=== PATIENT | male | born 1960 | race Two or more races ===

== ENCOUNTER 2024-02-01 11:24 | Emergency (ER) | payer SELFPAY ==
[~2024-02-01] VITALS: Ht 167.6 cm; Wt 90.9 kg
[2024-02-01 11:44] LABS: Basophils # (auto) 0.2 10 ^3/uL (0-0.2); Basophils % (auto) 2.7 % (0.0-2.0); Eosinophils # (auto) 0.4 10 ^3/uL (0-0.8); Hematocrit 35.5 % (41.0-53.0); Hemoglobin 12.3 g/dL (13.5-17.5); Lymphocytes # (auto) 1.8 10 ^3/uL (0.4-5.4); Lymphocytes % (auto) 24.4 % (10.0-50.0); Mean Corpuscular Hgb Conc. 34.7 g/dL (32.0-36.0); Monocytes # (auto) 0.5 10 ^3/uL (0-1.3); Monocytes % (auto) 7.1 % (0.0-12.0); Neutrophils # (auto) 4.6 10 ^3/uL (1.6-8.6); Neutrophils % (auto) 60.8 % (37.0-80.0); Nucleated Red Blood Cells % 0.1 %; Red Blood Cells 3.63 10^6/uL (4.5-5.90); Red Cell Distribution Width 16.7 % (11.8-14.3); White Blood Cell 7.5 10^3/uL (4.4-10.8)
[2024-02-01 12:07] LABS: Chloride 106 mmol/L (98-107); Potassium 3.7 mmol/L (3.5-5.1); Sodium 142 mmol/L (136-145)
[2024-02-01] MEDS: SODIUM CHLORIDE 0.9% 1,000 ML IV ONE (12:07)
[2024-02-01 12:08] LABS: Anion Gap 7 (5-15); Carbon Dioxide 29 mmol/L (20-30)
[2024-02-01 12:09] LABS: Calcium 8.8 mg/dL (8.5-10.1)
[2024-02-01] MEDS: SODIUM CHLORIDE 0.9% 2,000 ML IV ONE (12:09)
[2024-02-01] MEDS: LORazepam 2MG/ML-1ML VIAL IV ONE (12:10)
[2024-02-01 12:13] LABS: BUN/Creatinine Ratio 9.8 (10.0-20.0); Blood Urea Nitrogen 8 mg/dL (9-23); Glucose 98 mg/dL (74-106)
[2024-02-01 12:23] LABS: Blood Alcohol 358.1 mg/dL (<10)
[2024-02-01 12:27] LABS: Urine Bacteria FEW /hpf (None Seen); Urine Blood Negative /uL (Negative); Urine Clarity Clear (Clear); Urine Protein, UAD Negative (Negative); Urine Specific Gravity 1.004 (1.001-1.035); Urine Urobilinogen Normal (Negative); Urine WBC <1 /hpf (0 - 3); Urine pH 6.5 (5.0-9.0)
[2024-02-01 12:38] LABS: Urine Color Light Yellow (Yellow)
[2024-02-01 13:44] VITALS: BP 135/84; PULSE 86; RESP 16; O2SAT 94
== END 2024-02-01 15:23 | disposition home or self-care (01) ==
LOC: EDBD 11:24 → ER 11:24
DX: F10.129 Alcohol abuse with intoxication, unspecified (principal); Y90.0 Blood alcohol level of less than 20 mg/100 ml
CPT/HCPCS: 36415; 80048; 80320; 81001; 85025; 93005; 96361; 96374; 99284; J2060; J7030

== ENCOUNTER 2024-02-11 09:16 | Inpatient (IN) | payer MEDICAID ==
[~2024-02-11] VITALS: Ht 165.1 cm; Wt 88.1 kg
[2024-02-11 09:20] VITALS: PULSE 109; RESP 32; O2SAT 90
[2024-02-11] MEDS: LORazepam 2MG/ML-1ML VIAL IV ONE (09:45)
[2024-02-11] MEDS: THIAMINE 100mg/ml INJ (200mg/2ml VIAL) IV ONE (09:45)
[2024-02-11] MEDS: SODIUM CHLORIDE 0.9% 1,000 ML IVB ONE (09:46)
[2024-02-11] MEDS: ACETAMINOPHEN 500 MG TAB PO ONE (09:46)
[2024-02-11 09:51] LABS: Basophils # (auto) 0.1 10 ^3/uL (0-0.2); Eosinophils # (auto) 0 10 ^3/uL (0-0.8); Eosinophils % (auto) 0.2 % (0.0-7.0); Hemoglobin 13.4 g/dL (13.5-17.5); Lymphocytes # (auto) 0.7 10 ^3/uL (0.4-5.4); White Blood Cell 10.1 10^3/uL (4.4-10.8)
[2024-02-11 09:52] LABS: Basophils % (auto) 0.7 % (0.0-2.0); Hematocrit 38.7 % (41.0-53.0); Lymphocytes % (auto) 7.1 % (10.0-50.0); Mean Corpuscular Hemoglobin 34.4 pg (28.0-32.0); Mean Corpuscular Hgb Conc. 34.6 g/dL (32.0-36.0); Mean Corpuscular Volume 99.2 fL (80.0-100.0); Monocytes # (auto) 1.4 10 ^3/uL (0-1.3); Monocytes % (auto) 13.5 % (0.0-12.0); Neutrophils # (auto) 7.9 10 ^3/uL (1.6-8.6); Neutrophils % (auto) 78.5 % (37.0-80.0); Red Cell Distribution Width 17.4 % (11.8-14.3)
[2024-02-11 10:10] LABS: Alanine Aminotransferase 17 U/L (7-40); Albumin 4.1 g/dL (3.2-4.8); Alkaline Phosphatase 159 U/L (46-116); Anion Gap 13 (5-15); Aspartate Aminotransferase 32 U/L (13-40); BUN/Creatinine Ratio 10.3 (10.0-20.0); Blood Alcohol 196.6 mg/dL (<10); Blood Urea Nitrogen 8 mg/dL (9-23); Calcium 8.7 mg/dL (8.5-10.1); Carbon Dioxide 22 mmol/L (20-30); Chloride 103 mmol/L (98-107); Glucose 122 mg/dL (74-106); Potassium 3.1 mmol/L (3.5-5.1); Sodium 138 mmol/L (136-145)
[2024-02-11 10:11] LABS: Bilirubin, Total 1.4 mg/dL (0.2-1.0); Total Protein 7.3 g/dL (5.7-8.2)
[2024-02-11] MEDS: SODIUM CHLORIDE 0.9% 1,000 ML IV ONE (10:50)
[2024-02-11 10:53] LABS: Lactic Acid w/Reflex 2.7 mmol/L (0.4-2.0)
[2024-02-11 11:32] LABS: Urine Bacteria FEW /hpf (None Seen); Urine Blood 2+ /uL (Negative); Urine Clarity Turbid (Clear); Urine Color Yellow (Yellow); Urine Mucus FEW (None Seen); Urine Protein, UAD 2+ (Negative); Urine Specific Gravity 1.018 (1.001-1.035); Urine Urobilinogen 2 mg/dL (Negative); Urine WBC 777 /hpf (0 - 3); Urine WBC Clumps PRESENT /hpf (None Seen)
[2024-02-11 11:46] LABS: Amphetamine Screen, Urine Neg (NEGATIVE)
[2024-02-11 11:47] LABS: Barbiturate Scree,Urine Neg (NEGATIVE); Benzodiazephine Screen, Urine Pos (NEGATIVE); Cannabinoid Screen, Urine Neg (NEGATIVE); Cocaine Screen, Urine Neg (NEGATIVE); Opiate Scree,Urine Neg (NEGATIVE); Phencyclidine Screen, Urine Neg (NEGATIVE)
[2024-02-11] MEDS ORDERED: NITROGLYCERIN 0.4 MG SL TAB SL PRN (13:30)
[2024-02-11] MEDS ORDERED: DOCUSATE SOD 100 MG CAP PO PRN (13:30)
[2024-02-11] MEDS ORDERED: MORPHINE SULFATE INJ 2 MG/ml SYRG IV PRN (13:30)
[2024-02-11] MEDS: cefTRIAXone 1GM/50ML D5W 50 ML IV ONE (13:42)
[2024-02-11] MEDS: chlordiazePOXIDE HCL 25 MG CAP PO SCH (13:44)
[2024-02-11] MEDS: LORazepam 2MG/ML-1ML VIAL IV PRN ×2 (15:05→22:34)
[2024-02-11] MEDS: ONDANSETRON HCL 4 MG/2 ML VIAL IV PRN (15:06)
[2024-02-11] MEDS: LORazepam 2MG/ML-1ML VIAL IV SCH (15:28)
[2024-02-11 20:00] VITALS: PULSE 105; RESP 21; O2SAT 93
[2024-02-11] MEDS: FOLIC ACID 1 MG, MULTIPLE VITAMIN 10 ML, MAGNESIUM SULF SDV 50% 8 MEQ, THIAMINE INJ 100... INJ SCH (20:44)
[2024-02-11] MEDS: MAGNESIUM SULFATE 1GM/100ML 100 ML IV SCH (21:06)
[2024-02-12 03:03] VITALS: O2SAT 93
[2024-02-12 05:07] LABS: Basophils # (auto) 0.1 10 ^3/uL (0-0.2); Basophils % (auto) 0.6 % (0.0-2.0); Eosinophils # (auto) 0.1 10 ^3/uL (0-0.8); Hemoglobin 12.2 g/dL (13.5-17.5); Monocytes # (auto) 1.2 10 ^3/uL (0-1.3)
[2024-02-12 05:08] LABS: Eosinophils % (auto) 0.7 % (0.0-7.0); Hematocrit 34.7 % (41.0-53.0); Lymphocytes # (auto) 0.7 10 ^3/uL (0.4-5.4); Lymphocytes % (auto) 6.3 % (10.0-50.0); Mean Corpuscular Hemoglobin 35.1 pg (28.0-32.0); Mean Corpuscular Hgb Conc. 35.1 g/dL (32.0-36.0); Mean Corpuscular Volume 100.1 fL (80.0-100.0); Monocytes % (auto) 10.6 % (0.0-12.0); Neutrophils % (auto) 81.8 % (37.0-80.0); Red Blood Cells 3.46 10^6/uL (4.5-5.90); Red Cell Distribution Width 17.7 % (11.8-14.3)
[2024-02-12 05:20] LABS: Alanine Aminotransferase 15 U/L (7-40); Alkaline Phosphatase 128 U/L (46-116); Anion Gap 5 (5-15); Aspartate Aminotransferase 40 U/L (13-40); BUN/Creatinine Ratio 15.9 (10.0-20.0); Blood Urea Nitrogen 13 mg/dL (9-23); Calcium 8.1 mg/dL (8.5-10.1); Carbon Dioxide 27 mmol/L (20-30); Chloride 102 mmol/L (98-107); Glucose 144 mg/dL (74-106); Magnesium 2.1 mg/dL (1.6-2.6); Sodium 134 mmol/L (136-145)
[2024-02-12 05:21] LABS: Albumin 3.5 g/dL (3.2-4.8); Bilirubin, Total 1.7 mg/dL (0.2-1.0); Total Protein 6.1 g/dL (5.7-8.2)
[2024-02-12 08:00] VITALS: PULSE 90; RESP 29; O2SAT 97
[2024-02-12] MEDS: cefTRIAXone 1GM/50ML D5W 50 ML IV SCH (09:00)
[2024-02-12] MEDS: chlordiazePOXIDE HCL 25 MG CAP PO SCH (10:04)
[2024-02-12] MEDS: ACETAMINOPHEN 325 MG TAB PO PRN (13:46)
[2024-02-12 18:58] VITALS: BP 150/84; PULSE 95; RESP 20; TEMP 100.2; O2SAT 95
[2024-02-12 20:30] VITALS: PULSE 93; PULSE 95; RESP 22; O2SAT 95
[2024-02-12] MEDS: HYDROcodone-ACET 5/325MG TAB PO PRN (20:39)
[2024-02-12 21:00] VITALS: BP 146/86; PULSE 95; RESP 22; O2SAT 95
[2024-02-13] VITALS (8 sets, daily range): BP systolic 105–145; BP diastolic 60–80; PULSE 78–93; RESP 17–22; TEMP 98.4–101.1; O2SAT 90–96
[2024-02-13 06:18] LABS: Basophils # (auto) 0 10 ^3/uL (0-0.2); Eosinophils # (auto) 0.2 10 ^3/uL (0-0.8); Hemoglobin 12.4 g/dL (13.5-17.5); Mean Corpuscular Hgb Conc. 35.4 g/dL (32.0-36.0); White Blood Cell 8.5 10^3/uL (4.4-10.8)
[2024-02-13 06:20] LABS: Basophils % (auto) 0.4 % (0.0-2.0); Lymphocytes # (auto) 0.7 10 ^3/uL (0.4-5.4); Mean Corpuscular Hemoglobin 35.5 pg (28.0-32.0); Mean Corpuscular Volume 100.1 fL (80.0-100.0); Monocytes % (auto) 11.6 % (0.0-12.0); Neutrophils # (auto) 6.6 10 ^3/uL (1.6-8.6); Red Blood Cells 3.49 10^6/uL (4.5-5.90); Red Cell Distribution Width 17.2 % (11.8-14.3)
[2024-02-13 06:29] LABS: Chloride 100 mmol/L (98-107); Potassium 3.8 mmol/L (3.5-5.1); Sodium 132 mmol/L (136-145)
[2024-02-13 06:30] LABS: Anion Gap 4 (5-15); Calcium 8.6 mg/dL (8.7-10.4); Carbon Dioxide 28 mmol/L (20-30)
[2024-02-13 06:35] LABS: BUN/Creatinine Ratio 14.8 (10.0-20.0); Blood Urea Nitrogen 13 mg/dL (9-23); Glucose 92 mg/dL (74-106)
[2024-02-13] MEDS: chlordiazePOXIDE HCL 25 MG CAP PO SCH (08:53)
[2024-02-14 01:00] VITALS: BP 117/80; PULSE 73; RESP 18; TEMP 98.5; O2SAT 94
[2024-02-14 05:00] VITALS: BP 126/80; PULSE 81; RESP 17; TEMP 98.8; O2SAT 95
[2024-02-14 05:59] LABS: Basophils # (auto) 0 10 ^3/uL (0-0.2); Eosinophils # (auto) 0.2 10 ^3/uL (0-0.8); Lymphocytes # (auto) 0.7 10 ^3/uL (0.4-5.4); Mean Corpuscular Hemoglobin 35.5 pg (28.0-32.0); Monocytes # (auto) 1.1 10 ^3/uL (0-1.3); Neutrophils # (auto) 5.3 10 ^3/uL (1.6-8.6); Nucleated Red Blood Cells % 0.1 %; White Blood Cell 7.4 10^3/uL (4.4-10.8)
[2024-02-14 06:02] LABS: Basophils % (auto) 0.4 % (0.0-2.0); Eosinophils % (auto) 2.7 % (0.0-7.0); Hematocrit 35.1 % (41.0-53.0); Hemoglobin 12.4 g/dL (13.5-17.5); Lymphocytes % (auto) 9.8 % (10.0-50.0); Mean Corpuscular Hgb Conc. 35.4 g/dL (32.0-36.0); Mean Corpuscular Volume 100.2 fL (80.0-100.0); Monocytes % (auto) 15.2 % (0.0-12.0); Neutrophils % (auto) 71.9 % (37.0-80.0); Red Cell Distribution Width 17.2 % (11.8-14.3)
[2024-02-14 06:15] LABS: Anion Gap 6 (5-15); Calcium 8.8 mg/dL (8.5-10.1); Carbon Dioxide 25 mmol/L (20-30); Chloride 103 mmol/L (98-107); Potassium 3.8 mmol/L (3.5-5.1); Sodium 134 mmol/L (136-145)
[2024-02-14 06:21] LABS: BUN/Creatinine Ratio 17.9 (10.0-20.0); Blood Urea Nitrogen 15 mg/dL (9-23); Glucose 95 mg/dL (74-106)
[2024-02-14] MEDS: chlordiazePOXIDE HCL 25 MG CAP PO SCH (06:22)
[2024-02-14 08:00] VITALS: PULSE 75; PULSE 95; RESP 20; O2SAT 94
[2024-02-14 09:00] VITALS: BP 166/90; PULSE 76; RESP 18; TEMP 98.1; O2SAT 97
[2024-02-14 13:00] VITALS: BP 128/84; PULSE 78; RESP 16; TEMP 98.1; O2SAT 96
== END 2024-02-14 16:18 | disposition home or self-care (01) | DRG 720 ==
LOC: ER 09:16 → EDBD 09:16 → TELE 13:27 → TELE-CENTR 02-12 18:30
PROVIDERS: ADMIT Internal Medicine Pulmonary Disease; ATTEND Internal Medicine Pulmonary Disease
DX: A41.9 Sepsis, unspecified organism (principal); G92.8 Other toxic encephalopathy; T51.91XA Toxic effect of unspecified alcohol, accidental (unintentional), initial encounter; N39.0 Urinary tract infection, site not specified; Y90.9 Presence of alcohol in blood, level not specified; F10.139 Alcohol abuse with withdrawal, unspecified; Z59.00 Homelessness unspecified
CPT/HCPCS: 36415; 71045; 76705; 80048; 80053; 80307; 80320; 81001; 83605; 83690; 83735; 84484; 85025; 87040; 87081; 87086; 93005; G0378; J2405

== ENCOUNTER 2024-05-06 07:02 | Inpatient (IN) | payer MEDICAID ==
[~2024-05-06] VITALS: Ht 172.7 cm; Wt 80.4 kg
[2024-05-06] MEDS: chlordiazePOXIDE HCL 25 MG CAP PO ONE (08:08)
[2024-05-06 08:31] LABS: Basophils % (auto) 0.3 % (0.0-2.0); Eosinophils # (auto) 0 10 ^3/uL (0-0.8); Hemoglobin 14.9 g/dL (13.5-17.5); Monocytes # (auto) 1.4 10 ^3/uL (0-1.3); Neutrophils % (auto) 85.7 % (37.0-80.0); Nucleated Red Blood Cells % 0.1 %; Red Cell Distribution Width 19.9 % (11.8-14.3)
[2024-05-06 08:37] LABS: Basophils # (auto) 0 10 ^3/uL (0-0.2); Hematocrit 42.6 % (41.0-53.0); Lymphocytes # (auto) 0.7 10 ^3/uL (0.4-5.4); Lymphocytes % (auto) 4.8 % (10.0-50.0); Mean Corpuscular Hemoglobin 39.7 pg (28.0-32.0); Mean Corpuscular Hgb Conc. 34.9 g/dL (32.0-36.0); Mean Corpuscular Volume 113.9 fL (80.0-100.0); Monocytes % (auto) 9.2 % (0.0-12.0); Neutrophils # (auto) 12.6 10 ^3/uL (1.6-8.6); Platelet Count (auto) 106 10^3/uL (140-450); Red Blood Cells 3.74 10^6/uL (4.5-5.90); White Blood Cell 14.7 10^3/uL (4.4-10.8)
[2024-05-06 08:51] LABS: Alanine Aminotransferase 37 U/L (7-40); Albumin 4.7 g/dL (3.2-4.8); Alkaline Phosphatase 139 U/L (46-116); Anion Gap 19 (5-15); Aspartate Aminotransferase 123 U/L (13-40); BUN/Creatinine Ratio 13.5 (10.0-20.0); Blood Alcohol 52.3 mg/dL (<10); Blood Urea Nitrogen 19 mg/dL (9-23); Calcium 9.6 mg/dL (8.7-10.4); Carbon Dioxide 18 mmol/L (20-30); Chloride 98 mmol/L (98-107); Glucose 125 mg/dL (74-106); Potassium 3.3 mmol/L (3.5-5.1); Sodium 135 mmol/L (136-145)
[2024-05-06 08:52] LABS: Bilirubin, Total 2.9 mg/dL (0.2-1.0); Total Protein 8.5 g/dL (5.7-8.2)
[2024-05-06 09:03] LABS: Macrocytosis Slight; Platelet Estimate Decreased
[2024-05-06] MEDS: POTASSIUM EFFERVESENT TAB 25 MEQ PO ONE ×2 (10:57→17:46)
[2024-05-06] MEDS: LORazepam 2MG/ML-1ML VIAL IV ONE ×2 (11:01→15:16)
[2024-05-06] MEDS: SODIUM CHLORIDE 0.9% 1,000 ML IV ONE ×2 (11:03→13:03)
[2024-05-06] MEDS ORDERED: LORazepam 2MG/ML-1ML VIAL IV SCH ×2 (15:15)
[2024-05-06] MEDS ORDERED: HYDROmorphone HCL 2 MG/ML VL/or syr IV PRN (15:15)
[2024-05-06] MEDS: LACTATED RINGER'S 1,000 ML IV ONE ×2 (15:15→21:00)
[2024-05-06] MEDS ORDERED: DOCUSATE SOD 100 MG CAP PO PRN (15:15)
[2024-05-06] MEDS ORDERED: FLUMAZENIL 0.1 MG/ML INJ 10ML MDV IV PRN (15:30)
[2024-05-06] MEDS: PHENobarbital SODIUM INJ 260 MG in SODIUM CHL 0.9% 100 ML IV ONE (15:31)
[2024-05-06 16:16] LABS: Urine Bacteria FEW /hpf (None Seen); Urine Blood 2+ /uL (Negative); Urine Budding Yeast OCCASIONAL /hpf (None Seen); Urine Mucus FEW (None Seen); Urine Protein, UAD 3+ (Negative); Urine Specific Gravity 1.027 (1.001-1.035); Urine Urobilinogen 2 mg/dL (Negative); Urine WBC 11 /hpf (0 - 3)
[2024-05-06 16:18] LABS: Urine Clarity Hazy (Clear); Urine Color YELLOW (Yellow)
[2024-05-06 17:20] VITALS: PULSE 112; RESP 30; O2SAT 95
[2024-05-06] MEDS: LACTATED RINGER'S 2,000 ML IV ONE (17:36)
[2024-05-06 18:45] LABS: Chloride 100 mmol/L (98-107); Potassium 3.8 mmol/L (3.5-5.1); Sodium 133 mmol/L (136-145)
[2024-05-06 18:46] LABS: Anion Gap 10 (5-15); Calcium 8.4 mg/dL (8.7-10.4); Carbon Dioxide 23 mmol/L (20-30)
[2024-05-06 18:51] LABS: BUN/Creatinine Ratio 12.2 (10.0-20.0); Blood Urea Nitrogen 19 mg/dL (9-23); Glucose 118 mg/dL (74-106); Magnesium 1.2 mg/dL (1.6-2.6)
[2024-05-06 19:04] LABS: Lactic Acid w/Reflex 2.9 mmol/L (0.4-2.0)
[2024-05-06 19:50] VITALS: PULSE 97; RESP 24; O2SAT 94
[2024-05-06] MEDS: MAGNESIUM SULFATE 1GM/100ML 100 ML IV SCH (21:13)
[2024-05-06] MEDS: SODIUM CHLOR 0.9% PF (SALINE LOCK) 10ML VIAL/SYR IV SCH (22:05)
[2024-05-07] VITALS (11 sets, daily range): BP systolic 125–151; BP diastolic 83–90; PULSE 88–110; RESP 17–20; TEMP 97.7–99.7; O2SAT 91–97
[2024-05-07 05:27] LABS: Basophils # (auto) 0 10 ^3/uL (0-0.2); Eosinophils # (auto) 0 10 ^3/uL (0-0.8); Lymphocytes # (auto) 0.6 10 ^3/uL (0.4-5.4); Mean Corpuscular Hgb Conc. 36.3 g/dL (32.0-36.0); Monocytes # (auto) 0.5 10 ^3/uL (0-1.3)
[2024-05-07 05:34] LABS: Basophils % (auto) 0.6 % (0.0-2.0); Eosinophils % (auto) 0.6 % (0.0-7.0); Hematocrit 30.5 % (41.0-53.0); Hemoglobin 11.1 g/dL (13.5-17.5); Lymphocytes % (auto) 8.6 % (10.0-50.0); Mean Corpuscular Hemoglobin 40.5 pg (28.0-32.0); Mean Corpuscular Volume 111.5 fL (80.0-100.0); Monocytes % (auto) 6.6 % (0.0-12.0); Neutrophils # (auto) 5.9 10 ^3/uL (1.6-8.6); Neutrophils % (auto) 83.6 % (37.0-80.0); Red Blood Cells 2.74 10^6/uL (4.5-5.90); Red Cell Distribution Width 18.9 % (11.8-14.3)
[2024-05-07 05:44] LABS: Alanine Aminotransferase 21 U/L (7-40); Alkaline Phosphatase 96 U/L (46-116); Anion Gap 8 (5-15); BUN/Creatinine Ratio 22.4 (10.0-20.0); Blood Urea Nitrogen 22 mg/dL (9-23); Calcium 8.5 mg/dL (8.7-10.4); Carbon Dioxide 25 mmol/L (20-30); Chloride 100 mmol/L (98-107); Glucose 117 mg/dL (74-106); Magnesium 1.8 mg/dL (1.6-2.6); Potassium 3.5 mmol/L (3.5-5.1); Sodium 133 mmol/L (136-145)
[2024-05-07 05:46] LABS: Albumin 3.5 g/dL (3.2-4.8); Aspartate Aminotransferase 79 U/L (13-40); Bilirubin, Total 2.6 mg/dL (0.2-1.0); Total Protein 6.2 g/dL (5.7-8.2)
[2024-05-07 07:05] LABS: Macrocytosis Moderate; Platelet Count (auto) 123 10^3/uL (140-450); Platelet Estimate Decreased; Stomatocytes Many
[2024-05-07 09:52] LABS: Triglycerides 85 mg/dL (< 150)
[2024-05-07 09:53] LABS: LDL Cholesterol 52 mg/dL (< 100)
[2024-05-07 09:54] LABS: Cholesterol 125 mg/dL (< 200); HDL Cholesterol 51 mg/dL (40-59)
[2024-05-07] MEDS ORDERED: PANTOPRAZOLE 40 MG/10 ML VIAL INJ IV SCH (10:00)
[2024-05-07] MEDS: ENOXAPARIN SOD 40 MG/0.4 ML SYRINGE SC SCH (10:21)
[2024-05-07] MEDS: ONDANSETRON HCL 4 MG/2 ML VIAL IV PRN (10:21)
[2024-05-07] MEDS: POTASSIUM CHL 20 Meq TABLET PO ONE (10:22)
[2024-05-07] MEDS: FOLIC ACID 1 MG TAB PO SCH (10:22)
[2024-05-07] MEDS: MAGNESIUM SULFATE 1GM/100ML 100 ML IV ONE (10:22)
[2024-05-07] MEDS: HYDROcodone-ACET 5/325MG TAB PO PRN (10:23)
[2024-05-07] MEDS: THIAMINE HCL 100 MG TAB PO SCH (10:23)
[2024-05-07 10:32] LABS: Amphetamine Screen, Urine Pos (NEGATIVE); Barbiturate Scree,Urine Neg (NEGATIVE); Benzodiazephine Screen, Urine Pos (NEGATIVE); Cocaine Screen, Urine Neg (NEGATIVE)
[2024-05-07 10:33] LABS: Cannabinoid Screen, Urine Neg (NEGATIVE); Opiate Scree,Urine Neg (NEGATIVE); Phencyclidine Screen, Urine Neg (NEGATIVE)
[2024-05-07] MEDS ORDERED: SODIUM CHLORIDE 0.9% 1,000 ML IV ONE (12:30)
[2024-05-07] MEDS ORDERED: chlordiazePOXIDE HCL 5 MG CAP PO PRN (14:45)
[2024-05-07] MEDS: chlordiazePOXIDE HCL 25 MG CAP PO SCH (18:39)
[2024-05-08] VITALS (9 sets, daily range): BP systolic 144–162; BP diastolic 92–103; PULSE 84–108; RESP 16–20; TEMP 98.3–99.2; O2SAT 92–98
[2024-05-08] MEDS: cefTRIAXone 1GM/50ML D5W 50 ML IV SCH (08:06)
[2024-05-08 10:59] LABS: Eosinophils # (auto) 0.1 10 ^3/uL (0-0.8); Lymphocytes # (auto) 0.7 10 ^3/uL (0.4-5.4)
[2024-05-08 11:01] LABS: Basophils # (auto) 0.1 10 ^3/uL (0-0.2); Basophils % (auto) 0.9 % (0.0-2.0); Eosinophils % (auto) 2.1 % (0.0-7.0); Hematocrit 30.8 % (41.0-53.0); Hemoglobin 11.2 g/dL (13.5-17.5); Lymphocytes % (auto) 12.8 % (10.0-50.0); Mean Corpuscular Hemoglobin 40.8 pg (28.0-32.0); Mean Corpuscular Hgb Conc. 36.4 g/dL (32.0-36.0); Mean Corpuscular Volume 112.3 fL (80.0-100.0); Monocytes # (auto) 0.5 10 ^3/uL (0-1.3); Monocytes % (auto) 9.2 % (0.0-12.0); Neutrophils # (auto) 4.3 10 ^3/uL (1.6-8.6); Nucleated Red Blood Cells % 0.1 %; Platelet Count (auto) 111 10^3/uL (140-450); Red Blood Cells 2.74 10^6/uL (4.5-5.90); White Blood Cell 5.7 10^3/uL (4.4-10.8)
[2024-05-08] MEDS: ACETAMINOPHEN 325 MG TAB PO PRN (11:06)
[2024-05-08 11:30] LABS: Alanine Aminotransferase 19 U/L (7-40); Albumin 3.5 g/dL (3.2-4.8); Alkaline Phosphatase 100 U/L (46-116); Anion Gap 6 (5-15); Aspartate Aminotransferase 68 U/L (13-40); BUN/Creatinine Ratio 19.7 (10.0-20.0); Blood Urea Nitrogen 15 mg/dL (9-23); Calcium 8.7 mg/dL (8.7-10.4); Carbon Dioxide 28 mmol/L (20-30); Chloride 98 mmol/L (98-107); Glucose 137 mg/dL (74-106); Magnesium 1.4 mg/dL (1.6-2.6); Potassium 3.8 mmol/L (3.5-5.1); Sodium 132 mmol/L (136-145)
[2024-05-08 11:31] LABS: Bilirubin, Total 1.2 mg/dL (0.2-1.0); Phosphorus 1.6 mg/dL (2.4-5.1); Total Protein 6.2 g/dL (5.7-8.2)
[2024-05-08] MEDS: SODIUM PHOSPHATES 20 MEQ in SODIUM CHL 0.9% 100 ML IV ONE (14:09)
[2024-05-08] MEDS: MAGNESIUM SULFATE 1GM/100ML 100 ML IV SCH (14:10)
[2024-05-08] MEDS: PANTOPRAZOLE 40 MG TAB PO ONE (14:17)
[2024-05-08] MEDS: FOLIC ACID 1 MG, MULTIPLE VITAMIN 10 ML, MAGNESIUM SULF SDV 50% 8 MEQ, THIAMINE INJ 100... INJ SCH (18:39)
[2024-05-08] MEDS: LORazepam 2MG/ML-1ML VIAL IV PRN (21:24)
[2024-05-09 05:00] VITALS: BP 151/102; PULSE 90; RESP 20; TEMP 98.4; O2SAT 95
[2024-05-09] MEDS: PANTOPRAZOLE 40 MG TAB PO SCH (05:20)
[2024-05-09 06:15] LABS: Basophils # (auto) 0 10 ^3/uL (0-0.2); Eosinophils # (auto) 0.2 10 ^3/uL (0-0.8); Eosinophils % (auto) 3.2 % (0.0-7.0); Hematocrit 32.2 % (41.0-53.0); Hemoglobin 11.6 g/dL (13.5-17.5); Lymphocytes # (auto) 0.8 10 ^3/uL (0.4-5.4); Lymphocytes % (auto) 16.5 % (10.0-50.0); Mean Corpuscular Hemoglobin 40.4 pg (28.0-32.0); Mean Corpuscular Hgb Conc. 35.9 g/dL (32.0-36.0); Mean Corpuscular Volume 112.5 fL (80.0-100.0); Monocytes # (auto) 0.5 10 ^3/uL (0-1.3); Monocytes % (auto) 10.5 % (0.0-12.0); Neutrophils # (auto) 3.5 10 ^3/uL (1.6-8.6); Neutrophils % (auto) 68.8 % (37.0-80.0); Nucleated Red Blood Cells % 0.2 %; Platelet Count (auto) 148 10^3/uL (140-450); Red Blood Cells 2.86 10^6/uL (4.5-5.90); Red Cell Distribution Width 17.8 % (11.8-14.3); White Blood Cell 5.1 10^3/uL (4.4-10.8)
[2024-05-09 06:22] LABS: Alanine Aminotransferase 19 U/L (7-40); Alkaline Phosphatase 109 U/L (46-116); Anion Gap 11 (5-15); BUN/Creatinine Ratio 14.5 (10.0-20.0); Blood Urea Nitrogen 9 mg/dL (9-23); Calcium 9.1 mg/dL (8.7-10.4); Carbon Dioxide 24 mmol/L (20-30); Chloride 96 mmol/L (98-107); Glucose 135 mg/dL (74-106); Magnesium 1.7 mg/dL (1.6-2.6); Potassium 3.3 mmol/L (3.5-5.1); Sodium 131 mmol/L (136-145)
[2024-05-09 06:23] LABS: Albumin 3.7 g/dL (3.2-4.8)
[2024-05-09 06:24] LABS: Aspartate Aminotransferase 56 U/L (13-40); Bilirubin, Total 1.1 mg/dL (0.2-1.0); Phosphorus 2.5 mg/dL (2.4-5.1); Total Protein 6.6 g/dL (5.7-8.2)
[2024-05-09] MEDS: CYANOCOBALAMIN (B-12) 1000 MCG/1 ML VIAL IM ONE (06:45)
[2024-05-09] MEDS: POTASSIUM EFFERVESENT TAB 25 MEQ GT ONE (06:45)
[2024-05-09] MEDS: MAGNESIUM SULFATE 1GM/100ML 100 ML IV ONE ×2 (07:29→13:20)
[2024-05-09] MEDS: ERGOCALCIFEROL 50,000 UNIT(1.25MG) CAP PO SCH (07:31)
[2024-05-09 09:00] VITALS: BP 143/103; PULSE 90; RESP 16; TEMP 98.7; O2SAT 95
[2024-05-09 13:00] VITALS: BP 143/91; PULSE 99; RESP 16; TEMP 97.7; O2SAT 95
[2024-05-09] MEDS ORDERED: GABA-1250 PO (13:09)
[2024-05-09] MEDS ORDERED: PANT40T PO (13:09)
[2024-05-09] MEDS ORDERED: ERGO1CAP23 PO (13:09)
[2024-05-09] MEDS ORDERED: ACET-1882 PO (13:09)
[2024-05-09] MEDS ORDERED: MULT1TAB96 PO (13:09)
[2024-05-09] MEDS: GABAPENTIN 300 MG CAP PO SCH (13:18)
[2024-05-09] MEDS: POTASSIUM CHL 20MEQ/100ML 100 ML IV SCH (13:19)
[2024-05-09] MEDS ORDERED: chlordiazePOXIDE HCL 25 MG CAP PO SCH (14:00)
[2024-05-09 17:00] VITALS: BP 116/86; PULSE 99; RESP 17; TEMP 98.2; O2SAT 96
[2024-05-09] MEDS: FOLIC ACID 1 MG TAB PO ONE (17:28)
[2024-05-09] MEDS: MAGNESIUM OXIDE 400 MG TAB PO ONE (17:29)
[2024-05-09] MEDS: MULTIPLE VITAMINS W/ MINERALS TAB PO ONE (17:29)
[2024-05-09] MEDS: THIAMINE HCL 100 MG TAB PO ONE (17:29)
[2024-05-09 20:00] VITALS: PULSE 108; RESP 20; O2SAT 95
[2024-05-09 21:00] VITALS: BP 142/102; PULSE 108; RESP 20; TEMP 97.9; O2SAT 95
[2024-05-10 01:00] VITALS: BP 132/56; PULSE 116; RESP 18; TEMP 98; O2SAT 94
[2024-05-10 05:00] VITALS: BP 139/98; PULSE 102; RESP 20; TEMP 97.8; O2SAT 94
[2024-05-10 07:05] LABS: Hemoglobin 11.4 g/dL (13.5-17.5); Mean Corpuscular Hemoglobin 39.8 pg (28.0-32.0); Mean Corpuscular Hgb Conc. 35.5 g/dL (32.0-36.0); Mean Corpuscular Volume 111.9 fL (80.0-100.0); Platelet Count (auto) 220 10^3/uL (140-450); Red Blood Cells 2.86 10^6/uL (4.5-5.90); Red Cell Distribution Width 17.6 % (11.8-14.3); White Blood Cell 5.4 10^3/uL (4.4-10.8)
[2024-05-10 07:16] LABS: Basophils % (manual) 0 (0.0-2.0); Blast Cells 0; Metamyelocytes % 0; Myelocytes % 0; Promyelocytes % 0; Reactive Lymphocytes 0
[2024-05-10 07:34] LABS: Alanine Aminotransferase 18 U/L (7-40); Albumin 3.7 g/dL (3.2-4.8); Alkaline Phosphatase 112 U/L (46-116); Anion Gap 9 (5-15); Aspartate Aminotransferase 49 U/L (13-40); BUN/Creatinine Ratio 18.4 (10.0-20.0); Blood Urea Nitrogen 14 mg/dL (9-23); Calcium 9.4 mg/dL (8.7-10.4); Carbon Dioxide 26 mmol/L (20-30); Chloride 99 mmol/L (98-107); Glucose 132 mg/dL (74-106); Magnesium 1.7 mg/dL (1.6-2.6); Sodium 134 mmol/L (136-145)
[2024-05-10 07:35] LABS: Bilirubin, Total 0.6 mg/dL (0.2-1.0); Total Protein 6.6 g/dL (5.7-8.2)
[2024-05-10 08:01] LABS: Band Neutrophils % (manual) 3
[2024-05-10 08:02] LABS: Eosinophils % (manual) 9 (0-7); Lymphocytes % (manual) 24 (10.0-50.0); Monocytes % (manual) 18 (0-12); Platelet Estimate Adequate; Stomatocytes Few
[2024-05-10 08:45] VITALS: BP 125/85; PULSE 89; RESP 20; TEMP 97.7; O2SAT 94
[2024-05-10] MEDS: FOLIC ACID 1 MG TAB PO SCH (09:02)
[2024-05-10] MEDS: THIAMINE HCL 100 MG TAB PO SCH (09:02)
[2024-05-10] MEDS: MAGNESIUM OXIDE 400 MG TAB PO SCH (09:03)
[2024-05-10] MEDS: MULTIPLE VITAMINS W/ MINERALS TAB PO SCH (09:03)
[2024-05-10 12:45] VITALS: BP 130/80; PULSE 97; RESP 20; TEMP 97.8; O2SAT 94
[2024-05-10 17:00] VITALS: BP 142/90; PULSE 95; RESP 18; TEMP 99.2; O2SAT 97
== END 2024-05-10 18:28 | disposition home or self-care (01) | DRG 52 ==
LOC: EDBD 07:02 → ER 07:02 → TELE 15:17 → UNDOADMIN 15:17 → TELE-CENTR 19:08 → CENTRAL 05-10 08:53
PROVIDERS: ADMIT Internal Medicine Pulmonary Disease; ATTEND Surgery
DX: G92.8 Other toxic encephalopathy (principal); J96.01 Acute respiratory failure with hypoxia; N17.0 Acute kidney failure with tubular necrosis; E87.20 Acidosis, unspecified; F10.139 Alcohol abuse with withdrawal, unspecified; K76.0 Fatty (change of) liver, not elsewhere classified; T42.4X5A Adverse effect of benzodiazepines, initial encounter; K21.9 Gastro-esophageal reflux disease without esophagitis; F15.10 Other stimulant abuse, uncomplicated; N39.0 Urinary tract infection, site not specified; Z59.00 Homelessness unspecified; Z83.3 Family history of diabetes mellitus; Z82.49 Family history of ischemic heart disease and other diseases of the circulatory system; Z79.1 Long term (current) use of non-steroidal anti-inflammatories (NSAID); Y92.89 Other specified places as the place of occurrence of the external cause; Y90.2 Blood alcohol level of 40-59 mg/100 ml
CPT/HCPCS: 36415; 70450; 71045; 76700; 76881; 80048; 80053; 80061; 80307; 80320; 81001; 82140; 82306; 82607; 83036; 83605; 83735; 83930; 84100; 85007; 85025; 85027; 87040; 96365; 96366; 96367; 96375; 96376; 97110; 97116; 97163; 97530; G0378; J2405; J3480

== ENCOUNTER 2024-07-27 16:59 | Emergency (ER) | payer MEDICAID ==
[~2024-07-27] VITALS: Ht 167.6 cm; Wt 92.0 kg
[~2024-07-27 16:59] MED LIST: ACET-1882 PO; ERGO1CAP23 PO; GABA-1250 PO; MULT1TAB96 PO; PANT40T PO
--- NOTE | 2024-07-27 17:26 | ED.PDOC ---
History of Present Illness HPI Comments 63-year-old male with no stated PMHx or PSHx brought in by EMS presents with a chief complaint of alcohol withdrawal x 10 minutes. Patient states that his last drink was 1 hour ago. Drank 5 pints as he always does daily, according to patient. Patient reports that he has shakes and needs Librium. Patient is not shaking or showing signs of tremors upon assessment. Patient is homeless. No other symptoms or modifying factors present at this time. Time Seen by MD: 17:11 Primary Care Provider: NONE Reviewed Notes: Nurses Notes, Medications, Allergies Allergies: Coded Allergies: NO KNOWN ALLERGIES (Unverified , 02/01/24) Home Meds Active Scripts Multiple Vitamins W/ Iron (Multi Vitamin with Iron) 1 Tab Tab, 1 TAB PO DAILY for 30 Days, #30 TAB Prov:FAUSTO LUNDBERG [facility] 05/09/24 Pantoprazole Sodium Sesquihydr (Pantoprazole Sodium) 40 Mg Tab, 40 MG PO DAILY@0600 for 30 Days, #30 TAB Prov:FAUSTO LUNDBERG [facility] 05/09/24 Gabapentin (Gabapentin) 300 Mg Cap, 300 MG PO TID for 30 Days, #120 CAP Prov:FAUSTO LUNDBERG [facility] 05/09/24 Ergocalciferol (VITAMIN D 68411 UNIT) 50,000 [place], [address] UNIT PO Q7D for 30 Days, #10 CAP Prov:FAUSTO LUNDBERG [facility] 05/09/24 Acetaminophen (Acetaminophen) 325 Mg Tab, 650 MG PO Q6HP PRN for 10 Days, #80 TAB Prov:FAUSTO LUNDBERG [facility] 05/09/24 Information Source: Patient Mode of Arrival: EMS Severity: Moderate Timing: Minutes Duration: Since onset Prehospital treatment: Treatment (4mg PO Zofran ) Past Medical History PAST MEDICAL HISTORY: Denies Surgical History: Denies all surgeries Family History Family History: Reviewed,noncontributory to illness, Unknown Social History Smoker: Non-Smoker Alcohol: Heavy Drugs: Denies Drug Use Lives In: Homeless Constitutional: denies: chills, diaphoresis, fatigue, fever, malaise, sweats, weakness, others EENTM: denies: blurred vision, double vision, ear bleeding, ear discharge, ear drainage, ear pain, ear ringing, eye pain, eye redness, hearing loss, mouth pain, mouth swelling, nasal discharge, nose bleeding, nose congestion, nose p ain, photophobia, tearing, throat pain, throat swelling, voice changes, others Respiratory: denies: cough, hemoptysis, orthopnea, SOB at rest, shortness of breath, SOB with excertion, stridor, wheezing, others Cardiovascular: denies: chest pain, dizzy spells, diaphoresis, Dyspnea on exertion, edema, irregular heart beat, left arm pain, lightheadedness, palpitations, PND, syncope, others Gastrointestinal: denies: abdomen distended, abdominal pain, blood streaked bowels, constipated, diarrhea, dysphagia, difficulty swallowing, hematemesis, melena, nausea, poor appetite, poor fluid intake, rectal bleeding, rectal pain, vomiting, others Genitourinary: denies: burning, dysuria, flank pain, frequency, hematuria, incontinence, penile discharge, penile sore, pain, testicle pain, testicle swelling, urgency, others Neurological: denies: dizziness, fainting, headache, left sided numbness, left sided weakness, numbness, paresthesia, pre-existing deficit, right sided numbness, right sided weakness, seizure, speech problems, tingling, tremors, weakness, others Musculoskeletal: denies: back pain, gout, joint pain, joint swelling, muscle pain, muscle stiffness, neck pain, others Integumetry: denies: bruises, change in color, change in hair/nails, dryness, laceration, lesions, lumps, rash, wounds, others Allergic/Immunocompromised: denies: Difficulty Healing, Frequent Infections, Hives, Itching, others Hematologic/Lymphatic: denies: anemia, blood clots, easy bleeding, easy bruising, swollen glands, others Endocrine: denies: excessive hunger, excessive sweating, excessive thirst, excessive urination, flushing, intolerance to cold, intolerance to heat, unexplained weight gain, unexplained weight loss, others Psychiatric: denies: anxiety, bipolar disorder, depression, hopeless, panic disorder, schizophrenia, sleepless, suicidal, others All Other Systems: Reviewed and Negative Physical Exam General Appearance: No Apparent Distress, Other (Alcohol on the breath) HEENT: Normal ENT Inspection, Pharynx Normal, TMs Normal Neck: Full Range of Motion, Non-Tender, Normal, Normal Inspection Respiratory: Chest Non-Tender, Lungs Clear, No Accessory Muscle Use, No Respiratory Distress, Normal Breath Sounds Cardiovascular: No Edema, No JVD, No Murmur, No Gallop, Normal Peripheral Pulses, Regular Rate/Rhythm Breast Exam: Deferred Gastrointestinal: No Organomegaly, Non Tender, No Pulsatile Mass, Normal Bowel Sounds, Soft Genitalia: Deferred Pelvic: Deferred Rectal: Deferred Extremities: No calf tenderness, Normal capillary refill, Normal inspection, Normal range of motion, Non-tender, No pedal edema Musculoskeletal : Apperance: Normal Neurologic: Alert, electric plater II-XII nml as Tested, No Motor Deficits, Normal Affect, Normal Mood, No Sensory Deficits Cerebellar Function: Normal Reflexes: Normal Skin: Dry, Normal Color, Warm Lymphatic: No Adenopathy Was a procedure done? Was a procedure done?: No Differential Dx Considerations may include: Alcohol intoxication, generalized weakness, electrolyte imbalance X-Ray, Labs, Meds, VS Vital Signs Date Time Temp Pulse Resp B/P (MAP) Pulse Ox O2 Delivery O2 Flow Rate FiO2 07/27/24 17:49 98.1 89 17 153/102 (119) 96 98.1 07/27/24 17:49 89 17 07/27/24 17:05 98.2 87 18 126/92 (103) 98 Lab Test 07/27/24 18:25 Range/Units Plasma/Serum Blood Alcohol 384.8 H <10 mg/dL Current Medications Medications (Trade) Dose Ordered Sig/Shubham Route Start Time Stop Time Status Last Admin Chlordiazepoxide HCl (Librium Capsule) 25 mg ONCE ONCE PO 07/27/24 17:15 07/27/24 17:16 DC 07/27/24 17:59 The patient was given Librium 25 mg by mouth here in the emergency department's The patient's alcohol level is 384.8 An IV Hep-Lock was established The patient was given 1 L bolus of normal saline The patient was being observed here in the emergency department's for the alcohol intoxication At this time, the patient will be signed out to Dr. Smith Time of 1ST Reevaluation: 17:41 Reevaluation 1ST: Unchanged Patient Education/Counseling: Diagnosis, Treatment, Prognosis Family Education/Counseling: No Family Present Departure 1 Departure Time of Disposition: 19:24 Impression: Primary Impression: Alcohol intoxication Qualified Codes: F10.920 - Alcohol use, unspecified with intoxication, uncomplicated Disposition: 30 STILL A PATIENT Condition: Fair Critical Care Note Critical Care Time?: No Stability Stability form required: No Heart Score Heart Score: Heart Score Response (Comments) Value History N/A 0 EKG N/A 0 Age N/A 0 Risk Factors N/A 0 Troponin N/A 0 Total 0 I personally scribed for TODD ELLIOTT MD ([email or web address]) on 07/27/24 at 17:26. Electronically submitted by Rajiv Shankar ([email or web address]). TODD ELLIOTT MD Jul 27, 2024 17:26
[2024-07-27] MEDS: chlordiazePOXIDE HCL 25 MG CAP PO ONE (17:59)
[2024-07-27 20:45] VITALS: BP 131/87; PULSE 86; RESP 18; TEMP 97.9; O2SAT 98
[2024-07-27] MEDS: SODIUM CHLORIDE 0.9% 1,000 ML IVB ONE (21:16)
[2024-07-27] MEDS ORDERED: CHL10C PO (21:22)
== END 2024-07-27 22:16 | disposition still patient (30) ==
LOC: EDUNIT# 16:59 → EDBD 16:59 → ER 16:59
DX: F10.129 Alcohol abuse with intoxication, unspecified (principal); Z79.899 Other long term (current) drug therapy
CPT/HCPCS: 36415; 80320; 96360; 99283; J7030

== ENCOUNTER 2024-07-28 00:29 | Emergency (ER) | payer MEDICAID ==
[~2024-07-28] VITALS: Ht 167.6 cm; Wt 86.0 kg
[~2024-07-28 00:29] MED LIST changes: +CHL10C PO
--- NOTE | 2024-07-28 01:05 | ED.PDOC ---
History of Present Illness HPI Comments 63 y/o M, with a Hx of EtOH abuse and TBI, presents with c/o generalized tremors, today. Patient is a poor historian and endorses on tremors onset, this morning, after being seen discharged home for EtOH withdrawal, yesterday. Patient admits to consuming EtOH after being discharged, while outside the ED, awaiting for the public bus services to take him. Per [facility] medical record, patient was given 100mg Librium during his last ED visit. Patient denies having any chest pain, shortness of breath, dizziness, weakness, nausea, vomiting, or other associated symptoms or modifiers at this time. Chief Complaint: ETOH Time Seen by MD: 00:45 Primary Care Provider: NONE Reviewed Notes: Nurses Notes, Medications, Allergies Allergies: Coded Allergies: NO KNOWN ALLERGIES (Unverified , 02/01/24) Home Meds Active Scripts Chlordiazepoxide Hcl (Ni-1) (I (Librium) 10 Mg Cap, 10 MG PO BID for 5 Days, #10 CAP Prov:TODD ELLIOTT MD 07/27/24 Multiple Vitamins W/ Iron (Multi Vitamin with Iron) 1 Tab Tab, 1 TAB PO DAILY for 30 Days, #30 TAB Prov:FAUSTO LUNDBERG 05/09/24 Pantoprazole Sodium Sesquihydr (Pantoprazole Sodium) 40 Mg Tab, 40 MG PO DAILY@ 0600 for 30 Days, #30 TAB Prov:FAUSTO LUNDBERG 05/09/24 Gabapentin (Gabapentin) 300 Mg Cap, 300 MG PO TID for 30 Days, #120 CAP Prov:FAUSTO LUNDBERG 05/09/24 Ergocalciferol (VITAMIN D 54413 UNIT) 50,000 [place], [address] UNIT PO Q7D for 30 Days, #10 CAP Prov:FAUSTO LUNDBERG 05/09/24 Acetaminophen (Acetaminophen) 325 Mg Tab, 650 MG PO Q6HP PRN for 10 Days, #80 TAB Prov:FAUSOT LUNDBERG 05/09/24 Information Source: Patient Mode of Arrival: Ambulatory Severity: Moderate Timing: Hours Duration: Since onset Prehospital treatment: None Past Medical History PAST MEDICAL HISTORY: Denies Past Medical History (Other): TBI Surgical History: Denies all surgeries Family History Family History: Reviewed,noncontributory to illness, Unknown Social History Smoker: Non-Smoker Alcohol: Heavy Drugs: Denies Drug Use Lives In: Homeless Constitutional: denies: chills, diaphoresis, fatigue, fever, malaise, sweats, weakness, others EENTM: denies: blurred vision, double vision, ear bleeding, ear discharge, ear drainage, ear pain, ear ringing, eye pain, eye redness, hearing loss, mouth pain, mouth swelling, nasal discharge, nose bleeding, nose congestion, nose pain, photophobia, tearing, throat pain, throat swelling, voice changes, others Respiratory: denies: cough, hemoptysis, orthopnea, SOB at rest, shortness of breath, SOB with excertion, stridor, wheezing, others Cardiovascular: denies: chest pain, dizzy spells, diaphoresis, Dyspnea on exertion, edema, irregular heart beat, left arm pain, lightheadedness, palpitations, PND, syncope, others Gastrointestinal: denies: abdomen distended, abdominal pain, blood streaked bowels, constipated, diarrhea, dysphagia, difficulty swallowing, hematemesis, melena, nausea, poor appetite, poor fluid intake, rectal bleeding, rectal pain, vomiting, others Genitourinary: denies: burning, dysuria, flank pain, frequency, hematuria, incontinence, penile discharge, penile sore, pain, testicle pain, testicle swelling, urgency, others Neurological: reports: tremors; denies: dizziness, fainting, headache, left sided numbness, left sided weakness, numbness, paresthesia, pre-existing deficit, right sided numbness, right sided weakness, seizure, speech problems, tingling, weakness, others Musculoskeletal: denies: back pain, gout, joint pain, joint swelling, muscle pain, muscle stiffness, neck pain, others Integumetry: denies: bruises, change in color, change in hair/nails, dryness, laceration, lesions, lumps, rash, wounds, others Allergic/Immunocompromised: denies: Difficulty Healing, Frequent Infections, Hives, Itching, others Hematologic/Lymphatic: denies: anemia, blood clots, easy bleeding, easy bruising, swollen glands, others Endocrine: denies: excessive hunger, excessive sweating, excessive thirst, excessive urination, flushing, intolerance to cold, intolerance to heat, unexplained weight gain, unexplained weight loss, others Psychiatric: denies: anxiety, bipolar disorder, depression, hopeless, panic disorder, schizophrenia, sleepless, suicidal, others All Other Systems: Reviewed and Negative Physical Exam General Appearance: No Apparent Distress, Normal HEENT: Normal ENT Inspection, Pharynx Normal, TMs Normal Neck: Full Range of Motion, Non-Tender, Normal, Normal Inspection Respiratory: Chest Non-Tender, Lungs Clear, No Accessory Muscle Use, No Respiratory Distress, Normal Breath Sounds Cardiovascular: No Edema, No JVD, No Murmur, No Gallop, Normal Peripheral Pulses, Regular Rate/Rhythm Breast Exam: Deferred Gastrointestinal: No Organomegaly, Non Tender, No Pulsatile Mass, Normal Bowel Sounds, Soft Genitalia: Deferred Pelvic: Deferred Rectal: Deferred Extremities: No calf tenderness, Normal capillary refill, Normal inspection, N ormal range of motion, Non-tender, No pedal edema Musculoskeletal : Apperance: Normal Neurologic: Alert, retail director II-XII nml as Tested, No Motor Deficits, Normal Affect, Normal Mood, No Sensory Deficits Cerebellar Function: Normal Reflexes: Normal Skin: Dry, Normal Color, Warm Lymphatic: No Adenopathy Was a procedure done? Was a procedure done?: No Differential Dx Considerations may include: EtOH intoxication, substance abuse, delirium tremens X-Ray, Labs, Meds, VS Vital Signs Date Time Temp Pulse Resp B/P (MAP) Pulse Ox O2 Delivery O2 Flow Rate FiO2 07/28/24 00:39 98.9 110 20 123/80 (94) 94 X-Ray, Labs, Meds, VS Comment IMAGING: X-RAYS AND CT SCANS WERE REVIEWED AND INTERPRETED BY THIS PROVIDER, IMAGING SHOWS NO FRACTURES AND NO PATHOLOGICAL DISEASE. PENDING RADIOLOGY REVIEW. LABORATORY: LABS REVIEWED AND INTERPRETED BY THIS PROVIDER. NO SIGNIFICANT ABNORMALITIES NOTED. PATIENT HAS PRIOR MEDICAL VISITS REVIEWED. MED RECONCILIATION PERFORMED VITAL SIGNS REVIEWED Time of 1ST Reevaluation: 00:45 Reevaluation 1ST: Unchanged Patient Education/Counseling: Diagnosis, Treatment Family Education/Counseling: No Family Present Departure 1 Departure Time of Disposition: 02:01 Impression: Primary Impression: Alcohol intoxication Qualified Codes: F10.920 - Alcohol use, unspecified with intoxication, uncomplicated Disposition: 01 HOME / SELF CARE / HOMELESS Condition: Fair Discharged With: Self Critical Care Note Critical Care Time?: No Stability Stability form required: No Heart Score Heart Score: Heart Score Response (Comments) Value History N/A 0 EKG N/A 0 Age N/A 0 Risk Factors N/A 0 Troponin N/A 0 Total 0 I personally scribed for FRANTZ LILLY ([email or web address]) on 07/28/24 at 01:05. Electronically submitted by Goyo Bower ([email or web address]). FRANTZ LILLY Jul 28, 2024 01:05
[2024-07-28 02:15] VITALS: BP 123/80; PULSE 110; RESP 20; O2SAT 94
[2024-07-28] MEDS: ALPRAZolam 0.5 MG TAB PO ONE (03:26)
[2024-07-28] MEDS: ONDANSETRON ODT 4 MG TAB PO ONE (03:26)
== END 2024-07-28 03:35 | disposition home or self-care (01) ==
LOC: ER 00:29
DX: F10.129 Alcohol abuse with intoxication, unspecified (principal); R25.1 Tremor, unspecified; Z59.00 Homelessness unspecified; Y90.8 Blood alcohol level of 240 mg/100 ml or more

== ENCOUNTER 2024-07-28 07:31 | Inpatient (IN) | payer MEDICAID ==
[~2024-07-28] VITALS: Ht 167.6 cm; Wt 80.5 kg
[2024-07-28 08:29] VITALS: RESP 18; O2SAT 97
[2024-07-28] MEDS: LORazepam 2MG/ML-1ML VIAL IV ONE (08:59)
--- NOTE | 2024-07-28 08:59 | ED.PDOC ---
History of Present Illness HPI Comments 63 y.o male presents to the ED for a chief complaint of flank pain that started 2-3 days ago. Per medical staff, patient was triaged last night multiple times and seen by previous ED physician's but kept eloping. Patient has a history of ETOH abuse, last drink was yesterday, states he ran out of alcohol and is now here due to flank pain. Patient has about 5 pints of alcohol a day, presented with generalized body pain yesterday. No chest pain, SOB, nausea, vomiting, diarrhea, fever, or chills reported. Chief Complaint: Flank Pain Time Seen by MD: 08:40 Primary Care Provider: NONE Reviewed Notes: Nurses Notes, Medications, Allergies Allergies: Coded Allergies: NO KNOWN ALLERGIES (Unverified , 02/01/24) Home Meds Active Scripts Chlordiazepoxide Hcl (Ni-1) (I (Librium) 10 Mg Cap, 10 MG PO BID for 5 Days, #10 CAP Prov:TODD ELLIOTT MD 07/27/24 Multiple Vitamins W/ Iron (Multi Vitamin with Iron) 1 Tab Tab, 1 TAB PO DAILY for 30 Days, #30 TAB Prov:FAUSTO LUNDBERG 05/09/24 Pantoprazole Sodium Sesquihydr (Pantoprazole Sodium) 40 Mg Tab, 40 MG PO DAILY@0600 for 30 Days, #30 TAB Prov:FAUSTO LUNDBERG 05/09/24 Gabapentin (Gabapentin) 300 Mg Cap, 300 MG PO TID for 30 Days, #120 CAP Prov:FAUSTO LUNDBERG 05/09/24 Ergocalciferol (VITAMIN D 25529 UNIT) 50,000 [place], [address] UNIT PO Q7D for 30 Days, #10 CAP Prov:FAUSTO LUNDBERG 05/09/24 Acetaminophen (Acetaminophen) 325 Mg Tab, 650 MG PO Q6HP PRN for 10 Days, #80 TAB Prov:FAUSTO LUNDBERG 05/09/24 Information Source: Patient Mode of Arrival: walker Timing: Days Duration: Since onset Past Medical History Past Medical History (Other): ETOH abuse Surgical History: Denies all surgeries Family History Family History: Reviewed,noncontributory to illness, Unknown Social History Smoker: Non-Smoker Alcohol: Heavy Drugs: Denies Drug Use Lives In: Homeless Constitutional: denies: chills, diaphoresis, fatigue, fever, malaise, sweats, weakness, others EENTM: denies: blurred vision, double vision, ear bleeding, ear discharge, ear drainage, ear pain, ear ringing, eye pain, eye redness, hearing loss, mouth pain, mouth swelling, nasal discharge, nose bleeding, nose congestion, nose pain, photophobia, tearing, throat pain, throat swelling, voice changes, others Respiratory: denies: cough, hemoptysis, orthopnea, SOB at rest, shortness of breath, SOB with excertion, stridor, wheezing, others Cardiovascular: denies: chest pain, dizzy spells, diaphoresis, Dyspnea on exertion, edema, irregular heart beat, left arm pain, lightheadedness, palpitations, PND, syncope, others Gastrointestinal: denies: abdomen distended, abdominal pain, blood streaked bowels, constipated, diarrhea, dysphagia, difficulty swallowing, hematemesis, melena, nausea, poor appetite, poor fluid intake, rectal bleeding, rectal pain, vomiting, others Genitourinary: reports: flank pain; denies: burning, dysuria, frequency, hematuria, incontinence, penile discharge, penile sore, pain, testicle pain, testicle swelling, urgency, others Neurological: denies: dizziness, fainting, headache, left sided numbness, left sided weakness, numbness, paresthesia, pre-existing deficit, right sided numbness, right sided weakness, seizure, speech problems, tingling, tremors, weakness, others Musculoskeletal: denies: back pain, gout, joint pain, joint swelling, muscle pain, muscle stiffness, neck pain, others Integumetry: denies: bruises, change in color, change in hair/nails, dryness, laceration, lesions, lumps, rash, wounds, others Allergic/Immunocompromised: denies: Difficulty Healing, Frequent Infections, Hives, Itching, others Hematologic/Lymphatic: denies: anemia, blood clots, easy bleeding, easy bruising, swollen glands, others Endocrine: denies: excessive hunger, excessive sweating, excessive thirst, excessive urination, flushing, intolerance to cold, intolerance to heat, unexplained weight gain, unexplained weight loss, others Psychiatric: denies: anxiety, bipolar disorder, depression, hopeless, panic disorder, schizophrenia, sleepless, suicidal, others All Other Systems: Reviewed and Negative Physical Exam General Appearance: Other (mildy anxious ) HEENT: Normal ENT Inspection, Pharynx Normal, TMs Normal Neck: Full Range of Motion, Non-Tender, Normal, Normal Inspection Respiratory: Chest Non-Tender, Lungs Clear, No Accessory Muscle Use, No Resp iratory Distress, Normal Breath Sounds Cardiovascular: No Edema, No JVD, No Murmur, No Gallop, Normal Peripheral Pulses, Regular Rate/Rhythm Breast Exam: Deferred Gastrointestinal: No Organomegaly, Non Tender, No Pulsatile Mass, Normal Bowel Sounds, Soft Genitalia: Deferred Pelvic: Deferred Rectal: Deferred Extremities: Normal inspection, Normal range of motion, Other (No obvious tremors ) Musculoskeletal : Apperance: Normal Neurologic: Alert, shell mold bonder II-XII nml as Tested, No Motor Deficits, Normal Affect, Normal Mood, No Sensory Deficits Cerebellar Function: Normal Reflexes: Normal Skin: Dry, Normal Color, Warm Lymphatic: No Adenopathy Was a procedure done? Was a procedure done?: No Differential Dx Considerations may include: ETOH withdrawals, anxiety,dehydration, electrolyte imbalance, UTI, kidney infection, kidney stones X-Ray, Labs, Meds, VS Vital Signs Date Time Temp Pulse Resp B/P (MAP) Pulse Ox O2 Delivery O2 Flow Rate FiO2 07/28/24 10:31 98.2 112 18 15/99 (71) 99 98.2 07/28/24 09:11 18 18 96 Room Air* 0 21 07/28/24 08:06 99.2 115 18 138/97 (111) 96 Current Medications Medications (Trade) Dose Ordered Sig/Shubham Route Start Time Stop Time Status Last Admin Lorazepam (Ativan Inj) 1 mg ONCE ONCE IV 07/28/24 08:45 07/28/24 08:46 DC 07/28/24 08:59 Chlordiazepoxide HCl (Librium Capsule) 25 mg Q4HP ONCE PO 07/28/24 10:00 07/28/24 10:01 DC 07/28/24 09:33 Time of 1ST Reevaluation: 08:53 Reevaluation 1ST: Unchanged Time of 2ND Reevaluation: 10:39 Reevaluation 2ND: Unchanged Patient Education/Counseling: Diagnosis, Treatment, Prognosis Family Education/Counseling: No Family Present Additional Information External Notes- Ordered Test-none Reviewed Results-bibe Independent Hx-none Discuss Tx/Results-medical personnel, consultants pt is homeless and was seen last night for same. however he has not been able to leave to get his librium. he is feeling more symptoms of withdrawal. he has been without a drink in about 24 hours. pt is at risk for DT. he has no resources. i will have him admitted for alcohol withdrawal, DT prevention Departure 1 Departure Time of Disposition: 10:41 Impression: Primary Impression: Alcohol withdrawal Qualified Codes: F10.939 - Alcohol use, unspecified with withdrawal, unspecified Additional Impression: Tachycardia Disposition: 09 ADMITTED INPATIENT Admit to: Tele Condition: Guarded Critical Care Note Critical Care Time?: Yes (55 min-critical care time only) Critical care comment: due to concerns for sudden deterioration of pt's condition, the patient's care required my most attentive level and highest readiness to intervene. i assessed him, ordered the appropriate orders, formulated a care plan, communicated with medical personnel and consultants. total time include at least 50% face-face interaction and does not include any procedures Stability Stability form required: No I personally scribed for DANIELLE WALKER MD ([email or web address]) on 07/28/24 at 08:59. Electronically submitted by Ritika Clark ([facility]). DANIELLE WALKER MD Jul 28, 2024 08:59
[2024-07-28 09:11] VITALS: PULSE 18; RESP 18; O2SAT 96
[2024-07-28] MEDS: chlordiazePOXIDE HCL 25 MG CAP PO ONE (09:33)
[2024-07-28] MEDS ORDERED: LORazepam 2MG/ML-1ML VIAL IV PRN (11:45)
[2024-07-28] MEDS ORDERED: DOCUSATE SOD 100 MG CAP PO PRN (11:45)
[2024-07-28] MEDS ORDERED: MORPHINE SULFATE INJ 2 MG/ml SYRG IV PRN (11:45)
--- NOTE | 2024-07-28 11:52 | DVHHP2 ---
History of Present Illness Reason for Visit: general weakness History of Present Illness 63-year-old morbidly obese male came in for evaluation of flank pain patient was stated to be seen multiple times in triage due to a history of extensive alcohol abuse patient has left AMA on multiple occasions apparently the patient is here again for flank pain states that he drinks 5 pt of alcohol on a daily basis and is believed to be going into signs of possible alcohol withdrawal no acute labs done at this point in time but stated to have been done previously patient was recommended for admission and evaluation for suspected alcohol withdrawal ALCOHOL: heavy Review of Systems Constitutional: Yes: Weakness; No: Fever, Chills, Sweats, Malaise, Other Eyes: No: Pain, Vision change, Conjunctivae inflammation, Eyelid inflammation, Other, Redness ENT: No: Ear pain, Ear discharge, Nose pain, Nose discharge, Nose congestion, Mouth pain, Mouth swelling, Throat pain, Throat swelling, Other Respiratory: No: Cough, Dry, Shortness of breath, SOB with excertion, Wheezing, Hemoptysis, Pleuritic Pain, Sputum, Wheezing, Other Cardiovascular: Palpitations; No: Chest Pain, Orthopnea, Paroxysmal Noc. Dyspnea, Edema, Lt Headedness, Other Gastrointestinal: No: Nausea, Vomiting, Abdominal Pain, Diarrhea, Constipation, Melena, Hematochezia, Other Genitourinary: No Dysuria, No Frequency, No Incontinence, No Hematuria, No Retention, No Other Musculoskeletal: No: other, neck pain, shoulder pain, arm pain, back pain, hand pain, leg pain, foot pain Skin: No: Rash, Lesions, Jaundice, Bruising, Other Neurological: No: Weakness, Numbness, Incoordination, Change in speech, Confusion, Seizures, Other Allergies: Coded Allergies: NO KNOWN ALLERGIES (Unverified , 02/01/24) Exam Vital Signs Vital Signs Date Time Temp Pulse Resp B/P (MAP) Pulse Ox O2 Delivery O2 Flow Rate FiO2 07/28/24 10:31 98.2 112 18 152/99 (116) 99 98.2 07/28/24 09:11 Room Air* 0 21 General Appearance: Alert, Oriented X3, Cooperative, moderate distress HEENT: Atraumatic, PERRLA, EOMI Respiratory: Clear to auscultation, Normal air movement Cardiovascular: Regular rate (Sinus tachy), Normal S1, Normal S2 Abdominal: Normal bowel sounds, Soft Extremities: No clubbing, No cyanosis Skin: No rashes, No breakdown Neuro: Normal gait, Normal speech Psych/Mental Status: Mood NL Assessment/Plan Assessment/Plan Admit to telemetry Alcohol withdrawal suspected delirium tremors CIWA score about 8 or above Patient currently tachycardic with pulses in the range of 110 Blood pressure is moderately controlled Patient was started on Librium and p.r.n. Ativan We will admit with a evaluation for CIWA management If patient worsens then consider upgrading to MOLINA As of now we will also do repeat labs to make sure patient does not have acute signs of infection CBC CMP UA chest x-ray all for acute evaluation and making sure patient does not have an acute infection All these labs are currently pending Patient for admission as per ED evaluation and request Plan discussed with: Patient My Orders Orders - WEI FERNANDO MD Procedure Category Date Status Time Complete Blood Count LAB 07/28/24 Logged 11:35 Comprehensive LAB 07/28/24 Logged Metabolic Panel 11:35 Urinalysis LAB 07/28/24 Logged 11:35 Drug Screen LAB 07/28/24 Logged 11:35 Urine Ethanol LAB 07/28/24 Logged 11:35 Chest Xray 1 View XY 07/28/24 Taken 11:35 Rapid Influenza A&B LAB 07/28/24 Logged 11:35 Covid19 Antigen [facility] LAB 07/28/24 Logged Admit ADMIT 07/28/24 Verified 11:39 Code Status CODE 07/28/24 Verified 11:39 Vital Signs [facility] 07/28/24 Verified 11:39 Review Orders With [facility] 07/28/24 Verified Adm. 11:39 Regular Diet DIET 07/28/24 Verified Lunch Sodium Chloride 0.9% PHA 07/28/24 Verified 11:45 Lorazepam Tablet PHA 07/28/24 Verified (Ativan Tablet) 11:45 Alum & Mag PHA 07/28/24 Verified Hydrox-Simethicone 11:45 Docusate Sodium PHA 07/28/24 Verified Capsule (Colace 11:45 Acetaminophen Tablet PHA 07/28/24 Verified (Tylenol Tablet) 11:45 Temazepam (Restoril) PHA 07/28/24 Verified 11:45 Notify Md Of Changes [facility] 07/28/24 Verified From Base 11:39 Advance Directive [facility] 07/28/24 Verified 11:39 Basic Metabolic Panel LAB 07/29/24 Verified 04:00 Complete Blood Count LAB 07/29/24 Verified 04:00 Patient Condition ORDERS 07/28/24 Verified 11:39 Allergies [facility] 07/28/24 Verified 11:39 Hydrocodone-Acet [facility] 07/28/24 Verified 5/325mg Tab ([place] 11:45 Ondansetron Hcl [facility] 07/28/24 Verified (Zofran) 11:45 Morphine 2mg Iv Q4hprn PHA 07/28/24 Verified 11:45 Notify Of Changes [facility] 07/28/24 Verified From Base 11:39 Air Analysis Technician For [facility] 07/28/24 Verified 24 Hours 11:39 Rhythm Strips Once [facility] 07/28/24 Verified Every Shift 11:39 Oxygen By Nasal RT 07/28/24 Verified Cannula 11:39 Chlordiazepoxide Hcl [facility] 07/29/24 Verified Capsule (Librium Ca 10:00 Thiamine 100mg Po PHA 07/29/24 Verified Daily 10:00 Folic Acid 1mg Po PHA 07/29/24 Verified Daily 10:00 Mvi Tablet Po Daily PH[facility] 07/29/24 Verified 10:00 Thiamine 100mg Po Now [facility] 07/28/24 Verified 11:45 Mvi 1 Tablet Po Now [facility] 07/28/24 Verified 11:45 Folic Acid 1mg Po Now [facility] 07/28/24 Verified 11:45 Ativan 1mg Iv Q4hr Atc [facility] 07/28/24 Verified 11:45 Ativan 1mg Iv Q6hr Atc PHA 07/28/24 Verified 11:45 Ativan 2mg Po Q4h Atc PH[facility] 07/28/24 Verified 11:45 Ativan 1mg Iv Q2hr Prn [facility] 07/28/24 Verified 11:45 Etoh Withdrawal [facility] 07/28/24 Verified Assessment 11:39 Etoh Withdrawal [facility] 07/28/24 Verified Assessment 11:39 Problem List: (1) Alcohol intoxication (2) Impending delirium tremens (3) Tachycardia (4) Alcohol withdrawal Date of Service: Jul 28, 2024 Billing Provider: WEI FERNANDO MD Common Visit Codes: [id number] INP/OBS CARE (HIGH) WEI FERNANDO MD Jul 28, 2024 11:52
[2024-07-28] MEDS: ONDANSETRON ODT 4 MG TAB PO ONE (12:00)
[2024-07-28 12:06] LABS: Urine Bacteria None Seen /hpf (None Seen)
[2024-07-28 12:10] LABS: Basophils # (auto) 0.1 10 ^3/uL (0-0.2); Eosinophils # (auto) 0 10 ^3/uL (0-0.8); Eosinophils % (auto) 0.9 % (0.0-7.0); Hematocrit 37.5 % (41.0-53.0); Lymphocytes # (auto) 0.5 10 ^3/uL (0.4-5.4); Lymphocytes % (auto) 11.1 % (10.0-50.0); Monocytes # (auto) 0.5 10 ^3/uL (0-1.3); Nucleated Red Blood Cells % 0.1 %
[2024-07-28 12:11] LABS: Basophils % (auto) 2.8 % (0.0-2.0); Mean Corpuscular Hemoglobin 37.7 pg (28.0-32.0); Mean Corpuscular Hgb Conc. 34.6 g/dL (32.0-36.0); Mean Corpuscular Volume 108.9 fL (80.0-100.0); Monocytes % (auto) 11.2 % (0.0-12.0); Neutrophils # (auto) 3.5 10 ^3/uL (1.6-8.6); Platelet Count (auto) 78 10^3/uL (140-450); Red Blood Cells 3.44 10^6/uL (4.5-5.90); Red Cell Distribution Width 17.2 % (11.8-14.3); White Blood Cell 4.7 10^3/uL (4.4-10.8)
[2024-07-28] MEDS: SODIUM CHLORIDE 0.9% 1,000 ML IV SCH (12:13)
--- NOTE | 2024-07-28 12:15 | DVH ---
CHEST RADIOGRAPH Indication: evaluation pna Technique: Single frontal view of the chest was obtained COMPARISON: XY CHEST XRAY 1 VIEW on DOS: 05/08/24, FINDINGS: Lines and Tubes: None Lungs: The lung apices are outside the field of view. There is improvement of the left lower lung [place] since 05/08/2024 without evidence of significant residual. No focal pneumonia. Pleura: No pneumothorax. No evidence of residual pleural effusion. Cardiomediastinal contours: Unremarkable Bones: Unremarkable IMPRESSION: No evidence of acute cardiopulmonary disease. Resolution of the patchy left lower lung opacities see n on 05/08/2024.
[2024-07-28 12:22] LABS: Albumin 4.2 g/dL (3.2-4.8); Anion Gap 15 (5-15); BUN/Creatinine Ratio 15.6 (10.0-20.0); Blood Alcohol 9.3 mg/dL (<10); Blood Urea Nitrogen 15 mg/dL (9-23); Calcium 9.1 mg/dL (8.7-10.4); Carbon Dioxide 24 mmol/L (20-31); Chloride 99 mmol/L (98-107); Potassium 4.1 mmol/L (3.5-5.1); Sodium 138 mmol/L (136-145); Total Protein 7.6 g/dL (5.7-8.2)
[2024-07-28 12:23] LABS: Alanine Aminotransferase 132 U/L (7-40); Alkaline Phosphatase 161 U/L (46-116); Aspartate Aminotransferase 508 U/L (13-40); Bilirubin, Total 2.2 mg/dL (0.2-1.0); Glucose 116 mg/dL (74-106)
[2024-07-28 12:27] LABS: Urine Blood TRACE /uL (Negative); Urine Clarity Clear (Clear); Urine Color Dark-Yellow (Yellow); Urine Mucus FEW (None Seen); Urine Protein, UAD 1+ (Negative); Urine Specific Gravity 1.031 (1.001-1.035); Urine Urobilinogen OVER mg/dL (Negative); Urine WBC 2 /hpf (0 - 3); Urine pH 5.5 (5.0-9.0)
[2024-07-28] MEDS: FOLIC ACID 1 MG TAB PO ONE (12:31)
[2024-07-28] MEDS: THIAMINE HCL 100 MG TAB PO ONE (12:31)
[2024-07-28] MEDS: MULTIPLE VITAMIN TAB PO ONE (12:32)
[2024-07-28 12:54] LABS: Cannabinoid Screen, Urine Neg (NEGATIVE)
[2024-07-28] MEDS: LORazepam 0.5 MG TAB PO SCH (12:54)
[2024-07-28] MEDS: LORazepam 2MG/ML-1ML VIAL IV SCH ×2 (12:54)
[2024-07-28 12:55] LABS: Amphetamine Screen, Urine Pos (NEGATIVE); Barbiturate Scree,Urine Neg (NEGATIVE); Benzodiazephine Screen, Urine Pos (NEGATIVE); Cocaine Screen, Urine Neg (NEGATIVE); Opiate Scree,Urine Neg (NEGATIVE); Phencyclidine Screen, Urine Neg (NEGATIVE)
[2024-07-28 13:31] LABS: COVID19 ANTIGEN SOFIA FIA NEGATIVE (NEGATIVE); Rapid Influenza A Negative (Negative); Rapid Influenza B Negative (Negative)
[2024-07-28 16:00] VITALS: BP 143/95; PULSE 100; RESP 18; TEMP 98.1; O2SAT 95
[2024-07-28 20:00] VITALS: PULSE 90; RESP 16
[2024-07-28 21:00] VITALS: BP 150/95; PULSE 80; RESP 18; TEMP 98.3; O2SAT 93
[2024-07-28] MEDS: LORazepam 0.5 MG TAB PO PRN (22:07)
[2024-07-29] VITALS (8 sets, daily range): BP systolic 130–151; BP diastolic 74–99; PULSE 70–110; RESP 17–20; TEMP 97.4–98.8; O2SAT 93–97
[2024-07-29 08:12] LABS: Basophils # (auto) 0.1 10 ^3/uL (0-0.2); Basophils % (auto) 2.5 % (0.0-2.0); Eosinophils # (auto) 0.2 10 ^3/uL (0-0.8); Lymphocytes # (auto) 0.8 10 ^3/uL (0.4-5.4); Mean Corpuscular Hgb Conc. 34.6 g/dL (32.0-36.0); Monocytes # (auto) 0.5 10 ^3/uL (0-1.3); Neutrophils # (auto) 2.1 10 ^3/uL (1.6-8.6); Nucleated Red Blood Cells % 0.2 %
[2024-07-29 08:14] LABS: Eosinophils % (auto) 6.2 % (0.0-7.0); Hematocrit 36.5 % (41.0-53.0); Hemoglobin 12.6 g/dL (13.5-17.5); Mean Corpuscular Hemoglobin 37.9 pg (28.0-32.0); Mean Corpuscular Volume 109.6 fL (80.0-100.0); Neutrophils % (auto) 55.3 % (37.0-80.0); Platelet Count (auto) 62 10^3/uL (140-450); Red Blood Cells 3.33 10^6/uL (4.5-5.90); White Blood Cell 3.7 10^3/uL (4.4-10.8)
[2024-07-29 08:15] LABS: Anion Gap 13 (5-15); Carbon Dioxide 24 mmol/L (20-31); Chloride 101 mmol/L (98-107); Potassium 3.6 mmol/L (3.5-5.1); Sodium 138 mmol/L (136-145)
[2024-07-29 08:17] LABS: Calcium 8.7 mg/dL (8.7-10.4)
[2024-07-29 08:21] LABS: BUN/Creatinine Ratio 13.3 (10.0-20.0); Blood Urea Nitrogen 11 mg/dL (9-23); Glucose 93 mg/dL (74-106)
[2024-07-29] MEDS: THIAMINE HCL 100 MG TAB PO SCH (08:51)
[2024-07-29] MEDS: FOLIC ACID 1 MG TAB PO SCH (08:51)
[2024-07-29] MEDS: chlordiazePOXIDE HCL 25 MG CAP PO SCH (08:51)
[2024-07-29] MEDS: MULTIPLE VITAMIN TAB PO SCH (08:51)
--- NOTE | 2024-07-29 12:30 | DVHPN2 ---
Reviewed: Care Plan, H&P, Labs, Medications, Previous Orders, Radiology Changes from previous H/P or p: No Changes Eyes: No Pain, No Vision change, No Conjunctivae inflammation, No Eyelid inflammation, No Other, No Redness ENT: No Ear pain, No Ear discharge, No Nose pain, No Nose discharge, No Nose congestion, No Mouth pain, No Mouth swelling, No Throat pain, No Throat swelling, No Other Cardiovascular: No Chest Pain; Palpitations; No Orthopnea, No Paroxysmal Noc. Dyspnea, No Edema, No Lt Headedness, No Other Respiratory: No Cough, No Dry, No Shortness of breath, No SOB with excertion, No Wheezing, No Hemoptysis, No Pleuritic Pain, No Sputum, No Other Gastrointestinal: No Nausea, No Vomiting, No Abdominal Pain, No Diarrhea, No Constipation, No Melena, No Hematochezia, No Other Genitourinary: No Dysuria, No Frequency, No Incontinence, No Hematuria, No Retention, No Other Musculoskeletal: No other, No neck pain, No shoulder pain, No arm pain, No back pain, No hand pain, No leg pain, No foot pain Skin: No Rash, No Lesions, No Jaundice, No Bruising, No Other Objective Vitals Vital Signs Date Time Temp Pulse Resp B/P (MAP) Pulse Ox O2 Delivery O2 Flow Rate FiO2 07/29/24 09:00 98.2 70 20 130/74 (92) 93 98.2 07/28/24 20:00 Room Air* 0 21 Intake/Output Intake and Output 07/29/24 07:00 Intake Total 1120 ml Output Total 200 ml Balance 920 ml Intake Oral 760 ml IV Total 360 ml Output Urine Total 200 ml # Voids 2 Medications Current Medications Medications Dose Ordered Sig/Shubham Route Start Time Stop Time Status Last Admin Dose Admin Sodium Chloride 1,000 ml @ 60 mls/hr [id number] IV 07/28/24 11:45 07/29/24 04:56 60 MLS/HR Lorazepam 0.5 mg Q6HP PRN PO 07/28/24 11:45 07/28/24 22:07 0.5 MG Al Hydrox/Mg Hydrox/Simethicone 30 ml Q6HP PRN PO 07/28/24 11:45 Docusate Sodium 100 mg BIDPRN PRN PO 07/28/24 11:45 Acetaminophen 650 mg Q6HP PRN PO 07/28/24 11:45 Temazepam 15 mg QHSP PRN PO 07/28/24 11:45 Acetaminophen/ Hydrocodone Bitart 1 tab Q4HP PRN PO 07/28/24 11:45 Ondansetron HCl 4 mg Q4HP PRN IV 07/28/24 11:45 Morphine Sulfate 2 mg Q4HPRN PRN IV 07/28/24 11:45 Chlordiazepoxide HCl 50 mg DAILY PO 07/29/24 10:00 07/29/24 08:51 50 MG Thiamine HCl 100 mg DAILY PO 07/29/24 10:00 07/29/24 08:51 100 MG Folic Acid 1 mg DAILY PO 07/29/24 10:00 07/29/24 08:51 1 MG Multivitamins 1 tab DAILY PO 07/29/24 10:00 07/29/24 08:51 1 TAB Lorazepam 1 mg Q4H IV 07/28/24 11:45 07/29/24 12:08 1 MG Lorazepam 1 mg Q6H IV 07/28/24 11:45 Hold Lorazepam 2 mg Q4H PO 07/28/24 11:45 Hold Lorazepam 1 mg Q2HPRN PRN IV 07/28/24 11:45 Laboratory Results Laboratory Tests 07/29/24 05:59 Chemistry Test 07/29/24 05:59 Calcium Level 8.7 mg/dL (8.7-10.4) Urinalysis Test 07/28/24 11:44 Urine Color Dark-yellow (Yellow) Urine Clarity Clear (Clear) Urine pH 5.5 (5.0-9.0) Urine Specific [place] 1.031 (1.001-1.035) Urine Protein 1+ (Negative) H Urine Ketones 1+ (Negative) H Urine Blood Trace /uL (Negative) H Urine Nitrite Negative (Negative) Urine Bilirubin 1+ (Negative) Urine Urobilinogen Over mg/dL (Negative) Urine Leukocyte Esterase Negative /uL (Negative) Urine RBC 1 /hpf (0 - 3) Urine WBC 2 /hpf (0 - 3) Urine Squamous Epithelial Cells Few /hpf (<5) Urine Bacteria None seen /hpf (None Seen) Urine Mucus Few (None Seen) Urine Glucose Trace mg/dL (Normal) Labs and/or images reviewed: Labs reviewed by me, Image(s) reviewed by me Assessment/Plan Assessment/Plan Acute alcoholic intoxication Acute dehydration: IV fluids Possible debridement tremors: Librium Tachycardia secondary to ETOH use Alcoholic withdrawal Chronic current alcohol abuse: Counseling: Thiamine folic acid Right flank pain: CT abdomen pelvis without contrast pending Time spent 50 minutes Plan discussed with: Patient My Orders Orders - ESTRELLITA COBB MD Procedure Category Date Status Time Ct Ab Pel Wo Con-No CT 07/29/24 Verified Oral Or Iv 12:26 Date of Service: Jul 29, 2024 Billing Provider: ESTRELLITA COBB MD Common Visit Codes: [id number] INP/OBS CARE(HIGH) ESTRELLITA COBB MD Jul 29, 2024 12:30
--- NOTE | 2024-07-29 13:33 | DVH ---
CT ABDOMEN AND PELVIS WITHOUT CONTRAST CLINICAL HISTORY: Right flank pain TECHNIQUE: Multiple contiguous axial images of the abdomen and pelvis without intravenous contrast. The images were reformatted degenerate coronal and sagittal reconstructions. All CT scans at this medical facility are performed using dose modulation techniques as appropriate t o a performed exam including the following:Automated exposure control was utilized; adjustment of the MA and/or KV according to patient size; and use of iterative reconstruction technique. Radiation Dose Information: CT Dose: CTDI volume is 10.46 mGy. Dose-length product is 585.08 mGy*cm Comparison: Abdominal ultrasound 05/06/2024 FINDINGS: Evaluation of the abdomen and pelvis is limited without intravenous contrast. There is diffuse hepatic steatosis. There is hyperdense sludge filling the gallbladder. The pancreas, kidneys, adrenal glands, and spleen appear within normal limits. There is no gross evidence of abdominal lymphadenopathy. There is no free fluid or free air. The stomach grossly appears unremarkable. The small and large bowel loops demonstrate normal caliber . There are scattered diverticula in the distal colon without evidence of acute diverticulitis. The abdominal aorta and IVC appear within normal limits. Bladder is poorly filled limiting evaluation. Pelvic organ appears within normal limits. There is no gross evidence of a pelvic mass. There is no free fluid collection. Lung bases are clear. There is no acute osseous abnormality. There are multilevel degenerative changes in the lumbar spine. IMPRESSION: 1. Hepatic steatosis. 2. Hyperdense sludge filling the gallbladder. 3. Distal colon diverticulosis. HS:Y
[2024-07-29] MEDS: TEMAZEPAM 15 MG CAP PO PRN (21:02)
[2024-07-30] VITALS (7 sets, daily range): BP systolic 131–144; BP diastolic 86–93; PULSE 79–107; RESP 16–20; TEMP 97.6–98.4; O2SAT 93–98
--- NOTE | 2024-07-30 11:51 | DVHPN2 ---
Reviewed: Care Plan, H&P, Labs, Medications, Previous Orders, Radiology Changes from previous H/P or p: No Changes Eyes: No Pain, No Vision change, No Conjunctivae inflammation, No Eyelid inflammation, No Other, No Redness ENT: No Ear pain, No Ear discharge, No Nose pain, No Nose discharge, No Nose congestion, No Mouth pain, No Mouth swelling, No Throat pain, No Throat swelling, No Other Cardiovascular: No Chest Pain; Palpitations; No Orthopnea, No Paroxysmal Noc. Dyspnea, No Edema, No Lt Headedness, No Other Respiratory: No Cough, No Dry, No Shortness of breath, No SOB with excertion, No Wheezing, No Hemoptysis, No Pleuritic Pain, No Sputum, No Other Gastrointestinal: No Nausea, No Vomiting, No Abdominal Pain, No Diarrhea, No Constipation, No Melena, No Hematochezia, No Other Genitourinary: No Dysuria, No Frequency, No Incontinence, No Hematuria, No Retention, No Other Musculoskeletal: No other, No neck pain, No shoulder pain, No arm pain, No back pain, No hand pain, No leg pain, No foot pain Skin: No Rash, No Lesions, No Jaundice, No Bruising, No Other Objective Vitals Vital Signs Date Time Temp Pulse Resp B/P (MAP) Pulse Ox O2 Delivery O2 Flow Rate FiO2 07/30/24 08:57 97.9 79 18 144/86 (105) 98 97.9 07/29/24 20:00 Room Air* 0 21 Intake/Output Intake and Output 07/30/24 07:00 Intake Total 2020 ml Output Total 1525 ml Balance 495 ml Intake Oral 1300 ml IV Total 720 ml Output Urine Total 1525 ml # Voids 2 # Bowel Movements 2 Medications Current Medications Medications Dose Ordered Sig/Shubham Route Start Time Stop Time Status Last Admin Dose Admin Sodium Chloride 1,000 ml @ 60 mls/hr [id number] IV 07/28/24 11:45 07/29/24 04:56 60 MLS/HR Lorazepam 0.5 mg Q6HP PRN PO 07/28/24 11:45 07/28/24 22:07 0.5 MG Al Hydrox/Mg Hydrox/Simethicone 30 ml Q6HP PRN PO 07/28/24 11:45 Docusate Sodium 100 mg BIDPRN PRN PO 07/28/24 11:45 Acetaminophen 650 mg Q6HP PRN PO 07/28/24 11:45 Temazepam 15 mg QHSP PRN PO 07/28/24 11:45 07/29/24 21:02 15 MG Acetaminophen/ Hydrocodone Bitart 1 tab Q4HP PRN PO 07/28/24 11:45 Ondansetron HCl 4 mg Q4HP PRN IV 07/28/24 11:45 Morphine Sulfate 2 mg Q4HPRN PRN IV 07/28/24 11:45 Chlordiazepoxide HCl 50 mg DAILY PO 07/29/24 10:00 07/30/24 10:06 50 MG Thiamine HCl 100 mg DAILY PO 07/29/24 10:00 07/30/24 10:06 100 MG Folic Acid 1 mg DAILY PO 07/29/24 10:00 07/30/24 10:06 1 MG Multivitamins 1 tab DAILY PO 07/29/24 10:00 07/30/24 10:06 1 TAB Lorazepam 1 mg Q4H IV 07/28/24 11:45 07/30/24 09:57 1 MG Lorazepam 1 mg Q6H IV 07/28/24 11:45 Hold Lorazepam 2 mg Q4H PO 07/28/24 11:45 Hold Lorazepam 1 mg Q2HPRN PRN IV 07/28/24 11:45 Laboratory Results Laboratory Tests 07/29/24 05:59 Urinalysis Test 07/28/24 11:44 Urine Color Dark-yellow (Yellow) Urine Clarity Clear (Clear) Urine pH 5.5 (5.0-9.0) Urine Specific [place] 1.031 (1.001-1.035) Urine Protein 1+ (Negative) H Urine Ketones 1+ (Negative) H Urine Blood Trace /uL (Negative) H Urine Nitrite Negative (Negative) Urine Bilirubin 1+ (Negative) Urine Urobilinogen Over mg/dL (Negative) Urine Leukocyte Esterase Negative /uL (Negative) Urine RBC 1 /hpf (0 - 3) Urine WBC 2 /hpf (0 - 3) Urine Squamous Epithelial Cells Few /hpf (<5) Urine Bacteria None seen /hpf (None Seen) Urine Mucus Few (None Seen) Urine Glucose Trace mg/dL (Normal) Labs and/or images reviewed: Labs reviewed by me Assessment/Plan Assessment/Plan Acute alcoholic intoxication Acute dehydration: IV fluids Possible delirium tremens: Librium Tachycardia secondary to ETOH use Alcoholic withdrawal Gallbladder sludge Fatty liver Diverticulosis Chronic current alcohol abuse: Counseling: Thiamine folic acid Diffuse abdominal pain Still complains of weakness Plan discussed with: Patient My Orders Orders - ESTRELLITA COBB MD Procedure Category Date Status Time Ct Ab Pel Wo Con-No CT 07/29/24 Resulted Oral Or Iv 12:26 Date of Service: Jul 30, 2024 Billing Provider: ESTRELLITA COBB MD Common Visit Codes: [id number] INP/OBS CARE(HIGH) ESTRELLITA COBB MD Jul 30, 2024 11:51
[2024-07-30] MEDS: TEMAZEPAM 15 MG CAP PO PRN (21:16)
[2024-07-30] MEDS ORDERED: ONDANSETRON HCL 4 MG/2 ML VIAL IV PRN (23:30)
[2024-07-30] MEDS: ONDANSETRON HCL 4 MG/2 ML VIAL IV PRN (23:34)
[2024-07-31] VITALS (7 sets, daily range): BP systolic 122–151; BP diastolic 81–100; PULSE 81–101; RESP 18–20; TEMP 97.4–98.6; O2SAT 94–96
--- NOTE | 2024-07-31 12:03 | DVHPN2 ---
Reviewed: Care Plan, H&P, Labs, Medications, Previous Orders, Radiology Changes from previous H/P or p: No Changes Eyes: No Pain, No Vision change, No Conjunctivae inflammation, No Eyelid inflammation, No Other, No Redness ENT: No Ear pain, No Ear discharge, No Nose pain, No Nose discharge, No Nose congestion, No Mouth pain, No Mouth swelling, No Throat pain, No Throat swelling, No Other Cardiovascular: No Chest Pain; Palpitations; No Orthopnea, No Paroxysmal Noc. Dyspnea, No Edema, No Lt Headedness, No Other Respiratory: No Cough, No Dry, No Shortness of breath, No SOB with excertion, No Wheezing, No Hemoptysis, No Pleuritic Pain, No Sputum, No Other Gastrointestinal: No Nausea, No Vomiting, No Abdominal Pain, No Diarrhea, No Constipation, No Melena, No Hematochezia, No Other Genitourinary: No Dysuria, No Frequency, No Incontinence, No Hematuria, No Retention, No Other Musculoskeletal: No other, No neck pain, No shoulder pain, No arm pain, No back pain, No hand pain, No leg pain, No foot pain Skin: No Rash, No Lesions, No Jaundice, No Bruising, No Other Objective Vitals Vital Signs Date Time Temp Pulse Resp B/P (MAP) Pulse Ox O2 Delivery O2 Flow Rate FiO2 07/31/24 09:20 97.4 100 19 138/100 (113) 95 97.4 07/31/24 08:00 Room Air* 0 21 Intake/Output Intake and Output 07/31/24 07:00 Intake Total 1500 ml Output Total 550 ml Balance 950 ml Intake Oral 1500 ml Output Urine Total 550 ml # Voids 2 # Bowel Movements 2 Medications Current Medications Medications Dose Ordered Sig/Shubham Route Start Time Stop Time Status Last Admin Dose Admin Sodium Chloride 1,000 ml @ 60 mls/hr [id number] IV 07/28/24 11:45 07/30/24 12:19 60 MLS/HR Lorazepam 0.5 mg Q6HP PRN PO 07/28/24 11:45 07/28/24 22:07 0.5 MG Al Hydrox/Mg Hydrox/Simethicone 30 ml Q6HP PRN PO 07/28/24 11:45 Docusate Sodium 100 mg BIDPRN PRN PO 07/28/24 11:45 Acetaminophen 650 mg Q6HP PRN PO 07/28/24 11:45 Acetaminophen/ Hydrocodone Bitart 1 tab Q4HP PRN PO 07/28/24 11:45 Ondansetron HCl 4 mg Q4HP PRN IV 07/28/24 11:45 07/30/24 23:34 4 MG Morphine Sulfate 2 mg Q4HPRN PRN IV 07/28/24 11:45 Chlordiazepoxide HCl 50 mg DAILY PO 07/29/24 10:00 07/31/24 10:04 50 MG Thiamine HCl 100 mg DAILY PO 07/29/24 10:00 07/31/24 10:03 100 MG Folic Acid 1 mg DAILY PO 07/29/24 10:00 07/31/24 10:03 1 MG Multivitamins 1 tab DAILY PO 07/29/24 10:00 07/31/24 10:03 1 TAB Lorazepam 1 mg Q4H IV 07/28/24 11:45 07/30/24 23:35 1 MG Lorazepam 1 mg Q6H IV 07/28/24 11:45 Hold Lorazepam 2 mg Q4H PO 07/28/24 11:45 Hold Lorazepam 1 mg Q2HPRN PRN IV 07/28/24 11:45 Temazepam 30 mg HSPRN PRN PO 07/30/24 21:00 07/30/24 21:16 30 MG Ondansetron HCl 4 mg Q4HPRN PRN IV 07/30/24 23:30 Laboratory Results Laboratory Tests 07/29/24 05:59 Urinalysis Test 07/28/24 11:44 Urine Color Dark-yellow (Yellow) Urine Clarity Clear (Clear) Urine pH 5.5 (5.0-9.0) Urine Specific [place] 1.031 (1.001-1.035) Urine Protein 1+ (Negative) H Urine Ketones 1+ (Negative) H Urine Blood Trace /uL (Negative) H Urine Nitrite Negative (Negative) Urine Bilirubin 1+ (Negative) Urine Urobilinogen Over mg/dL (Negative) Urine Leukocyte Esterase Negative /uL (Negative) Urine RBC 1 /hpf (0 - 3) Urine WBC 2 /hpf (0 - 3) Urine Squamous Epithelial Cells Few /hpf (<5) Urine Bacteria None seen /hpf (None Seen) Urine Mucus Few (None Seen) Urine Glucose Trace mg/dL (Normal) Labs and/or images reviewed: Labs reviewed by me, Image(s) reviewed by me Assessment/Plan Assessment/Plan Acute alcoholic intoxication Acute dehydration: IV fluids Possible delirium tremens: Librium Tachycardia secondary to ETOH use Alcoholic withdrawal Gallbladder sludge Fatty liver Diverticulosis Chronic current alcohol abuse: Counseling: Thiamine folic acid Diffuse abdominal pain Still complains of weakness and tremor Plan discussed with: Patient Date of Service: Jul 31, 2024 Billing Provider: ESTRELLITA COBB MD Common Visit Codes: [id number] INP/OBS CARE(HIGH) ESTRELLITA COBB MD Jul 31, 2024 12:03
[2024-07-31] MEDS ORDERED: LORazepam 0.5 MG TAB PO PRN (12:15)
[2024-07-31] MEDS: LORazepam 0.5 MG TAB PO SCH ×2 (12:36→16:27)
[2024-08-01] VITALS (7 sets, daily range): BP systolic 121–138; BP diastolic 73–91; PULSE 76–102; RESP 17–19; TEMP 97.8–98.4; O2SAT 94–97
--- NOTE | 2024-08-01 13:12 | DVHPN2 ---
Reviewed: Care Plan, H&P, Labs, Medications, Previous Orders, Radiology Changes from previous H/P or p: No Changes Eyes: No Pain, No Vision change, No Conjunctivae inflammation, No Eyelid inflammation, No Other, No Redness ENT: No Ear pain, No Ear discharge, No Nose pain, No Nose discharge, No Nose congestion, No Mouth pain, No Mouth swelling, No Throat pain, No Throat swelling, No Other Cardiovascular: No Chest Pain; Palpitations; No Orthopnea, No Paroxysmal Noc. Dyspnea, No Edema, No Lt Headedness, No Other Respiratory: No Cough, No Dry, No Shortness of breath, No SOB with excertion, No Wheezing, No Hemoptysis, No Pleuritic Pain, No Sputum, No Other Gastrointestinal: No Nausea, No Vomiting, No Abdominal Pain, No Diarrhea, No Constipation, No Melena, No Hematochezia, No Other Genitourinary: No Dysuria, No Frequency, No Incontinence, No Hematuria, No Retention, No Other Musculoskeletal: No other, No neck pain, No shoulder pain, No arm pain, No back pain, No hand pain, No leg pain, No foot pain Skin: No Rash, No Lesions, No Jaundice, No Bruising, No Other Objective Vitals Vital Signs Date Time Temp Pulse Resp B/P (MAP) Pulse Ox O2 Delivery O2 Flow Rate FiO2 08/01/24 09:37 98.4 76 19 138/91 (107) 96 98.4 08/01/24 08:00 Room Air* 0 21 Intake/Output Intake and Output 08/01/24 07:00 Intake Total 1780 ml Output Total 950 ml Balance 830 ml Intake Oral 1300 ml IV Total 480 ml Output Urine Total 950 ml # Voids 6 # Bowel Movements 6 Medications Current Medications Medications Dose Ordered Sig/Shubham Route Start Time Stop Time Status Last Admin Dose Admin Sodium Chloride 1,000 ml @ 60 mls/hr [id number] IV 07/28/24 11:45 07/31/24 22:31 60 MLS/HR Al Hydrox/Mg Hydrox/Simethicone 30 ml Q6HP PRN PO 07/28/24 11:45 Docusate Sodium 100 mg BIDPRN PRN PO 07/28/24 11:45 Acetaminophen 650 mg Q6HP PRN PO 07/28/24 11:45 Acetaminophen/ Hydrocodone Bitart 1 tab Q4HP PRN PO 07/28/24 11:45 Ondansetron HCl 4 mg Q4HP PRN IV 07/28/24 11:45 07/30/24 23:34 4 MG Morphine Sulfate 2 mg Q4HPRN PRN IV 07/28/24 11:45 Chlordiazepoxide HCl 50 mg DAILY PO 07/29/24 10:00 08/01/24 10:37 50 MG Thiamine HCl 100 mg DAILY PO 07/29/24 10:00 08/01/24 10:37 100 MG Folic Acid 1 mg DAILY PO 07/29/24 10:00 08/01/24 10:38 1 MG Multivitamins 1 tab DAILY PO 07/29/24 10:00 08/01/24 10:38 1 TAB Lorazepam 1 mg Q6H IV 07/28/24 11:45 Hold Lorazepam 2 mg Q4H PO 07/28/24 11:45 Hold Lorazepam 1 mg Q2HPRN PRN IV 07/28/24 11:45 Temazepam 30 mg HSPRN PRN PO 07/30/24 21:00 07/31/24 22:29 30 MG Ondansetron HCl 4 mg Q4HPRN PRN IV 07/30/24 23:30 Lorazepam 1 mg Q4H PO 07/31/24 16:00 08/01/24 08:00 1 MG Laboratory Results Laboratory Tests 07/29/24 05:59 Urinalysis Test 07/28/24 11:44 Urine Color Dark-yellow (Yellow) Urine Clarity Clear (Clear) Urine pH 5.5 (5.0-9.0) Urine Specific [place] 1.031 (1.001-1.035) Urine Protein 1+ (Negative) H Urine Ketones 1+ (Negative) H Urine Blood Trace /uL (Negative) H Urine Nitrite Negative (Negative) Urine Bilirubin 1+ (Negative) Urine Urobilinogen Over mg/dL (Negative) Urine Leukocyte Esterase Negative /uL (Negative) Urine RBC 1 /hpf (0 - 3) Urine WBC 2 /hpf (0 - 3) Urine Squamous Epithelial Cells Few /hpf (<5) Urine Bacteria None seen /hpf (None Seen) Urine Mucus Few (None Seen) Urine Glucose Trace mg/dL (Normal) Labs and/or images reviewed: Labs reviewed by me, Image(s) reviewed by me Assessment/Plan Assessment/Plan Acute alcoholic intoxication Acute dehydration: IV fluids Possible delirium tremens: Librium Tachycardia secondary to ETOH use Alcoholic withdrawal Gallbladder sludge Fatty liver Diverticulosis Chronic current alcohol abuse: Counseling: Thiamine folic acid Diffuse abdominal pain Still complains of weakness and tremor Plan discussed with: Patient My Orders Orders - ESTRELLITA COBB MD Procedure Category Date Status Time Lorazepam Tablet PHA 07/31/24 In Process (Ativan Tablet) 16:00 Initiate Vte REYES 08/01/24 In Process Prophylaxis 12:34 Date of Service: Aug 01, 2024 Billing Provider: ESTRELLITA COBB MD Common Visit Codes: [id number] INP/OBS CARE(HIGH) ESTRELLITA COBB MD Aug 01, 2024 13:12
[2024-08-01] MEDS: HYDROcodone-ACET 5/325MG TAB PO PRN (18:54)
[2024-08-01] MEDS: ACETAMINOPHEN 325 MG TAB PO PRN (20:07)
[2024-08-01] MEDS: MAALOX PLUS or MAALOX 30 ML PO PRN (21:58)
[2024-08-02 01:00] VITALS: BP 133/88; PULSE 88; RESP 17; TEMP 98.2; O2SAT 94
[2024-08-02 05:00] VITALS: BP 130/86; PULSE 86; RESP 16; TEMP 97.7; O2SAT 95
[2024-08-02 08:00] VITALS: PULSE 71; PULSE 95; RESP 18; O2SAT 97
[2024-08-02 09:46] VITALS: BP 143/91; PULSE 95; RESP 18; TEMP 98.4; O2SAT 97
[2024-08-02] MEDS ORDERED: THIA100T13 PO ×2 (12:21)
[2024-08-02] MEDS ORDERED: FOLI-119 PO ×2 (12:21)
[2024-08-02] MEDS ORDERED: MULT-1018 PO ×2 (12:21)
[2024-08-02] MEDS ORDERED: CHL25C PO ×2 (12:21)
--- NOTE | 2024-08-02 12:22 | DVHPN2 ---
Reviewed: Care Plan, H&P, Labs, Medications, Previous Orders, Radiology Changes from previous H/P or p: No Changes Eyes: No Pain, No Vision change, No Conjunctivae inflammation, No Eyelid inflammation, No Other, No Redness ENT: No Ear pain, No Ear discharge, No Nose pain, No Nose discharge, No Nose congestion, No Mouth pain, No Mouth swelling, No Throat pain, No Throat swelling, No Other Cardiovascular: No Chest Pain; Palpitations; No Orthopnea, No Paroxysmal Noc. Dyspnea, No Edema, No Lt Headedness, No Other Respiratory: No Cough, No Dry, No Shortness of breath, No SOB with excertion, No Wheezing, No Hemoptysis, No Pleuritic Pain, No Sputum, No Other Gastrointestinal: No Nausea, No Vomiting, No Abdominal Pain, No Diarrhea, No Constipation, No Melena, No Hematochezia, No Other Genitourinary: No Dysuria, No Frequency, No Incontinence, No Hematuria, No Retention, No Other Musculoskeletal: No other, No neck pain, No shoulder pain, No arm pain, No back pain, No hand pain, No leg pain, No foot pain Skin: No Rash, No Lesions, No Jaundice, No Bruising, No Other Objective Vitals Vital Signs Date Time Temp Pulse Resp B/P (MAP) Pulse Ox O2 Delivery O2 Flow Rate FiO2 08/02/24 09:46 98.4 95 18 143/91 (108) 97 98.4 08/01/24 20:00 Room Air* 0 21 Intake/Output Intake and Output 08/02/24 07:00 Intake Total 1710 ml Output Total 800 ml Balance 910 ml Intake Oral 1050 ml IV Total 660 ml Output Urine Total 800 ml # Voids 3 Medications Current Medications Medications Dose Ordered Sig/Shubham Route Start Time Stop Time Status Last Admin Dose Admin Sodium Chloride 1,000 ml @ 60 mls/hr [id number] IV 07/28/24 11:45 08/02/24 10:14 60 MLS/HR Al Hydrox/Mg Hydrox/Simethicone 30 ml Q6HP PRN PO 07/28/24 11:45 08/01/24 21:58 30 ML Docusate Sodium 100 mg BIDPRN PRN PO 07/28/24 11:45 Acetaminophen 650 mg Q6HP PRN PO 07/28/24 11:45 08/01/24 20:07 650 MG Acetaminophen/ Hydrocodone Bitart 1 tab Q4HP PRN PO 07/28/24 11:45 08/01/24 18:54 1 TAB Ondansetron HCl 4 mg Q4HP PRN IV 07/28/24 11:45 07/30/24 23:34 4 MG Morphine Sulfate 2 mg Q4HPRN PRN IV 07/28/24 11:45 Chlordiazepoxide HCl 50 mg DAILY PO 07/29/24 10:00 08/02/24 10:14 50 MG Thiamine HCl 100 mg DAILY PO 07/29/24 10:00 08/02/24 10:14 100 MG Folic Acid 1 mg DAILY PO 07/29/24 10:00 08/02/24 10:14 1 MG Multivitamins 1 tab DAILY PO 07/29/24 10:00 08/02/24 10:14 1 TAB Lorazepam 1 mg Q6H IV 07/28/24 11:45 Hold Lorazepam 2 mg Q4H PO 07/28/24 11:45 Hold Lorazepam 1 mg Q2HPRN PRN IV 07/28/24 11:45 Temazepam 30 mg HSPRN PRN PO 07/30/24 21:00 08/01/24 21:58 30 MG Ondansetron HCl 4 mg Q4HPRN PRN IV 07/30/24 23:30 Lorazepam 1 mg Q4H PO 07/31/24 16:00 08/02/24 08:01 1 MG Laboratory Results Laboratory Tests 07/29/24 05:59 Urinalysis Test 07/28/24 11:44 Urine Color Dark-yellow (Yellow) Urine Clarity Clear (Clear) Urine pH 5.5 (5.0-9.0) Urine Specific [place] 1.031 (1.001-1.035) Urine Protein 1+ (Negative) H Urine Ketones 1+ (Negative) H Urine Blood Trace /uL (Negative) H Urine Nitrite Negative (Negative) Urine Bilirubin 1+ (Negative) Urine Urobilinogen Over mg/dL (Negative) Urine Leukocyte Esterase Negative /uL (Negative) Urine RBC 1 /hpf (0 - 3) Urine WBC 2 /hpf (0 - 3) Urine Squamous Epithelial Cells Few /hpf (<5) Urine Bacteria None seen /hpf (None Seen) Urine Mucus Few (None Seen) Urine Glucose Trace mg/dL (Normal) Labs and/or images reviewed: Labs reviewed by me, Image(s) reviewed by me Assessment/Plan Assessment/Plan Acute alcoholic intoxication Acute dehydration: IV fluids Possible delirium tremens: Librium Tachycardia secondary to ETOH use Alcoholic withdrawal Gallbladder sludge Fatty liver Diverticulosis Chronic current alcohol abuse: Counseling: Thiamine folic acid Diffuse abdominal pain Plan discussed with: Patient My Orders Orders - ESTRELLITA CBOB MD Procedure Category Date Status Time Initiate Vte REYES 08/01/24 In Process Prophylaxis 12:34 Date of Service: Aug 02, 2024 Billing Provider: ESTRELLITA COBB MD Common Visit Codes: [id number] INP/OBS CARE(HIGH) ESTRELLITA COBB MD Aug 02, 2024 12:22
--- NOTE | 2024-08-02 12:27 | DVHDS2 ---
Discharge Summary Date of Admission Jul 28, 2024 at 11:39 Date of Discharge: Aug 02, 2024 Admitting Diagnosis Altered mental status and acute alcoholic intoxication Wounds: None Labs/Diagnostic Data: Laboratory Results Test 07/29/24 05:59 07/28/24 11:55 07/28/24 11:52 07/28/24 11:44 White Blood Count 3.7 10^3/uL (4.4-10.8) Red Blood Count 3.33 10^6/uL (4.5-5.90) Hemoglobin 12.6 g/dL (13.5-17.5) Hematocrit 36.5 % (41.0-53.0) Mean Corpuscular Volume 109.6 fL (80.0-100.0) Mean Corpuscular Hemoglobin 37.9 pg (28.0-32.0) Mean Corpuscular Hemoglobin Concent 34.6 g/dL (32.0-36.0) Red Cell Distribution Width 17.0 % (11.8-14.3) Platelet Count 62 10^3/uL (140-450) Mean Platelet Volume 9.9 fL (6.9-10.8) Neutrophils (%) (Auto) 55.3 % (37.0-80.0) Lymphocytes (%) (Auto) 22.0 % (10.0-50.0) Monocytes (%) (Auto) 14.0 % (0.0-12.0) Eosinophils (%) (Auto) 6.2 % (0.0-7.0) Basophils (%) (Auto) 2.5 % (0.0-2.0) Neutrophils # (Auto) 2.1 10 ^3/uL (1.6-8.6) Lymphocytes # (Auto) 0.8 10 ^3/uL (0.4-5.4) Monocytes # (Auto) 0.5 10 ^3/uL (0-1.3) Eosinophils # (Auto) 0.2 10 ^3/uL (0-0.8) Basophils # (Auto) 0.1 10 ^3/uL (0-0.2) Nucleated Red Blood Cells 0.2 % Sodium Level 138 mmol/L (136-145) Potassium Level 3.6 mmol/L (3.5-5.1) Chloride Level 101 mmol/L (98-107) Carbon Dioxide Level 24 mmol/L (20-31) Anion Gap 13 (5-15) Blood Urea Nitrogen 11 mg/dL (9-23) Creatinine 0.83 mg/dL (0.700-1.30) Glomerular Filtration Rate Calc 99 mL/min (>90) BUN/Creatinine Ratio 13.3 (10.0-20.0) Serum Glucose 93 mg/dL (74-106) Calcium Level 8.7 mg/dL (8.7-10.4) Influenza Type A Antigen Negative (Negative) Influenza Type B Antigen Negative (Negative) SARS-CoV-2 Antigen (Rapid) Negative (NEGATIVE) Total Bilirubin 2.2 mg/dL (0.2-1.0) Aspartate Amino Transferase (AST) 508 U/L (13-40) Alanine Aminotransferase (ALT) 132 U/L (7-40) Alkaline Phosphatase 161 U/L (46-116) Total Protein 7.6 g/dL (5.7-8.2) Albumin 4.2 g/dL (3.2-4.8) Plasma/Serum Blood Alcohol 9.3 mg/dL (<10) Urine Color Dark-yellow (Yellow) Urine Clarity Clear (Clear) Urine pH 5.5 (5.0-9.0) Urine Specific [place] 1.031 (1.001-1.035) Urine Protein 1+ (Negative) Urine Ketones 1+ (Negative) Urine Blood Trace /uL (Negative) Urine Nitrite Negative (Negative) Urine Bilirubin 1+ (Negative) Urine Urobilinogen Over mg/dL (Negative) Urine Leukocyte Esterase Negative /uL (Negative) Urine RBC 1 /hpf (0 - 3) Urine WBC 2 /hpf (0 - 3) Urine Squamous Epithelial Cells Few /hpf (<5) Urine Bacteria None seen /hpf (None Seen) Urine Mucus Few (None Seen) Urine Glucose Trace mg/dL (Normal) Urine Opiates Screen Neg (NEGATIVE) Urine Fentanyl Screen Neg (NEGATIVE) Urine Barbiturates Screen Neg (NEGATIVE) Urine Phencyclidine Screen Neg (NEGATIVE) Urine Amphetamines Screen Pos (NEGATIVE) Urine Benzodiazepines Screen Pos (NEGATIVE) Urine Cocaine Screen Neg (NEGATIVE) Urine Cannabinoids Screen Neg (NEGATIVE) Other Laboratory Tests 07/29/24 05:59 Brief Hx & Hospital Course: 63-year-old male with a history of chronic alcohol abuse admitted for acute alcoholic intoxication and possible delirium tremens treated with IV fluids Librium thiamine folic acid significantly improved and being discharged home prescription transmitted to the pharmacy. At the time of discharge patient is alert awake oriented x3 stable vital signs. Consults/Reason for consult None Operations or Procedures CT head Condition at Discharge: Fair Final Diagnosis/Problems List Acute alcoholic intoxication Acute dehydration: IV fluids Possible delirium tremens: Librium Tachycardia secondary to ETOH use Alcoholic withdrawal Gallbladder sludge Fatty liver Diverticulosis Chronic current alcohol abuse: Counseling: Thiamine folic acid Diffuse abdominal pain Discharge Disposition: Home Discharge Instruct/Medications Diet: Cardiac 2g Na,low cholest Activity: Light activity Follow Up/Referral: Stop drinking alcohol Use medications as prescribed Follow up with your primary Dr Medications: Thiamine Folic acid Librium Transmitted to pharmacy 35 (Time taken for discharge summary 35 minutes) Discharge Statement: "Patient was advised to return to the ER or call 911 if any headaches, dizziness, shortness of breath, chest pain, abdominal pain, bleeding, fevers, or worsening of medical condition. Patient was counseled about treatment plan, medications, possible side effects, patientverbalized understanding. All questions were answered to the best of my ability. This discharge took greater then 30 minutes in planning, reviewing documentation, counseling the patient, and discussing with other team members." ASSESSMENT ASSESSMENT Hospital Course Improved Assessment Acute alcoholic intoxication Acute dehydration: IV fluids Possible delirium tremens: Librium Tachycardia secondary to ETOH use Alcoholic withdrawal Gallbladder sludge Fatty liver Diverticulosis Chronic current alcohol abuse: Counseling: Thiamine folic acid Diffuse abdominal pain Date of Service: Aug 02, 2024 Billing Provider: ESTRELLITA COBB MD Common Visit Codes: [id number] DISCH DAY >30min ESTRELLITA COBB MD Aug 02, 2024 12:27
[2024-08-02 13:00] VITALS: BP 140/78; PULSE 79; RESP 19; TEMP 98.6; O2SAT 98
[2024-08-02 13:43] VITALS: BP 140/78; PULSE 79; RESP 19; TEMP 98.6; O2SAT 98
== END 2024-08-02 14:12 | disposition home or self-care (01) | DRG 816 ==
LOC: ER 07:31 → TELE 11:39 → TELE-WESTW 16:28
PROVIDERS: ADMIT Hospitalist; ATTEND Family Medicine
DX: T51.91XA Toxic effect of unspecified alcohol, accidental (unintentional), initial encounter (principal); F10.231 Alcohol dependence with withdrawal delirium; K76.0 Fatty (change of) liver, not elsewhere classified; K57.30 Diverticulosis of large intestine without perforation or abscess without bleeding; E66.01 Morbid (severe) obesity due to excess calories; Z20.822 Contact with and (suspected) exposure to COVID-19; E86.0 Dehydration; K82.8 Other specified diseases of gallbladder; Y90.9 Presence of alcohol in blood, level not specified; Z59.00 Homelessness unspecified; Z68.28 Body mass index [BMI] 28.0-28.9, adult
CPT/HCPCS: 96374; 99291; G0378; J2405

== ENCOUNTER 2024-12-21 11:04 | Inpatient (IN) | payer MEDICAID ==
[~2024-12-21] VITALS: Ht 172.7 cm; Wt 70.1 kg
[~2024-12-21 11:04] MED LIST changes: +CHL25C PO; +FOLI-119 PO; +MULT-1018 PO; +THIA100T13 PO
[2024-12-21 15:44] LABS: Basophils # (auto) 0 10 ^3/uL (0-0.2); Eosinophils # (auto) 0 10 ^3/uL (0-0.8); Hemoglobin 13.5 g/dL (13.5-17.5); Nucleated Red Blood Cells % 0.2 %; White Blood Cell 8.3 10^3/uL (4.4-10.8)
[2024-12-21 15:46] LABS: Basophils % (auto) 0.3 % (0.0-2.0); Hematocrit 39.1 % (41.0-53.0); Lymphocytes # (auto) 0.2 10 ^3/uL (0.4-5.4); Lymphocytes % (auto) 1.9 % (10.0-50.0); Mean Corpuscular Hemoglobin 38.3 pg (28.0-32.0); Mean Corpuscular Hgb Conc. 34.5 g/dL (32.0-36.0); Mean Corpuscular Volume 111.1 fL (80.0-100.0); Monocytes % (auto) 11.7 % (0.0-12.0); Neutrophils # (auto) 7.1 10 ^3/uL (1.6-8.6); Neutrophils % (auto) 86.1 % (37.0-80.0); Platelet Count (auto) 118 10^3/uL (140-450); Red Blood Cells 3.52 10^6/uL (4.5-5.90); Red Cell Distribution Width 16.5 % (11.8-14.3)
[2024-12-21 15:59] LABS: Alanine Aminotransferase 58 U/L (7-40); Albumin 4.2 g/dL (3.2-4.8); Alkaline Phosphatase 161 U/L (46-116); Anion Gap 20 (5-15); Aspartate Aminotransferase 224 U/L (13-40); BUN/Creatinine Ratio 7.8 (10.0-20.0); Blood Alcohol 158.9 mg/dL (<10); Blood Urea Nitrogen 9 mg/dL (9-23); Calcium 8.7 mg/dL (8.7-10.4); Carbon Dioxide 17 mmol/L (20-31); Chloride 96 mmol/L (98-107); Glucose 169 mg/dL (74-106); Potassium 3.1 mmol/L (3.5-5.1); Sodium 133 mmol/L (136-145); Total Protein 7.4 g/dL (5.7-8.2)
[2024-12-21 16:00] LABS: Bilirubin, Total 2.3 mg/dL (0.2-1.0)
[2024-12-21 16:02] LABS: Lactic Acid w/Reflex 7.7 mmol/L (0.4-2.0)
[2024-12-21] MEDS: SODIUM CHLORIDE 0.9% 1,000 ML IV ONE (16:06)
[2024-12-21] MEDS: ONDANSETRON HCL 4 MG/2 ML VIAL IV ONE (16:06)
[2024-12-21] MEDS: PANTOPRAZOLE 40 MG/10 ML VIAL INJ IV ONE ×2 (16:06→22:32)
--- NOTE | 2024-12-21 16:13 | DVH ---
Exam: CT CT AB PEL WO CON-NO ORAL OR IV History: abd pain Comparison Study: CT CT AB PEL WO CON-NO ORAL OR IV on DOS: 07/29/24 Technique: Multidetector spiral CT of the abdomen was performed from lung bases to pubic symphysis. Imaging was performed without IV contrast. Axial, coronal and sagittal multiplanar reformats were ob tained from the axial data set by the technologist. Radiation Dose : 1. Abdomen/Pelvis: CTDIvol 11.04 mGy, DLP 683.02 mGy*cm. Findings: Evaluation of solid organs is limited due to lack of intravenous contrast use. Lung Bases: Right lower lobe pneumonic infiltrate. Chest x-ray recommended. Tiny right pleural effus ion. Liver: Severe fatty infiltration of the liver. Gallbladder and Biliary Tree: Unremarkable Spleen: Unremarkable Pancreas: The pancreas is grossly normal in appearance. Adrenal Glands: Unremarkable Kidneys: Kidneys are grossly normal without calculi or hydronephrosis. Bladder: Grossly unremarkable for degree of distention. Bowel: The stomach is grossly normal in appearance. Small bowel and colon are normal in caliber and d istribution. Normal appendix. No bowel obstruction. Ascites: Absent Lymphadenopathy: No mesenteric, retroperitoneal or periportal lymphadenopathy. Abdominal Wall and Mesentery: Unremarkable. Vasculature: The visualized abdominal aorta is normal in size and caliber. Evaluation of abdominal a nd pelvic vessels is limited due to lack of intravenous contrast. Pelvic Organs: Unremarkable Musculoskeletal: No aggressive focal bony lesions, acute fractures or dislocation. IMPRESSION: 1. Fatty liver No bowel obstruction Normal appendix Right lower lobe pneumonia Chest x-ray recommended for further assessment. The pneumonic infiltrate of the right lung base is ne w when compared to 07/29/2024. Radiation optimization: All CT scans at this facility use at least one of these dose optimization jessenia hniques: automated exposure control mA and/or kV adjustment per patient size (includes targeted exam s where dose is matched to clinical indication) or iterative reconstruction.
[2024-12-21 16:14] VITALS: PULSE 144; RESP 20; O2SAT 93
[2024-12-21 16:30] LABS: Lipase 45 U/L (12-53)
--- NOTE | 2024-12-21 16:30 | ED.PDOC ---
GI ASSESSMENT HPI Comments 64 year old male JORGE LUIS presents to the ED with chief complaint of bilateral flank pain. Patient reports that he has been experiencing bilateral flank pain for the past 3 days. Patient relays that he is currently having etoh withdrawals, not having a drink since 3 days ago due to the pain. Patient denies any dysuria, hematuria, N/V/D, fever, or chills. Chief Complaint: Abdominal Pain Time Seen by MD: 16:26 Primary Care Provider: NONE Reviewed Notes: Nurses Notes, Tube Operator Notes, Medications, Allergies Allergies: Coded Allergies: NO KNOWN ALLERGIES (Unverified , 02/01/24) Home Meds Active Scripts Chlordiazepoxide Hcl (Librium) 25 Mg Cp, 25 MG PO TID, #30 CAP Prov:ESTRELLITA COBB MD 08/02/24 Multiple Vitamin (Multivitamins) Tab, 1 TAB PO DAILY, #90 TAB 3 Refills Prov:ESTRELLITA COBB MD 08/02/24 Folic Acid (Folic Acid) 1 Mg Tab, 1 MG PO DAILY, #90 TAB Prov:ESTRELLITA COBB MD 08/02/24 Thiamine HCl (Thiamine Hydrochloride) 100 Mg Tab, 100 MG PO DAILY, #30 TAB Prov:ESTRELLITA COBB MD 08/02/24 Chlordiazepoxide Hcl (Ni-1) (I (Librium) 10 Mg Cap, 10 MG PO BID for 5 Days, #10 CAP Prov:TODD ELLIOTT MD 07/27/24 Multiple Vitamins W/ Iron (Multi Vitamin with Iron) 1 Tab Tab, 1 TAB PO DAILY for 30 Days, #30 TAB Prov:FAUSTO LUNDBERG 05/09/24 Pantoprazole Sodium Sesquihydr (Pantoprazole Sodium) 40 Mg Tab, 40 MG PO DAILY@0 600 for 30 Days, #30 TAB Prov:FAUSTO LUNDBERG 05/09/24 Gabapentin (Gabapentin) 300 Mg Cap, 300 MG PO TID for 30 Days, #120 CAP Prov:FAUSTO LUNDBERG 05/09/24 Ergocalciferol (VITAMIN D 23843 UNIT) 50,000 [place], [address] UNIT PO Q7D for 30 Days, #10 CAP Prov:FAUSTO LUNDBERG 05/09/24 Acetaminophen (Acetaminophen) 325 Mg Tab, 650 MG PO Q6HP PRN for 10 Days, #80 TAB Prov:FAUSTO LUNDBERG RESIDENT 05/09/24 Information Source: Patient, Emergency Med Personnel Mode of Arrival: EMS Timing: Days Duration: Since onset Prehospital treatment: None Quality: Aching Vomitus: None Stool: Normal Severity: Moderate Recent: Ingestion of ETOH Modifying Factors: Nothing Associated sign and symptoms: Abdominal Pain Past Medical History Past Medical History (Other): etoh dependence Surgical History: Denies all surgeries Family History Family History: Reviewed,noncontributory to illness, Unknown Social History Smoker: Non-Smoker Alcohol: Heavy Drugs: Denies Drug Use Lives In: Homeless Constitutional: denies: chills, diaphoresis, fatigue, fever, malaise, sweats, weakness, others EENTM: denies: blurred vision, double vision, ear bleeding, ear discharge, ear drainage, ear pain, ear ringing, eye pain, eye redness, hearing loss, mouth pain, mouth swelling, nasal discharge, nose bleeding, nose congestion, nose pain, photophobia, tearing, throat pain, throat swelling, voice changes, others Respiratory: denies: cough, hemoptysis, orthopnea, SOB at rest, shortness of breath, SOB with excertion, stridor, wheezing, others Cardiovascular: denies: chest pain, dizzy spells, diaphoresis, Dyspnea on exertion, edema, irregular heart beat, left arm pain, lightheadedness, palpitations, PND, syncope, others Gastrointestinal: reports: abdominal pain; denies: abdomen distended, blood streaked bowels, constipated, diarrhea, dysphagia, difficulty swallowing, hematemesis, melena, nausea, poor appetite, poor fluid intake, rectal bleeding, rectal pain, vomiting, others Genitourinary: reports: flank pain; denies: burning, dysuria, frequency, hematuria, incontinence, penile discharge, penile sore, pain, testicle pain, testicle swelling, urgency, others Neurological: reports: tremors; denies: dizziness, fainting, headache, left sided numbness, left sided weakness, numbness, paresthesia, pre-existing deficit, right sided numbness, right sided weakness, seizure, speech problems, tingling, weakness, others Musculoskeletal: denies: back pain, gout, joint pain, joint swelling, muscle pain, muscle stiffness, neck pain, others Integumetry: denies: bruises, change in color, change in hair/nails, dryness, laceration, lesions, lumps, rash, wounds, others Allergic/Immunocompromised: denies: Difficulty Healing, Frequent Infections, Hives, Itching, others Hematologic/Lymphatic: denies: anemia, blood clots, easy bleeding, easy bruising, swollen glands, others Endocrine: denies: excessive hunger, excessive sweating, excessive thirst, excessive urination, flushing, intolerance to cold, intolerance to heat, unexplained weight gain, unexplained weight loss, others Psychiatric: denies: anxiety, bipolar disorder, depression, hopeless, panic disorder, schizophrenia, sleepless, suicidal, others All Other Systems: Reviewed and Negative Physical Exam General Appearance: Mild Distress HEENT: Other (Pupils and face symmetric. Dry mucous membranes.) Neck: Full Range of Motion, Normal Inspection Respiratory: Decreased Breath Sounds, No Accessory Muscle Use, No Respiratory Distress Cardiovascular: No Edema, No JVD, Regular Rate/Rhythm Breast Exam: Deferred Gastrointestinal: Soft, Other (bilat upper flank tenderness to palpation) Genitalia: Deferred Pelvic: Deferred Rectal: Deferred Extremities: Normal inspection, Normal range of motion, Non-tender, No pedal edema Neurologic: Alert (Oriented x4), Normal Affect, Normal Mood, Other (Ambulatory) Cerebellar Function: NOT DONE Reflexes: NOT DONE Skin: Dry, Normal Color, Warm Lymphatic: NOT DONE Was a procedure done? Was a procedure done?: No GI differential Dx Differential Diagnosis: Constipation, Diverticular disease, Gastroenteritis, Inflammatory BD, Ischemic Bowel, Pancreatitis, UTI, Urolithiasis, Dehydration, Electrolyte Imbalance, Food Poisoning, Bacterial, Viral, Hypovolemia, Impaction, Stress Ulcer, Other (Alcohol withdrawal, among others) X-Ray, Labs, Meds, VS Vital Signs Date Time Temp Pulse Resp B/P (MAP) Pulse Ox O2 Delivery O2 Flow Rate FiO2 12/21/24 16:14 98.4 144 20 115/82 (93) 93 98.4 12/21/24 16:14 144 20 93 Room Air* 0 21 12/21/24 11:47 98.4 118 17 168/112 (130) 98 98.4 Lab Test 12/21/24 17:29 12/21/24 15:26 Range/Units Lactic Acid Level 8.5 *H 7.7 *H 0.4-2.0 mmol/L White Blood Count 8.3 4.4-10.8 10^3/uL Red Blood Count 3.52 L 4.5-5.90 10^6/uL Hemoglobin 13.5 13.5-17.5 g/dL Hematocrit 39.1 L 41.0-53.0 % Mean Corpuscular Volume 111.1 H 80.0-100.0 fL Mean Corpuscular Hemoglobin 38.3 H 28.0-32.0 pg Mean Corpuscular Hemoglobin Concent 34.5 32.0-36.0 g/dL Red Cell Distribution Width 16.5 H 11.8-14.3 % Platelet Count 118 L 140-450 10^3/uL Mean Platelet Volume 8.2 6.9-10.8 fL Neutrophils (%) (Auto) 86.1 H 37.0-80.0 % Lymphocytes (%) (Auto) 1.9 L 10.0-50.0 % Monocytes (%) (Auto) 11.7 0.0-12.0 % Eosinophils (%) (Auto) 0.0 0.0-7.0 % Basophils (%) (Auto) 0.3 0.0-2.0 % Neutrophils # (Auto) 7.1 1.6-8.6 10 ^3/uL Lymphocytes # (Auto) 0.2 L 0.4-5.4 10 ^3/uL Monocytes # (Auto) 1.0 0-1.3 10 ^3/uL Eosinophils # (Auto) 0 0-0.8 10 ^3/uL Basophils # (Auto) 0 0-0.2 10 ^3/uL Nucleated Red Blood Cells 0.2 % Platelet Estimate Decreased Anisocytosis (manual) Slight Macrocytosis Moderate Stomatocytes Moderate Sodium Level 133 L 136-145 mmol/L Potassium Level 3.1 L 3.5-5.1 mmol/L Chloride Level 96 L 98-107 mmol/L Carbon Dioxide Level 17 L 20-31 mmol/L Anion Gap 20 H 5-15 Blood Urea Nitrogen 9 9-23 mg/dL Creatinine 1.16 0.700-1.30 mg/dL Glomerular Filtration Rate Calc 71 >90 mL/min BUN/Creatinine Ratio 7.8 L 10.0-20.0 Serum Glucose 169 H 74-106 mg/dL Calcium Level 8.7 8.7-10.4 mg/dL Total Bilirubin 2.3 H 0.2-1.0 mg/dL Aspartate Amino Transferase (AST) 224 H 13-40 U/L Alanine Aminotransferase (ALT) 58 H 7-40 U/L Alkaline Phosphatase 161 H 46-116 U/L Total Protein 7.4 5.7-8.2 g/dL Albumin 4.2 3.2-4.8 g/dL Lipase 45 12-53 U/L Plasma/Serum Blood Alcohol 158.9 H <10 mg/dL Current Medications Medications (Trade) Dose Ordered Sig/Shubham Route Start Time Stop Time Status Last Admin Sodium Chloride 1,000 ml @ 1,000 mls/hr Q1H ONCE IV 12/21/24 15:15 12/21/24 16:14 DC 12/21/24 16:06 Ondansetron HCl (Zofran) 4 mg ONCE ONCE IV 12/21/24 15:15 12/21/24 15:17 DC 12/21/24 16:06 Pantoprazole Sodium (Protonix) 40 mg ONCE ONCE IV 12/21/24 15:15 12/21/24 15:17 DC 12/21/24 16:06 Sodium Chloride 2,000 ml @ 1,000 mls/hr Q2H ONCE IV 12/21/24 16:30 12/21/24 18:29 DC 12/21/24 16:47 PROCEDURE(s): ABPL - CT AB PEL WO CON-NO ORAL OR IV REASON: abd pain ORDER NUMBER(s): [id number], ACCESSION NUMBER(s): [id number] Exam: CT CT AB PEL WO CON-NO ORAL OR IV History: abd pain Comparison Study: CT CT AB PEL WO CON-NO ORAL OR IV on DOS: 07/29/24 Technique: Multidetector spiral CT of the abdomen was performed from lung bases to pubic symphysis. Imaging was performed without IV contrast. Axial, coronal and sagittal multiplanar reformats were obtained from the axial data set by the technologist. Radiation Dose : 1. Abdomen/Pelvis: CTDIvol 11.04 mGy, DLP 683.02 mGy*cm. Findings: Evaluation of solid organs is limited due to lack of intravenous contrast use. Lung Bases: Right lower lobe pneumonic infiltrate. Chest x-ray recommended. Tiny right pleural effusion. Liver: Severe fatty infiltration of the liver. Gallbladder and Biliary Tree: Unremarkable Spleen: Unremarkable Pancreas: The pancreas is grossly normal in appearance. Adrenal Glands: Unremarkable Kidneys: Kidneys are grossly normal without calculi or hydronephrosis. Bladder: Grossly unremarkable for degree of distention. Bowel: The stomach is grossly normal in appearance. Small bowel and colon are normal in caliber and distribution. Normal appendix. No bowel obstruction. Ascites: Absent Lymphadenopathy: No mesenteric, retroperitoneal or periportal lymphadenopathy. Abdominal Wall and Mesentery: Unremarkable. Vasculature: The visualized abdominal aorta is normal in size and caliber. Evaluation of abdominal and pelvic vessels is limited due to lack of intravenous contrast. Pelvic Organs: Unremarkable Musculoskeletal: No aggressive focal bony lesions, acute fractures or di slocation. IMPRESSION: 1. Fatty liver No bowel obstruction Normal appendix Right lower lobe pneumonia Chest x-ray recommended for further assessment. The pneumonic infiltrate of the right lung base is new when compared to 07/29/2024. Radiation optimization: All CT scans at this facility use at least one of these dose optimization techniques: automated exposure control mA and/or kV adjustment per patient size (includes targeted exams where dose is matched to clinical indication) or iterative reconstruction. X-Ray, Labs, Meds, VS Comment 64-year-old male who denies any past medical history complaining of bilateral flank pain and alcohol withdrawal Vitals remarkable for heart rate 118, BP 168/112 Exam remarkable for bilateral upper flank tenderness to palpation Rhythm strip independently interpreted by me: Sinus tach, rate 118, no ectopy. CT abdomen and pelvis IMPRESSION: 1. Fatty liver No bowel obstruction Normal appendix Right lower lobe pneumonia Chest x-ray recommended for further assessment. The pneumonic infiltrate of the right lung base is new when compared to 07/29/2024. Chest x-ray pending CBC remarkable for platelets 118, CMP remarkable for sodium 133, potassium 3.1, chloride 96, CO2 17, total bilirubin 2.3, AST 224, ALT 58, alkaline phos 161, lactic 7.7, repeat 8.5, lipase normal, influenza and COVID pending Patient treated with the following in the ED: 3 L 0.9 normal saline IV bolus, Zofran 4 mg IV, Protonix 40 mg IV, morphine 4 mg IV, cefepime 2 g IV, vancomycin 1 g IV, potassium effervescent 50 mEq p.o. On re-evaluation, patient states pain has improved. Vitals were stable. Plan is to admit the patient for IV antibiotics, IV hydration, treatment/prevention of alcohol withdrawal. Time of 1ST Reevaluation: 17:26 Reevaluation 1ST: Unchanged Time of 2ND Reevaluation: 20:25 Reevaluation 2ND: Improved Patient Education/Counseling: Diagnosis, Treatment Family Education/Counseling: No Family Present Sepsis Sepsis Reasesment Focused Exam Sepsis focused exam: focus exam completed (2025 capillary refill less than 2 seconds, pain improved, blood pressure stable) Departure 1 Departure Time of Disposition: 20:27 Impression: Primary Impression: Pneumonia Qualified Codes: J18.9 - Pneumonia, unspecified organism Additional Impressions: Sepsis Qualified Codes: A41.9 - Sepsis, unspecified organism Alcohol withdrawal Qualified Codes: F10.939 - Alcohol use, unspecified with withdrawal, unspecified Electrolyte imbalance Disposition: ADMITTED INPATIENT Admit to: Tele Condition: Guarded Critical Care Note Critical Care Time?: Yes (45 min-critical care time only) Critical care comment: Critical care time including multiple bedside re-evaluations, review of lab and imaging studies, and discussion of the case with the admitting provider. Patient is high risk for hemodynamic, respiratory and/or neurologic decompensation. Stability Stability form required: No Heart Score Heart Score: Heart Score Response (Comments) Value History N/A 0 EKG N/A 0 Age N/A 0 Risk Factors N/A 0 Troponin N/A 0 Total 0 I personally scribed for SLIME ALICIA MD ([email or web address]) on 12/21/24 at 16:30. Electronically submitted by Stephen Steward ([email or web address]). I personally scribed for SLIME ALICIA MD ([email or web address]) on 12/21/24 at 19:44. Electronically submitted by Chip Alvarez ([email or web address]). SLIME ALICIA MD Dec 21, 2024 16:30
[2024-12-21] MEDS: SODIUM CHLORIDE 0.9% 2,000 ML IV ONE (16:47)
[2024-12-21 16:55] LABS: Anisocytosis Slight; Platelet Estimate Decreased
[2024-12-21 16:56] LABS: Macrocytosis Moderate
[2024-12-21 16:57] LABS: Stomatocytes Moderate
--- NOTE | 2024-12-21 21:24 | DVHHPRES ---
History of Present Illness Resident Creating Document: SHARONDA PASCUAL RESIDENT History of Present Illness Patient is a 64-year-old unhoused male with past medical history of recurrent alcohol withdrawals and alcohol use disorder, who comes in due to alcohol withdrawal. According to the patient, he drinks 4 pt of vodka daily, last drink was 2 days ago. Patient also notes bilateral flank pain that has been ongoing for the past 1 month. On review of systems patient is complaining of fatigue, fever, chills, shortness of breath, dry cough, nausea and dry heaving. CT abdomen pelvis showed possible right lower lobe pneumonia, patient was noted to have a lactic acid level of 7.7, 8.5. Plasma alcohol level 158.9. At the time of my assessment patient was AO x3, CIWA score 10. Patient was started on banana bag, IV NS and IV lorazepam along with IV vancomycin and piperacillin- tazobactam. Past Medical History alcohol withdrawals and alcohol use disorder Past Surgical History Denies Past Social History Smoking: Denies Alcohol: Drinks 4 pt of vodka per day for the last 40 years Drugs: Denies Review of Systems Constitutional: Yes: Fever, Chills, Malaise; No: Sweats, Weakness, Other Eyes: No: Pain, Vision change, Conjunctivae inflammation, Eyelid inflammation, Other, Redness ENT: No: Ear pain, Ear discharge, Nose pain, Nose discharge, Nose congestion, Mouth pain, Mouth swelling, Throat pain, Throat swelling, Other Respiratory: Cough, Dry, Shortness of breath; No: SOB with excertion, Wheezing, Hemoptysis, Pleuritic Pain, Sputum, Wheezing, Other Cardiovascular: No: Chest Pain, Palpitations, Orthopnea, Paroxysmal Noc. Dyspnea, Edema, Lt Headedness, Other Gastrointestinal: Nausea; No: Vomiting, Abdominal Pain, Diarrhea, Constipation, Melena, Hematochezia, Other Genitourinary: No Dysuria, No Frequency, No Incontinence, No Hematuria, No Retention, No Other Musculoskeletal: No: other, neck pain, shoulder pain, arm pain, back pain, hand pain, leg pain, foot pain Skin: No: Rash, Lesions, Jaundice, Bruising, Other Neurological: No: Weakness, Numbness, Incoordination, Change in speech, Confusion, Seizures, Other Allergies: Coded Allergies: NO KNOWN ALLERGIES (Unverified , 02/01/24) Exam Vital Signs Vital Signs Date Time Temp Pulse Resp B/P (MAP) Pulse Ox O2 Delivery O2 Flow Rate FiO2 12/21/24 16:14 98.4 144 20 115/82 (93) 93 98.4 12/21/24 16:14 Room Air* 0 21 General Appearance: Alert, Oriented X3, Cooperative, severe distress, Other (CIWA score 10) HEENT: Atraumatic, PERRLA, EOMI, Other (Dry mucous membranes) Respiratory: Other (Decreased breath sounds) Cardiovascular: Normal S1, Normal S2, Other (Tachycardia) Abdominal: Normal bowel sounds, Soft, Other (Bilateral flank tenderness to palpation) Extremities: No edema, Normal pulses Skin: No significant lesion Neuro: Strength at 5/5 X4 ext Psych/Mental Status: Mood NL Labs/Xrays Labs Test 12/21/24 17:29 12/21/24 15:26 Range/Units Lactic Acid Level 8.5 *H 0.4-2.0 mmol/L White Blood Count 8.3 4.4-10.8 10^3/uL Red Blood Count 3.52 L 4.5-5.90 10^6/uL Hemoglobin 13.5 13.5-17.5 g/dL Hematocrit 39.1 L 41.0-53.0 % Mean Corpuscular Volume 111.1 H 80.0-100.0 fL Mean Corpuscular Hemoglobin 38.3 H 28.0-32.0 pg Mean Corpuscular Hemoglobin Concent 34.5 32.0-36.0 g/dL Red Cell Distribution Width 16.5 H 11.8-14.3 % Platelet Count 118 L 140-450 10^3/uL Mean Platelet Volume 8.2 6.9-10.8 fL Neutrophils (%) (Auto) 86.1 H 37.0-80.0 % Lymphocytes (%) (Auto) 1.9 L 10.0-50.0 % Monocytes (%) (Auto) 11.7 0.0-12.0 % Eosinophils (%) (Auto) 0.0 0.0-7.0 % Basophils (%) (Auto) 0.3 0.0-2.0 % Neutrophils # (Auto) 7.1 1.6-8.6 10 ^3/uL Lymphocytes # (Auto) 0.2 L 0.4-5.4 10 ^3/uL Monocytes # (Auto) 1.0 0-1.3 10 ^3/uL Eosinophils # (Auto) 0 0-0.8 10 ^3/uL Basophils # (Auto) 0 0-0.2 10 ^3/uL Nucleated Red Blood Cells 0.2 % Platelet Estimate Decreased Anisocytosis (manual) Slight Macrocytosis Moderate Stomatocytes Moderate Sodium Level 133 L 136-145 mmol/L Potassium Level 3.1 L 3.5-5.1 mmol/L Chloride Level 96 L 98-107 mmol/L Carbon Dioxide Level 17 L 20-31 mmol/L Anion Gap 20 H 5-15 Blood Urea Nitrogen 9 9-23 mg/dL Creatinine 1.16 0.700-1.30 mg/dL Glomerular Filtration Rate Calc 71 >90 mL/min BUN/Creatinine Ratio 7.8 L 10.0-20.0 Serum Glucose 169 H 74-106 mg/dL Calcium Level 8.7 8.7-10.4 mg/dL Total Bilirubin 2.3 H 0.2-1.0 mg/dL Aspartate Amino Transferase (AST) 224 H 13-40 U/L Alanine Aminotransferase (ALT) 58 H 7-40 U/L Alkaline Phosphatase 161 H 46-116 U/L Total Protein 7.4 5.7-8.2 g/dL Albumin 4.2 3.2-4.8 g/dL Lipase 45 12-53 U/L Plasma/Serum Blood Alcohol 158.9 H <10 mg/dL Assessment/Plan Assessment/Plan Alcohol withdrawal, CIWA 10 - IV NS 1 L bolus times x4 - IV NS at 100 cc per hour - banana bag - IV lorazepam 2 mg q.2 hours for a total of 5 doses - IV Protonix daily - IV Zofran as needed Acute hypoxic respiratory failure Pneumonia, probably aspiration Sepsis due to above Lactic acidosis due to above - IV vancomycin per pharmacy, IV Zosyn - ipratropium and levalbuterol med nebs - IV fluids as above Hypomagnesemia, severe: Serum magnesium 0.6 Hypokalemia - KCl rider - magnesium rider Transaminitis, alcohol induced Hyperbilirubinemia - total bilirubin 2.3, AST 224, ALT 58 - monitor - hepatomegaly noted on prior scans - ordered hepatitis panel Alcohol use disorder Unhoused UDS positive for methamphetamine - hepatitis panel - HIV testing - counseled extensively - consulted social insurance administrator PUD prophylaxis: protonix 40mg DVT prophylaxis: Levonox 40mg Goals of care: Full code, discussed for >16 minutes on 12/21/2024 Plan discussed with patient Plan discussed with Dr. Plaza Plan discussed with: Patient, Other (RN) Date of Service: Dec 21, 2024 Billing Provider: KATELIN PLAZA MD Common Visit Codes: [id number] INP/OBS CARE (HIGH) SHARONDA PASCUAL RESIDENT Dec 21, 2024 21:24 KATELIN PLAZA MD Dec 23, 2024 11:41
[2024-12-21] MEDS: chlordiazePOXIDE HCL 25 MG CAP PO ONE (21:29)
[2024-12-21] MEDS: LORazepam 2MG/ML-1ML VIAL IV ONE (21:30)
[2024-12-21] MEDS: POTASSIUM EFFERVESENT TAB 25 MEQ PO ONE (21:30)
[2024-12-21] MEDS ORDERED: AZITHROMYCIN 500MG/ 250ML 250 ML IV ONE (21:30)
[2024-12-21] MEDS: VANCOMYCIN 1GM/200ML PM 200 ML IV ONE (21:35)
[2024-12-21] MEDS ORDERED: POTASSIUM CHL 20MEQ/100ML 100 ML IV SCH (21:45)
[2024-12-21] MEDS ORDERED: VANCOMYCIN PER PHARMACY 0 MG IV SCH (21:45)
[2024-12-21 21:57] LABS: Lactic Acid w/Reflex 12.3 mmol/L (0.4-2.0)
[2024-12-21] MEDS: LORazepam 2MG/ML-1ML VIAL IV SCH (22:00)
[2024-12-21] MEDS ORDERED: LORazepam 2MG/ML-1ML VIAL IV SCH (22:00)
[2024-12-21 22:10] LABS: Anion Gap 23 (5-15)
[2024-12-21 22:15] LABS: BUN/Creatinine Ratio 10.1 (10.0-20.0); Blood Urea Nitrogen 12 mg/dL (9-23)
[2024-12-21] MEDS: FOLIC ACID 1 MG, MAGNESIUM SULF SDV 50% 8 MEQ, MULTIPLE VITAMIN 10 ML, THIAMINE INJ 100... INJ SCH (22:15)
[2024-12-21 22:18] LABS: Creatine Kinase IFCC 104 U/L (46-171)
[2024-12-21 22:21] LABS: Calcium 8.2 mg/dL (8.7-10.4); Carbon Dioxide 15 mmol/L (20-31); Chloride 97 mmol/L (98-107); Glucose 160 mg/dL (74-106); Potassium 3.3 mmol/L (3.5-5.1); Sodium 135 mmol/L (136-145)
--- NOTE | 2024-12-21 22:25 | DVH ---
CHEST RADIOGRAPH Indication: pna Technique: Single frontal view of the chest was obtained Comparison: XY CHEST XRAY 1 VIEW on DOS: 07/28/24, XY CHEST XRAY 1 VIEW on DOS: 05/08/24, XY CHEST XRAY 1 VIEW on DOS: 05/07/24 FINDINGS: 1. There is a 2. cardiomegaly. 3. Also consolidate 4. in the right lung base. 5. IMPRESSION: 1. Consolidation in the right lung base and cardiomegaly follow-up CT examination of the chest is sug gested
[2024-12-21] MEDS: cefTRIAXone 1GM/50ML D5W 50 ML IV ONE (22:31)
[2024-12-21] MEDS: PIPERACILLIN-TAZOB 3.375GM 100 ML IV ONE (22:32)
[2024-12-21] MEDS: SODIUM CHLORIDE 0.9% 500 ML IV ONE (22:40)
[2024-12-21 22:42] LABS: COVID19 ANTIGEN SOFIA FIA NEGATIVE (NEGATIVE); Rapid Influenza A Negative (Negative); Rapid Influenza B Negative (Negative)
[2024-12-21 22:48] LABS: Magnesium 0.6 mg/dL (1.6-2.6); Phosphorus 3.1 mg/dL (2.4-5.1)
[2024-12-21] MEDS: CEFEPIME 2GM/50ML NS 50 ML IV ONE (22:58)
[2024-12-21 23:00] VITALS: PULSE 127; RESP 44; O2SAT 89
[2024-12-21 23:40] LABS: Base Excess -5.2 mmol/L (-2.0-3.0)
[2024-12-21 23:53] LABS: Amphetamine Screen, Urine Pos (NEGATIVE); Barbiturate Scree,Urine Neg (NEGATIVE); Benzodiazephine Screen, Urine Neg (NEGATIVE); Cannabinoid Screen, Urine Neg (NEGATIVE); Cocaine Screen, Urine Neg (NEGATIVE); Opiate Scree,Urine Neg (NEGATIVE); Phencyclidine Screen, Urine Neg (NEGATIVE)
[2024-12-22] VITALS (14 sets, daily range): BP systolic 114–123; BP diastolic 47–82; PULSE 102–129; RESP 16–30; TEMP 98–99.9; O2SAT 90–98
[2024-12-22 00:29] LABS: Urine Bacteria FEW /hpf (None Seen); Urine Blood Negative /uL (Negative); Urine Clarity Turbid (Clear); Urine Color Orange (Yellow); Urine Hyaline Cast FEW /lpf (0 - 2); Urine Mucus FEW (None Seen); Urine Protein, UAD TRACE (Negative); Urine Specific Gravity 1.018 (1.001-1.035); Urine Squamous Epithelial Cell FEW /hpf (<5); Urine Urobilinogen 4 mg/dL (Negative); Urine WBC 3 /HPF (0-3); Urine pH 5.5 (5.0-9.0)
[2024-12-22] MEDS: SODIUM CHLORIDE 0.9% 1,000 ML IV ONE (00:58)
[2024-12-22] MEDS: MAGNESIUM SULFATE 1GM/100ML 100 ML IV SCH (00:58)
[2024-12-22] MEDS: SODIUM CHLORIDE 0.9% 1,000 ML IV SCH (00:59)
[2024-12-22] MEDS: ACETAMINOPHEN 325 MG TAB PO ONE ×2 (01:37→18:17)
[2024-12-22 01:44] LABS: Lactic Acid w/Reflex 6.3 mmol/L (0.4-2.0)
[2024-12-22] MEDS: PIPERACILLIN-TAZOB 3.375GM 100 ML IV SCH (05:20)
[2024-12-22] MEDS: POTASSIUM CHL 20MEQ/50ML 50 ML IV SCH (05:37)
[2024-12-22 05:53] LABS: Basophils # (auto) 0 10 ^3/uL (0-0.2); Eosinophils # (auto) 0 10 ^3/uL (0-0.8); Monocytes # (auto) 0.4 10 ^3/uL (0-1.3); Nucleated Red Blood Cells % 0.1 %
[2024-12-22 05:55] LABS: Basophils % (auto) 0.3 % (0.0-2.0); Hematocrit 34.3 % (41.0-53.0); Lymphocytes # (auto) 0.5 10 ^3/uL (0.4-5.4); Lymphocytes % (auto) 6.6 % (10.0-50.0); Mean Corpuscular Hemoglobin 38.6 pg (28.0-32.0); Mean Corpuscular Hgb Conc. 34.9 g/dL (32.0-36.0); Mean Corpuscular Volume 110.6 fL (80.0-100.0); Monocytes % (auto) 5.4 % (0.0-12.0); Neutrophils # (auto) 6.5 10 ^3/uL (1.6-8.6); Neutrophils % (auto) 87.7 % (37.0-80.0); Platelet Count (auto) 77 10^3/uL (140-450); Red Cell Distribution Width 16.4 % (11.8-14.3); White Blood Cell 7.4 10^3/uL (4.4-10.8)
[2024-12-22] MEDS: LEVALBUTEROL HCL 1.25 MG/3 ML NEB NEB SCH (06:00)
[2024-12-22] MEDS: IPRATROPIUM BROM 0.5 MG/2.5ML INH SOL NEB SCH (06:00)
[2024-12-22 06:04] LABS: Albumin 3.2 g/dL (3.2-4.8); Alkaline Phosphatase 88 U/L (46-116); Anion Gap 14 (5-15); BUN/Creatinine Ratio 15.1 (10.0-20.0); Blood Urea Nitrogen 13 mg/dL (9-23); Carbon Dioxide 21 mmol/L (20-31); Chloride 102 mmol/L (98-107); Potassium 3.7 mmol/L (3.5-5.1); Sodium 137 mmol/L (136-145)
[2024-12-22 06:25] LABS: Alanine Aminotransferase 41 U/L (7-40); Aspartate Aminotransferase 161 U/L (13-40); Bilirubin, Total 3.2 mg/dL (0.2-1.0); Calcium 7.6 mg/dL (8.7-10.4); Glucose 149 mg/dL (74-106); Total Protein 5.6 g/dL (5.7-8.2)
[2024-12-22 06:35] LABS: Folate (Folic Acid) > 48.00 ng/mL (>5.38)
[2024-12-22 08:40] LABS: Chloride 104 mmol/L (98-107); Potassium 4.1 mmol/L (3.5-5.1); Sodium 138 mmol/L (136-145)
[2024-12-22 08:41] LABS: Anion Gap 13 (5-15); Carbon Dioxide 21 mmol/L (20-31)
[2024-12-22 08:43] LABS: Calcium 7.5 mg/dL (8.7-10.4)
[2024-12-22 08:46] LABS: BUN/Creatinine Ratio 12.9 (10.0-20.0); Blood Urea Nitrogen 11 mg/dL (9-23)
[2024-12-22 08:48] LABS: Glucose 126 mg/dL (74-106)
[2024-12-22] MEDS ORDERED: cefTRIAXone 1GM/50ML D5W 50 ML IV SCH (09:00)
[2024-12-22] MEDS: ENOXAPARIN SOD 40 MG/0.4 ML SYRINGE SC SCH (10:00)
[2024-12-22] MEDS ORDERED: AZITHROMYCIN 500MG/ 250ML 250 ML IV SCH (10:00)
--- NOTE | 2024-12-22 10:31 | DVH ---
EXAM: CT CHEST WITHOUT CONTRAST; DATE: 12/22/2024 07:55 AM HISTORY: RLL consolidation COMPARISON: None TECHNIQUE: Axial images were obtained and reformatted in coronal and sagittal planes. All CT scans a t [facility] are performed using dose modulation techniques as appropriate to a performed exam including the following: Automated exposure control was utilized; adjustment of the MA and/or KV according to patient size; and use of iterative reconstruction technique. CT Dose: CTDI volume is 14.98 mGy. Dose-length product is 528.44 mGy*cm FINDINGS: Lower neck: Unremarkable. Cardiomediastinal: Mild cardiomegaly. Coronary artery calcification seen. Evidence of anemia. Lungs: Small right and trace left pleural effusions. Complete consolidation the right upper and lowe r lobes. Right middle lobe is well aerated. There is moderate consolidation of the left lower lobe. Air bronchograms noted bilaterally in the consolidated regions Bones and Soft Tissues: No acute abnormality. 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 Large, Partially seen 9.5 x 9 x 3.1 cm. Upper Abdomen: No acute abnormality. Hepatic steatosis. Other: None. IMPRESSION: 1. There is significant interval worsening of bilateral pneumonia now involving the entire right uppe r and lower lobes the majority of the left lower lobe. Small bilateral pleural effusions noted. The airways are patent.
[2024-12-22] MEDS: SODIUM CHLORIDE 0.9% 500 ML IV ONE ×2 (12:54→21:30)
[2024-12-22] MEDS: PANTOPRAZOLE 40 MG/10 ML VIAL INJ IV SCH (13:02)
[2024-12-22] MEDS: VANCOMYCIN 1GM/200ML PM 200 ML IV SCH (13:02)
--- NOTE | 2024-12-22 16:21 | CONS ---
Pharmacy Clinical Information: Plts = 77, could be due to either enoxaparin or Zosyn, or both MARIKA JENKINS PHARMACIST Dec 22, 2024 16:21
[2024-12-22] MEDS: LORazepam 2MG/ML-1ML VIAL IV PRN (18:08)
--- NOTE | 2024-12-22 19:57 | DVHPNRES ---
Progress Note Date Seen: Dec 22, 2024 Resident Creating Document: EMERSON KLINE RESIDENT Has the PT tested + for MRSA If YES, has PT been informed?: No Medical Necessity Reason Pt with a Central, PICC or Fol: No Medical Necessity Reason History of Present Illness Patient is a 64-year-old unhoused male with past medical history of recurrent alcohol withdrawals and alcohol use disorder, who comes in due to alcohol withdrawal. According to the patient, he drinks 4 pt of vodka daily, last drink was 2 days ago. Patient also notes bilateral flank pain that has been ongoing for the past 1 month. On review of systems patient is complaining of fatigue, fever, chills, shortness of breath, dry cough, nausea and dry heaving. CT abdomen pelvis showed possible right lower lobe pneumonia, patient was noted to have a lactic acid level of 7.7, 8.5. Plasma alcohol level 158.9. At the time of my assessment patient was AO x3, CIWA score 10. Patient was started on banana bag, IV NS and IV lorazepam along with IV vancomycin and piperacillin- tazobactam. Past Medical History: alcohol withdrawals and alcohol use disorder Past Surgical History: Denies Past Social History: Smoking: Denies, Alcohol: Drinks 4 pt of vodka per day for the last 40 years Medicine: Denies Drugs PN 12/22/2024 Patient seen in the ED today. He was confused sleeping. Per the night team report, patient received 5mg total of ativan and 100mg of librium. Vitals signs shows tachycardiac 129, fever ( Temp: 100.7); Preliminary blood culture grew Gram Positive Cocci in chains and Gram Positive Cocci in pairs. Patient is already on Zosyn and vancomycin. Patient received another bolus of fluid. In lactic acid is currently pending. Added Librium protocol starting with 50 b.i.d. and we will taper down slowly. Subjective Review of Systems Unable to review his system as patient was altered and not really compliant Constitutional: Denies fever no chills no feeling of malaise HEENT: Denies headache, ear pain, ear discharges, conjunctivitis, nasal discharge throat pain Cardiovascular: Denies chest pain, palpitation, orthopnea, PND, or pedal edema Respiratory: Denies shortness of breath, cough cough, sputum production, hemoptysis, GI: Denies abdominal pain, vomiting, diarrhea, hematemesis, hematochezia; Nausea : Denies frequency, urgency, hematuria, Endocrine: Denies unintentional weight gain or weight loss, feeling of hot flashes, [place]: Denies easy bruising, bleeding disorders, epistaxis Musculoskeletal: Denies joint pains, muscle aches Psych: No evidence of depression, lopez, suicidal ideation Objective vital signs Vital Sign Date Time Temp Pulse Resp B/P (MAP) Pulse Ox O2 Delivery O2 Flow Rate FiO2 12/22/24 19:09 129 20 94 12/22/24 19:03 Nasal Cannula* 4 36 12/22/24 18:17 99.8 12/22/24 16:43 114/80 (91) Total Intake and Output 12/21/24 12/21/24 12/22/24 15:00 23:00 07:00 Intake Total 1508 ml Balance 1508 ml medications Current Medications Medications Dose Ordered Sig/Shubham Route Start Time Stop Time Status Last Admin Dose Admin Ondansetron HCl 4 mg Q4HP PRN IV 12/21/24 20:45 Enoxaparin Sodium 40 mg DAILY SC 12/22/24 10:00 Folic Acid 1 mg/ Magnesium Sulfate 8 meq/ Multivitamins 10 ml/Thiamine HCl 100 mg/Sodium Chloride 1,013.2 ml @ 126.247 mls/hr DAILY@1800 INJ 12/21/24 20:45 12/22/24 18:22 126.247 MLS/HR Pantoprazole Sodium 40 mg DAILY IV 12/22/24 10:00 12/22/24 13:02 40 MG Sodium Chloride 1,000 ml @ 100 mls/hr Q10H IV 12/21/24 21:45 12/22/24 18:29 100 MLS/HR Piperacillin Sod/ Tazobactam Sod 100 ml @ 25 mls/hr Q8HR IV 12/22/24 06:00 12/22/24 13:18 25 MLS/HR Vancomycin HCl 0 ml @ 0 mls/hr UD IV 12/21/24 21:45 Potassium Chloride 100 ml @ 50 mls/hr Q2H IV 12/21/24 21:45 12/22/24 01:44 UNV Vancomycin HCl 200 ml @ 200 mls/hr Q12H IV 12/22/24 10:00 12/22/24 13:02 200 MLS/HR Ipratropium [place] 0.5 mg Q6HWA NEB 12/22/24 06:00 12/22/24 19:03 0.5 MG Levalbuterol HCl 0.625 mg Q6HR NEB 12/22/24 06:00 12/22/24 19:03 0.625 MG Lorazepam 1 mg Q4HP PRN IV 12/22/24 17:45 12/22/24 18:08 1 MG Examination General Appearance: dishevel, Mildly altered, CIWA score 10 HEENT: Atraumatic, PERRLA, EOMI, Mucous membrane moist/pink Respiratory: Clear to auscultation, Normal air movement Cardiovascular: Regular rate, Normal S1, Normal S2, No murmurs, no chest wall tenderness Abdominal: NO distention, no tenderness, bowel sounds present, no scars noted Extremities: No clubbing, No cyanosis, No edema, Normal pulses, No tenderness/swelling, tremors Skin: No rashes, No breakdown, No significant lesion Neuro: unable to assess Psych/Mental Status: Mental status NL, Mood NL laboratory and microbiology Laboratory Tests 12/22/24 08:13 12/22/24 05:17 Test 12/22/24 08:13 Range/Units Serum Glucose 126 H 74-106 mg/dL Microbiology Date/Time Source Procedure Growth Status 12/21/24 21:15 Blood Blood Culture - Preliminary Resulted Problem List/Assessment/Plan Problem List/Assessment/Plan Assessment Sepsis due to mulitifocal pneumonia --> Lactic acidosis --> Tachycardia --> Blood culture positive for gram positive cocci --> Fluid 3L received thus far -- > IV vancomycin per pharmacy, IV Zosyn Pneumonia, probably aspiration --> IV Zosyn Acute hypoxic respiratory failure --> On 4l oxygen Metabolic encephalography --> Likely secondary to sepsis --> Improved --> Continue current treatly Alcohol withdrawal, CIWA 10 - IV NS 1 L bolus times x4 - IV NS at 100 cc per hour - banana bag - IV lorazepam 2 mg q.2 hours for a total of 5 doses - IV Protonix daily - IV Zofran as needed Hypomagnesemia, severe: Serum magnesium 0.6 Hypokalemia - KCl rider - magnesium rider Transaminitis, alcohol induced Hyperbilirubinemia - total bilirubin 2.3, AST 224, ALT 58 - monitor - hepatomegaly noted on prior scans - ordered hepatitis panel Alcohol use disorder Unhoused UDS positive for methamphetamine - hepatitis panel : Pending - HIV testing : Negative - consulted social work job titles for alcohol dependency and homeless PUD prophylaxis: protonix 40mg DVT prophylaxis: Levonox 40mg Goals of care discuss with nurse for 15 minutes: full code Case and plan discussed + Dr. Thakkar Plan discussed with: Patient My Orders My Orders Orders - EMERSON KLINE Procedure Category Date Status Time Respiratory Culture LINDY 12/22/24 Logged W/ Gs 11:33 Sputum Induction RT 12/22/24 Logged 11:33 Electrocardigram EKG 12/22/24 Logged 11:33 Lactic Acid W/ Reflex LAB 12/22/24 Logged Order 16:59 * Asset Protection Greeter CONS 12/22/24 Transmitted Consult 17:37 Regular Diet DIET 12/22/24 Transmitted Dinner Lorazepam 2mg/Ml Inj PHA 12/22/24 In Process (Ativan Inj) 17:45 Date of Service: Dec 22, 2024 Billing Provider: LETI THAKKAR MD Common Visit Codes: [id number] INP/OBS CARE(HIGH) EMERSON KLINE Dec 22, 2024 19:57 LETI THAKKAR MD Dec 23, 2024 21:19
[2024-12-22 20:11] LABS: Chloride 105 mmol/L (98-107); Sodium 139 mmol/L (136-145)
[2024-12-22 20:12] LABS: Anion Gap 12 (5-15); Carbon Dioxide 22 mmol/L (20-31)
[2024-12-22 20:18] LABS: BUN/Creatinine Ratio 17.7 (10.0-20.0); Blood Urea Nitrogen 14 mg/dL (9-23)
[2024-12-22 20:20] LABS: Calcium 7.7 mg/dL (8.7-10.4); Glucose 138 mg/dL (74-106)
[2024-12-22 20:36] LABS: Lactic Acid w/Reflex 2.9 mmol/L (0.4-2.0)
[2024-12-23] VITALS (15 sets, daily range): BP systolic 138–173; BP diastolic 36–99; PULSE 77–127; RESP 16–22; TEMP 98–98.8; O2SAT 92–99
[2024-12-23 06:36] LABS: Basophils # (auto) 0 10 ^3/uL (0-0.2); Eosinophils # (auto) 0.1 10 ^3/uL (0-0.8); Eosinophils % (auto) 1.2 % (0.0-7.0); Hemoglobin 10.8 g/dL (13.5-17.5); Lymphocytes # (auto) 0.6 10 ^3/uL (0.4-5.4); Mean Corpuscular Volume 112.5 fL (80.0-100.0)
[2024-12-23 06:40] LABS: Basophils % (auto) 0.5 % (0.0-2.0); Hematocrit 30.9 % (41.0-53.0); Lymphocytes % (auto) 5.9 % (10.0-50.0); Mean Corpuscular Hemoglobin 39.4 pg (28.0-32.0); Monocytes # (auto) 0.5 10 ^3/uL (0-1.3); Monocytes % (auto) 5.6 % (0.0-12.0); Neutrophils # (auto) 8.2 10 ^3/uL (1.6-8.6); Neutrophils % (auto) 86.8 % (37.0-80.0); Nucleated Red Blood Cells % 0.1 %; Platelet Count (auto) 88 10^3/uL (140-450); Red Blood Cells 2.75 10^6/uL (4.5-5.90); Red Cell Distribution Width 16.1 % (11.8-14.3); White Blood Cell 9.4 10^3/uL (4.4-10.8)
[2024-12-23 07:00] LABS: Anion Gap 10 (5-15); Carbon Dioxide 22 mmol/L (20-31)
[2024-12-23 07:05] LABS: BUN/Creatinine Ratio 19.4 (10.0-20.0); Blood Urea Nitrogen 14 mg/dL (9-23); Glucose 103 mg/dL (74-106)
[2024-12-23 07:36] LABS: Calcium 7.6 mg/dL (8.7-10.4); Chloride 107 mmol/L (98-107); Potassium 3.6 mmol/L (3.5-5.1); Sodium 139 mmol/L (136-145)
[2024-12-23] MEDS: chlordiazePOXIDE HCL 25 MG CAP PO SCH (09:35)
[2024-12-23 10:17] LABS: Hepatitis B Core Total AB Negative (Negative)
--- NOTE | 2024-12-23 12:04 | DVHINCON2 ---
Date of service: Dec 23, [address] Choi Reason for Consultation Acute respiratory failure History of Present Illness History Source: Patient Exam Limitations: No limitations, Clinical condition HPI Patient is a 64-year old gentleman with a history of homelessness who presented with failure to thrive and shortness of breath. Was seen in the emergency room where chest x-ray demonstrated infiltrates bilaterally consistent with pneumonia and the patient was admitted for IV antibiotics. Pulmonology was consulted to assist in management. Home Meds Active Scripts Chlordiazepoxide Hcl (Librium) 25 Mg Cp, 25 MG PO TID, #30 CAP Prov:ESTRELLITA COBB MD 08/02/24 Multiple Vitamin (Multivitamins) Tab, 1 TAB PO DAILY, #90 TAB 3 Refills Prov:ESTRELLITA COBB MD 08/02/24 Folic Acid (Folic Acid) 1 Mg Tab, 1 MG PO DAILY, #90 TAB Prov:ESTRELLITA COBB MD 08/02/24 Thiamine HCl (Thiamine Hydrochloride) 100 Mg Tab, 100 MG PO DAILY, #30 TAB Prov:ESTRELLITA COBB MD 08/02/24 Chlordiazepoxide Hcl (Ni-1) (I (Librium) 10 Mg Cap, 10 MG PO BID for 5 Days, #10 CAP Prov:TODD ELLIOTT MD 07/27/24 Multiple Vitamins W/ Iron (Multi Vitamin with Iron) 1 Tab Tab, 1 TAB PO DAILY for 30 Days, #30 TAB Prov:FAUSTO LUNDBERG 05/09/24 Pantoprazole Sodium Sesquihydr (Pantoprazole Sodium) 40 Mg Tab, 40 MG PO DAILY@0600 for 30 Days, #30 TAB Prov:FAUSTO LUNDBERG 05/09/24 Gabapentin (Gabapentin) 300 Mg Cap, 300 MG PO TID for 30 Days, #120 CAP Prov:FAUSTO LUNDBERG 05/09/24 Ergocalciferol (VITAMIN D 72278 UNIT) 50,000 [place], [address] UNIT PO Q7D for 30 Days, #10 CAP Prov:FAUSTO LUDNBERG 05/09/24 Acetaminophen (Acetaminophen) 325 Mg Tab, 650 MG PO Q6HP PRN for 10 Days, #80 TAB Prov:FAUSTO LUNDBERG 05/09/24 Past Medical History Cardiac: No pertinent Hx Pulmonary: No pertinent Hx Central Nervous System: No pertinent Hx GI: No pertinent Hx Hemotology/Oncology: No pertinent Hx Hepatobiliary: No pertinent Hx Psychiatric: No pertinent Hx Musculoskeletal: No pertinent Hx Rheumotologic: No pertinent Hx Infectious Disease: No peritnent Hx ENT: No pertinent Hx Renal/: No pertinent Hx Endocrine: No pertinent Hx Dermatology: No pertinent Hx Past Surgical History: No pertinent Hx Family History: CAD, DM Patient Family History: Diabetes mellitus G8 MOTHER FH: heart attack G8 FATHER FH: heart disease Smoker: No Hx (Negative) Alocohol: None Drugs: Amphetimines Lives with: Homeless Review of Systems Constitutional: Malaise Ears, Nose, & Throat: No symptom reported Eyes: No symptom reported Pulmonary/Respiratory: Dyspnea Cardiovascular: No symptom reported Gastrointestinal: No symptom reported Genitourinary: No symptom reported Musculoskeletal: No symptom reported Skin: No symptom reported Psychiatric: No symptom reported Endocrine: No symptom reported Hemotologic/Lymphatic: No symptom reported H&P Exam Vital Signs Vital Signs Date Time Temp Pulse Resp B/P (MAP) Pulse Ox O2 Delivery O2 Flow Rate FiO2 12/23/24 11:15 97 16 98 12/23/24 11:09 Nasal Cannula 3.0 12/23/24 11:09 32 12/23/24 08:42 98.0 146/86 (106) 98.0 Comments Objective: General: Patient seen and examined at bedside. On supplemental oxygen. HEENT: Normocephalic, atraumatic. EOMI/PERRLA. Normal hearing. Neck: Supple, trachea midline. Throat: Moist mucous membranes. Chest: Decreased air entry bilaterally. No wheezing. No rhonchi. CV: Positive S1, positive S2. No murmurs rubs or gallops. Abdomen: +BS, soft, NT, ND. : Deferred Skin: Warm, dry. No rash. Neuro: AAOx3, CN II-XII intact. No gross motor or sensory deficits. Gait not assessed. Labs/Xrays Labs Test 12/23/24 05:50 12/22/24 05:17 12/22/24 00:37 12/21/24 23:24 Range/Units White Blood Count 9.4 # 4.4-10.8 10^3/uL Red Blood Count 2.75 L 4.5-5.90 10^6/uL Hemoglobin 10.8 L 13.5-17.5 g/dL Hematocrit 30.9 L 41.0-53.0 % Mean Corpuscular Volume 112.5 H 80.0-100.0 fL Mean Corpuscular Hemoglobin 39.4 H 28.0-32.0 pg Mean Corpuscular Hemoglobin Concent 35.0 32.0-36.0 g/dL Red Cell Distribution Width 16.1 H 11.8-14.3 % Platelet Count 88 L 140-450 10^3/uL Mean Platelet Volume 9.8 6.9-10.8 fL Neutrophils (%) (Auto) 86.8 H 37.0-80.0 % Lymphocytes (%) (Auto) 5.9 L 10.0-50.0 % Monocytes (%) (Auto) 5.6 0.0-12.0 % Eosinophils (%) (Auto) 1.2 0.0-7.0 % Basophils (%) (Auto) 0.5 0.0-2.0 % Neutrophils # (Auto) 8.2 1.6-8.6 10 ^3/uL Lymphocytes # (Auto) 0.6 0.4-5.4 10 ^3/uL Monocytes # (Auto) 0.5 0-1.3 10 ^3/uL Eosinophils # (Auto) 0.1 0-0.8 10 ^3/uL Basophils # (Auto) 0 0-0.2 10 ^3/uL Nucleated Red Blood Cells 0.1 % Sodium Level 139 136-145 mmol/L Potassium Level 3.6 3.5-5.1 mmol/L Chloride Level 107 98-107 mmol/L Carbon Dioxide Level 22 20-31 mmol/L Anion Gap 10 5-15 Blood Urea Nitrogen 14 9-23 mg/dL Creatinine 0.72 0.700-1.30 mg/dL Glomerular Filtration Rate Calc 103 >90 mL/min BUN/Creatinine Ratio 19.4 10.0-20.0 Serum Glucose 103 74-106 mg/dL Lactic Acid Level 1.4 0.4-2.0 mmol/L Calcium Level 7.6 L 8.7-10.4 mg/dL Hemoglobin A1c 4.8 <5.7 % A1C Total Bilirubin 3.2 H 0.2-1.0 mg/dL Aspartate Amino Transferase (AST) 161 H 13-40 U/L Alanine Aminotransferase (ALT) 41 H 7-40 U/L Alkaline Phosphatase 88 46-116 U/L Total Protein 5.6 L 5.7-8.2 g/dL Albumin 3.2 3.2-4.8 g/dL Vitamin B12 Level 619 211-911 pg/mL Vitamin D 25-Hydroxy 15.6 L 30.0-100 ng/mL Folic Acid > 48.00 >5.38 ng/mL Thyroid Stimulating Hormone (TSH) 0.61 0.55-4.78 uIU/mL HIV (1&2) Antibody Negative Negative Blood Gas Specimen Type Arterial Blood Gas Sample Site Left radial Blood Gas Patient Temperature 37.0 Arterial Blood Date Drawn [id number] Arterial Blood pH 7.464 H 7.350-7.450 Arterial Blood Partial Pressure CO2 26.3 L 35.0-48.0 mmHg Arterial Blood Partial Pressure O2 67.9 L 83.0-108.0 mmHg Arterial Blood HCO3 18.5 L 21.0-28.0 mmol/L Arterial Blood Oxygen Saturation 93.4 L 94.0-98.0 % Arterial Blood Base Excess -4.0 L -2.0-3.0 mmol/L Arterial Blood Oxyhemoglobin 92.7 L 94.0-98.0 % Arterial Blood Carboxyhemoglobin 0.2 L 0.5-1.5 % Arterial Blood Methemoglobin 0.5 0.0-1.5 % Fredy Test Modified Blood Gas Total Hemoglobin 11.80 L 13.5-17.5 g/dL Blood Gas Liter Flow 60.00 Blood Gas Modality High flow FiO2 % 80.0 Blood Gas Critical Value Read Back Yes Blood Gas Notified Whom Md haris lundberg Blood Gas Notified Time [id number] Blood Gas Notified By Rt marshall allen Test 12/21/24 23:23 12/21/24 22:14 12/21/24 21:15 12/21/24 15:26 Range/Units Urine Color [place] H Yellow Urine Clarity Turbid H Clear Urine pH 5.5 5.0-9.0 Urine Specific [place] 1.018 1.001-1.035 Urine Protein Trace H Negative Urine Ketones Trace Negative Urine Blood Negative Negative /uL Urine Nitrite Negative Negative Urine Bilirubin Negative Negative Urine Urobilinogen 4 H Negative mg/dL Urine Leukocyte Esterase Negative Negative /uL Urine RBC 1 0 - 3 /hpf Urine Microscopic WBC 3 0-3 /HPF Urine Squamous Epithelial Cells Few <5 /hpf Urine Bacteria Few H None Seen /hpf Urine Hyaline Casts Few 0 - 2 /lpf Urine Granular Casts Few 0 /lpf Urine Mucus Few None Seen Urine Glucose 1+ H Normal mg/dL Urine Opiates Screen Neg NEGATIVE Urine Fentanyl Screen Neg NEGATIVE Urine Barbiturates Screen Neg NEGATIVE Urine Phencyclidine Screen Neg NEGATIVE Urine Amphetamines Screen Pos NEGATIVE Urine Benzodiazepines Screen Neg NEGATIVE Urine Cocaine Screen Neg NEGATIVE Urine Cannabinoids Screen Neg NEGATIVE Influenza Type A Antigen Negative Negative Influenza Type B Antigen Negative Negative SARS-CoV-2 Antigen (Rapid) Negative NEGATIVE Phosphorus Level 3.1 2.4-5.1 mg/dL Magnesium Level 0.6 *L 1.6-2.6 mg/dL Creatine Kinase 104 46-171 U/L Platelet Estimate Decreased Anisocytosis (manual) Slight Macrocytosis Moderate Stomatocytes Moderate Lipase 45 12-53 U/L Plasma/Serum Blood Alcohol 158.9 H <10 mg/dL Microbiology Date/Time Source Procedure Growth Status 12/21/24 21:15 Blood Blood Culture - Preliminary Resulted Assessment/Plan Plan Impression Acute hypoxemic respiratory failure Failure to thrive Substance abuse Pleural effusions Pneumonia Atelectasis Patient seen and examined Events Low oxygen requirements On 2 liters nasal cannula Complaining of generalized pain Labs and imaging reviewed Chest x-ray shows right lower lobe and left lower lobe infiltrates consistent with pneumonia Underlying pleural effusions Management Supplemental oxygen Titrate to maintain sats 90% or above Incentive spirometry Antibiotics Obtain cultures Bronchodilators Monitor renal function Monitor electrolytes Supplement as needed No indication for bronchoscopy DVT prophylaxis Plan discussed with: Patient JODY VELASQUEZ MD Dec 23, 2024 12:04
--- NOTE | 2024-12-23 13:15 | DVHPN2 ---
Subjective seen during rounds, pulm consult for bronch, no indication at this moment, bactereemia from cultures, empiric coverage for now, repeat culture daily Changes from previous H/P or p: No Changes Eyes: No Pain, No Vision change, No Conjunctivae inflammation, No Eyelid inflammation, No Other, No Redness ENT: No Ear pain, No Ear discharge, No Nose pain, No Nose discharge, No Nose congestion, No Mouth pain, No Mouth swelling, No Throat pain, No Throat swelling, No Other Cardiovascular: No Chest Pain, No Palpitations, No Orthopnea, No Paroxysmal Noc. Dyspnea, No Edema, No Lt Headedness, No Other Respiratory: Cough, Dry, Shortness of breath Gastrointestinal: Nausea Genitourinary: No Dysuria, No Frequency, No Incontinence, No Hematuria, No Retention, No Other Musculoskeletal: No other, No neck pain, No shoulder pain, No arm pain, No back pain, No hand pain, No leg pain, No foot pain Skin: No Rash, No Lesions, No Jaundice, No Bruising, No Other Objective Vitals Vital Signs Date Time Temp Pulse Resp B/P (MAP) Pulse Ox O2 Delivery O2 Flow Rate FiO2 12/23/24 11:15 97 16 98 12/23/24 11:09 Nasal Cannula 3.0 12/23/24 11:09 32 12/23/24 08:42 98.0 146/86 (106) 98.0 Intake/Output Intake and Output 12/23/24 07:00 Intake Total 726 ml Output Total 325 ml Balance 401 ml Intake Oral 200 ml IV Total 526 ml Output Urine Total 325 ml # Voids 2 # Bowel Movements 1 Medications Current Medications Medications Dose Ordered Sig/Shubham Route Start Time Stop Time Status Last Admin Dose Admin Ondansetron HCl 4 mg Q4HP PRN IV 12/21/24 20:45 Enoxaparin Sodium 40 mg DAILY SC 12/22/24 10:00 Folic Acid 1 mg/ Magnesium Sulfate 8 meq/ Multivitamins 10 ml/Thiamine HCl 100 mg/Sodium Chloride 1,013.2 ml @ 126.247 mls/hr DAILY@1800 INJ 12/21/24 20:45 12/22/24 18:22 126.247 MLS/HR Pantoprazole Sodium 40 mg DAILY IV 12/22/24 10:00 12/23/24 09:35 40 MG Sodium Chloride 1,000 ml @ 100 mls/hr Q10H IV 12/21/24 21:45 12/23/24 09:51 100 MLS/HR Piperacillin Sod/ Tazobactam Sod 100 ml @ 25 mls/hr Q8HR IV 12/22/24 06:00 12/23/24 06:14 25 MLS/HR Vancomycin HCl 0 ml @ 0 mls/hr UD IV 12/21/24 21:45 Potassium Chloride 100 ml @ 50 mls/hr Q2H IV 12/21/24 21:45 12/22/24 01:44 UNV Vancomycin HCl 200 ml @ 200 mls/hr Q12H IV 12/22/24 10:00 12/23/24 09:35 200 MLS/HR Ipratropium [place] 0.5 mg Q6HWA NEB 12/22/24 06:00 12/23/24 11:09 0.5 MG Levalbuterol HCl 0.625 mg Q6HR NEB 12/22/24 06:00 12/23/24 11:09 0.625 MG Lorazepam 1 mg Q4HP PRN IV 12/22/24 17:45 12/22/24 23:27 1 MG Chlordiazepoxide HCl 50 mg Q12HR PO 12/23/24 10:00 12/23/24 22:01 12/23/24 09:35 50 MG Chlordiazepoxide HCl 25 mg Q12HR PO 12/24/24 10:00 12/24/24 22:01 Chlordiazepoxide HCl 25 mg QAM PO 12/25/24 07:00 12/25/24 07:01 Laboratory Results Laboratory Tests 12/23/24 05:50 Chemistry Test 12/22/24 19:41 12/23/24 05:50 Calcium Level 7.7 mg/dL (8.7-10.4) L 7.6 mg/dL (8.7-10.4) L Urinalysis Test 12/21/24 23:23 Urine Color [place] (Yellow) H Urine Clarity Turbid (Clear) H Urine pH 5.5 (5.0-9.0) Urine Specific [place] 1.018 (1.001-1.035) Urine Protein Trace (Negative) H Urine Ketones Trace (Negative) Urine Blood Negative /uL (Negative) Urine Nitrite Negative (Negative) Urine Bilirubin Negative (Negative) Urine Urobilinogen 4 mg/dL (Negative) H Urine Leukocyte Esterase Negative /uL (Negative) Urine RBC 1 /hpf (0 - 3) Urine Microscopic WBC 3 /HPF (0-3) Urine Squamous Epithelial Cells Few /hpf (<5) Urine Bacteria Few /hpf (None Seen) H Urine Hyaline Casts Few /lpf (0 - 2) Urine Granular Casts Few /lpf (0) Urine Mucus Few (None Seen) Urine Glucose 1+ mg/dL (Normal) H Microbiology Microbiology Date/Time Source Procedure Growth Status 12/21/24 21:15 Blood Blood Culture - Preliminary Resulted Assessment/Plan Assessment/Plan Sepsis due to mulitifocal pneumonia --> Lactic acidosis --> Tachycardia --> Blood culture positive for gram positive cocci --> Fluid 3L received thus far -- > IV vancomycin per pharmacy, IV Zosyn Pneumonia, probably aspiration --> IV Zosyn Acute hypoxic respiratory failure --> On 4l oxygen Metabolic encephalography --> Likely secondary to sepsis --> Improved --> Continue current treatly Alcohol withdrawal, CIWA 10 - IV NS 1 L bolus times x4 - IV NS at 100 cc per hour - banana bag - IV lorazepam 2 mg q.2 hours for a total of 5 doses - IV Protonix daily - IV Zofran as needed Hypomagnesemia, severe: Serum magnesium 0.6 Hypokalemia - KCl rider - magnesium rider Transaminitis, alcohol induced Hyperbilirubinemia - total bilirubin 2.3, AST 224, ALT 58 - monitor - hepatomegaly noted on prior scans - ordered hepatitis panel Alcohol use disorder Unhoused UDS positive for methamphetamine - hepatitis panel : Pending - HIV testing : Negative - consulted social media content manager for alcohol dependency and homeless PUD prophylaxis: protonix 40mg DVT prophylaxis: Levonox 40mg Plan discussed with: Patient My Orders Orders - LETI THAKKAR MD Procedure Category Date Status Time *Consult CONS 12/23/24 Transmitted / 08:41 Blood Culture LINDY 12/24/24 Logged 04:00 Basic Metabolic Panel LAB 12/24/24 Verified 04:00 Complete Blood Count LAB 12/24/24 Verified 04:00 Date of Service: Dec 23, 2024 Billing Provider: LETI THAKKAR MD Common Visit Codes: [id number] INP/OBS CARE(HIGH) LETI THAKKAR MD Dec 23, 2024 13:15
[2024-12-23 14:00] LABS: Hepatitis A Total Antibody Positive (Negative); Hepatitis B Surface Antibody Negative (Negative); Hepatitis B Surface Antigen Negative (Negative); Hepatitis C Antibody Negative (Negative)
[2024-12-23] MEDS: ONDANSETRON HCL 4 MG/2 ML VIAL IV PRN (19:40)
[2024-12-23] MEDS: KETOROLAC TROMETH 30 MG/ML 1ML VIAL IV ONE (21:40)
[2024-12-23] MEDS: MUPIROCIN 2% OINT 15gm or 22gm FOR MRSA NARES EACHNOSTRI SCH (22:00)
[2024-12-24] VITALS (18 sets, daily range): BP systolic 105–141; BP diastolic 64–104; PULSE 103–125; RESP 18–37; TEMP 97.6–98.6; O2SAT 90–100
[2024-12-24 08:15] LABS: Eosinophils # (auto) 0.3 10 ^3/uL (0-0.8); Eosinophils % (auto) 3.1 % (0.0-7.0); Lymphocytes # (auto) 0.7 10 ^3/uL (0.4-5.4)
[2024-12-24 08:17] LABS: Basophils # (auto) 0.1 10 ^3/uL (0-0.2); Basophils % (auto) 0.6 % (0.0-2.0); Hematocrit 30.3 % (41.0-53.0); Hemoglobin 10.8 g/dL (13.5-17.5); Lymphocytes % (auto) 7.7 % (10.0-50.0); Mean Corpuscular Hemoglobin 39.3 pg (28.0-32.0); Mean Corpuscular Hgb Conc. 35.6 g/dL (32.0-36.0); Mean Corpuscular Volume 110.4 fL (80.0-100.0); Monocytes % (auto) 10.9 % (0.0-12.0); Neutrophils % (auto) 77.7 % (37.0-80.0); Platelet Count (auto) 115 10^3/uL (140-450); Red Blood Cells 2.74 10^6/uL (4.5-5.90)
[2024-12-24 08:25] LABS: Chloride 107 mmol/L (98-107); Sodium 138 mmol/L (136-145)
[2024-12-24 08:26] LABS: Anion Gap 10 (5-15); Carbon Dioxide 21 mmol/L (20-31)
[2024-12-24 08:31] LABS: BUN/Creatinine Ratio 25.8 (10.0-20.0); Blood Urea Nitrogen 16 mg/dL (9-23)
[2024-12-24 08:39] LABS: Calcium 8.1 mg/dL (8.7-10.4); Glucose 123 mg/dL (74-106); Potassium 3.3 mmol/L (3.5-5.1)
[2024-12-24] MEDS: VANCOMYCIN 1.25gm/250mL PREMIX or KIT IV SCH (09:12)
[2024-12-24] MEDS: chlordiazePOXIDE HCL 25 MG CAP PO SCH (09:16)
[2024-12-24] MEDS: LORazepam 2MG/ML-1ML VIAL IV PRN ×2 (10:05→20:22)
[2024-12-24] MEDS: POTASSIUM EFFERVESENT TAB 25 MEQ PO ONE ×2 (10:05→17:48)
--- NOTE | 2024-12-24 12:24 | DVHPN2 ---
Progress Note - Dictate Date Seen: Dec 24, 2024 Has the PT tested + for MRSA If YES, has PT been informed?: No Medical Necessity Reason Pt with a Central, PICC or Fol: No vital signs Vital Sign Date Time Temp Pulse Resp B/P (MAP) Pulse Ox O2 Delivery O2 Flow Rate FiO2 12/24/24 09:11 97.9 113 22 129/96 (107) 92 97.9 12/24/24 08:19 Nasal Cannula 3.0 12/24/24 08:19 32 Total Intake and Output 12/23/24 12/23/24 12/24/24 15:00 23:00 07:00 Intake Total 400 ml 480 ml Balance 400 ml 480 ml medications Current Medications Medications Dose Ordered Sig/Shubham Route Start Time Stop Time Status Last Admin Dose Admin Ondansetron HCl 4 mg Q4HP PRN IV 12/21/24 20:45 12/23/24 19:40 4 MG Enoxaparin Sodium 40 mg DAILY SC 12/22/24 10:00 12/24/24 09:15 40 MG Folic Acid 1 mg/ Magnesium Sulfate 8 meq/ Multivitamins 10 ml/Thiamine HCl 100 mg/Sodium Chloride 1,013.2 ml @ 126.247 mls/hr DAILY@1800 INJ 12/21/24 20:45 12/23/24 17:43 126.247 MLS/HR Pantoprazole Sodium 40 mg DAILY IV 12/22/24 10:00 12/24/24 09:15 40 MG Sodium Chloride 1,000 ml @ 100 mls/hr Q10H IV 12/21/24 21:45 12/24/24 10:06 100 MLS/HR Piperacillin Sod/ Tazobactam Sod 100 ml @ 25 mls/hr Q8HR IV 12/22/24 06:00 12/24/24 06:57 25 MLS/HR Vancomycin HCl 0 ml @ 0 mls/hr UD IV 12/21/24 21:45 Potassium Chloride 100 ml @ 50 mls/hr Q2H IV 12/21/24 21:45 12/22/24 01:44 UNV Ipratropium [place] 0.5 mg Q6HWA NEB 12/22/24 06:00 12/24/24 08:18 0.5 MG Levalbuterol HCl 0.625 mg Q6HR NEB 12/22/24 06:00 12/24/24 08:19 0.625 MG Chlordiazepoxide HCl 25 mg Q12HR PO 12/24/24 10:00 12/24/24 22:01 12/24/24 09:16 25 MG Chlordiazepoxide HCl 25 mg QAM PO 12/25/24 07:00 12/25/24 07:01 Throat Lozenges 1 [place]bara Q2HP PRN MT 12/23/24 21:00 Mupirocin 1 applic BID EACHNOSTRI 12/23/24 22:00 12/28/24 21:59 12/24/24 10:00 1 APPLIC Vancomycin HCl 250 ml @ 200 mls/hr Q12HR@0900,2100 IV 12/24/24 09:00 12/24/24 09:12 200 MLS/HR Lorazepam 1 mg Q2HP PRN IV 12/24/24 09:45 12/24/24 10:05 1 MG laboratory and microbiology Laboratory Tests 12/24/24 07:34 Test 12/24/24 07:34 Range/Units Serum Glucose 123 H 74-106 mg/dL Assessment/Plan Acute hypoxemic respiratory failure Failure to thrive Substance abuse Pleural effusions Pneumonia Atelectasis Patient seen and examined Events Low oxygen requirements On 2 liters nasal cannula Complaining of generalized pain Labs and imaging reviewed Chest x-ray shows right lower lobe and left lower lobe infiltrates consistent with pneumonia Underlying pleural effusions Management Supplemental oxygen Titrate to maintain sats 90% or above Incentive spirometry Antibiotics Obtain cultures Bronchodilators Monitor renal function Monitor electrolytes Supplement as needed No indication for bronchoscopy DVT prophylaxis Plan discussed with: Patient JODY VELASQUEZ MD Dec 24, 2024 12:24
[2024-12-24] MEDS: LORazepam 2MG/ML-1ML VIAL ONE (14:42)
[2024-12-24] MEDS: HALOPERIDOL LACTATE 5 MG/ML INJ VIAL ONE (15:07)
[2024-12-24] MEDS: LORazepam 2MG/ML-1ML VIAL IV ONE (15:12)
[2024-12-24] MEDS ORDERED: HALOPERIDOL LACTATE 5 MG/ML INJ VIAL IV PRN (15:15)
[2024-12-24 15:25] LABS: Base Excess -2.3 mmol/L (-2.0-3.0)
--- NOTE | 2024-12-24 16:23 | DVHPNRES ---
Progress Note Date Seen: Dec 24, 2024 Resident Creating Document: EMERSON KLINE RESIDENT Has the PT tested + for MRSA If YES, has PT been informed?: No Medical Necessity Reason Pt with a Central, PICC or Fol: No Medical Necessity Reason History of Present Illness Patient is a 64-year-old unhoused male with past medical history of recurrent alcohol withdrawals and alcohol use disorder, who comes in due to alcohol withdrawal. According to the patient, he drinks 4 pt of vodka daily, last drink was 2 days ago. Patient also notes bilateral flank pain that has been ongoing for the past 1 month. On review of systems patient is complaining of fatigue, fever, chills, shortness of breath, dry cough, nausea and dry heaving. CT abdomen pelvis showed possible right lower lobe pneumonia, patient was noted to have a lactic acid level of 7.7, 8.5. Plasma alcohol level 158.9. At the time of my assessment patient was AO x3, CIWA score 10. Patient was started on banana bag, IV NS and IV lorazepam along with IV vancomycin and piperacillin- tazobactam. Past Medical History: alcohol withdrawals and alcohol use disorder Past Surgical History: Denies Past Social History: Smoking: Denies, Alcohol: Drinks 4 pt of vodka per day for the last 40 years Medicine: Denies Drugs PN 12/22/2024 Patient seen in the ED today. He was confused sleeping. Per the night team report, patient received 5mg total of ativan and 100mg of librium. Vitals signs shows tachycardiac 129, fever ( Temp: 100.7); Preliminary blood culture grew Gram Positive Cocci in chains and Gram Positive Cocci in pairs. Patient is already on Zosyn and vancomycin. Patient received another bolus of fluid. In lactic acid is currently pending. Added Librium protocol starting with 50 b.i.d. and we will taper down slowly. PN: . Patient is seen and examined at the bedside. He was mild tachypneic and tachycardic. He was on Ativan 1mg q4hr as needed and Librium 25mg bid. At the time of my assess, his CIWA score was 6 ( fine tremors and some agitation). Later in the afternoon, patient became aggressive towards the POLYMERIZATION ENGINEER, took out his IV and wanted to go our looking for his brother Don. Looks like he is not completely out of the withdrawal. Blood pressure was stable however HR 120-130. temperature was stable. He does not seem to be in DT. We gave him 2mg ativan stat. Immediately after the Librium, patient was a bit more agitated. Had haloperidol 5mg as needed (if need). After 20 minutes, patient became stable and communicating with me and the staff. Subjective Review of Systems Constitutional: Denies fever no chills no feeling of malaise HEENT: Denies headache, ear pain, ear discharges, conjunctivitis, nasal discharge throat pain Cardiovascular: Denies chest pain, palpitation, orthopnea, PND, or pedal edema Respiratory: Denies shortness of breath, cough cough, sputum production, hemoptysis, GI: Denies abdominal pain, nausea, vomiting, diarrhea, hematemesis, hematochezia, : Denies frequency, urgency, hematuria, Endocrine: Denies unintentional weight gain or weight loss, feeling of hot flashes, [place]: Denies easy bruising, bleeding disorders, epistaxis Musculoskeletal: Denies joint pains, muscle aches Psych: No evidence of depression, lopez, suicidal ideation Objective vital signs Vital Sign Date Time Temp Pulse Resp B/P (MAP) Pulse Ox O2 Delivery O2 Flow Rate FiO2 12/24/24 15:15 94 Nasal Cannula 4.0 12/24/24 15:15 36 12/24/24 12:55 98.5 120 20 130/93 (105) 98.5 Total Intake and Output 12/23/24 12/23/24 12/24/24 15:00 23:00 07:00 Intake Total 400 ml 480 ml Balance 400 ml 480 ml medications Current Medications Medications Dose Ordered Sig/Shubham Route Start Time Stop Time Status Last Admin Dose Admin Ondansetron HCl 4 mg Q4HP PRN IV 12/21/24 20:45 12/23/24 19:40 4 MG Enoxaparin Sodium 40 mg DAILY SC 12/22/24 10:00 12/24/24 09:15 40 MG Folic Acid 1 mg/ Magnesium Sulfate 8 meq/ Multivitamins 10 ml/Thiamine HCl 100 mg/Sodium Chloride 1,013.2 ml @ 126.247 mls/hr DAILY@1800 INJ 12/21/24 20:45 12/23/24 17:43 126.247 MLS/HR Pantoprazole Sodium 40 mg DAILY IV 12/22/24 10:00 12/24/24 09:15 40 MG Sodium Chloride 1,000 ml @ 100 mls/hr Q10H IV 12/21/24 21:45 12/24/24 10:06 100 MLS/HR Piperacillin Sod/ Tazobactam Sod 100 ml @ 25 mls/hr Q8HR IV 12/22/24 06:00 12/24/24 13:22 25 MLS/HR Vancomycin HCl 0 ml @ 0 mls/hr UD IV 12/21/24 21:45 Potassium Chloride 100 ml @ 50 mls/hr Q2H IV 12/21/24 21:45 12/22/24 01:44 UNV Ipratropium [place] 0.5 mg Q6HWA NEB 12/22/24 06:00 12/24/24 12:41 0.5 MG Levalbuterol HCl 0.625 mg Q6HR NEB 12/22/24 06:00 12/24/24 12:40 0.625 MG Chlordiazepoxide HCl 25 mg Q12HR PO 12/24/24 10:00 12/24/24 22:01 12/24/24 09:16 25 MG Chlordiazepoxide HCl 25 mg QAM PO 12/25/24 07:00 12/25/24 07:01 Throat Lozenges 1 barbara Q2HP PRN MT 12/23/24 21:00 Mupirocin 1 applic BID EACHNOSTRI 12/23/24 22:00 12/28/24 21:59 12/24/24 10:00 1 APPLIC Vancomycin HCl 250 ml @ 200 mls/hr Q12HR@0900,2100 IV 12/24/24 09:00 12/24/24 09:12 200 MLS/HR Lorazepam 2 mg Q2HP PRN IV 12/24/24 15:15 Haloperidol Lactate 5 mg Q8HP PRN IV 12/24/24 15:15 Examination General Appearance: Alert, Oriented X3, Cooperative, No acute distress, was aggressive HEENT: Atraumatic, PERRLA, EOMI, Mucous membrane moist/pink Respiratory: Clear to auscultation, Normal air movement Cardiovascular: Regular rate, Normal S1, Normal S2, No murmurs, no chest wall tenderness Abdominal: NO distention, no tenderness, bowel sounds present, no scars noted Extremities: No clubbing, No cyanosis, No edema, Normal pulses, No tenderness/swelling, weak in the extremities Skin: No rashes, No breakdown, No significant lesion Neuro: Weak, Sensation intact, Cranial nerves 3-12 NL, Reflexes 2+ Psych/Mental Status: Mental status NL, Mood NL laboratory and microbiology Laboratory Tests 12/24/24 07:34 Test 12/24/24 07:34 Range/Units Serum Glucose 123 H 74-106 mg/dL Microbiology Date/Time Source Procedure Growth Status 12/23/24 05:35 Nose MRSA Screen - Final Methicillin Resistant S.aureus Complete 12/21/24 23:23 Voided Urine Urine Culture - Final Complete 12/21/24 21:15 Blood Blood Culture - Preliminary Resulted Labs and/or images reviewed: Labs reviewed by me, Image(s) reviewed by me Problem List/Assessment/Plan Problem List/Assessment/Plan Assessment Sepsis due to multifocal pneumonia --> Lactic acidosis --> Tachycardia --> Blood culture positive for gram positive cocci --> Fluid 3L received thus far -- > IV vancomycin per pharmacy, IV Zosyn Pneumonia, probably aspiration --> IV Zosyn Acute hypoxic respiratory failure --> On 4l oxygen Metabolic encephalography --> Likely secondary to sepsis --> Improved --> Continue current management Alcohol withdrawal, CIWA 6 - IV NS 1 L bolus times x4 - IV NS at 100 cc per hour - banana bag - IV lorazepam 2 mg q.2 h prn - Librium 25mg bid - IV Protonix daily - IV Zofran as needed Hypomagnesemia, severe: Serum magnesium 0.6 Hypokalemia - KCl rider - magnesium rider Transaminitis, alcohol induced Hyperbilirubinemia - total bilirubin 2.3, AST 224, ALT 58 - monitor - hepatomegaly noted on prior scans - ordered hepatitis panel Alcohol use disorder Unhoused UDS positive for methamphetamine - hepatitis panel : Pending - HIV testing : Negative - consulted administrator social welfare for alcohol dependency and homeless PUD prophylaxis: Protonix 40mg DVT prophylaxis: Lovenox 40mg Goals of care discuss with nurse for 20 minutes: full code Case and plan discussed with Dr. Reyes Plan discussed with: Patient, Other (nurse) My Orders My Orders Orders - EMERSON KLINE RESIDENT Procedure Category Date Status Time Blood Culture LINDY 12/25/24 Logged 05:00 Blood Culture LINDY 12/26/24 Logged 05:00 Abg W/ Co-Ox RT 12/24/24 Logged 14:52 Lorazepam 2mg/Ml Inj PHA 12/24/24 In Process (Ativan Inj) 15:15 Haloperidol Lactate PHA 12/24/24 In Process Injection (Haldol) 15:15 Addendum Addendum Addendum I was physically present for the hahn portions of the service provided to patient by THE RESIDENT. I have reviewed the documentation, discussed the case with resident and agree with the resident's documentation except as noted. Also the patient's clinical case was discussed with the patient's nurse. This medical document was created using an electronic medical record system with computerized dictation system. Although this document has been carefully reviewed, there might still be some phonetic and typographical errors. These areas are purely typographical due to imperfections of the software programs, and do not reflect any compromise in the patient's medical care. Late signature. Date of Service: Dec 24, 2024 Billing Provider: GAVIN REYES MD Common Visit Codes: [id number] INP/OBS CARE(HIGH) Secondary Visit Codes: [id number] CARE PLAN 30 MINUTES (20 minutes) EMERSON KLINE RESIDENT Dec 24, 2024 16:23 GAVIN REYES MD Dec 25, 2024 17:19
[2024-12-24] MEDS: HALOPERIDOL LACTATE 5 MG/ML INJ VIAL IM PRN (17:39)
--- NOTE | 2024-12-24 21:38 | DVHINCON2 ---
Date of service: Dec 24, 2024 Referring Physician Ileana Reason for Consultation Tachycardia History of Present Illness This is a 64 year old male with a PMH of ETOH abuse who presents to the ED on 12/21 with complaint of bilateral flank pain. Patient reports that he has been experiencing bilateral flank pain for the past 3 days. Patient relays that he is currently having ETOH withdrawals, not having a drink since 3 days ago due to the pain. CT ABD PEL dated 12/21 showed fatty liver and right lower lobe pneumonia. Lactic acid level of 7.7, 8.5. Plasma alcohol level 158.9. Patient was admitted to the hospital. I am asked to consult on this patient. Family History: Diabetes mellitus G8 MOTHER FH: heart attack G8 FATHER FH: heart disease Allergies: Coded Allergies: NO KNOWN ALLERGIES (Unverified , 02/01/24) Home Meds Active Scripts Chlordiazepoxide Hcl (Librium) 25 Mg Cp, 25 MG PO TID, #30 CAP Prov:ESTRELLITA COBB MD 08/02/24 Multiple Vitamin (Multivitamins) Tab, 1 TAB PO DAILY, #90 TAB 3 Refills Prov:ESTRELLITA COBB MD 08/02/24 Folic Acid (Folic Acid) 1 Mg Tab, 1 MG PO DAILY, #90 TAB Prov:ESTRELLITA COBB MD 08/02/24 Thiamine HCl (Thiamine Hydrochloride) 100 Mg Tab, 100 MG PO DAILY, #30 TAB Prov:ESTRELLITA COBB MD 08/02/24 Chlordiazepoxide Hcl (Ni-1) (I (Librium) 10 Mg Cap, 10 MG PO BID for 5 Days, #10 CAP Prov:TODD ELLIOTT MD 07/27/24 Multiple Vitamins W/ Iron (Multi Vitamin with Iron) 1 Tab Tab, 1 TAB PO DAILY for 30 Days, #30 TAB Prov:FAUSTO LUNDBERG 05/09/24 Pantoprazole Sodium Sesquihydr (Pantoprazole Sodium) 40 Mg Tab, 40 MG PO DAILY@0600 for 30 Days, #30 TAB Prov:FAUSTO LUNDBERG 05/09/24 Gabapentin (Gabapentin) 300 Mg Cap, 300 MG PO TID for 30 Days, #120 CAP Prov:FAUSTO LUNDBERG 05/09/24 Ergocalciferol (VITAMIN D 44575 UNIT) 50,000 [place], [address] UNIT PO Q7D for 30 Days, #10 CAP Prov:FAUSTO LUNDBERG RESIDENT 05/09/24 Acetaminophen (Acetaminophen) 325 Mg Tab, 650 MG PO Q6HP PRN for 10 Days, #80 TAB Prov:FAUSTO LUNDBERG RESIDENT 05/09/24 Current Medications Current Medications Medications (Trade) Dose Ordered Sig/Shubham Route PRN Reason Start Time Stop Time Status Last Admin Chlordiazepoxide HCl (Librium Capsule) 25 mg Q12HR PO 12/24/24 10:00 12/24/24 22:01 12/24/24 09:16 Chlordiazepoxide HCl (Librium Capsule) 25 mg QAM PO 12/25/24 07:00 12/25/24 07:01 Mupirocin (Bactroban 2% Ointment) 1 applic BID EACHNOSTRI 12/23/24 22:00 12/28/24 21:59 12/24/24 10:00 Vancomycin HCl 250 ml @ 200 mls/hr Q12HR@0900,2100 IV 12/24/24 09:00 12/24/24 09:12 Lorazepam (Ativan Inj) 1 mg Q2HP PRN IV ANXIETY 12/24/24 09:45 12/24/24 15:07 DC 12/24/24 13:22 Lorazepam (Ativan Inj) 2 mg Q2HP PRN IV ANXIETY 12/24/24 15:15 12/24/24 20:22 Haloperidol Lactate (Haldol) 5 mg Q8HP PRN IV AGITATION 12/24/24 15:15 12/24/24 17:42 DC Haloperidol Lactate (Haldol) 5 mg Q8HP PRN IM AGITATION 12/24/24 17:45 12/24/24 17:39 Review of Systems Constitutional: denies: chills, diaphoresis, fatigue, fever, malaise, sweats, weakness, others EENTM: denies: blurred vision, double vision, ear bleeding, ear discharge, ear drainage, ear pain, ear ringing, eye pain, eye redness, hearing loss, mouth pain, mouth swelling, nasal discharge, nose bleeding, nose congestion, nose pain, photophobia, tearing, throat pain, throat swelling, voice changes, others Respiratory: denies: cough, hemoptysis, orthopnea, SOB at rest, shortness of breath, SOB with excertion, stridor, wheezing, others Cardiovascular: denies: chest pain, dizzy spells, diaphoresis, Dyspnea on exertion, edema, irregular heart beat, left arm pain, lightheadedness, pa lpitations, PND, syncope, others Gastrointestinal: reports: abdominal pain; denies: abdomen distended, blood streaked bowels, constipated, diarrhea, dysphagia, difficulty swallowing, hematemesis, melena, nausea, poor appetite, poor fluid intake, rectal bleeding, rectal pain, vomiting, others Genitourinary: reports: flank pain; denies: burning, dysuria, frequency, hematuria, incontinence, penile discharge, penile sore, pain, testicle pain, testicle swelling, urgency, others Neurological: reports: tremors; denies: dizziness, fainting, headache, left sided numbness, left sided weakness, numbness, paresthesia, pre-existing deficit, right sided numbness, right sided weakness, seizure, speech problems, tingling, weakness, others Musculoskeletal: denies: back pain, gout, joint pain, joint swelling, muscle pain, muscle stiffness, neck pain, others Integumetry: denies: bruises, change in color, change in hair/nails, dryness, laceration, lesions, lumps, rash, wounds, others Allergic/Immunocompromised: denies: Difficulty Healing, Frequent Infections, Hives, Itching, others Hematologic/Lymphatic: denies: anemia, blood clots, easy bleeding, easy bruising, swollen glands, others Endocrine: denies: excessive hunger, excessive sweating, excessive thirst, excessive urination, flushing, intolerance to cold, intolerance to heat, unexplained weight gain, unexplained weight loss, others Psychiatric: denies: anxiety, bipolar disorder, depression, hopeless, panic disorder, schizophrenia, sleepless, suicidal, others All Other Systems: Reviewed and Negative Vital Signs Vital Signs Date Time Temp Pulse Resp B/P (MAP) Pulse Ox O2 Delivery O2 Flow Rate FiO2 12/24/24 21:00 98.6 124 19 136/96 (109) 95 98.6 12/24/24 20:00 Nasal Cannula* 4 36 Physical Exam GENERAL: Alert and oriented x 3. No acute distress. EYES: PERRL, EOMI. Anicteric. HENT: Moist mucous membranes. LUNGS: Clear to auscultation bilaterally. CARDIOVASCULAR: Regular rate and rhythm. ABDOMEN: Soft, nontender and nondistended.Bilateral upper flank tenderness to palpation. EXTREMITIES: No edema. NEUROLOGIC: No focal neurological deficits. SKIN: Warm, dry. Labs/Diagnostic Data Labs Test 12/24/24 15:16 12/24/24 07:34 12/23/24 21:28 12/23/24 05:50 Range/Units Blood Gas Specimen Type Arterial Blood Gas Sample Site Left radial Blood Gas Patient Temperature 37.0 Arterial Blood Date Drawn [id number] Arterial Blood pH 7.495 H 7.350-7.450 Arterial Blood Partial Pressure CO2 26.3 L 35.0-48.0 mmHg Arterial Blood Partial Pressure O2 66.4 L 83.0-108.0 mmHg Arterial Blood HCO3 19.8 L 21.0-28.0 mmol/L Arterial Blood Oxygen Saturation 93.9 L 94.0-98.0 % Arterial Blood Base Excess -2.3 L -2.0-3.0 mmol/L Arterial Blood Oxyhemoglobin 93.0 L 94.0-98.0 % Arterial Blood Carboxyhemoglobin 0.7 0.5-1.5 % Arterial Blood Methemoglobin 0.3 0.0-1.5 % Fredy Test Yes Blood Gas Total Hemoglobin 11.50 L 13.5-17.5 g/dL Blood Gas Modality Room air Blood Gas Spontaneous Rate 28 FiO2 % 36.0 White Blood Count 9.0 4.4-10.8 10^3/uL Red Blood Count 2.74 L 4.5-5.90 10^6/uL Hemoglobin 10.8 L 13.5-17.5 g/dL Hematocrit 30.3 L 41.0-53.0 % Mean Corpuscular Volume 110.4 H 80.0-100.0 fL Mean Corpuscular Hemoglobin 39.3 H 28.0-32.0 pg Mean Corpuscular Hemoglobin Concent 35.6 32.0-36.0 g/dL Red Cell Distribution Width 16.0 H 11.8-14.3 % Platelet Count 115 L 140-450 10^3/uL Mean Platelet Volume 9.2 6.9-10.8 fL Neutrophils (%) (Auto) 77.7 37.0-80.0 % Lymphocytes (%) (Auto) 7.7 L 10.0-50.0 % Monocytes (%) (Auto) 10.9 0.0-12.0 % Eosinophils (%) (Auto) 3.1 0.0-7.0 % Basophils (%) (Auto) 0.6 0.0-2.0 % Neutrophils # (Auto) 7.0 1.6-8.6 10 ^3/uL Lymphocytes # (Auto) 0.7 0.4-5.4 10 ^3/uL Monocytes # (Auto) 1.0 0-1.3 10 ^3/uL Eosinophils # (Auto) 0.3 0-0.8 10 ^3/uL Basophils # (Auto) 0.1 0-0.2 10 ^3/uL Nucleated Red Blood Cells 0.0 % Sodium Level 138 136-145 mmol/L Potassium Level 3.3 L 3.5-5.1 mmol/L Chloride Level 107 98-107 mmol/L Carbon Dioxide Level 21 20-31 mmol/L Anion Gap 10 5-15 Blood Urea Nitrogen 16 9-23 mg/dL Creatinine 0.62 L 0.700-1.30 mg/dL Glomerular Filtration Rate Calc 107 >90 mL/min BUN/Creatinine Ratio 25.8 H 10.0-20.0 Serum Glucose 123 H 74-106 mg/dL Calcium Level 8.1 L 8.7-10.4 mg/dL Vancomycin Level Trough 13.5 H 5-10 ug/mL Lactic Acid Level 1.4 0.4-2.0 mmol/L Test 12/22/24 05:17 12/22/24 00:37 12/21/24 23:24 12/21/24 23:23 Range/Units Hemoglobin A1c 4.8 <5.7 % A1C Total Bilirubin 3.2 H 0.2-1.0 mg/dL Aspartate Amino Transferase (AST) 161 H 13-40 U/L Alanine Aminotransferase (ALT) 41 H 7-40 U/L Alkaline Phosphatase 88 46-116 U/L Total Protein 5.6 L 5.7-8.2 g/dL Albumin 3.2 3.2-4.8 g/dL Vitamin B12 Level 619 211-911 pg/mL Vitamin D 25-Hydroxy 15.6 L 30.0-100 ng/mL Folic Acid > 48.00 >5.38 ng/mL Thyroid Stimulating Hormone (TSH) 0.61 0.55-4.78 uIU/mL HIV (1&2) Antibody Negative Negative Blood Gas Liter Flow 60.00 Blood Gas Critical Value Read Back Yes Blood Gas Notified Whom Md haris lundberg Blood Gas Notified Time [id number] Blood Gas Notified By Rt marshall allen Urine Color [place] H Yellow Urine Clarity Turb[place] H Clear Urine pH 5.5 5.0-9.0 Urine Specific [place] 1.018 1.001-1.035 Urine Protein Trace H Negative Urine Ketones Trace Negative Urine Blood Negative Negative /uL Urine Nitrite Negative Negative Urine Bilirubin Negative Negative Urine Urobilinogen 4 H Negative mg/dL Urine Leukocyte Esterase Negative Negative /uL Urine RBC 1 0 - 3 /hpf Urine Microscopic WBC 3 0-3 /HPF Urine Squamous Epithelial Cells Few <5 /hpf Urine Bacteria Few H None Seen /hpf Urine Hyaline Casts Few 0 - 2 /lpf Urine Granular Casts Few 0 /lpf Urine Mucus Few None Seen Urine Glucose 1+ H Normal mg/dL Urine Opiates Screen Neg NEGATIVE Urine Fentanyl Screen Neg NEGATIVE Urine Barbiturates Screen Neg NEGATIVE Urine Phencyclidine Screen Neg NEGATIVE Urine Amphetamines Screen Pos NEGATIVE Urine Benzodiazepines Screen Neg NEGATIVE Urine Cocaine Screen Neg NEGATIVE Urine Cannabinoids Screen Neg NEGATIVE Test 12/21/24 22:14 12/21/24 21:15 12/21/24 15:26 Range/Units Influenza Type A Antigen Negative Negative Influenza Type B Antigen Negative Negative SARS-CoV-2 Antigen (Rapid) Negative NEGATIVE Phosphorus Level 3.1 2.4-5.1 mg/dL Magnesium Level 0.6 *L 1.6-2.6 mg/dL Creatine Kinase 104 46-171 U/L Hepatitis A Antibody Total Positive H Negative Hepatitis B Surface Antigen Negative Negative Hepatitis B Surface Antibody Negative Negative Hepatitis B Core Total Antibody Negative Negative Hepatitis C Antibody Negative Negative Platelet Estimate Decreased Anisocytosis (manual) Slight Macrocytosis Moderate Stomatocytes Moderate Lipase 45 12-53 U/L Plasma/Serum Blood Alcohol 158.9 H <10 mg/dL Microbiology Date/Time Source Procedure Growth Status 12/23/24 05:35 Nose MRSA Screen - Final Methicillin Resistant S.aureus Complete 12/21/24 23:23 Voided Urine Urine Culture - Final Complete 12/21/24 21:15 Blood Blood Culture - Preliminary Resulted Assessment Sepsis due to multifocal pneumonia. Pneumonia. Acute hypoxic respiratory failure. Metabolic encephalography. Alcohol withdrawal. Hypomagnesemia. Hypokalemia. Transaminitis. Hyperbilirubinemia. Alcohol use disorder. Unhoused. UDS positive for methamphetamine. Plan/Recommendation I agree with your ongoing assessment and care of plan. Telemetry reviewed. DVT and GI prophylactics. IV antibiotics as ordered. Additional plan as per the hospital course. A total of 45 minutes was spent reviewing the patient record, examining the patient, making a diagnostic and therapeutic plan, discussing this plan with medical personnel, following up on diagnostic studies and following the patient for clinical stability excluding any and all procedures. At least 50% of this time was spent in direct, [id number] contact. Plan discussed with: Patient FELIPE FERRIS MD Dec 24, 2024 21:28
[2024-12-25] VITALS (16 sets, daily range): BP systolic 136–163; BP diastolic 54–89; PULSE 100–116; RESP 18–21; TEMP 98–98.8; O2SAT 90–100
[2024-12-25] MEDS: chlordiazePOXIDE HCL 25 MG CAP PO SCH (05:47)
[2024-12-25 09:56] LABS: Sodium 139 mmol/L (136-145)
[2024-12-25 09:57] LABS: Anion Gap 8 (5-15); Carbon Dioxide 22 mmol/L (20-31)
[2024-12-25 10:02] LABS: BUN/Creatinine Ratio 24.6 (10.0-20.0); Blood Urea Nitrogen 14 mg/dL (9-23)
--- NOTE | 2024-12-25 10:03 | DVHPN2 ---
Progress Note - Dictate Date Seen: Dec 25, 2024 Has the PT tested + for MRSA If YES, has PT been informed?: No Medical Necessity Reason Pt with a Central, PICC or Fol: No vital signs Vital Sign Date Time Temp Pulse Resp B/P (MAP) Pulse Ox O2 Delivery O2 Flow Rate FiO2 12/25/24 07:09 101 20 96 12/25/24 06:59 Nasal Cannula* 4 36 12/25/24 05:00 98.7 139/89 (106) 98.7 Total Intake and Output 12/24/24 12/24/24 12/25/24 15:00 23:00 07:00 Intake Total 490 ml 400 ml Balance 490 ml 400 ml medications Current Medications Medications Dose Ordered Sig/Shubham Route Start Time Stop Time Status Last Admin Dose Admin Ondansetron HCl 4 mg Q4HP PRN IV 12/21/24 20:45 12/23/24 19:40 4 MG Enoxaparin Sodium 40 mg DAILY SC 12/22/24 10:00 12/24/24 09:15 40 MG Folic Acid 1 mg/ Magnesium Sulfate 8 meq/ Multivitamins 10 ml/Thiamine HCl 100 mg/Sodium Chloride 1,013.2 ml @ 126.247 mls/hr DAILY@1800 INJ 12/21/24 20:45 12/24/24 18:48 126.247 MLS/HR Pantoprazole Sodium 40 mg DAILY IV 12/22/24 10:00 12/24/24 09:15 40 MG Sodium Chloride 1,000 ml @ 100 mls/hr Q10H IV 12/21/24 21:45 12/24/24 10:06 100 MLS/HR Piperacillin Sod/ Tazobactam Sod 100 ml @ 25 mls/hr Q8HR IV 12/22/24 06:00 12/25/24 05:46 25 MLS/HR Vancomycin HCl 0 ml @ 0 mls/hr UD IV 12/21/24 21:45 Potassium Chloride 100 ml @ 50 mls/hr Q2H IV 12/21/24 21:45 12/22/24 01:44 UNV Ipratropium [place] 0.5 mg Q6HWA NEB 12/22/24 06:00 12/25/24 06:59 0.5 MG Levalbuterol HCl 0.625 mg Q6HR NEB 4/24/25 06:00 12/25/24 06:59 0.625 MG Throat Lozenges 1 barbara Q2HP PRN MT 12/23/24 21:00 Mupirocin 1 applic BID EACHNOSTRI 12/23/24 22:00 12/28/24 21:59 12/24/24 21:26 1 APPLIC Vancomycin HCl 250 ml @ 200 mls/hr Q12HR@0900,2100 IV 12/24/24 09:00 12/24/24 21:25 200 MLS/HR Lorazepam 2 mg Q2HP PRN IV 12/24/24 15:15 12/24/24 23:12 2 MG Haloperidol Lactate 5 mg Q8HP PRN IM 12/24/24 17:45 12/25/24 05:47 5 MG laboratory and microbiology Laboratory Tests 12/24/24 07:34 Test 12/25/24 09:29 Range/Units Serum Glucose Pending Assessment/Plan Acute hypoxemic respiratory failure Failure to thrive Substance abuse Pleural effusions Pneumonia Atelectasis Patient seen and examined Events none Low oxygen requirements On 2 liters nasal cannula Labs and imaging reviewed Chest x-ray shows right lower lobe and left lower lobe infiltrates consistent with pneumonia Underlying pleural effusions Management Supplemental oxygen Titrate to maintain sats 90% or above Incentive spirometry Antibiotics Obtain cultures Bronchodilators Monitor renal function Monitor electrolytes Supplement as needed DVT prophylaxis Dietary Evaluation Review Comments: 1) Encourage optimal PO intake 2) Continue multivitamin with thiamin and folate 3) Follow-up with forensic social worker regarding ETOH abuse 4) Follow-up with cardiology and gastroenterology 5) Continue to monitor I&O, labs, and skin integrity Expected Outcomes/Goals: 1) appetite and labs to advance 2) f/u in 3-5 days Plan discussed with: Patient JODY VELASQUEZ MD Dec 25, 2024 10:03
[2024-12-25 10:07] LABS: Calcium 8.1 mg/dL (8.7-10.4); Chloride 109 mmol/L (98-107); Glucose 107 mg/dL (74-106); Potassium 3.4 mmol/L (3.5-5.1)
--- NOTE | 2024-12-25 12:57 | DVHPN2 ---
Subjective Still confused Reviewed: Care Plan, H&P, Labs, Medications, Previous Orders, Radiology, Other (Consultations) Changes from previous H/P or p: No Changes Objective Vitals Vital Signs Date Time Temp Pulse Resp B/P (MAP) Pulse Ox O2 Delivery O2 Flow Rate FiO2 12/25/24 09:00 98.8 116 21 163/56 (91) 90 98.8 12/25/24 06:59 Nasal Cannula* 4 36 Intake/Output Intake and Output 12/25/24 07:00 Intake Total 890 ml Balance 890 ml Intake Oral 540 ml IV Total 350 ml # Voids 8 # Bowel Movements 3 General Appearance: Alert, Other (Uncooperative; confused) HEENT: Atraumatic Lungs: Other (Decreased air entry bilateral with scattered crackles) Cardiovascular: Regular rate, Normal S1, Normal S2 Abdomen: Normal bowel sounds, Soft, No tenderness Neuro: Normal speech, Cranial nerves 3-12 NL, Other (Confused) Psych/Mental Status: Other (Confused) Medications Current Medications Medications Dose Ordered Sig/Shubham Route Start Time Stop Time Status Last Admin Dose Admin Ondansetron HCl 4 mg Q4HP PRN IV 12/21/24 20:45 12/23/24 19:40 4 MG Enoxaparin Sodium 40 mg DAILY SC 12/22/24 10:00 12/24/24 09:15 40 MG Folic Acid 1 mg/ Magnesium Sulfate 8 meq/ Multivitamins 10 ml/Thiamine HCl 100 mg/Sodium Chloride 1,013.2 ml @ 126.247 mls/hr DAILY@1800 INJ 12/21/24 20:45 12/24/24 18:48 126.247 MLS/HR Pantoprazole Sodium 40 mg DAILY IV 12/22/24 10:00 12/25/24 10:00 40 MG Sodium Chloride 1,000 ml @ 100 mls/hr Q10H IV 12/21/24 21:45 12/24/24 10:06 100 MLS/HR Piperacillin Sod/ Tazobactam Sod 100 ml @ 25 mls/hr Q8HR IV 12/22/24 06:00 12/25/24 05:46 25 MLS/HR Vancomycin HCl 0 ml @ 0 mls/hr UD IV 12/21/24 21:45 Potassium Chloride 100 ml @ 50 mls/hr Q2H IV 12/21/24 21:45 12/22/24 01:44 UNV Ipratropium [place] 0.5 mg Q6HWA NEB 12/22/24 06:00 12/25/24 06:59 0.5 MG Levalbuterol HCl 0.625 mg Q6HR NEB 12/22/24 06:00 12/25/24 06:59 0.625 MG Throat Lozenges 1 barbara Q2HP PRN MT 12/23/24 21:00 Mupirocin 1 applic BID EACHNOSTRI 12/23/24 22:00 12/28/24 21:59 12/24/24 21:26 1 APPLIC Vancomycin HCl 250 ml @ 200 mls/hr Q12HR@0900,2100 IV 12/24/24 09:00 12/25/24 10:00 200 MLS/HR Lorazepam 2 mg Q2HP PRN IV 12/24/24 15:15 12/24/24 23:12 2 MG Haloperidol Lactate 5 mg Q8HP PRN IM 12/24/24 17:45 12/25/24 05:47 5 MG Laboratory Results Laboratory Tests 12/24/24 07:34 12/25/24 09:29 Chemistry Test 12/25/24 09:29 Calcium Level 8.1 mg/dL (8.7-10.4) L Urinalysis Test 12/21/24 23:23 Urine Color [place] (Yellow) H Urine Clarity Turb[place] (Clear) H Urine pH 5.5 (5.0-9.0) Urine Specific [place] 1.018 (1.001-1.035) Urine Protein Trace (Negative) H Urine Ketones Trace (Negative) Urine Blood Negative /uL (Negative) Urine Nitrite Negative (Negative) Urine Bilirubin Negative (Negative) Urine Urobilinogen 4 mg/dL (Negative) H Urine Leukocyte Esterase Negative /uL (Negative) Urine RBC 1 /hpf (0 - 3) Urine Microscopic WBC 3 /HPF (0-3) Urine Squamous Epithelial Cells Few /hpf (<5) Urine Bacteria Few /hpf (None Seen) H Urine Hyaline Casts Few /lpf (0 - 2) Urine Granular Casts Few /lpf (0) Urine Mucus Few (None Seen) Urine Glucose 1+ mg/dL (Normal) H Blood Gas Results Test 12/24/24 15:16 Arterial Blood pH 7.495 (7.350-7.450) FiO2 % 36.0 Microbiology Microbiology Date/Time Source Procedure Growth Status 12/24/24 07:34 Blood Blood Culture - Preliminary NO GROWTH AFTER 24 HOURS OF INCUBATION. Resulted 12/23/24 05:35 Nose MRSA Screen - Final Methicillin Resistant S.aureus Complete 12/21/24 23:23 Voided Urine Urine Culture - Final Complete Labs and/or images reviewed: Labs reviewed by me, Image(s) reviewed by me Assessment/Plan Assessment/Plan Covering: Acute metabolic/toxic encephalopathy in the setting of alcohol intoxication then alcohol withdrawal Sepsis due to multifocal pneumonia with a positive nasal MRSA Acute hypoxic respiratory failure due to multifocal pneumonia Metabolic encephalography. Electrolytes imbalance including hypokalemia Elevated LFTs Severe alcohol use disorder with alcohol intoxication and alcohol withdrawal Methamphetamine use disorder Tachycardia Homelessness One-to-one sitter Reviewed available imaging studies including chest x-ray Reviewed lab work and cultures Continue CIWA protocol Continue thiamine and folate Continue IV antibiotics Continue oxygen therapy as indicated Shrimp Boat Captain, Pulmonology and Cardiology are following Counseled on alcohol and methamphetamine use cessation Telemetry Continue monitoring Late Entry. This medical document was created using an electronic medical record system with computerized dictation system. Although this document has been carefully reviewed, there might still be some phonetic and typographical errors. These areas are purely typographical due to imperfections of the software programs, and do not reflect any compromise in the patient's medical care. Plan discussed with: Patient, Other (Nurse) My Orders Orders - GAVIN REYES MD Procedure Category Date Status Time * Cardiology Consult CONS 12/24/24 Transmitted 11:50 Date of Service: Dec 25, 2024 Billing Provider: GAVIN REYES MD Common Visit Codes: [id number] INP/OBS CARE(HIGH) GAVIN REYES MD Dec 25, 2024 12:57
--- NOTE | 2024-12-25 23:37 | DVHPN2 ---
Progress Note - Dictate Date Seen: Dec 25, 2024 Has the PT tested + for MRSA If YES, has PT been informed?: No Medical Necessity Reason Pt with a Central, PICC or Fol: No Subjective Patient was seen and evaluated in follow up. Patient has been agitated and refusing medications. K 3.4, CL 109, CA 8.1. MRSA is positive. vital signs Vital Sign Date Time Temp Pulse Resp B/P (MAP) Pulse Ox O2 Delivery O2 Flow Rate FiO2 12/25/24 13:10 100 20 98 12/25/24 09:00 98.8 163/56 (91) 98.8 12/25/24 08:00 Simple Mask* 6 50 Total Intake and Output 12/24/24 12/24/24 12/25/24 15:00 23:00 07:00 Intake Total 490 ml 400 ml Balance 490 ml 400 ml medications Current Medications Medications Dose Ordered Sig/Shubham Route Start Time Stop Time Status Last Admin Dose Admin Ondansetron HCl 4 mg Q4HP PRN IV 12/21/24 20:45 12/23/24 19:40 4 MG Enoxaparin Sodium 40 mg DAILY SC 12/22/24 10:00 12/24/24 09:15 40 MG Folic Acid 1 mg/ Magnesium Sulfate 8 meq/ Multivitamins 10 ml/Thiamine HCl 100 mg/Sodium Chloride 1,013.2 ml @ 126.247 mls/hr DAILY@1800 INJ 12/21/24 20:45 12/24/24 18:48 126.247 MLS/HR Pantoprazole Sodium 40 mg DAILY IV 12/22/24 10:00 12/25/24 10:00 40 MG Sodium Chloride 1,000 ml @ 100 mls/hr Q10H IV 12/21/24 21:45 12/25/24 15:50 100 MLS/HR Piperacillin Sod/ Tazobactam Sod 100 ml @ 25 mls/hr Q8HR IV 12/22/24 06:00 12/25/24 15:42 25 MLS/HR Vancomycin HCl 0 ml @ 0 mls/hr UD IV 12/21/24 21:45 Potassium Chloride 100 ml @ 50 mls/hr Q2H IV 12/21/24 21:45 12/22/24 01:44 UNV Ipratropium [place] 0.5 mg Q6HWA NEB 12/22/24 06:00 12/25/24 13:21 0.5 MG Levalbuterol HCl 0.625 mg Q6HR NEB 12/22/24 06:00 12/25/24 13:20 0.625 MG Throat Lozenges 1 barbara Q2HP PRN MT 12/23/24 21:00 Mupirocin 1 applic BID EACHNOSTRI 12/23/24 22:00 12/28/24 21:59 12/24/24 21:26 1 APPLIC Vancomycin HCl 250 ml @ 200 mls/hr Q12HR@0900,2100 IV 12/24/24 09:00 12/25/24 10:00 200 MLS/HR Lorazepam 2 mg Q2HP PRN IV 12/24/24 15:15 12/24/24 23:12 2 MG Haloperidol Lactate 5 mg Q8HP PRN IM 12/24/24 17:45 12/25/24 05:47 5 MG objective GENERAL: Alert and oriented x 3. No acute distress. EYES: PERRL, EOMI. Anicteric. HENT: Moist mucous membranes. LUNGS: Clear to auscultation bilaterally. CARDIOVASCULAR: Regular rate and rhythm. ABDOMEN: Soft, nontender and nondistended.Bilateral upper flank tenderness to palpation. EXTREMITIES: No edema. NEUROLOGIC: No focal neurological deficits. SKIN: Warm, dry. laboratory and microbiology Laboratory Tests 12/25/24 09:29 12/24/24 07:34 Test 12/25/24 09:29 Range/Units Serum Glucose 107 H 74-106 mg/dL Problem List Sepsis due to multifocal pneumonia. Pneumonia. Acute hypoxic respiratory failure. Metabolic encephalography. Alcohol withdrawal. Hypomagnesemia. Hypokalemia. Transaminitis. Hyperbilirubinemia. Alcohol use disorder. Unhoused. UDS positive for methamphetamine. Assessment/Plan Continued all current supportive medical care. DVT and GI prophylactics. IV antibiotics as ordered. Additional plan as per the hospital course. Dietary Evaluation Review Comments: 1) Encourage optimal PO intake 2) Continue multivitamin with thiamin and folate 3) Follow-up with clinical social work aide regarding ETOH abuse 4) Follow-up with cardiology and gastroenterology 5) Continue to monitor I&O, labs, and skin integrity Expected Outcomes/Goals: 1) appetite and labs to advance 2) f/u in 3-5 days Plan discussed with: Patient FELIPE FERRSI MD Dec 25, 2024 16:08
[2024-12-26] VITALS (16 sets, daily range): BP systolic 129–155; BP diastolic 85–103; PULSE 102–131; RESP 19–28; TEMP 97.3–98.7; O2SAT 96–100
[2024-12-26 07:00] LABS: Potassium 3.6 mmol/L (3.5-5.1); Sodium 143 mmol/L (136-145)
[2024-12-26 07:01] LABS: Anion Gap 10 (5-15); Carbon Dioxide 23 mmol/L (20-31); Hemoglobin 9.9 g/dL (13.5-17.5); Platelet Count (auto) 175 10^3/uL (140-450); Red Cell Distribution Width 16.3 % (11.8-14.3); White Blood Cell 4.5 10^3/uL (4.4-10.8)
[2024-12-26 07:02] LABS: Calcium 8.5 mg/dL (8.7-10.4); Chloride 110 mmol/L (98-107)
[2024-12-26 07:03] LABS: Hematocrit 28.9 % (41.0-53.0); Mean Corpuscular Hgb Conc. 34.2 g/dL (32.0-36.0); Mean Corpuscular Volume 114.2 fL (80.0-100.0); Red Blood Cells 2.53 10^6/uL (4.5-5.90)
[2024-12-26 07:06] LABS: BUN/Creatinine Ratio 17.1 (10.0-20.0); Blood Urea Nitrogen 14 mg/dL (9-23); Glucose 117 mg/dL (74-106); Magnesium 1.7 mg/dL (1.6-2.6)
[2024-12-26 07:07] LABS: Basophils % (manual) 0 (0.0-2.0); Blast Cells 0; Metamyelocytes % 0; Myelocytes % 0; Promyelocytes % 0; Reactive Lymphocytes 0
[2024-12-26] MEDS ORDERED: chlordiazePOXIDE HCL 25 MG CAP PO PRN (08:45)
[2024-12-26 10:03] LABS: Band Neutrophils % (manual) 3; Eosinophils % (manual) 4 (0-7); Lymphocytes % (manual) 19 (10.0-50.0); Monocytes % (manual) 19 (0-12); Platelet Estimate Adequate; Stomatocytes Few
--- NOTE | 2024-12-26 12:31 | DVHPN2 ---
Progress Note - Dictate Date Seen: Dec 26, 2024 Has the PT tested + for MRSA If YES, has PT been informed?: No Medical Necessity Reason Pt with a Central, PICC or Fol: No vital signs Vital Sign Date Time Temp Pulse Resp B/P (MAP) Pulse Ox O2 Delivery O2 Flow Rate FiO2 12/26/24 09:02 97.3 112 24 150/101 (117) 96 97.3 12/26/24 07:24 Nasal Cannula* 4 36 Total Intake and Output 12/25/24 12/25/24 12/26/24 15:00 23:00 07:00 Intake Total 300 ml 1400 ml Output Total 430 ml 400 ml Balance -130 ml 1000 ml medications Current Medications Medications Dose Ordered Sig/Shubham Route Start Time Stop Time Status Last Admin Dose Admin Ondansetron HCl 4 mg Q4HP PRN IV 12/21/24 20:45 12/23/24 19:40 4 MG Enoxaparin Sodium 40 mg DAILY SC 12/22/24 10:00 12/24/24 09:15 40 MG Folic Acid 1 mg/ Magnesium Sulfate 8 meq/ Multivitamins 10 ml/Thiamine HCl 100 mg/Sodium Chloride 1,013.2 ml @ 126.247 mls/hr DAILY@1800 INJ 12/21/24 20:45 12/25/24 17:56 126.247 MLS/HR Pantoprazole Sodium 40 mg DAILY IV 12/22/24 10:00 12/26/24 09:16 40 MG Sodium Chloride 1,000 ml @ 100 mls/hr Q10H IV 12/21/24 21:45 12/26/24 01:45 100 MLS/HR Piperacillin Sod/ Tazobactam Sod 100 ml @ 25 mls/hr Q8HR IV 12/22/24 06:00 12/26/24 05:08 25 MLS/HR Vancomycin HCl 0 ml @ 0 mls/hr UD IV 12/21/24 21:45 Potassium Chloride 100 ml @ 50 mls/hr Q2H IV 12/21/24 21:45 12/22/24 01:44 UNV Ipratropium [place] 0.5 mg Q6HWA NEB 12/22/24 06:00 12/26/24 07:31 0.5 MG Levalbuterol HCl 0.625 mg Q6HR NEB 12/22/24 06:00 12/26/24 07:31 0.625 MG Throat Lozenges 1 barbara Q2HP PRN MT 12/23/24 21:00 Mupirocin 1 applic BID EACHNOSTRI 12/23/24 22:00 12/28/24 21:59 12/26/24 09:16 1 APPLIC Haloperidol Lactate 5 mg Q8HP PRN IM 12/24/24 17:45 12/25/24 05:47 5 MG Chlordiazepoxide HCl 50 mg Q8HPRN PO 12/26/24 12:30 UNV laboratory and microbiology Laboratory Tests 12/26/24 05:45 Test 12/26/24 05:45 Range/Units Serum Glucose 117 H 74-106 mg/dL Assessment/Plan Acute hypoxemic respiratory failure Failure to thrive Substance abuse Pleural effusions Pneumonia Atelectasis Patient seen and examined Events none Low oxygen requirements On 2 liters nasal cannula Labs and imaging reviewed Chest x-ray shows right lower lobe and left lower lobe infiltrates consistent with pneumonia Underlying pleural effusions Management Supplemental oxygen Titrate to maintain sats 90% or above Incentive spirometry Antibiotics Obtain cultures Bronchodilators Monitor renal function Monitor electrolytes Supplement as needed DVT prophylaxis Dietary Evaluation Review Comments: 1) Encourage optimal PO intake 2) Continue multivitamin with thiamin and folate 3) Follow-up with social psychologist regarding ETOH abuse 4) Follow-up with cardiology and gastroenterology 5) Continue to monitor I&O, labs, and skin integrity Expected Outcomes/Goals: 1) appetite and labs to advance 2) f/u in 3-5 days Plan discussed with: Other (rn) JODY VELASQUEZ MD Dec 26, 2024 12:31
[2024-12-26] MEDS: chlordiazePOXIDE HCL 25 MG CAP PO SCH (12:48)
[2024-12-26] MEDS: THROAT LOZENGES(CEPASTAT) MT PRN (15:08)
--- NOTE | 2024-12-26 21:45 | DVHPNRES ---
Progress Note Date Seen: Dec 26, 2024 Resident Creating Document: EMERSON KLINE RESIDENT Has the PT tested + for MRSA If YES, has PT been informed?: No Medical Necessity Reason Pt with a Central, PICC or Fol: No Medical Necessity Reason History of Present Illness Patient is a 64-year-old unhoused male with past medical history of recurrent alcohol withdrawals and alcohol use disorder, who comes in due to alcohol withdrawal. According to the patient, he drinks 4 pt of vodka daily, last drink was 2 days ago. Patient also notes bilateral flank pain that has been ongoing for the past 1 month. On review of systems patient is complaining of fatigue, fever, chills, shortness of breath, dry cough, nausea and dry heaving. CT abdomen pelvis showed possible right lower lobe pneumonia, patient was noted to have a lactic acid level of 7.7, 8.5. Plasma alcohol level 158.9. At the time of my assessment patient was AO x3, CIWA score 10. Patient was started on banana bag, IV NS and IV lorazepam along with IV vancomycin and piperacillin- tazobactam. Past Medical History: alcohol withdrawals and alcohol use disorder Past Surgical History: Denies Past Social History: Smoking: Denies, Alcohol: Drinks 4 pt of vodka per day for the last 40 years Medicine: Denies Drugs PN 12/22/2024 Patient seen in the ED today. He was confused sleeping. Per the night team report, patient received 5mg total of ativan and 100mg of librium. Vitals signs shows tachycardiac 129, fever ( Temp: 100.7); Preliminary blood culture grew Gram Positive Cocci in chains and Gram Positive Cocci in pairs. Patient is already on Zosyn and vancomycin. Patient received another bolus of fluid. In lactic acid is currently pending. Added Librium protocol starting with 50 b.i.d. and we will taper down slowly. PN: . Patient is seen and examined at the bedside. He was mild tachypneic and tachycardic. He was on Ativan 1mg q4hr as needed and Librium 25mg bid. At the time of my assess, his CIWA score was 6 ( fine tremors and some agitation). Later in the afternoon, patient became aggressive towards the [employer], took out his IV and wanted to go our looking for his brother Don. Looks like he is not completely out of the withdrawal. Blood pressure was stable however HR 120-130. temperature was stable. He does not seem to be in DT. We gave him 2mg ativan stat. Immediately after the Librium, patient was a bit more agitated. Had haloperidol 5mg as needed (if need). After 20 minutes, patient became stable and communicating with me and the staff. PN 12/26/2024 Patient seen.He is commuication better and more alerter and oriented,but his HR is still elevate and his breathing is not normall. he is on 4L of oxygen. Will get CT angio and EKg to rule out PE. Also will get sputum culture. Orders placed nurse informed. Subjective Review of Systems Constitutional: Denies fever no chills no feeling of malaise HEENT: Denies headache, ear pain, ear discharges, conjunctivitis, nasal discharge throat pain Cardiovascular: Denies chest pain, palpitation, orthopnea, PND, or pedal edema Respiratory: Denies shortness of breath, cough cough, sputum production, hemoptysis, GI: Denies abdominal pain, nausea, vomiting, diarrhea, hematemesis, hematochezia, : Denies frequency, urgency, hematuria, Endocrine: Denies unintentional weight gain or weight loss, feeling of hot flashes, [place]: Denies easy bruising, bleeding disorders, epistaxis Musculoskeletal: Denies joint pains, muscle aches Psych: No evidence of depression, lopez, suicidal ideation Objective vital signs Vital Sign Date Time Temp Pulse Resp B/P (MAP) Pulse Ox O2 Delivery O2 Flow Rate FiO2 12/26/24 21:00 98.7 118 20 136/85 (102) 96 98.7 12/26/24 20:00 Nasal Cannula* 4 36 Total Intake and Output 12/25/24 12/25/24 12/26/24 15:00 23:00 07:00 Intake Total 300 ml 1400 ml Output Total 430 ml 400 ml Balance -130 ml 1000 ml medications Current Medications Medications Dose Ordered Sig/Shubham Route Start Time Stop Time Status Last Admin Dose Admin Ondansetron HCl 4 mg Q4HP PRN IV 12/21/24 20:45 12/23/24 19:40 4 MG Enoxaparin Sodium 40 mg DAILY SC 12/22/24 10:00 12/24/24 09:15 40 MG Folic Acid 1 mg/ Magnesium Sulfate 8 meq/ Multivitamins 10 ml/Thiamine HCl 100 mg/Sodium Chloride 1,013.2 ml @ 126.247 mls/hr DAILY@1800 INJ 12/21/24 20:45 12/26/24 18:49 126.247 MLS/HR Pantoprazole Sodium 40 mg DAILY IV 12/22/24 10:00 12/26/24 09:16 40 MG Sodium Chloride 1,000 ml @ 100 mls/hr Q10H IV 12/21/24 21:45 12/26/24 16:26 100 MLS/HR Piperacillin Sod/ Tazobactam Sod 100 ml @ 25 mls/hr Q8HR IV 12/22/24 06:00 12/26/24 15:02 25 MLS/HR Vancomycin HCl 0 ml @ 0 mls/hr UD IV 12/21/24 21:45 Potassium Chloride 100 ml @ 50 mls/hr Q2H IV 12/21/24 21:45 12/22/24 01:44 UNV Ipratropium [place] 0.5 mg Q6HWA NEB 12/22/24 06:00 12/26/24 19:42 0.5 MG Levalbuterol HCl 0.625 mg Q6HR NEB 12/22/24 06:00 12/26/24 19:42 0.625 MG Throat Lozenges 1 dominick Q2HP PRN MT 12/23/24 21:00 12/26/24 15:08 1 DOMINICK Mupirocin 1 applic BID EACHNOSTRI 12/23/24 22:00 12/28/24 21:59 12/26/24 09:16 1 APPLIC Haloperidol Lactate 5 mg Q8HP PRN IM 12/24/24 17:45 12/26/24 19:26 5 MG Chlordiazepoxide HCl 50 mg Q8HPRN PO 12/26/24 12:30 12/26/24 12:48 50 MG Examination General Appearance: Alert, Oriented X3, Cooperative, No acute distress, HEENT: Atraumatic, PERRLA, EOMI, Mucous membrane moist/pink Respiratory: Clear to auscultation, Normal air movement Cardiovascular: Regular rate, Normal S1, Normal S2, No murmurs, no chest wall tenderness Abdominal: NO distention, no tenderness, bowel sounds present, no scars noted Extremities: No clubbing, No cyanosis, No edema, Normal pulses, No tenderness/swelling, Skin: No rashes, No breakdown, No significant lesion Neuro: Weak, Sensation intact, Cranial nerves 3-12 NL, Reflexes 2+ Psych/Mental Status: Mental status NL, Mood NL laboratory and microbiology Laboratory Tests 12/26/24 05:45 Test 12/26/24 05:45 Range/Units Serum Glucose 117 H 74-106 mg/dL Microbiology Date/Time Source Procedure Growth Status 12/25/24 09:29 Blood Blood Culture - Preliminary NO GROWTH AFTER 24 HOURS OF INCUBATION. Resulted 12/23/24 05:35 Nose MRSA Screen - Final Methicillin Resistant S.aureus Complete 12/21/24 23:23 Voided Urine Urine Culture - Final Complete Problem List/Assessment/Plan Problem List/Assessment/Plan Assessment Sepsis due to multifocal pneumonia --> Lactic acidosis --> Tachycardia --> Blood culture positive for gram positive cocci --> Fluid 3L received thus far -- > IV vancomycin per pharmacy, IV Zosyn Rule out PE --> Tachycardia and tachypnea --> on 4L of oxygen --> EKG --> CT angio with Contrast Pneumonia, probably aspiration --> IV Zosyn Acute hypoxic respiratory failure --> On 4l oxygen Metabolic encephalography --> Likely secondary to sepsis --> Improved --> Continue current treatly Alcohol withdrawal, CIWA 6 - IV NS 1 L bolus times x4 - IV NS at 100 cc per hour - banana bag - IV lorazepam 2 mg q.2 h prn - Librium 25mg bid - IV Protonix daily - IV Zofran as needed Hypomagnesemia, severe: Serum magnesium 0.6 Hypokalemia - KCl rider - magnesium rider Transaminitis, alcohol induced Hyperbilirubinemia - total bilirubin 2.3, AST 224, ALT 58 - monitor - hepatomegaly noted on prior scans - ordered hepatitis panel Alcohol use disorder Unhoused UDS positive for methamphetamine - hepatitis panel : Pending - HIV testing : Negative - consulted outreach and education social worker for alcohol dependency and homeless PUD prophylaxis: protonix 40mg DVT prophylaxis: Levonox 40mg Goals of care discuss with nurse for 15 minutes: full code Case and plan discussed + Dr. Jimbo Fisher discussed with: Patient My Orders My Orders Orders - EMERSON KLINE RESIDENT Procedure Category Date Status Time Incentive Spirometry ORDERS 12/26/24 Transmitted 08:46 Chlordiazepoxide Hcl PHA 12/26/24 In Process Capsule (Librium Ca 12:30 Electrocardigram EKG 12/26/24 Logged 15:[address] 12/26/24 Logged Contrast 15:11 Respiratory Culture LINDY 12/26/24 Uncollected W/ Gs 15:11 Sputum Induction RT 12/26/24 Logged 15:11 Dietary Evaluation Review Comments: 1) Encourage optimal PO intake 2) Continue multivitamin with thiamin and folate 3) Follow-up with medical social worker regarding ETOH abuse 4) Follow-up with cardiology and gastroenterology 5) Continue to monitor I&O, labs, and skin integrity Expected Outcomes/Goals: 1) appetite and labs to advance 2) f/u in 3-5 days Date of Service: January 25, 2025 Billing Provider: LETI THAKKAR MD Common Visit Codes: [id number] INP/OBS CARE(HIGH) EMERSON KLINE RESIDENT Dec 26, 2024 21:45 LETI THAKKAR MD December 30, 2024 19:10
[2024-12-26] MEDS: IOHEXOL 350 MG/ML 100ML IJ ONE (21:55)
--- NOTE | 2024-12-26 23:39 | DVHPN2 ---
Progress Note - Dictate Date Seen: Dec 26, 2024 Has the PT tested + for MRSA If YES, has PT been informed?: No Medical Necessity Reason Pt with a Central, PICC or Fol: No Subjective Patient was seen and evaluated in follow up. Patient is more awake and alert today. Patient is on 4 LPM NC. HR is still elevated. CTA chest is pending. HGB 9.9, HCT 28.9. Telemetry reviewed. vital signs Vital Sign Date Time Temp Pulse Resp B/P (MAP) Pulse Ox O2 Delivery O2 Flow Rate FiO2 12/26/24 21:00 98.7 118 20 136/85 (102) 96 98.7 12/26/24 20:00 Nasal Cannula* 4 36 Total Intake and Output 12/25/24 12/25/24 12/26/24 15:00 23:00 07:00 Intake Total 300 ml 1400 ml Output Total 430 ml 400 ml Balance -130 ml 1000 ml medications Current Medications Medications Dose Ordered Sig/Shubham Route Start Time Stop Time Status Last Admin Dose Admin Ondansetron HCl 4 mg Q4HP PRN IV 12/21/24 20:45 12/23/24 19:40 4 MG Enoxaparin Sodium 40 mg DAILY SC 12/22/24 10:00 12/24/24 09:15 40 MG Folic Acid 1 mg/ Magnesium Sulfate 8 meq/ Multivitamins 10 ml/Thiamine HCl 100 mg/Sodium Chloride 1,013.2 ml @ 126.247 mls/hr DAILY@1800 INJ 12/21/24 20:45 12/26/24 18:49 126.247 MLS/HR Pantoprazole Sodium 40 mg DAILY IV 12/22/24 10:00 12/26/24 09:16 40 MG Sodium Chloride 1,000 ml @ 100 mls/hr Q10H IV 12/21/24 21:45 12/26/24 16:26 100 MLS/HR Piperacillin Sod/ Tazobactam Sod 100 ml @ 25 mls/hr Q8HR IV 12/22/24 06:00 12/26/24 22:58 25 MLS/HR Vancomycin HCl 0 ml @ 0 mls/hr UD IV 12/21/24 21:45 Potassium Chloride 100 ml @ 50 mls/hr Q2H IV 12/21/24 21:45 12/22/24 01:44 UNV Ipratropium [place] 0.5 mg Q6HWA NEB 12/22/24 06:00 12/26/24 19:42 0.5 MG Levalbuterol HCl 0.625 mg Q6HR NEB 12/22/24 06:00 12/26/24 19:42 0.625 MG Throat Lozenges 1 dominick Q2HP PRN MT 12/23/24 21:00 12/26/24 15:08 1 DOMINICK Mupirocin 1 applic BID EACHNOSTRI 12/23/24 22:00 12/28/24 21:59 12/26/24 22:00 1 APPLIC Haloperidol Lactate 5 mg Q8HP PRN IM 12/24/24 17:45 12/26/24 19:26 5 MG Chlordiazepoxide HCl 50 mg Q8HPRN PO 12/26/24 12:30 12/26/24 22:58 50 MG objective GENERAL: Alert and oriented x 3. No acute distress. EYES: PERRL, EOMI. Anicteric. HENT: Moist mucous membranes. LUNGS: Clear to auscultation bilaterally. CARDIOVASCULAR: Regular rate and rhythm. ABDOMEN: Soft, nontender and nondistended.Bilateral upper flank tenderness to palpation. EXTREMITIES: No edema. NEUROLOGIC: No focal neurological deficits. SKIN: Warm, dry. laboratory and microbiology Laboratory Tests 12/26/24 05:45 Test 12/26/24 05:45 Range/Units Serum Glucose 117 H 74-106 mg/dL Problem List Sepsis due to multifocal pneumonia. Pneumonia. Acute hypoxic respiratory failure. Metabolic encephalography. Alcohol withdrawal. Hypomagnesemia. Hypokalemia. Transaminitis. Hyperbilirubinemia. Alcohol use disorder. Unhoused. UDS positive for methamphetamine. Assessment/Plan Continued all current supportive medical care. DVT and GI prophylactics. IV antibiotics as ordered. Additional plan as per the hospital course. Dietary Evaluation Review Comments: 1) Encourage optimal PO intake 2) Continue multivitamin with thiamin and folate 3) Follow-up with psychiatric social worker regarding ETOH abuse 4) Follow-up with cardiology and gastroenterology 5) Continue to monitor I&O, labs, and skin integrity Expected Outcomes/Goals: 1) appetite and labs to advance 2) f/u in 3-5 days Plan discussed with: Patient FELIPE FERRIS MD Dec 26, 2024 23:39
[2024-12-27] VITALS (15 sets, daily range): BP systolic 131–152; BP diastolic 79–105; PULSE 83–112; RESP 18–22; TEMP 98.1–98.9; O2SAT 94–100
[2024-12-27 00:45] LABS: INR 1.01 (0.9-1.15); Partial Thromboplastin Time 25.6 SEC (24.5-34.5); Prothrombin Time 10.7 sec (9.3-11.8)
--- NOTE | 2024-12-27 01:56 | DVH ---
CLINICAL HISTORY: RULE OUT PE TECHNIQUE: CT angiogram of the chest was performed with intravenous contrast. 3D MIP reconstructed i mages were created and archived on the PACS system. This exam was performed according to our [facility] dose optimization program. Up-to-date CT equipment and radiation dose reduction techniques are u tilized as appropriate. CTDI: 28.09 DLP: 1096.77 WID: COMPARISON: CT chest from 12/22/2024 FINDINGS: Lower Neck: Unremarkable Axilla, Mediastinum and Zee: Unremarkable. Heart and Great Vessels: Cardiomegaly without pericardial effusion. Mild ectasia of the ascending tho racic aorta measuring 3.5 cm. The thoracic aorta is normal in caliber with trace calcified atheroscle rotic plaque. There is marked 3-vessel calcified coronary artery disease. There is no central, segmen jordana or definite subsegmental pulmonary artery filling defect identified. Airway, Lungs and Pleura: Imaging during partial expiration. Chest Wall and Osseous Structures: Multilevel thoracic spondylosis. No destructive osseous lesion. Th ere is mild chest wall edema. Increase in a moderate left pleural effusion. [id number] right p leural effusion. Dependent consolidations in the bilateral lower lobes. Interlobular septal thickenin g in the lungs. A few additional patchy ground-glass opacities are seen bilaterally. Upper abdomen: There is moderate diffuse hepatic steatosis. No acute abnormality in the upper abdomen . Atrophic pancreas. IMPRESSION: 1. No evidence of pulmonary embolism. 2. CHF and/or volume overload, with cardiomegaly, increase in a moderate left and moderate to large r ight pleural effusion, and mild interstitial and alveolar pulmonary edema. 3. Dependent consolidations in the lower lobes which could be atelectasis though a component of pneum onia (which could be on the basis of aspiration) could contribute to this appearance. 4. Moderate hepatic steatosis. 5. Marked 3-vessel calcified coronary artery disease.
[2024-12-27] MEDS: CYANOCOBALAMIN 500 MCG TAB PO ONE (06:02)
[2024-12-27] MEDS: FOLIC ACID 1 MG TAB PO ONE (06:03)
[2024-12-27] MEDS: FUROSEMIDE 40 MG/4 ML VIAL IV ONE (06:03)
[2024-12-27] MEDS: CYANOCOBALAMIN 500 MCG TAB PO SCH (09:49)
[2024-12-27] MEDS: FOLIC ACID 1 MG TAB PO SCH (09:50)
--- NOTE | 2024-12-27 09:59 | ECG ---
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
--- NOTE | 2024-12-27 14:02 | DVHPN2 ---
Progress Note - Dictate Date Seen: Dec 27, 2024 Has the PT tested + for MRSA If YES, has PT been informed?: No Medical Necessity Reason Pt with a Central, PICC or Fol: No vital signs Vital Sign Date Time Temp Pulse Resp B/P (MAP) Pulse Ox O2 Delivery O2 Flow Rate FiO2 12/27/24 11:01 87 18 98 12/27/24 10:53 Nasal Cannula* 4 36 12/27/24 09:00 98.4 131/80 (97) 98.4 Total Intake and Output 12/26/24 12/26/24 12/27/24 15:00 23:00 07:00 Intake Total 800 ml 800 ml Output Total 650 ml 700 ml Balance 150 ml 100 ml medications Current Medications Medications Dose Ordered Sig/Shubham Route Start Time Stop Time Status Last Admin Dose Admin Ondansetron HCl 4 mg Q4HP PRN IV 12/21/24 20:45 12/23/24 19:40 4 MG Enoxaparin Sodium 40 mg DAILY SC 12/22/24 10:00 12/24/24 09:15 40 MG Folic Acid 1 mg/ Magnesium Sulfate 8 meq/ Multivitamins 10 ml/Thiamine HCl 100 mg/Sodium Chloride 1,013.2 ml @ 126.247 mls/hr DAILY@1800 INJ 12/21/24 20:45 12/26/24 18:49 126.247 MLS/HR Pantoprazole Sodium 40 mg DAILY IV 12/22/24 10:00 12/27/24 09:52 40 MG Sodium Chloride 1,000 ml @ 100 mls/hr Q10H IV 12/21/24 21:45 12/26/24 16:26 100 MLS/HR Piperacillin Sod/ Tazobactam Sod 100 ml @ 25 mls/hr Q8HR IV 12/22/24 06:00 12/27/24 13:45 25 MLS/HR Vancomycin HCl 0 ml @ 0 mls/hr UD IV 12/21/24 21:45 Potassium Chloride 100 ml @ 50 mls/hr Q2H IV 12/21/24 21:45 12/22/24 01:44 UNV Ipratropium [place] 0.5 mg Q6HWA NEB 12/22/24 06:00 12/27/24 10:53 0.5 MG Levalbuterol HCl 0.625 mg Q6HR NEB 12/22/24 06:00 12/27/24 10:53 0.625 MG Throat Lozenges 1 dominick Q2HP PRN MT 12/23/24 21:00 12/26/24 15:08 1 DOMINICK Mupirocin 1 applic BID EACHNOSTRI 12/23/24 22:00 12/28/24 21:59 12/27/24 09:58 1 APPLIC Haloperidol Lactate 5 mg Q8HP PRN IM 12/24/24 17:45 12/27/24 05:50 5 MG Chlordiazepoxide HCl 50 mg Q8HPRN PO 12/26/24 12:30 12/27/24 05:53 50 MG Cyanocobalamin 500 mcg DAILY PO 12/27/24 10:00 12/27/24 09:49 500 MCG Folic Acid 1 mg DAILY PO 12/27/24 10:00 12/27/24 09:50 1 MG laboratory and microbiology Laboratory Tests 12/27/24 05:05 12/26/24 05:45 Test 12/26/24 05:45 Range/Units Serum Glucose 117 H 74-106 mg/dL Assessment/Plan Acute hypoxemic respiratory failure Failure to thrive Substance abuse Pleural effusions Pneumonia Atelectasis Patient seen and examined Events none Low oxygen requirements On 2 liters nasal cannula Labs and imaging reviewed Chest x-ray shows right lower lobe and left lower lobe infiltrates consistent with pneumonia Underlying pleural effusions Management Supplemental oxygen Titrate to maintain sats 90% or above Incentive spirometry Antibiotics Obtain cultures Bronchodilators Monitor renal function Monitor electrolytes Supplement as needed DVT prophylaxis Dietary Evaluation Review Comments: 1) Encourage optimal PO intake 2) Continue multivitamin with thiamin and folate 3) Follow-up with health social work professor regarding ETOH abuse 4) Follow-up with cardiology and gastroenterology 5) Continue to monitor I&O, labs, and skin integrity Expected Outcomes/Goals: 1) appetite and labs to advance 2) f/u in 3-5 days Plan discussed with: Patient JODY VELASQUEZ MD Dec 27, 2024 14:02
[2024-12-27] MEDS: VANCOMYCIN 1GM/200ML PM 200 ML IV ONE (16:25)
--- NOTE | 2024-12-27 19:42 | DVHPNRES ---
Progress Note Date Seen: Dec 27, 2024 Resident Creating Document: EMERSON KLINE RESIDENT Has the PT tested + for MRSA If YES, has PT been informed?: No Medical Necessity Reason Pt with a Central, PICC or Fol: No Medical Necessity Reason History of Present Illness Patient is a 64-year-old unhoused male with past medical history of recurrent alcohol withdrawals and alcohol use disorder, who comes in due to alcohol withdrawal. According to the patient, he drinks 4 pt of vodka daily, last drink was 2 days ago. Patient also notes bilateral flank pain that has been ongoing for the past 1 month. On review of systems patient is complaining of fatigue, fever, chills, shortness of breath, dry cough, nausea and dry heaving. CT abdomen pelvis showed possible right lower lobe pneumonia, patient was noted to have a lactic acid level of 7.7, 8.5. Plasma alcohol level 158.9. At the time of my assessment patient was AO x3, CIWA score 10. Patient was started on banana bag, IV NS and IV lorazepam along with IV vancomycin and piperacillin- tazobactam. Past Medical History: alcohol withdrawals and alcohol use disorder Past Surgical History: Denies Past Social History: Smoking: Denies, Alcohol: Drinks 4 pt of vodka per day for the last 40 years Medicine: Denies Drugs PN 12/22/2024 Patient seen in the ED today. He was confused sleeping. Per the night team report, patient received 5mg total of ativan and 100mg of librium. Vitals signs shows tachycardiac 129, fever ( Temp: 100.7); Preliminary blood culture grew Gram Positive Cocci in chains and Gram Positive Cocci in pairs. Patient is already on Zosyn and vancomycin. Patient received another bolus of fluid. In lactic acid is currently pending. Added Librium protocol starting with 50 b.i.d. and we will taper down slowly. PN: . Patient is seen and examined at the bedside. He was mild tachypneic and tachycardic. He was on Ativan 1mg q4hr as needed and Librium 25mg bid. At the time of my assess, his CIWA score was 6 ( fine tremors and some agitation). Later in the afternoon, patient became aggressive towards the CERTIFIED MEDICINE AIDE, took out his IV and wanted to go our looking for his brother Don. Looks like he is not completely out of the withdrawal. Blood pressure was stable however HR 120-130. temperature was stable. He does not seem to be in DT. We gave him 2mg ativan stat. Immediately after the Librium, patient was a bit more agitated. Had haloperidol 5mg as needed (if need). After 20 minutes, patient became stable and communicating with me and the staff. PN 12/26/2024 Patient seen.He is communication better and more alert and oriented,but his HR is still elevate and his breathing is not normall. he is on 4L of oxygen. Will get CT angio and EKg to rule out PE. Also will get sputum culture. Orders placed nurse informed. PN 12/27/2024 patient is seen and examined today. Also with the consumer loan underwriter on board. He is current being managed for multifocal pneumonia and alcohol withdrawal which is getting better and patient is on antibiotics as well has Librium for the alcohol withdrawal. CT angiogram revealed CHF and/or volume overload, with cardiomegaly, increase in a moderate left and moderate to large right pleural effusion, and mild interstitial and alveolar pulmonary edema. Dependent consolidations in the lower lobes which could be atelectasis though a component of pneumonia (which could be on the basis of aspiration) could contribute to this appearance Moderate hepatic steatosis. Pulmonology has been inform of the possibility of bronchoscopy. Subjective Review of Systems Constitutional: Denies fever no chills no feeling of malaise HEENT: Denies headache, ear pain, ear discharges, conjunctivitis, nasal discharge throat pain Cardiovascular: Denies chest pain, palpitation, orthopnea, PND, or pedal edema Respiratory: shortness of breath on 4 L of oxygen, cough, sputum production, hemoptysis, GI: Denies abdominal pain, nausea, vomiting, diarrhea, hematemesis, hematochezia, : Denies frequency, urgency, hematuria, Endocrine: Denies unintentional weight gain or weight loss, feeling of hot flashes, [place]: Denies easy bruising, bleeding disorders, epistaxis Musculoskeletal: Denies joint pains, muscle aches Psych: No evidence of depression, lopez, suicidal ideation Objective vital signs Vital Sign Date Time Temp Pulse Resp B/P (MAP) Pulse Ox O2 Delivery O2 Flow Rate FiO2 12/27/24 13:00 98.3 99 21 143/79 (100) 99 98.3 12/27/24 10:53 Nasal Cannula* 4 36 Total Intake and Output 12/26/24 12/26/24 12/27/24 15:00 23:00 07:00 Intake Total 800 ml 800 ml Output Total 650 ml 700 ml Balance 150 ml 100 ml medications Current Medications Medications Dose Ordered Sig/Shubham Route Start Time Stop Time Status Last Admin Dose Admin Ondansetron HCl 4 mg Q4HP PRN IV 12/21/24 20:45 12/23/24 19:40 4 MG Enoxaparin Sodium 40 mg DAILY SC 12/22/24 10:00 12/24/24 09:15 40 MG Folic Acid 1 mg/ Magnesium Sulfate 8 meq/ Multivitamins 10 ml/Thiamine HCl 100 mg/Sodium Chloride 1,013.2 ml @ 126.247 mls/hr DAILY@1800 INJ 12/21/24 20:45 12/27/24 18:22 126.247 MLS/HR Pantoprazole Sodium 40 mg DAILY IV 12/22/24 10:00 12/27/24 09:52 40 MG Sodium Chloride 1,000 ml @ 100 mls/hr Q10H IV 12/21/24 21:45 12/27/24 17:45 100 MLS/HR Piperacillin Sod/ Tazobactam Sod 100 ml @ 25 mls/hr Q8HR IV 12/22/24 06:00 12/27/24 13:45 25 MLS/HR Vancomycin HCl 0 ml @ 0 mls/hr UD IV 12/21/24 21:45 Potassium Chloride 100 ml @ 50 mls/hr Q2H IV 12/21/24 21:45 12/22/24 01:44 UNV Ipratropium [place] 0.5 mg Q6HWA NEB 12/22/24 06:00 12/27/24 10:53 0.5 MG Levalbuterol HCl 0.625 mg Q6HR NEB 12/22/24 06:00 12/27/24 10:53 0.625 MG Throat Lozenges 1 dominick Q2HP PRN MT 12/23/24 21:00 12/26/24 15:08 1 DOMINICK Mupirocin 1 applic BID EACHNOSTRI 12/23/24 22:00 12/28/24 21:59 12/27/24 09:58 1 APPLIC Haloperidol Lactate 5 mg Q8HP PRN IM 12/24/24 17:45 12/27/24 05:50 5 MG Chlordiazepoxide HCl 50 mg Q8HPRN PO 12/26/24 12:30 12/27/24 15:35 50 MG Cyanocobalamin 500 mcg DAILY PO 12/27/24 10:00 12/27/24 09:49 500 MCG Folic Acid 1 mg DAILY PO 12/27/24 10:00 12/27/24 09:50 1 MG Examination General Appearance: Alert, Oriented X3, Cooperative, No acute distress, HEENT: Atraumatic, PERRLA, EOMI, Mucous membrane moist/pink Respiratory: Clear to auscultation, Normal air movement Cardiovascular: Regular rate, Normal S1, Normal S2, No murmurs, no chest wall tenderness Abdominal: NO distention, no tenderness, bowel sounds present, no scars noted Extremities: No clubbing, No cyanosis, No edema, Normal pulses, No tenderness/swelling, Skin: No rashes, No breakdown, No significant lesion Neuro: Weak, Sensation intact, Cranial nerves 3-12 NL, Reflexes 2+ Psych/Mental Status: Mental status NL, Mood NL laboratory and microbiology Laboratory Tests 12/27/24 05:05 12/26/24 05:45 Test 12/26/24 05:45 Range/Units Serum Glucose 117 H 74-106 mg/dL Microbiology Date/Time Source Procedure Growth Status 12/26/24 05:45 Blood Blood Culture - Preliminary NO GROWTH AFTER 24 HOURS OF INCUBATION. Resulted 12/23/24 05:35 Nose MRSA Screen - Final Methicillin Resistant S.aureus Complete 12/21/24 23:23 Voided Urine Urine Culture - Final Complete Problem List/Assessment/Plan Problem List/Assessment/Plan Assessment Sepsis due to multifocal pneumonia --> Lactic acidosis --> Tachycardia --> Blood culture positive for gram positive cocci --> Fluid 3L received thus far -- > IV vancomycin per pharmacy, IV Zosyn PE ruled out. Just very bad pnuemonia with pleural effusion --> Tachycardia and tachypnea --> on 4L of oxygen Pneumonia, probably aspiration; Possible gram-/gram + --> IV Zosyn Pleural effusion, Dependent consolidations in the lower lobes which could be atelectasis though a component of pneumonia --> On antibiotics --> Pulmonology following for possible bronchoscopy Acute hypoxic respiratory failure --> On 4l oxygen Metabolic encephalography --> Likely secondary to sepsis --> Improved --> Continue current treatly Alcohol withdrawal, CIWA 6 - IV NS 1 L bolus times x4 - IV NS at 100 cc per hour - banana bag - IV lorazepam 2 mg q.2 h prn - Librium 25mg bid - IV Protonix daily - IV Zofran as needed Hypomagnesemia, severe: Serum magnesium 0.6 Hypokalemia - KCl rider - magnesium rider Transaminitis, alcohol induced Hyperbilirubinemia - total bilirubin 2.3, AST 224, ALT 58 - monitor - hepatomegaly noted on prior scans - ordered hepatitis panel Alcohol use disorder Unhoused UDS positive for methamphetamine - hepatitis panel : Pending - HIV testing : Negative - consulted socially responsible investment adviser for alcohol dependency and homeless PUD prophylaxis: protonix 40mg DVT prophylaxis: Levonox 40mg Goals of care discuss with nurse for 15 minutes: full code Case and plan discussed + Dr. Thakkar Plan discussed with: Patient My Orders My Orders Orders - EMERSON KLINE RESIDENT Procedure Category Date Status Time Cyanocobalamin PHA 12/27/24 In Process (Vitamin B-12) 10:00 Folic Acid Tablet PHA 12/27/24 In Process 10:00 Regular Diet DIET 12/27/24 Transmitted Lunch Dietary Evaluation Review Comments: 1) Encourage optimal PO intake 2) Continue multivitamin with thiamin and folate 3) Follow-up with psychiatric social worker regarding ETOH abuse 4) Follow-up with cardiology and gastroenterology 5) Continue to monitor I&O, labs, and skin integrity Expected Outcomes/Goals: 1) appetite and labs to advance 2) f/u in 3-5 days Date of Service: Dec 27, 2024 Billing Provider: LETI THAKKAR MD Common Visit Codes: [id number] INP/OBS CARE(HIGH) EMERSON KLINE Dec 27, 2024 19:42 LETI THAKKAR MD December 30, 2024 19:15
--- NOTE | 2024-12-27 23:57 | DVHPN2 ---
Progress Note - Dictate Date Seen: Dec 27, 2024 Has the PT tested + for MRSA If YES, has PT been informed?: No Medical Necessity Reason Pt with a Central, PICC or Fol: No Subjective Patient was seen and evaluated in follow up. Patient is on 3 LPM NC. He is still c/o SOB. CTA chest is negative for PE. There is CHF and/or volume overload, with cardiomegaly, increase in a moderate left and moderate to large right pleural effusion, and mild interstitial and alveolar pulmonary edema, dependent consolidations in the lower lobes which could be atelectasis though a component of pneumonia (which could be on the basis of aspiration), moderate hepatic steatosis and marked 3-vessel calcified coronary artery disease. Telemetry reviewed. vital signs Vital Sign Date Time Temp Pulse Resp B/P (MAP) Pulse Ox O2 Delivery O2 Flow Rate FiO2 12/27/24 21:00 98.9 94 19 143/97 (112) 95 98.9 12/27/24 19:47 Nasal Cannula* 3 32 Total Intake and Output 12/26/24 12/26/24 12/27/24 15:00 23:00 07:00 Intake Total 800 ml 800 ml Output Total 650 ml 700 ml Balance 150 ml 100 ml medications Current Medications Medications Dose Ordered Sig/Shubham Route Start Time Stop Time Status Last Admin Dose Admin Ondansetron HCl 4 mg Q4HP PRN IV 12/21/24 20:45 12/23/24 19:40 4 MG Enoxaparin Sodium 40 mg DAILY SC 12/22/24 10:00 12/24/24 09:15 40 MG Folic Acid 1 mg/ Magnesium Sulfate 8 meq/ Multivitamins 10 ml/Thiamine HCl 100 mg/Sodium Chloride 1,013.2 ml @ 126.247 mls/hr DAILY@1800 INJ 12/21/24 20:45 12/27/24 18:22 126.247 MLS/HR Pantoprazole Sodium 40 mg DAILY IV 12/22/24 10:00 12/27/24 09:52 40 MG Sodium Chloride 1,000 ml @ 100 mls/hr Q10H IV 12/21/24 21:45 12/27/24 17:45 100 MLS/HR Piperacillin Sod/ Tazobactam Sod 100 ml @ 25 mls/hr Q8HR IV 12/22/24 06:00 12/27/24 21:29 25 MLS/HR Vancomycin HCl 0 ml @ 0 mls/hr UD IV 12/21/24 21:45 Potassium Chloride 100 ml @ 50 mls/hr Q2H IV 12/21/24 21:45 12/22/24 01:44 UNV Ipratropium [place] 0.5 mg Q6HWA [facility] 12/22/24 06:00 12/27/24 19:47 0.5 MG Levalbuterol HCl 0.625 mg Q6HR NEB 12/22/24 06:00 12/27/24 19:47 0.625 MG Throat Lozenges 1 dominick Q2HP PRN MT 12/23/24 21:00 12/26/24 15:08 1 DOMINICK Mupirocin 1 applic BID EACHNOSTRI 12/23/24 22:00 12/28/24 21:59 12/27/24 21:30 1 APPLIC Haloperidol Lactate 5 mg Q8HP PRN IM 12/24/24 17:45 12/27/24 05:50 5 MG Chlordiazepoxide HCl 50 mg Q8HPRN PO 12/26/24 12:30 12/27/24 21:29 50 MG Cyanocobalamin 500 mcg DAILY PO 12/27/24 10:00 12/27/24 09:49 500 MCG Folic Acid 1 mg DAILY PO 12/27/24 10:00 12/27/24 09:50 1 MG objective GENERAL: Alert and oriented x 3. No acute distress. EYES: PERRL, EOMI. Anicteric. HENT: Moist mucous membranes. LUNGS: Clear to auscultation bilaterally. CARDIOVASCULAR: Regular rate and rhythm. ABDOMEN: Soft, nontender and nondistended.Bilateral upper flank tenderness to palpation. EXTREMITIES: No edema. NEUROLOGIC: No focal neurological deficits. SKIN: Warm, dry. laboratory and microbiology Laboratory Tests 12/27/24 05:05 12/26/24 05:45 Test 12/26/24 05:45 Range/Units Serum Glucose 117 H 74-106 mg/dL Problem List Sepsis due to multifocal pneumonia. Pneumonia. Acute hypoxic respiratory failure. Metabolic encephalography. Alcohol withdrawal. Hypomagnesemia. Hypokalemia. Transaminitis. Hyperbilirubinemia. Alcohol use disorder. Unhoused. UDS positive for methamphetamine. Assessment/Plan Continued all current supportive medical care. DVT and GI prophylactics. IV antibiotics as ordered. Additional plan as per the hospital course. Dietary Evaluation Review Comments: 1) Encourage optimal PO intake 2) Continue multivitamin with thiamin and folate 3) Follow-up with mental health social worker regarding ETOH abuse 4) Follow-up with cardiology and gastroenterology 5) Continue to monitor I&O, labs, and skin integrity Expected Outcomes/Goals: 1) appetite and labs to advance 2) f/u in 3-5 days Plan discussed with: Patient FELIPE FERRIS MD Dec 27, 2024 23:57
[2024-12-28] VITALS (17 sets, daily range): BP systolic 121–150; BP diastolic 87–102; PULSE 76–104; RESP 16–20; TEMP 98.1–98.9; O2SAT 92–100
[2024-12-28 05:47] LABS: Hematocrit 28.3 % (41.0-53.0); Hemoglobin 9.9 g/dL (13.5-17.5); Mean Corpuscular Hgb Conc. 35.1 g/dL (32.0-36.0); Mean Corpuscular Volume 111.1 fL (80.0-100.0); Platelet Count (auto) 312 10^3/uL (140-450); Red Blood Cells 2.54 10^6/uL (4.5-5.90); Red Cell Distribution Width 15.8 % (11.8-14.3); White Blood Cell 6.7 10^3/uL (4.4-10.8)
[2024-12-28 05:54] LABS: Band Neutrophils % (manual) 0; Basophils % (manual) 0 (0.0-2.0); Blast Cells 0; Metamyelocytes % 0; Promyelocytes % 0; Reactive Lymphocytes 0
[2024-12-28 06:36] LABS: Eosinophils % (manual) 6 (0-7); Lymphocytes % (manual) 12 (10.0-50.0); Monocytes % (manual) 12 (0-12); Myelocytes % 1
[2024-12-28 06:37] LABS: Giant Platelets Few; Platelet Estimate Adequate; Stomatocytes Few
--- NOTE | 2024-12-28 12:25 | DVHPN2 ---
Progress Note Date Seen: Dec 28, 2024 Resident Creating Document: ANTELMO OWENS RESIDENT Has the PT tested + for MRSA If YES, has PT been informed?: No Medical Necessity Reason Pt with a Central, PICC or Fol: No Subjective Review of Systems Pt is experiencing difficulty with mobility, particularly in getting out of bed and sitting in a chair. The patient requires assistance to sit in a chair, indicating a significant impact on their daily functioning and self-care abilities. Patient is on 3 LPM NC. Patient remains short of breath, encouraged to use IS Objective vital signs Vital Sign Date Time Temp Pulse Resp B/P (MAP) Pulse Ox O2 Delivery O2 Flow Rate FiO2 12/28/24 12:04 90 18 97 12/28/24 08:48 98.1 150/102 (118) 98.1 12/28/24 08:00 Nasal Cannula* 3 32 Total Intake and Output 12/27/24 12/27/24 12/28/24 15:00 23:00 07:00 Intake Total 1000 ml 500 ml Output Total 2100 ml 700 ml Balance -1100 ml -200 ml medications Current Medications Medications Dose Ordered Sig/Shubham Route Start Time Stop Time Status Last Admin Dose Admin Ondansetron HCl 4 mg Q4HP PRN IV 12/21/24 20:45 12/23/24 19:40 4 MG Enoxaparin Sodium 40 mg DAILY SC 12/22/24 10:00 12/28/24 09:55 40 MG Folic Acid 1 mg/ Magnesium Sulfate 8 meq/ Multivitamins 10 ml/Thiamine HCl 100 mg/Sodium Chloride 1,013.2 ml @ 126.247 mls/hr DAILY@1800 INJ 12/21/24 20:45 12/27/24 18:22 126.247 MLS/HR Pantoprazole Sodium 40 mg DAILY IV 12/22/24 10:00 12/28/24 09:55 40 MG Sodium Chloride 1,000 ml @ 100 mls/hr Q10H IV 12/21/24 21:45 12/28/24 03:45 100 MLS/HR Piperacillin Sod/ Tazobactam Sod 100 ml @ 25 mls/hr Q8HR IV 12/22/24 06:00 12/28/24 05:43 25 MLS/HR Vancomycin HCl 0 ml @ 0 mls/hr UD IV 12/21/24 21:45 Potassium Chloride 100 ml @ 50 mls/hr Q2H IV 12/21/24 21:45 12/22/24 01:44 UNV Ipratropium [place] 0.5 mg Q6HWA NEB 12/22/24 06:00 12/28/24 11:54 0.5 MG Levalbuterol HCl 0.625 mg Q6HR NEB 12/22/24 06:00 12/28/24 11:54 0.625 MG Throat Lozenges 1 dominick Q2HP PRN MT 12/23/24 21:00 12/26/24 15:08 1 DOMINICK Mupirocin 1 applic BID EACHNOSTRI 12/23/24 22:00 12/28/24 21:59 12/28/24 09:58 1 APPLIC Haloperidol Lactate 5 mg Q8HP PRN IM 12/24/24 17:45 12/27/24 05:50 5 MG Chlordiazepoxide HCl 50 mg Q8HPRN PO 12/26/24 12:30 12/28/24 05:43 50 MG Cyanocobalamin 500 mcg DAILY PO 12/27/24 10:00 12/28/24 09:55 500 MCG Folic Acid 1 mg DAILY PO 12/27/24 10:00 12/28/24 09:55 1 MG Furosemide 40 mg DAILY IV 12/29/24 10:00 Examination GENERAL: Alert and oriented x 3. No acute distress. EYES: PERRL, EOMI. Anicteric. HENT: Moist mucous membranes. LUNGS: Clear to auscultation bilaterally. CARDIOVASCULAR: Regular rate and rhythm. ABDOMEN: Soft, nontender and nondistended.Bilateral upper flank tenderness to palpation. EXTREMITIES: No edema. NEUROLOGIC: No focal neurological deficits. laboratory and microbiology Laboratory Tests 12/28/24 05:01 12/26/24 05:45 Test 12/26/24 05:45 Range/Units Serum Glucose 117 H 74-106 mg/dL Microbiology Date/Time Source Procedure Growth Status 12/26/24 05:45 Blood Blood Culture - Preliminary NO GROWTH AFTER 48 HOURS OF INCUBATION. Resulted 12/23/24 05:35 Nose MRSA Screen - Final Methicillin Resistant S.aureus Complete 12/21/24 23:23 Voided Urine Urine Culture - Final Complete Problem List/Assessment/Plan Problem List/Assessment/Plan Acute hypoxemic respiratory failure Failure to thrive Substance abuse Pleural effusions Pneumonia Atelectasis Plan: - Start Lasix - Possible Thoracentesis tomorrow - CT chest reviewed. - Assist patient to sit in a chair with help as tolerated - Encourage patient to spend most of the time sitting in a chair rather than lying in bed - Utilize incentive spirometer for respiratory exercise - Monitor progress and adjust mobility plan as needed Case Discussed with Dr. Hernandes. Plan discussed with: Patient Dietary Evaluation Review Comments: 1) Encourage optimal PO intake 2) Continue multivitamin with thiamin and folate 3) Follow-up with social science manager regarding ETOH abuse 4) Follow-up with cardiology and gastroenterology 5) Continue to monitor I&O, labs, and skin integrity Expected Outcomes/Goals: 1) appetite and labs to advance 2) f/u in 3-5 days Date of Service: Dec 28, 2024 Billing Provider: JODY HERNANDES MD Common Visit Codes: NOT BILLABLE ANTELMO OWENS RESIDENT Dec 28, 2024 12:25 JODY HERNANDES MD December 29, 2024 09:55
[2024-12-28] MEDS: FUROSEMIDE 40 MG/4 ML VIAL IV ONE (13:34)
[2024-12-28] MEDS: ACETAMINOPHEN 500 MG TAB or CAP PO PRN (13:36)
[2024-12-28] MEDS: MULTIPLE VITAMIN TAB PO ONE (16:44)
[2024-12-28] MEDS: THIAMINE HCL 100 MG TAB PO ONE (16:44)
[2024-12-28] MEDS: FOLIC ACID 1 MG TAB PO ONE (16:44)
[2024-12-28] MEDS: MAGNESIUM OXIDE 400 MG TAB PO ONE (16:44)
[2024-12-28] MEDS: VANCOMYCIN 1.75GM/350ML 350 ML IV SCH (16:45)
--- NOTE | 2024-12-28 18:10 | DVHPNRES ---
Progress Note Date Seen: Dec 28, 2024 Resident Creating Document: EMERSON KLINE RESIDENT Has the PT tested + for MRSA If YES, has PT been informed?: No Medical Necessity Reason Pt with a Central, PICC or Fol: No Medical Necessity Reason History of Present Illness Patient is a 64-year-old unhoused male with past medical history of recurrent alcohol withdrawals and alcohol use disorder, who comes in due to alcohol withdrawal. According to the patient, he drinks 4 pt of vodka daily, last drink was 2 days ago. Patient also notes bilateral flank pain that has been ongoing for the past 1 month. On review of systems patient is complaining of fatigue, fever, chills, shortness of breath, dry cough, nausea and dry heaving. CT abdomen pelvis showed possible right lower lobe pneumonia, patient was noted to have a lactic acid level of 7.7, 8.5. Plasma alcohol level 158.9. At the time of my assessment patient was AO x3, CIWA score 10. Patient was started on banana bag, IV NS and IV lorazepam along with IV vancomycin and piperacillin- tazobactam. Past Medical History: alcohol withdrawals and alcohol use disorder Past Surgical History: Denies Past Social History: Smoking: Denies, Alcohol: Drinks 4 pt of vodka per day for the last 40 years Medicine: Denies Drugs PN 12/22/2024 Patient seen in the ED today. He was confused sleeping. Per the night team report, patient received 5mg total of ativan and 100mg of librium. Vitals signs shows tachycardiac 129, fever ( Temp: 100.7); Preliminary blood culture grew Gram Positive Cocci in chains and Gram Positive Cocci in pairs. Patient is already on Zosyn and vancomycin. Patient received another bolus of fluid. In lactic acid is currently pending. Added Librium protocol starting with 50 b.i.d. and we will taper down slowly. PN: . Patient is seen and examined at the bedside. He was mild tachypneic and tachycardic. He was on Ativan 1mg q4hr as needed and Librium 25mg bid. At the time of my assess, his CIWA score was 6 ( fine tremors and some agitation). Later in the afternoon, patient became aggressive towards the MUD PLANT OPERATOR, took out his IV and wanted to go our looking for his brother Don. Looks like he is not completely out of the withdrawal. Blood pressure was stable however HR 120-130. temperature was stable. He does not seem to be in DT. We gave him 2mg ativan stat. Immediately after the Librium, patient was a bit more agitated. Had haloperidol 5mg as needed (if need). After 20 minutes, patient became stable and communicating with me and the staff. PN 12/26/2024 Patient seen.He is communication better and more alert and oriented,but his HR is still elevate and his breathing is not normall. he is on 4L of oxygen. Will get CT angio and EKg to rule out PE. Also will get sputum culture. Orders placed nurse informed. PN 12/27/2024 patient is seen and examined today. Also with the piano mechanic on board. He is current being managed for multifocal pneumonia and alcohol withdrawal which is getting better and patient is on antibiotics as well has Librium for the alcohol withdrawal. CT angiogram revealed CHF and/or volume overload, with cardiomegaly, increase in a moderate left and moderate to large right pleural effusion, and mild interstitial and alveolar pulmonary edema. Dependent consolidations in the lower lobes which could be atelectasis though a component of pneumonia (which could be on the basis of aspiration) could contribute to this appearance Moderate hepatic steatosis. Pulmonology has been inform of the possibility of bronchoscopy. PN 12/28/2024 patient is seen and examined today. Also with the piano mechanic on board. He is current being managed for multifocal pneumonia and alcohol withdrawal which is getting better and patient is on antibiotics as well has Librium for the alcohol withdrawal. Pending Thoracentesis tomorrow Subjective Review of Systems Constitutional: Denies fever no chills no feeling of malaise HEENT: Denies headache, ear pain, ear discharges, conjunctivitis, nasal discharge throat pain Cardiovascular: Denies chest pain, palpitation, orthopnea, PND, or pedal edema Respiratory: improving shortness of breath,mild cough; sputum production, hemoptysis, GI: Denies abdominal pain, nausea, vomiting, diarrhea, hematemesis, hematochezia, : Denies frequency, urgency, hematuria, Endocrine: Denies unintentional weight gain or weight loss, feeling of hot flashes, [place]: Denies easy bruising, bleeding disorders, epistaxis Musculoskeletal: Denies joint pains, muscle aches Psych: No evidence of depression, lopez, suicidal ideation Objective vital signs Vital Sign Date Time Temp Pulse Resp B/P (MAP) Pulse Ox O2 Delivery O2 Flow Rate FiO2 12/28/24 17:00 98.2 85 20 130/90 (103) 92 98.2 12/28/24 08:00 Nasal Cannula* 3 32 Total Intake and Output 12/27/24 12/27/24 12/28/24 15:00 23:00 07:00 Intake Total 1000 ml 500 ml Output Total 2100 ml 700 ml Balance -1100 ml -200 ml medications Current Medications Medications Dose Ordered Sig/Shubham Route Start Time Stop Time Status Last Admin Dose Admin Ondansetron HCl 4 mg Q4HP PRN IV 12/21/24 20:45 12/23/24 19:40 4 MG Enoxaparin Sodium 40 mg DAILY SC 12/22/24 10:00 12/28/24 09:55 40 MG Pantoprazole Sodium 40 mg DAILY IV 12/22/24 10:00 12/28/24 09:55 40 MG Sodium Chloride 1,000 ml @ 100 mls/hr Q10H IV 12/21/24 21:45 12/28/24 16:44 100 MLS/HR Piperacillin Sod/ Tazobactam Sod 100 ml @ 25 mls/hr Q8HR IV 12/22/24 06:00 12/28/24 13:36 25 MLS/HR Vancomycin HCl 0 ml @ 0 mls/hr UD IV 12/21/24 21:45 Potassium Chloride 100 ml @ 50 mls/hr Q2H IV 12/21/24 21:45 12/22/24 01:44 UNV Ipratropium [place] 0.5 mg Q6HWA NEB 12/22/24 06:00 12/28/24 11:54 0.5 MG Levalbuterol HCl 0.625 mg Q6HR NEB 12/22/24 06:00 12/28/24 11:54 0.625 MG Throat Lozenges 1 dominick Q2HP PRN MT 12/23/24 21:00 12/26/24 15:08 1 DOMINICK Mupirocin 1 applic BID EACHNOSTRI 12/23/24 22:00 12/28/24 21:59 12/28/24 09:58 1 APPLIC Haloperidol Lactate 5 mg Q8HP PRN IM 12/24/24 17:45 12/27/24 05:50 5 MG Chlordiazepoxide HCl 50 mg Q8HPRN PO 12/26/24 12:30 12/28/24 13:34 50 MG Cyanocobalamin 500 mcg DAILY PO 12/27/24 10:00 12/28/24 09:55 500 MCG Folic Acid 1 mg DAILY PO 12/27/24 10:00 12/28/24 09:55 1 MG Furosemide 40 mg DAILY IV 12/29/24 10:00 Acetaminophen 325 mg Q6H PRN PO 12/28/24 13:15 12/28/24 13:36 325 MG Folic Acid 1 mg DAILY PO 12/29/24 10:00 Multivitamins 1 tab DAILY PO 12/29/24 10:00 Magnesium Oxide 400 mg DAILY PO 12/29/24 10:00 Thiamine HCl 100 mg DAILY PO 12/29/24 10:00 Vancomycin HCl 350 ml @ 233.333 mls/hr Q24H IV 12/28/24 16:00 12/28/24 16:45 233.333 MLS/HR Examination General Appearance: Alert, Oriented X3, Cooperative, No acute distress, HEENT: Atraumatic, PERRLA, EOMI, Mucous membrane moist/pink Respiratory: Improving crackles in the lower lungs, reduce air to 2L oxygen Cardiovascular: Regular rate, Normal S1, Normal S2, No murmurs, no chest wall tenderness Abdominal: NO distention, no tenderness, bowel sounds present, no scars noted Extremities: No clubbing, No cyanosis, No edema, Normal pulses, No tenderness/swelling, Skin: No rashes, No breakdown, No significant lesion Neuro: Sensation intact, Cranial nerves 3-12 NL, Reflexes 2+ Psych/Mental Status: Mental status NL, Mood NL laboratory and microbiology Laboratory Tests 12/28/24 05:01 12/26/24 05:45 Test 12/26/24 05:45 Range/Units Serum Glucose 117 H 74-106 mg/dL Microbiology Date/Time Source Procedure Growth Status 12/26/24 05:45 Blood Blood Culture - Preliminary NO GROWTH AFTER 48 HOURS OF INCUBATION. Resulted 12/23/24 05:35 Nose MRSA Screen - Final Methicillin Resistant S.aureus Complete 12/21/24 23:23 Voided Urine Urine Culture - Final Complete Problem List/Assessment/Plan Problem List/Assessment/Plan Assessment Sepsis due to multifocal pneumonia --> Lactic acidosis --> Tachycardia --> Blood culture positive for gram positive cocci -- > IV vancomycin per pharmacy, IV Zosyn Rule out PE --> Tachycardia and tachypnea --> on 2-3L of oxygen --> EKG --> CT angio with Contrast Pneumonia, probably aspiration --> IV Zosyn --> Improcing Acute hypoxic respiratory failure --> On 3L oxygen Metabolic encephalography --> Likely secondary to sepsis --> Improved --> Continue current treatly Alcohol withdrawal, CIWA 6 - IV NS 1 L bolus times x4 - IV NS at 100 cc per hour - banana bag - IV lorazepam 2 mg q.2 h prn - Librium 25mg bid - IV Protonix daily - IV Zofran as needed Hypomagnesemia, severe: Serum magnesium 0.6 Hypokalemia - KCl rider - magnesium rider Transaminitis, alcohol induced Hyperbilirubinemia - total bilirubin 2.3, AST 224, ALT 58 - monitor - hepatomegaly noted on prior scans - ordered hepatitis panel Alcohol use disorder Unhoused UDS positive for methamphetamine - hepatitis panel :Negative - HIV testing : Negative - consulted social insurance analyst for alcohol dependency and homeless PUD prophylaxis: protonix 40mg DVT prophylaxis: Levonox 40mg Goals of care discuss with nurse for 15 minutes: full code Case and plan discussed + Dr. Thakkar Plan discussed with: Patient My Orders My Orders Orders - EMERSON KLINE Procedure Category Date Status Time Acetaminophen Tab Or PHA 12/28/24 In Process Cap (Tylenol Tablet 13:15 Dietary Evaluation Review Comments: 1) Encourage optimal PO intake 2) Continue multivitamin with thiamin and folate 3) Follow-up with social worker aide regarding ETOH abuse 4) Follow-up with cardiology and gastroenterology 5) Continue to monitor I&O, labs, and skin integrity Expected Outcomes/Goals: 1) appetite and labs to advance 2) f/u in 3-5 days Date of Service: Dec 28, 2024 Billing Provider: LETI THAKKAR MD Common Visit Codes: [id number] INP/OBS CARE(HIGH) EMERSON KLINE Dec 28, 2024 18:10 LETI THAKKAR MD December 30, 2024 19:22
--- NOTE | 2024-12-28 23:27 | DVHPN2 ---
Progress Note - Dictate Date Seen: Dec 28, 2024 Has the PT tested + for MRSA If YES, has PT been informed?: No Medical Necessity Reason Pt with a Central, PICC or Fol: No Subjective Patient was seen and evaluated in follow up. Patient is on 3 LPM NC. Patient remains short of breath, encouraged to use IS. Sitter is st bedside. HGB 9.9, HCT 28.3. Telemetry reviewed. vital signs Vital Sign Date Time Temp Pulse Resp B/P (MAP) Pulse Ox O2 Delivery O2 Flow Rate FiO2 12/28/24 12:04 90 18 97 12/28/24 08:48 98.1 150/102 (118) 98.1 12/28/24 08:00 Nasal Cannula* 3 32 Total Intake and Output 12/27/24 12/27/24 12/28/24 15:00 23:00 07:00 Intake Total 1000 ml 500 ml Output Total 2100 ml 700 ml Balance -1100 ml -200 ml medications Current Medications Medications Dose Ordered Sig/Shubham Route Start Time Stop Time Status Last Admin Dose Admin Ondansetron HCl 4 mg Q4HP PRN IV 12/21/24 20:45 12/23/24 19:40 4 MG Enoxaparin Sodium 40 mg DAILY SC 12/22/24 10:00 12/28/24 09:55 40 MG Folic Acid 1 mg/ Magnesium Sulfate 8 meq/ Multivitamins 10 ml/Thiamine HCl 100 mg/Sodium Chloride 1,013.2 ml @ 126.247 mls/hr DAILY@1800 INJ 12/21/24 20:45 12/27/24 18:22 126.247 MLS/HR Pantoprazole Sodium 40 mg DAILY IV 12/22/24 10:00 12/28/24 09:55 40 MG Sodium Chloride 1,000 ml @ 100 mls/hr Q10H IV 12/21/24 21:45 12/28/24 03:45 100 MLS/HR Piperacillin Sod/ Tazobactam Sod 100 ml @ 25 mls/hr Q8HR IV 12/22/24 06:00 12/28/24 05:43 25 MLS/HR Vancomycin HCl 0 ml @ 0 mls/hr UD IV 12/21/24 21:45 Potassium Chloride 100 ml @ 50 mls/hr Q2H IV 12/21/24 21:45 12/22/24 01:44 UNV Ipratropium [place] 0.5 mg Q6HWA NEB 12/22/24 06:00 12/28/24 11:54 0.5 MG Levalbuterol HCl 0.625 mg Q6HR NEB 12/22/24 06:00 12/28/24 11:54 0.625 MG Throat Lozenges 1 dominick Q2HP PRN MT 12/23/24 21:00 12/26/24 15:08 1 DOMINICK Mupirocin 1 applic BID EACHNOSTRI 12/23/24 22:00 12/28/24 21:59 12/28/24 09:58 1 APPLIC Haloperidol Lactate 5 mg Q8HP PRN IM 12/24/24 17:45 12/27/24 05:50 5 MG Chlordiazepoxide HCl 50 mg Q8HPRN PO 12/26/24 12:30 12/28/24 05:43 50 MG Cyanocobalamin 500 mcg DAILY PO 12/27/24 10:00 12/28/24 09:55 500 MCG Folic Acid 1 mg DAILY PO 12/27/24 10:00 12/28/24 09:55 1 MG Furosemide 40 mg DAILY IV 12/29/24 10:00 objective GENERAL: Alert and oriented x 3. No acute distress. EYES: PERRL, EOMI. Anicteric. HENT: Moist mucous membranes. LUNGS: Clear to auscultation bilaterally. CARDIOVASCULAR: Regular rate and rhythm. ABDOMEN: Soft, nontender and nondistended.Bilateral upper flank tenderness to palpation. EXTREMITIES: No edema. NEUROLOGIC: No focal neurological deficits. SKIN: Warm, dry. laboratory and microbiology Laboratory Tests 12/28/24 05:01 12/26/24 05:45 Test 12/26/24 05:45 Range/Units Serum Glucose 117 H 74-106 mg/dL Problem List Sepsis due to multifocal pneumonia. Pneumonia. Acute hypoxic respiratory failure. Metabolic encephalography. Alcohol withdrawal. Hypomagnesemia. Hypokalemia. Transaminitis. Hyperbilirubinemia. Alcohol use disorder. Unhoused. UDS positive for methamphetamine. Assessment/Plan Continued all current supportive medical care. DVT and GI prophylactics. IV antibiotics as ordered. Additional plan as per the hospital course. Dietary Evaluation Review Comments: 1) Encourage optimal PO intake 2) Continue multivitamin with thiamin and folate 3) Follow-up with social work manager regarding ETOH abuse 4) Follow-up with cardiology and gastroenterology 5) Continue to monitor I&O, labs, and skin integrity Expected Outcomes/Goals: 1) appetite and labs to advance 2) f/u in 3-5 days Plan discussed with: Patient FELIPE FERRIS MD Dec 28, 2024 12:56
[2024-12-29] VITALS (14 sets, daily range): BP systolic 97–139; BP diastolic 57–90; PULSE 79–99; RESP 16–20; TEMP 97.7–98.4; O2SAT 92–100
[2024-12-29 05:39] LABS: Basophils # (auto) 0.1 10 ^3/uL (0-0.2); Mean Corpuscular Volume 110.9 fL (80.0-100.0)
[2024-12-29 05:42] LABS: Basophils % (auto) 0.7 % (0.0-2.0); Eosinophils # (auto) 0.1 10 ^3/uL (0-0.8); Eosinophils % (auto) 1.8 % (0.0-7.0); Hematocrit 30.8 % (41.0-53.0); Lymphocytes # (auto) 0.8 10 ^3/uL (0.4-5.4); Lymphocytes % (auto) 8.9 % (10.0-50.0); Mean Corpuscular Hemoglobin 39.4 pg (28.0-32.0); Mean Corpuscular Hgb Conc. 35.6 g/dL (32.0-36.0); Monocytes # (auto) 0.7 10 ^3/uL (0-1.3); Monocytes % (auto) 7.9 % (0.0-12.0); Neutrophils # (auto) 6.8 10 ^3/uL (1.6-8.6); Neutrophils % (auto) 80.7 % (37.0-80.0); Platelet Count (auto) 382 10^3/uL (140-450); Red Blood Cells 2.78 10^6/uL (4.5-5.90); Red Cell Distribution Width 15.8 % (11.8-14.3); White Blood Cell 8.4 10^3/uL (4.4-10.8)
[2024-12-29 05:56] LABS: Chloride 102 mmol/L (98-107); Sodium 141 mmol/L (136-145)
[2024-12-29 05:57] LABS: Anion Gap 8 (5-15); Calcium 9.4 mg/dL (8.7-10.4); Carbon Dioxide 31 mmol/L (20-31)
[2024-12-29 05:58] LABS: Potassium 3.1 mmol/L (3.5-5.1)
[2024-12-29 06:02] LABS: BUN/Creatinine Ratio 11.1 (10.0-20.0); Blood Urea Nitrogen 10 mg/dL (9-23)
[2024-12-29 06:06] LABS: Glucose 155 mg/dL (74-106)
[2024-12-29] MEDS: FUROSEMIDE 40 MG/4 ML VIAL IV SCH (10:00)
--- NOTE | 2024-12-29 11:15 | DVHSR ---
APPROVED REPORT EXAM: Two-dimensional and M-mode echocardiogram with Doppler and color Doppler. Blood Pressure: 139/89 mmHg INDICATION Heart Failure RISK FACTORS Height: 5'8", Weight: 180 DIMENSIONS LVDd5.4 (3.8-5.7cm)LA (2D)5.1 (1.9-4.0cm)Aortic Root (2.0-3.7cm) LVDs4.4 (2.5-4.0cm)LA (MM) (1.9-4.0cm)Aortic Cusp Exc (1.5-2.0cm) EF (%) 39.0 (55-70%)Rt. Atrium4.6 (1.9-4.0cm)Asc. Aorta4.5 cm IVSd1.1 (0.7-1.1cm)RV (D) (1.8-2.4cm) PWd0.9 (0.7-1.1cm) Mitral Valve MitralMitral Stenosis E/A ratio0.02D MVAcm2 Aortic Valve Aortic ValveAortic Stenosis V10.80m/[place] Mean GR.3mmHg V21.02m/[place] Peak GR.4mmHg LVOT Diameter2.7 (1.8-2.4cm)Doppler AVA4.49cm2 AI P 1/2 Zspl338.33ms Pulmonic Valve V20.61m/s Tricuspid Valve TR Velocity1.99m/s [id number] Other Information Quality : Technically LimitedRhythm : Technically limited study due to body habitus and patient moving. Conclusion Technically good study. Sinus rhythm. Left atrial enlargement. Aortic root enlargement. Valves are normal. Left ventricular systolic function is diminished at 30% with global hypokinesis especially of the ant erior and anteroapical segment of the left ventricle. Normal right ventricular function. Mild tricuspid insufficiency. Mild aortic insufficiency. No pericardial effusion masses or vegetations.
--- NOTE | 2024-12-29 11:50 | DVHPN2 ---
Progress Note Date Seen: December 29, 2024 Resident Creating Document: ANTELMO OWENS RESIDENT Has the PT tested + for MRSA If YES, has PT been informed?: No Medical Necessity Reason Pt with a Central, PICC or Fol: No Subjective Review of Systems Pt is experiencing difficulty with mobility, particularly in getting out of bed and sitting in a chair. The patient requires assistance to sit in a chair, indicating a significant impact on their daily functioning and self-care abilities. Patient is on 3 LPM NC. Patient remains short of breath, encouraged to use IS. Today bilateral thoracentesis done with 200 mL removed from right lung, 550 mL removed from left lung. Objective vital signs Vital Sign Date Time Temp Pulse Resp B/P (MAP) Pulse Ox O2 Delivery O2 Flow Rate FiO2 12/29/24 06:55 90 16 100 12/29/24 06:45 Nasal Cannula* 4 36 12/29/24 05:00 98.2 138/87 (104) 98.2 Total Intake and Output 12/28/24 12/28/24 12/29/24 15:01 23:01 07:01 Intake Total 100 ml 2050 ml 737 ml Output Total 1500 ml 925 ml Balance 100 ml 550 ml -188 ml medications Current Medications Medications Dose Ordered Sig/Shubham Route Start Time Stop Time Status Last Admin Dose Admin Ondansetron HCl 4 mg Q4HP PRN IV 12/21/24 20:45 12/23/24 19:40 4 MG Enoxaparin Sodium 40 mg DAILY SC 12/22/24 10:00 12/28/24 09:55 40 MG Pantoprazole Sodium 40 mg DAILY IV 12/22/24 10:00 12/28/24 09:55 40 MG Sodium Chloride 1,000 ml @ 100 mls/hr Q10H IV 12/21/24 21:45 12/28/24 16:44 100 MLS/HR Piperacillin Sod/ Tazobactam Sod 100 ml @ 25 mls/hr Q8HR IV 12/22/24 06:00 12/29/24 05:26 25 MLS/HR Vancomycin HCl 0 ml @ 0 mls/hr UD IV 12/21/24 21:45 Potassium Chloride 100 ml @ 50 mls/hr Q2H IV 12/21/24 21:45 12/22/24 01:44 UNV Ipratropium [place] 0.5 mg Q6HWA NEB 12/22/24 06:00 12/29/24 06:34 0.5 MG Levalbuterol HCl 0.625 mg Q6HR NEB 12/22/24 06:00 12/29/24 06:34 0.625 MG Throat Lozenges 1 dominick Q2HP PRN MT 12/23/24 21:00 12/26/24 15:08 1 DOMINICK Haloperidol Lactate 5 mg Q8HP PRN IM 12/24/24 17:45 12/29/24 07:48 5 MG Chlordiazepoxide HCl 50 mg Q8HPRN PO 12/26/24 12:30 12/29/24 05:26 50 MG Cyanocobalamin 500 mcg DAILY PO 12/27/24 10:00 12/28/24 09:55 500 MCG Folic Acid 1 mg DAILY PO 12/27/24 10:00 12/28/24 09:55 1 MG Furosemide 40 mg DAILY IV 12/29/24 10:00 Acetaminophen 325 mg Q6H PRN PO 12/28/24 13:15 12/28/24 13:36 325 MG Folic Acid 1 mg DAILY PO 12/29/24 10:00 Multivitamins 1 tab DAILY PO 12/29/24 10:00 Magnesium Oxide 400 mg DAILY PO 12/29/24 10:00 Thiamine HCl 100 mg DAILY PO 12/29/24 10:00 Vancomycin HCl 350 ml @ 233.333 mls/hr Q24H IV 12/28/24 16:00 12/28/24 16:45 233.333 MLS/HR Examination GENERAL: Alert and oriented x 3. No acute distress. EYES: PERRL, EOMI. Anicteric. HENT: Moist mucous membranes. LUNGS: Clear to auscultation bilaterally. CARDIOVASCULAR: Regular rate and rhythm. ABDOMEN: Soft, nontender and nondistended.Bilateral upper flank tenderness to palpation. EXTREMITIES: No edema. NEUROLOGIC: No focal neurological deficits. laboratory and microbiology Laboratory Tests 12/29/24 05:08 Test 12/29/24 05:08 Range/Units Serum Glucose 155 H 74-106 mg/dL Microbiology Date/Time Source Procedure Growth Status 12/28/24 14:11 Sputum Gram Stain Pending Resulted 12/28/24 14:11 Sputum Respiratory Culture - Preliminary Resulted 12/26/24 05:45 Blood Blood Culture - Preliminary NO GROWTH AFTER 72 HOURS OF INCUBATION. Resulted 12/23/24 05:35 Nose MRSA Screen - Final Methicillin Resistant S.aureus Complete 12/21/24 23:23 Voided Urine Urine Culture - Final Complete Problem List/Assessment/Plan Problem List/Assessment/Plan Acute hypoxemic respiratory failure Failure to thrive Substance abuse Pleural effusions Pneumonia Atelectasis Plan: - Cont. Lasix - Possible Thoracentesis tomorrow - CT chest reviewed. - Assist patient to sit in a chair with help as tolerated - Encourage patient to spend most of the time sitting in a chair rather than lying in bed - Utilize incentive spirometer for respiratory exercise - Monitor progress and adjust mobility plan as needed Today bilateral thoracentesis done with 200 mL removed from right lung, 550 mL removed from left lung. Case Discussed with Dr. Hernandes. Plan discussed with: Patient Dietary Evaluation Review Comments: 1) Encourage optimal PO intake 2) Continue multivitamin with thiamin and folate 3) Follow-up with social media project manager regarding ETOH abuse 4) Follow-up with cardiology and gastroenterology 5) Continue to monitor I&O, labs, and skin integrity Expected Outcomes/Goals: 1) appetite and labs to advance 2) f/u in 3-5 days Date of Service: December 29, 2024 Billing Provider: JODY HERNANDES MD Common Visit Codes: NOT BILLABLE ANTELMO OWENS RESIDENT December 29, 2024 11:52 JODY HERNANDES MD December 31, 2024 14:26
--- NOTE | 2024-12-29 11:50 | DVHNC2 ---
Other Procedure Procedure Bilateral thoracentesis Indication Bilateral pleural effusion, shortness of breaths Anesthetic Local anesthetic (lidocaine) used Prep All aseptic precaution maintain Success 200 mL fluid removed from right pleural space 550 mL fluid removed from left pleural space Informed consent obtained: Yes Risks, benefits, and alternati: Yes Notes After taking all as active percussion, bilateral thoracentesis successfully done without complication. 200 mL fluid removed from right t lung 550 mL fluid removed from left t lung Pleural fluid sent for laboratory work, cell count, protein, LDH, glucose level. After procedure patient feels better No signs symptoms of hemorrhage, pneumothorax Date of Service: December 29, 2024 Billing Provider: JODY VELASQUEZ MD Common Visit Codes: NOT BILLABLE ANTELMO OWENS RESIDENT December 29, 2024 11:51
[2024-12-29] MEDS ORDERED: KETOROLAC TROMETH 30 MG/ML 1ML VIAL IV PRN (12:30)
[2024-12-29] MEDS: MAGNESIUM OXIDE 400 MG TAB PO SCH (14:57)
[2024-12-29] MEDS: THIAMINE HCL 100 MG TAB PO SCH (14:58)
[2024-12-29] MEDS: MULTIPLE VITAMIN TAB PO SCH (14:58)
[2024-12-29] MEDS: FOLIC ACID 1 MG TAB PO SCH (14:59)
[2024-12-29 17:09] LABS: Body Fluid Red Blood Cells 39 CUMM (0-2000); Body Fluid White Blood Cells 222 CUMM (0-200)
--- NOTE | 2024-12-29 19:54 | DVHPNRES ---
Progress Note Date Seen: December 29, 2024 Resident Creating Document: EMERSON KLINE RESIDENT Has the PT tested + for MRSA If YES, has PT been informed?: No Medical Necessity Reason Pt with a Central, PICC or Fol: No Medical Necessity Reason History of Present Illness Patient is a 64-year-old unhoused male with past medical history of recurrent alcohol withdrawals and alcohol use disorder, who comes in due to alcohol withdrawal. According to the patient, he drinks 4 pt of vodka daily, last drink was 2 days ago. Patient also notes bilateral flank pain that has been ongoing for the past 1 month. On review of systems patient is complaining of fatigue, fever, chills, shortness of breath, dry cough, nausea and dry heaving. CT abdomen pelvis showed possible right lower lobe pneumonia, patient was noted to have a lactic acid level of 7.7, 8.5. Plasma alcohol level 158.9. At the time of my assessment patient was AO x3, CIWA score 10. Patient was started on banana bag, IV NS and IV lorazepam along with IV vancomycin and piperacillin- tazobactam. Past Medical History: alcohol withdrawals and alcohol use disorder Past Surgical History: Denies Past Social History: Smoking: Denies, Alcohol: Drinks 4 pt of vodka per day for the last 40 years Medicine: Denies Drugs PN 12/22/2024 Patient seen in the ED today. He was confused sleeping. Per the night team report, patient received 5mg total of ativan and 100mg of librium. Vitals signs shows tachycardiac 129, fever ( Temp: 100.7); Preliminary blood culture grew Gram Positive Cocci in chains and Gram Positive Cocci in pairs. Patient is already on Zosyn and vancomycin. Patient received another bolus of fluid. In lactic acid is currently pending. Added Librium protocol starting with 50 b.i.d. and we will taper down slowly. PN: . Patient is seen and examined at the bedside. He was mild tachypneic and tachycardic. He was on Ativan 1mg q4hr as needed and Librium 25mg bid. At the time of my assess, his CIWA score was 6 ( fine tremors and some agitation). Later in the afternoon, patient became aggressive towards the PROPOSAL CONSULTANT, took out his IV and wanted to go our looking for his brother Don. Looks like he is not completely out of the withdrawal. Blood pressure was stable however HR 120-130. temperature was stable. He does not seem to be in DT. We gave him 2mg ativan stat. Immediately after the Librium, patient was a bit more agitated. Had haloperidol 5mg as needed (if need). After 20 minutes, patient became stable and communicating with me and the staff. PN 12/26/2024 Patient seen.He is communication better and more alert and oriented,but his HR is still elevate and his breathing is not normall. he is on 4L of oxygen. Will get CT angio and EKg to rule out PE. Also will get sputum culture. Orders placed nurse informed. PN 12/27/2024 patient is seen and examined today. Also with the handle maker on board. He is current being managed for multifocal pneumonia and alcohol withdrawal which is getting better and patient is on antibiotics as well has Librium for the alcohol withdrawal. CT angiogram revealed CHF and/or volume overload, with cardiomegaly, increase in a moderate left and moderate to large right pleural effusion, and mild interstitial and alveolar pulmonary edema. Dependent consolidations in the lower lobes which could be atelectasis though a component of pneumonia (which could be on the basis of aspiration) could contribute to this appearance Moderate hepatic steatosis. Pulmonology has been inform of the possibility of bronchoscopy. PN 12/29/2024: Patient is stable. Seen by the pulmonology and underwent bilateral thoracentesis. The indication is Bilateral pleural effusion, shortness of breaths. Procedure was a Success with 200 mL fluid removed from right pleural space and 550 mL fluid removed from left pleural space. Patient is doing well post procedure. Subjective Review of Systems Constitutional: Denies fever no chills no feeling of malaise HEENT: Denies headache, ear pain, ear discharges, conjunctivitis, nasal discharge throat pain Cardiovascular: Denies chest pain, palpitation, orthopnea, PND, or pedal edema Respiratory:Mild -mod shortness of breath on 4L of oxygen; cough, sputum production, hemoptysis, GI: Denies abdominal pain, nausea, vomiting, diarrhea, hematemesis, hematochezia, : Denies frequency, urgency, hematuria, Endocrine: Denies unintentional weight gain or weight loss, feeling of hot flashes, [place]: Denies easy bruising, bleeding disorders, epistaxis Musculoskeletal: Denies joint pains, muscle aches Psych: No evidence of depression, lopez, suicidal ideation Objective vital signs Vital Sign Date Time Temp Pulse Resp B/P (MAP) Pulse Ox O2 Delivery O2 Flow Rate FiO2 12/29/24 19:40 20 95 Nasal Cannula* 4 36 12/29/24 19:11 97 12/29/24 10:00 133/75 12/29/24 05:00 98.2 98.2 Total Intake and Output 12/28/24 12/28/24 12/29/24 15:00 23:00 07:00 Intake Total 100 ml 2050 ml 737 ml Output Total 1500 ml 925 ml Balance 100 ml 550 ml -188 ml medications Current Medications Medications Dose Ordered Sig/Shubham Route Start Time Stop Time Status Last Admin Dose Admin Ondansetron HCl 4 mg Q4HP PRN IV 12/21/24 20:45 12/23/24 19:40 4 MG Enoxaparin Sodium 40 mg DAILY SC 12/22/24 10:00 12/28/24 09:55 40 MG Pantoprazole Sodium 40 mg DAILY IV 12/22/24 10:00 12/29/24 14:56 40 MG Sodium Chloride 1,000 ml @ 100 mls/hr Q10H IV 12/21/24 21:45 12/28/24 16:44 100 MLS/HR Piperacillin Sod/ Tazobactam Sod 100 ml @ 25 mls/hr Q8HR IV 12/22/24 06:00 12/29/24 14:00 25 MLS/HR Vancomycin HCl 0 ml @ 0 mls/hr UD IV 12/21/24 21:45 Potassium Chloride 100 ml @ 50 mls/hr Q2H IV 12/21/24 21:45 12/22/24 01:[address] [place] 0.5 mg Q6HWA NEB 12/22/24 06:00 12/29/24 19:08 0.5 MG Levalbuterol HCl 0.625 mg Q6HR NEB 12/22/24 06:00 12/29/24 19:08 0.625 MG Throat Lozenges 1 dominick Q2HP PRN MT 12/23/24 21:00 12/26/24 15:08 1 DOMINICK Haloperidol Lactate 5 mg Q8HP PRN IM 12/24/24 17:45 12/29/24 16:40 5 MG Chlordiazepoxide HCl 50 mg Q8HPRN PO 12/26/24 12:30 12/29/24 14:58 50 MG Cyanocobalamin 500 mcg DAILY PO 12/27/24 10:00 12/29/24 14:57 500 MCG Furosemide 40 mg DAILY IV 12/29/24 10:00 12/29/24 10:00 40 MG Acetaminophen 325 mg Q6H PRN PO 12/28/24 13:15 Hold 12/28/24 13:36 325 MG Folic Acid 1 mg DAILY PO 12/29/24 10:00 12/29/24 14:59 1 MG Multivitamins 1 tab DAILY PO 12/29/24 10:00 12/29/24 14:58 1 TAB Magnesium Oxide 400 mg DAILY PO 12/29/24 10:00 12/29/24 14:57 400 MG Thiamine HCl 100 mg DAILY PO 12/29/24 10:00 12/29/24 14:58 100 MG Vancomycin HCl 350 ml @ 233.333 mls/hr Q24H IV 12/28/24 16:00 12/29/24 16:39 233.333 MLS/HR Ketorolac Tromethamine 30 mg Q8HPRN PRN IV 12/29/24 12:30 01/03/25 12:29 Examination General Appearance: Alert, Oriented X3, Cooperative, No acute distress HEENT: Atraumatic, PERRLA, EOMI, Mucous membrane moist/pink Respiratory: Still some crackles, aeration is better. Normal air movement Cardiovascular: Regular rate, Normal S1, Normal S2, No murmurs, no chest wall tenderness Abdominal: NO distention, no tenderness, bowel sounds present, no scars noted Extremities: No clubbing, No cyanosis, No edema, Normal pulses, No tenderness/swelling Skin: No rashes, No breakdown, No significant lesion Neuro: Normal gait, Normal speech, Strength at 5/5 X4 ext, Normal tone, Sensation intact, Cranial nerves 3-12 NL, Reflexes 2+ Psych/Mental Status: Mental status NL, Mood NL laboratory and microbiology Laboratory Tests 12/29/24 05:08 Test 12/29/24 05:08 Range/Units Serum Glucose 155 H 74-106 mg/dL Microbiology Date/Time Source Procedure Growth Status 12/28/24 14:11 Sputum Gram Stain - Final Resulted 12/28/24 14:11 Sputum Respiratory Culture - Preliminary Resulted 12/26/24 05:45 Blood Blood Culture - Preliminary NO GROWTH AFTER 72 HOURS OF INCUBATION. Resulted 12/23/24 05:35 Nose MRSA Screen - Final Methicillin Resistant S.aureus Complete 12/21/24 23:23 Voided Urine Urine Culture - Final Complete Problem List/Assessment/Plan Problem List/Assessment/Plan Assessment Sepsis due to multifocal pneumonia --> Lactic acidosis --> Tachycardia --> Blood culture positive for gram positive cocci -- > IV vancomycin per pharmacy, IV Zosyn Rule out PE --> Tachycardia and tachypnea --> on 2-3L of oxygen --> EKG --> CT angio with Contrast Pneumonia, probably aspiration --> IV Zosyn --> Improcing Bilateral pleural effusion --> s/p thoracentesis today 12/29/2024 --> 200 mL fluid removed from right pleural space --> 550 mL fluid removed from left pleural space Acute hypoxic respiratory failure --> On 3L oxygen Metabolic encephalography --> Likely secondary to sepsis --> Improved --> Continue current treatly Alcohol withdrawal, CIWA 6 - IV NS 1 L bolus times x4 - IV NS at 100 cc per hour - banana bag - IV lorazepam 2 mg q.2 h prn - Librium 25mg bid - IV Protonix daily - IV Zofran as needed Hypomagnesemia, severe: Serum magnesium 0.6 Hypokalemia - KCl rider - magnesium rider Transaminitis, alcohol induced Hyperbilirubinemia - total bilirubin 2.3, AST 224, ALT 58 - monitor - hepatomegaly noted on prior scans - ordered hepatitis panel Alcohol use disorder Unhoused UDS positive for methamphetamine - hepatitis panel :Negative - HIV testing : Negative - consulted licensed social worker for alcohol dependency and homeless PUD prophylaxis: protonix 40mg DVT prophylaxis: Levonox 40mg Goals of care discuss with nurse for 15 minutes: full code Case and plan discussed + Dr. Jimbo Fisher discussed with: Patient My Orders My Orders Orders - EMERSON KLINE RESIDENT Procedure Category Date Status Time Transfer Orders XFER 12/29/24 Transmitted 18:33 Dietary Evaluation Review Comments: 1) Encourage optimal PO intake 2) Continue multivitamin with thiamin and folate 3) Follow-up with elementary school social worker regarding ETOH abuse 4) Follow-up with cardiology and gastroenterology 5) Continue to monitor I&O, labs, and skin integrity Expected Outcomes/Goals: 1) appetite and labs to advance 2) f/u in 3-5 days Date of Service: December 29, 2024 Billing Provider: LETI THAKKAR MD Common Visit Codes: [id number] INP/OBS CARE(HIGH) EMERSON KLINE RESIDENT December 29, 2024 19:54 LETI THAKKAR MD December 30, 2024 19:25
--- NOTE | 2024-12-29 23:25 | DVHPN2 ---
Progress Note - Dictate Date Seen: December 29, 2024 Has the PT tested + for MRSA If YES, has PT been informed?: No Medical Necessity Reason Pt with a Central, PICC or Fol: No Subjective Patient was seen and evaluated in follow up. Patient is on 4 LPM NC. Patient remains short of breath. Patient underwent bilateral thoracentesis with 200 mL fluid removed from right lung and 550 mL fluid removed from left lung. Telemetry reviewed. vital signs Vital Sign Date Time Temp Pulse Resp B/P (MAP) Pulse Ox O2 Delivery O2 Flow Rate FiO2 12/29/24 08:00 80 20 95 Nasal Cannula* 4 36 12/29/24 05:00 98.2 138/87 (104) 98.2 Total Intake and Output 12/28/24 12/28/24 12/29/24 15:00 23:00 07:00 Intake Total 100 ml 2050 ml 737 ml Output Total 1500 ml 925 ml Balance 100 ml 550 ml -188 ml medications Current Medications Medications Dose Ordered Sig/Shubham Route Start Time Stop Time Status Last Admin Dose Admin Ondansetron HCl 4 mg Q4HP PRN IV 12/21/24 20:45 12/23/24 19:40 4 MG Enoxaparin Sodium 40 mg DAILY SC 12/22/24 10:00 12/28/24 09:55 40 MG Pantoprazole Sodium 40 mg DAILY IV 12/22/24 10:00 12/28/24 09:55 40 MG Sodium Chloride 1,000 ml @ 100 mls/hr Q10H IV 12/21/24 21:45 12/28/24 16:44 100 MLS/HR Piperacillin Sod/ Tazobactam Sod 100 ml @ 25 mls/hr Q8HR IV 12/22/24 06:00 12/29/24 05:26 25 MLS/HR Vancomycin HCl 0 ml @ 0 mls/hr UD IV 12/21/24 21:45 Potassium Chloride 100 ml @ 50 mls/hr Q2H IV 12/21/24 21:45 12/22/24 01:44 UNV Ipratropium [place] 0.5 mg Q6HWA NEB 12/22/24 06:00 12/29/24 06:34 0.5 MG Levalbuterol HCl 0.625 mg Q6HR NEB 12/22/24 06:00 12/29/24 06:34 0.625 MG Throat Lozenges 1 dominick Q2HP PRN MT 12/23/24 21:00 12/26/24 15:08 1 DOMINICK Haloperidol Lactate 5 mg Q8HP PRN IM 12/24/24 17:45 12/29/24 07:48 5 MG Chlordiazepoxide HCl 50 mg Q8HPRN PO 12/26/24 12:30 12/29/24 05:26 50 MG Cyanocobalamin 500 mcg DAILY PO 12/27/24 10:00 12/28/24 09:55 500 MCG Folic Acid 1 mg DAILY PO 12/27/24 10:00 12/28/24 09:55 1 MG Furosemide 40 mg DAILY IV 12/29/24 10:00 Acetaminophen 325 mg Q6H PRN PO 12/28/24 13:15 12/28/24 13:36 325 MG Folic Acid 1 mg DAILY PO 12/29/24 10:00 Multivitamins 1 tab DAILY PO 12/29/24 10:00 Magnesium Oxide 400 mg DAILY PO 12/29/24 10:00 Thiamine HCl 100 mg DAILY PO 12/29/24 10:00 Vancomycin HCl 350 ml @ 233.333 mls/hr Q24H IV 12/28/24 16:00 12/28/24 16:45 233.333 MLS/HR Ketorolac Tromethamine 30 mg Q8HPRN PRN IV 12/29/24 12:30 01/03/25 12:29 UNV objective GENERAL: Alert and oriented x 3. No acute distress. EYES: PERRL, EOMI. Anicteric. HENT: Moist mucous membranes. LUNGS: Clear to auscultation bilaterally. CARDIOVASCULAR: Regular rate and rhythm. ABDOMEN: Soft, nontender and nondistended.Bilateral upper flank tenderness to palpation. EXTREMITIES: No edema. NEUROLOGIC: No focal neurological deficits. SKIN: Warm, dry. laboratory and microbiology Laboratory Tests 12/29/24 05:08 Test 12/29/24 05:08 Range/Units Serum Glucose 155 H 74-106 mg/dL Problem List Sepsis due to multifocal pneumonia. Pneumonia. Acute hypoxic respiratory failure. Metabolic encephalography. Alcohol withdrawal. Hypomagnesemia. Hypokalemia. Transaminitis. Hyperbilirubinemia. Alcohol use disorder. Unhoused. UDS positive for methamphetamine. Assessment/Plan Continued all current supportive medical care. DVT and GI prophylactics. IV antibiotics as ordered. Additional plan as per the hospital course. Dietary Evaluation Review Comments: 1) Encourage optimal PO intake 2) Continue multivitamin with thiamin and folate 3) Follow-up with social services technician regarding ETOH abuse 4) Follow-up with cardiology and gastroenterology 5) Continue to monitor I&O, labs, and skin integrity Expected Outcomes/Goals: 1) appetite and labs to advance 2) f/u in 3-5 days Plan discussed with: Patient FELIPE FERRIS MD December 29, 2024 12:26
[2024-12-30] VITALS (15 sets, daily range): BP systolic 106–134; BP diastolic 68–81; PULSE 80–103; RESP 16–24; TEMP 97.7–98.5; O2SAT 91–100
--- NOTE | 2024-12-30 10:31 | DVH ---
EXAM: XY CHEST PORTABLE Indication: Pain Technique: Single frontal view of the chest was obtained Comparison: XY CHEST XRAY 1 VIEW on DOS: 12/21/24, XY CHEST XRAY 1 VIEW on DOS: 07/28/24, XY CHEST XRA Y 1 VIEW on DOS: 05/08/24, XY CHEST XRAY 1 VIEW on DOS: 05/07/24, XY CHEST PORTABLE on DOS: 02/11/24 FINDINGS: Lines and Tubes: None Lungs: No focal consolidation. Pleura: No effusion. No pneumothorax. Cardiomediastinal contours: Unremarkable Bones: No acute osseous abnormality. IMPRESSION: No acute cardiopulmonary disease.
[2024-12-30 11:07] LABS: Protein, Body Fluid 3.1 g/dL (.)
--- NOTE | 2024-12-30 15:05 | DVHPN2 ---
Progress Note Date Seen: December 30, 2024 Resident Creating Document: ANTELMO OWENS RESIDENT Has the PT tested + for MRSA If YES, has PT been informed?: No Medical Necessity Reason Pt with a Central, PICC or Fol: No Subjective Review of Systems Pt is experiencing difficulty with mobility, particularly in getting out of bed and sitting in a chair. The patient requires assistance to sit in a chair, indicating a significant impact on their daily functioning and self-care abilities. Patient is on 3 LPM NC. Patient remains short of breath, encouraged to use IS. Objective vital signs Vital Sign Date Time Temp Pulse Resp B/P (MAP) Pulse Ox O2 Delivery O2 Flow Rate FiO2 12/30/24 13:55 123/77 12/30/24 13:00 97.7 90 22 96 97.7 12/30/24 12:03 Nasal Cannula 2.0 12/30/24 12:03 28 Total Intake and Output 12/29/24 12/29/24 12/30/24 15:00 23:00 07:00 Intake Total 100 ml 1450 ml 650 ml Output Total 1600 ml Balance 100 ml -150 ml 650 ml medications Current Medications Medications Dose Ordered Sig/Shubham Route Start Time Stop Time Status Last Admin Dose Admin Ondansetron HCl 4 mg Q4HP PRN IV 12/21/24 20:45 12/23/24 19:40 4 MG Enoxaparin Sodium 40 mg DAILY SC 12/22/24 10:00 12/28/24 09:55 40 MG Pantoprazole Sodium 40 mg DAILY IV 12/22/24 10:00 12/30/24 13:54 40 MG Sodium Chloride 1,000 ml @ 100 mls/hr Q10H IV 12/21/24 21:45 12/29/24 21:21 100 MLS/HR Piperacillin Sod/ Tazobactam Sod 100 ml @ 25 mls/hr Q8HR IV 12/22/24 06:00 12/30/24 14:06 25 MLS/HR Vancomycin HCl 0 ml @ 0 mls/hr UD IV 12/21/24 21:45 Potassium Chloride 100 ml @ 50 mls/hr Q2H IV 12/21/24 21:45 12/22/24 01:44 UNV Ipratropium [place] 0.5 mg Q6HWA NEB 12/22/24 06:00 12/30/24 12:03 0.5 MG Levalbuterol HCl 0.625 mg Q6HR NEB 12/22/24 06:00 12/30/24 12:03 0.625 MG Throat Lozenges 1 dominick Q2HP PRN MT 12/23/24 21:00 12/26/24 15:08 1 DOMINICK Haloperidol Lactate 5 mg Q8HP PRN IM 12/24/24 17:45 12/29/24 16:40 5 MG Chlordiazepoxide HCl 50 mg Q8HPRN PO 12/26/24 12:30 12/30/24 13:53 50 MG Cyanocobalamin 500 mcg DAILY PO 12/27/24 10:00 12/30/24 13:54 500 MCG Furosemide 40 mg DAILY IV 12/29/24 10:00 12/30/24 13:55 40 MG Acetaminophen 325 mg Q6H PRN PO 12/28/24 13:15 Hold 12/28/24 13:36 325 MG Folic Acid 1 mg DAILY PO 12/29/24 10:00 12/30/24 13:54 1 MG Multivitamins 1 tab DAILY PO 12/29/24 10:00 12/30/24 13:54 1 TAB Magnesium Oxide 400 mg DAILY PO 12/29/24 10:00 12/30/24 13:54 400 MG Thiamine HCl 100 mg DAILY PO 12/29/24 10:00 12/30/24 13:53 100 MG Vancomycin HCl 350 ml @ 233.333 mls/hr Q24H IV 12/28/24 16:00 12/29/24 16:39 233.333 MLS/HR Ketorolac Tromethamine 30 mg Q8HPRN PRN IV 12/29/24 12:30 01/03/25 12:29 Examination GENERAL: Alert and oriented x 3. No acute distress. EYES: PERRL, EOMI. Anicteric. HENT: Moist mucous membranes. LUNGS: Clear to auscultation bilaterally. CARDIOVASCULAR: Regular rate and rhythm. ABDOMEN: Soft, nontender and nondistended.Bilateral upper flank tenderness to palpation. EXTREMITIES: No edema. NEUROLOGIC: No focal neurological deficits. laboratory and microbiology Laboratory Tests 12/29/24 05:08 Test 12/29/24 05:08 Range/Units Serum Glucose 155 H 74-106 mg/dL Microbiology Date/Time Source Procedure Growth Status 12/29/24 11:00 Pleural Fluid Gram Stain Pending Resulted 12/29/24 11:00 Pleural Fluid Body Fluid Culture - Preliminary Resulted 12/28/24 14:11 Sputum Gram Stain - Final Complete 12/28/24 14:11 Sputum Respiratory Culture - Final Complete 12/26/24 05:45 Blood Blood Culture - Preliminary NO GROWTH AFTER 72 HOURS OF INCUBATION. Resulted 12/23/24 05:35 Nose MRSA Screen - Final Methicillin Resistant S.aureus Complete 12/21/24 23:23 Voided Urine Urine Culture - Final Complete Problem List/Assessment/Plan Problem List/Assessment/Plan Acute hypoxemic respiratory failure Failure to thrive Substance abuse Pleural effusions Pneumonia Atelectasis Plan: - Cont. Lasix - Possible Thoracentesis tomorrow - CT chest reviewed. - Assist patient to sit in a chair with help as tolerated - Encourage patient to spend most of the time sitting in a chair rather than lying in bed - Utilize incentive spirometer for respiratory exercise - Monitor progress and adjust mobility plan as needed Yesterday bilateral thoracentesis done with 200 mL removed from right lung, 550 mL removed from left lung. Patient is feeling better. Case Discussed with Dr. Hernandes. Plan discussed with: Patient Dietary Evaluation Review Comments: 1) Encourage optimal PO intake 2) Continue multivitamin with thiamin and folate 3) Follow-up with renal social worker regarding ETOH abuse 4) Follow-up with cardiology and gastroenterology 5) Continue to monitor I&O, labs, and skin integrity Expected Outcomes/Goals: 1) appetite and labs to advance 2) f/u in 3-5 days Date of Service: December 30, 2024 Billing Provider: JODY HERNANDES MD Common Visit Codes: NOT BILLABLE ANTELMO OWENS RESIDENT December 30, 2024 15:05 JODY HERNANDES MD December 31, 2024 14:26
--- NOTE | 2024-12-30 18:53 | DVHPN2 ---
Progress Note - Dictate Date Seen: December 30, 2024 Has the PT tested + for MRSA If YES, has PT been informed?: No Medical Necessity Reason Pt with a Central, PICC or Fol: No Subjective Patient was seen and evaluated in follow up. Patient was downgraded to med/surg. Patient is on 3 LPM NC. Sitter is at bedside. vital signs Vital Sign Date Time Temp Pulse Resp B/P (MAP) Pulse Ox O2 Delivery O2 Flow Rate FiO2 12/30/24 12:09 83 20 99 12/30/24 12:03 Nasal Cannula 2.0 12/30/24 12:03 28 12/30/24 09:00 98.1 120/75 (90) 98.1 Total Intake and Output 12/29/24 12/29/24 12/30/24 15:00 23:00 07:00 Intake Total 100 ml 1450 ml 650 ml Output Total 1600 ml Balance 100 ml -150 ml 650 ml medications Current Medications Medications Dose Ordered Sig/Shubham Route Start Time Stop Time Status Last Admin Dose Admin Ondansetron HCl 4 mg Q4HP PRN IV 12/21/24 20:45 12/23/24 19:40 4 MG Enoxaparin Sodium 40 mg DAILY SC 12/22/24 10:00 12/28/24 09:55 40 MG Pantoprazole Sodium 40 mg DAILY IV 12/22/24 10:00 12/29/24 14:56 40 MG Sodium Chloride 1,000 ml @ 100 mls/hr Q10H IV 12/21/24 21:45 12/29/24 21:21 100 MLS/HR Piperacillin Sod/ Tazobactam Sod 100 ml @ 25 mls/hr Q8HR IV 12/22/24 06:00 12/30/24 05:24 25 MLS/HR Vancomycin HCl 0 ml @ 0 mls/hr UD IV 12/21/24 21:45 Potassium Chloride 100 ml @ 50 mls/hr Q2H IV 12/21/24 21:45 12/22/24 01:44 UNV Ipratropium [place] 0.5 mg Q6HWA NEB 12/22/24 06:00 12/30/24 12:03 0.5 MG Levalbuterol HCl 0.625 mg Q6HR NEB 12/22/24 06:00 12/30/24 12:03 0.625 MG Throat Lozenges 1 dominick Q2HP PRN MT 12/23/24 21:00 12/26/24 15:08 1 DOMINICK Haloperidol Lactate 5 mg Q8HP PRN IM 12/24/24 17:45 12/29/24 16:40 5 MG Chlordiazepoxide HCl 50 mg Q8HPRN PO 12/26/24 12:30 12/30/24 05:25 50 MG Cyanocobalamin 500 mcg DAILY PO 12/27/24 10:00 12/29/24 14:57 500 MCG Furosemide 40 mg DAILY IV 12/29/24 10:00 12/29/24 10:00 40 MG Acetaminophen 325 mg Q6H PRN PO 12/28/24 13:15 Hold 12/28/24 13:36 325 MG Folic Acid 1 mg DAILY PO 12/29/24 10:00 12/29/24 14:59 1 MG Multivitamins 1 tab DAILY PO 12/29/24 10:00 12/29/24 14:58 1 TAB Magnesium Oxide 400 mg DAILY PO 12/29/24 10:00 12/29/24 14:57 400 MG Thiamine HCl 100 mg DAILY PO 12/29/24 10:00 12/29/24 14:58 100 MG Vancomycin HCl 350 ml @ 233.333 mls/hr Q24H IV 12/28/24 16:00 12/29/24 16:39 233.333 MLS/HR Ketorolac Tromethamine 30 mg Q8HPRN PRN IV 12/29/24 12:30 01/03/25 12:29 objective GENERAL: Alert and oriented x 3. No acute distress. EYES: PERRL, EOMI. Anicteric. HENT: Moist mucous membranes. LUNGS: Clear to auscultation bilaterally. CARDIOVASCULAR: Regular rate and rhythm. ABDOMEN: Soft, nontender and nondistended.Bilateral upper flank tenderness to palpation. EXTREMITIES: No edema. NEUROLOGIC: No focal neurological deficits. SKIN: Warm, dry. laboratory and microbiology Laboratory Tests 12/29/24 05:08 Test 12/29/24 05:08 Range/Units Serum Glucose 155 H 74-106 mg/dL Problem List Sepsis due to multifocal pneumonia. Pneumonia. Acute hypoxic respiratory failure. Metabolic encephalography. Alcohol withdrawal. Hypomagnesemia. Hypokalemia. Transaminitis. Hyperbilirubinemia. Alcohol use disorder. Unhoused. UDS positive for methamphetamine. Assessment/Plan Continued all current supportive medical care. DVT and GI prophylactics. IV antibiotics as ordered. Additional plan as per the hospital course. Dietary Evaluation Review Comments: 1) Encourage optimal PO intake 2) Continue multivitamin with thiamin and folate 3) Follow-up with social media campaign manager regarding ETOH abuse 4) Follow-up with cardiology and gastroenterology 5) Continue to monitor I&O, labs, and skin integrity Expected Outcomes/Goals: 1) appetite and labs to advance 2) f/u in 3-5 days Plan discussed with: Patient FELIPE FERRIS MD December 30, 2024 12:15
--- NOTE | 2024-12-30 19:21 | DVHPNRES ---
Progress Note Date Seen: December 30, 2024 Resident Creating Document: EMERSON KLINE RESIDENT Has the PT tested + for MRSA If YES, has PT been informed?: No Medical Necessity Reason Pt with a Central, PICC or Fol: No Medical Necessity Reason History of Present Illness Patient is a 64-year-old unhoused male with past medical history of recurrent alcohol withdrawals and alcohol use disorder, who comes in due to alcohol withdrawal. According to the patient, he drinks 4 pt of vodka daily, last drink was 2 days ago. Patient also notes bilateral flank pain that has been ongoing for the past 1 month. On review of systems patient is complaining of fatigue, fever, chills, shortness of breath, dry cough, nausea and dry heaving. CT abdomen pelvis showed possible right lower lobe pneumonia, patient was noted to have a lactic acid level of 7.7, 8.5. Plasma alcohol level 158.9. At the time of my assessment patient was AO x3, CIWA score 10. Patient was started on banana bag, IV NS and IV lorazepam along with IV vancomycin and piperacillin- tazobactam. Past Medical History: alcohol withdrawals and alcohol use disorder Past Surgical History: Denies Past Social History: Smoking: Denies, Alcohol: Drinks 4 pt of vodka per day for the last 40 years Medicine: Denies Drugs PN 12/22/2024 Patient seen in the ED today. He was confused sleeping. Per the night team report, patient received 5mg total of ativan and 100mg of librium. Vitals signs shows tachycardiac 129, fever ( Temp: 100.7); Preliminary blood culture grew Gram Positive Cocci in chains and Gram Positive Cocci in pairs. Patient is already on Zosyn and vancomycin. Patient received another bolus of fluid. In lactic acid is currently pending. Added Librium protocol starting with 50 b.i.d. and we will taper down slowly. PN: . Patient is seen and examined at the bedside. He was mild tachypneic and tachycardic. He was on Ativan 1mg q4hr as needed and Librium 25mg bid. At the time of my assess, his CIWA score was 6 ( fine tremors and some agitation). Later in the afternoon, patient became aggressive towards the [employer], took out his IV and wanted to go our looking for his brother Don. Looks like he is not completely out of the withdrawal. Blood pressure was stable however HR 120-130. temperature was stable. He does not seem to be in DT. We gave him 2mg ativan stat. Immediately after the Librium, patient was a bit more agitated. Had haloperidol 5mg as needed (if need). After 20 minutes, patient became stable and communicating with me and the staff. PN 12/26/2024 Patient seen.He is communication better and more alert and oriented,but his HR is still elevate and his breathing is not normall. he is on 4L of oxygen. Will get CT angio and EKg to rule out PE. Also will get sputum culture. Orders placed nurse informed. PN 12/27/2024 patient is seen and examined today. Also with the marine steward on board. He is current being managed for multifocal pneumonia and alcohol withdrawal which is getting better and patient is on antibiotics as well has Librium for the alcohol withdrawal. CT angiogram revealed CHF and/or volume overload, with cardiomegaly, increase in a moderate left and moderate to large right pleural effusion, and mild interstitial and alveolar pulmonary edema. Dependent consolidations in the lower lobes which could be atelectasis though a component of pneumonia (which could be on the basis of aspiration) could contribute to this appearance Moderate hepatic steatosis. Pulmonology has been inform of the possibility of bronchoscopy. PN 12/28/2024 patient is seen and examined today. Also with the marine steward on board. He is current being managed for multifocal pneumonia and alcohol withdrawal which is getting better and patient is on antibiotics as well has Librium for the alcohol withdrawal. Pending Thoracentesis tomorrow PN 12/29/2024: Patient is stable. Seen by the pulmonology and underwent bilateral thoracentesis. The indication is Bilateral pleural effusion, shortness of breaths. Procedure was a Success with 200 mL fluid removed from right pleural space and 550 mL fluid removed from left pleural space. Patient is doing well post procedure. PN: 12/30/2022 Patient is seen and examined at bedside. He is status post thoracentesis yesterday with 750 L of fluid during total from both lung. Fluid analysis done currently pending the CMP and LDH to determine if the fluid drained was exudate was transudate. Patient initially refused the blood draw this morning. however, after speaking with patient, he agreed to have the blood drawn to check for lactic dehydrogenase. Pending that report. Patient is otherwise doing well. He is now down on oxygen demand to 2L and saturating at 100%. Subjective Review of Systems Constitutional: Denies fever no chills no feeling of malaise HEENT: Denies headache, ear pain, ear discharges, conjunctivitis, nasal discharge throat pain Cardiovascular: Denies chest pain, palpitation, orthopnea, PND, or pedal edema Respiratory: On 2L of oxygen SpO 2 100%; cough, sputum production, hemoptysis, GI: Denies abdominal pain, nausea, vomiting, diarrhea, hematemesis, hematochezia, : Denies frequency, urgency, hematuria, Endocrine: Denies unintentional weight gain or weight loss, feeling of hot flashes, [place]: Denies easy bruising, bleeding disorders, epistaxis Musculoskeletal: Denies joint pains, muscle aches Psych: No evidence of depression, lopez, suicidal ideation Objective vital signs Vital Sign Date Time Temp Pulse Resp B/P (MAP) Pulse Ox O2 Delivery O2 Flow Rate FiO2 12/30/24 18:57 85 18 100 12/30/24 18:51 Nasal Cannula* 2 28 12/30/24 17:00 97.7 134/81 (98) 97.7 Total Intake and Output 12/29/24 12/29/24 12/30/24 15:00 23:00 07:00 Intake Total 100 ml 1450 ml 650 ml Output Total 1600 ml Balance 100 ml -150 ml 650 ml medications Current Medications Medications Dose Ordered Sig/Shubham Route Start Time Stop Time Status Last Admin Dose Admin Ondansetron HCl 4 mg Q4HP PRN IV 12/21/24 20:45 12/23/24 19:40 Enoxaparin Sodium 40 mg DAILY SC 12/22/24 10:00 12/28/24 09:55 Pantoprazole Sodium 40 mg DAILY IV 12/22/24 10:00 12/30/24 13:54 Sodium Chloride 1,000 ml @ 100 mls/hr Q10H IV 12/21/24 21:45 12/29/24 21:21 Piperacillin Sod/ Tazobactam Sod 100 ml @ 25 mls/hr Q8HR IV 12/22/24 06:00 12/30/24 14:06 Vancomycin HCl 0 ml @ 0 mls/hr UD IV 12/21/24 21:45 Potassium Chloride 100 ml @ 50 mls/hr Q2H IV 12/21/24 21:45 12/22/24 01:44 UNV Ipratropium [place] 0.5 mg Q6HWA NEB 12/22/24 06:00 12/30/24 18:51 Levalbuterol HCl 0.625 mg Q6HR NEB 12/22/24 06:00 12/30/24 18:51 Throat Lozenges 1 barbara Q2HP PRN MT 12/23/24 21:00 12/26/24 15:08 Haloperidol Lactate 5 mg Q8HP PRN IM 12/24/24 17:45 12/29/24 16:40 Chlordiazepoxide HCl 50 mg Q8HPRN PO 12/26/24 12:30 12/30/24 13:53 Cyanocobalamin 500 mcg DAILY PO 12/27/24 10:00 12/30/24 13:54 Furosemide 40 mg DAILY IV 12/29/24 10:00 12/30/24 13:55 Acetaminophen 325 mg Q6H PRN PO 12/28/24 13:15 Hold 12/28/24 13:36 Folic Acid 1 mg DAILY PO 12/29/24 10:00 12/30/24 13:54 Multivitamins 1 tab DAILY PO 12/29/24 10:00 12/30/24 13:54 Magnesium Oxide 400 mg DAILY PO 12/29/24 10:00 12/30/24 13:54 Thiamine HCl 100 mg DAILY PO 12/29/24 10:00 12/30/24 13:53 Vancomycin HCl 350 ml @ 233.333 mls/hr Q24H IV 12/28/24 16:00 12/30/24 16:29 Ketorolac Tromethamine 30 mg Q8HPRN PRN IV 12/29/24 12:30 01/03/25 12:29 Examination General Appearance: Alert, Oriented X3, Cooperative, No acute distress HEENT: Atraumatic, PERRLA, EOMI, Mucous membrane moist/pink Respiratory: Improved aeration in both lungs. Normal air movement Cardiovascular: Regular rate, Normal S1, Normal S2, No murmurs, no chest wall tenderness Abdominal: NO distention, no tenderness, bowel sounds present, no scars noted Extremities: No clubbing, No cyanosis, No edema, Normal pulses, No tenderness/swelling Skin: No rashes, No breakdown, No significant lesion Neuro: Normal gait, Normal speech, Strength at 5/5 X4 ext, Normal tone, Sensation intact, Cranial nerves 3-12 NL, Reflexes 2+ Psych/Mental Status: Mental status NL, Mood NL laboratory and microbiology Laboratory Tests 12/29/24 05:08 Test 12/29/24 05:08 Range/Units Serum Glucose 155 H 74-106 mg/dL Microbiology Date/Time Source Procedure Growth Status 12/29/24 11:00 Pleural Fluid Gram Stain - Final Resulted 12/29/24 11:00 Pleural Fluid Body Fluid Culture - Preliminary Resulted 12/28/24 14:11 Sputum Gram Stain - Final Complete 12/28/24 14:11 Sputum Respiratory Culture - Final Complete 12/26/24 05:45 Blood Blood Culture - Preliminary NO GROWTH AFTER 72 HOURS OF INCUBATION. Resulted 12/23/24 05:35 Nose MRSA Screen - Final Methicillin Resistant S.aureus Complete 12/21/24 23:23 Voided Urine Urine Culture - Final Complete Problem List/Assessment/Plan Problem List/Assessment/Plan Assessment Sepsis due to multifocal pneumonia --> Lactic acidosis --> Tachycardia --> Blood culture positive for gram positive cocci -- > IV vancomycin per pharmacy, IV Zosyn Rule out PE --> Tachycardia and tachypnea --> on 2-3L of oxygen --> EKG --> CT angio with Contrast Pneumonia, probably aspiration --> IV Zosyn --> Improcing Bilateral pleural effusion --> s/p thoracentesis today 12/29/2024 --> 200 mL fluid removed from right pleural space --> 550 mL fluid removed from left pleural space --> Pending pending fluid analysis ( EXUDATE VS transudate) Acute hypoxic respiratory failure --> On 2L oxygen Metabolic encephalography --> Likely secondary to sepsis --> Improved --> Continue current treatly Alcohol withdrawal, CIWA 6 - IV NS 1 L bolus times x4 - IV NS at 100 cc per hour - banana bag - IV lorazepam 2 mg q.2 h prn - Librium 25mg bid - IV Protonix daily - IV Zofran as needed Hypomagnesemia, severe: Serum magnesium 0.6 Hypokalemia--. IMPROVED - KCl rider - magnesium rider Transaminitis, alcohol induced Hyperbilirubinemia - total bilirubin 2.3, AST 224, ALT 58 - monitor - hepatomegaly noted on prior scans - ordered hepatitis panel Alcohol use disorder Unhoused UDS positive for methamphetamine - hepatitis panel :Negative - HIV testing : Negative - consulted social service assistant for alcohol dependency and homeless PUD prophylaxis: protonix 40mg DVT prophylaxis: Levonox 40mg Goals of care discuss with nurse for 15 minutes: full code Case and plan discussed + Dr. Thakkar Plan discussed with: Patient, Other (Nurse) Dietary Evaluation Review Comments: 1) Encourage optimal PO intake 2) Continue multivitamin with thiamin and folate 3) Follow-up with social service assistant regarding ETOH abuse 4) Follow-up with cardiology and gastroenterology 5) Continue to monitor I&O, labs, and skin integrity Expected Outcomes/Goals: 1) appetite and labs to advance 2) f/u in 3-5 days Date of Service: December 30, 2024 Billing Provider: LETI THAKKAR MD Common Visit Codes: [id number] INP/OBS CARE(HIGH) EMERSON KLINE RESIDENT December 30, 2024 19:21 LETI THAKKAR MD January 03, 2025 12:31
[2024-12-30 19:33] LABS: Basophils # (auto) 0.1 10 ^3/uL (0-0.2); Basophils % (auto) 1.1 % (0.0-2.0); Eosinophils # (auto) 0.2 10 ^3/uL (0-0.8); Eosinophils % (auto) 2.9 % (0.0-7.0); Hemoglobin 10.8 g/dL (13.5-17.5); Lymphocytes # (auto) 0.8 10 ^3/uL (0.4-5.4); Lymphocytes % (auto) 11.2 % (10.0-50.0); Mean Corpuscular Hemoglobin 38.9 pg (28.0-32.0); Mean Corpuscular Hgb Conc. 34.7 g/dL (32.0-36.0); Mean Corpuscular Volume 112.2 fL (80.0-100.0); Monocytes # (auto) 0.5 10 ^3/uL (0-1.3); Monocytes % (auto) 7.6 % (0.0-12.0); Neutrophils # (auto) 5.6 10 ^3/uL (1.6-8.6); Neutrophils % (auto) 77.2 % (37.0-80.0); Platelet Count (auto) 410 10^3/uL (140-450); Red Blood Cells 2.76 10^6/uL (4.5-5.90); Red Cell Distribution Width 15.8 % (11.8-14.3); White Blood Cell 7.3 10^3/uL (4.4-10.8)
[2024-12-30 19:41] LABS: Alanine Aminotransferase 31 U/L (7-40); Albumin 3.2 g/dL (3.2-4.8); Anion Gap 10 (5-15); Blood Urea Nitrogen 15 mg/dL (9-23); Calcium 9.1 mg/dL (8.7-10.4); Carbon Dioxide 30 mmol/L (20-31); Chloride 103 mmol/L (98-107); Potassium 3.7 mmol/L (3.5-5.1); Sodium 143 mmol/L (136-145); Total Protein 5.7 g/dL (5.7-8.2)
[2024-12-30 19:42] LABS: Bilirubin, Total 0.8 mg/dL (0.2-1.0)
[2024-12-30 19:43] LABS: Alkaline Phosphatase 125 U/L (46-116); Aspartate Aminotransferase 67 U/L (13-40); Glucose 121 mg/dL (74-106)
[2024-12-30] MEDS: POTASSIUM EFFERVESENT TAB 25 MEQ PO ONE (21:36)
[2024-12-31] VITALS (18 sets, daily range): BP systolic 116–148; BP diastolic 53–85; PULSE 75–88; RESP 17–22; TEMP 97.3–99.4; O2SAT 91–100
--- NOTE | 2024-12-31 14:27 | DVHPN2 ---
Progress Note - Dictate Date Seen: December 31, 2024 Medical Necessity Reason Pt with a Central, PICC or Fol: No vital signs Vital Sign Date Time Temp Pulse Resp B/P (MAP) Pulse Ox O2 Delivery O2 Flow Rate FiO2 12/31/24 13:00 97.9 88 22 116/64 (81) 92 97.9 12/31/24 08:00 Nasal Cannula* 2 28 Total Intake and Output 12/30/24 12/30/24 12/31/24 15:00 23:00 07:00 Intake Total 218 ml 886 ml 400 ml Output Total 500 ml 300 ml Balance 218 ml 386 ml 100 ml medications Current Medications Medications Dose Ordered Sig/Shubham Route Start Time Stop Time Status Last Admin Dose Admin Ondansetron HCl 4 mg Q4HP PRN IV 12/21/24 20:45 12/23/24 19:40 4 MG Enoxaparin Sodium 40 mg DAILY SC 12/22/24 10:00 12/31/24 09:50 40 MG Pantoprazole Sodium 40 mg DAILY IV 12/22/24 10:00 12/31/24 09:49 40 MG Sodium Chloride 1,000 ml @ 100 mls/hr Q10H IV 12/21/24 21:45 12/31/24 11:49 100 MLS/HR Piperacillin Sod/ Tazobactam Sod 100 ml @ 25 mls/hr Q8HR IV 12/22/24 06:00 12/31/24 13:41 25 MLS/HR Vancomycin HCl 0 ml @ 0 mls/hr UD IV 12/21/24 21:45 Potassium Chloride 100 ml @ 50 mls/hr Q2H IV 12/21/24 21:45 12/22/24 01:44 UNV Ipratropium [place] 0.5 mg Q6HWA NEB 12/22/24 06:00 12/31/24 12:00 0.5 MG Levalbuterol HCl 0.625 mg Q6HR NEB 12/22/24 06:00 12/31/24 12:00 0.625 MG Throat Lozenges 1 dominick Q2HP PRN MT 12/23/24 21:00 12/26/24 15:08 1 DOMINICK Haloperidol Lactate 5 mg Q8HP PRN IM 12/24/24 17:45 12/29/24 16:40 5 MG Chlordiazepoxide HCl 50 mg Q8HPRN PO 12/26/24 12:30 12/31/24 13:40 50 MG Cyanocobalamin 500 mcg DAILY PO 12/27/24 10:00 12/31/24 09:49 500 MCG Furosemide 40 mg DAILY IV 12/29/24 10:00 12/31/24 09:50 40 MG Acetaminophen 325 mg Q6H PRN PO 12/28/24 13:15 Hold 12/28/24 13:36 325 MG Folic Acid 1 mg DAILY PO 12/29/24 10:00 12/31/24 09:49 1 MG Multivitamins 1 tab DAILY PO 12/29/24 10:00 12/31/24 09:49 1 TAB Magnesium Oxide 400 mg DAILY PO 12/29/24 10:00 12/31/24 09:49 400 MG Thiamine HCl 100 mg DAILY PO 12/29/24 10:00 12/31/24 09:49 100 MG Vancomycin HCl 350 ml @ 233.333 mls/hr Q24H IV 12/28/24 16:00 12/30/24 16:29 233.333 MLS/HR Ketorolac Tromethamine 30 mg Q8HPRN PRN IV 12/29/24 12:30 01/03/25 12:29 laboratory and microbiology Laboratory Tests 12/30/24 15:10 Test 12/30/24 15:10 Range/Units Serum Glucose 121 H 74-106 mg/dL Assessment/Plan Impression Acute hypoxemic respiratory failure Failure to thrive Substance abuse Pleural effusions Pneumonia Atelectasis Patient seen and examined Events Low oxygen requirements On 2 liters nasal cannula No acute events Labs and imaging reviewed Management Supplemental oxygen Titrate to maintain sats 90% or above Incentive spirometry Continue antibiotics Bronchodilators Monitor renal function Monitor electrolytes Supplement as needed Okay to discharge from pulmonary standpoint DVT prophylaxis Dietary Evaluation Review Comments: 1) Encourage optimal PO intake 2) Continue multivitamin with thiamin and folate 3) Follow-up with social service coordinator regarding ETOH abuse 4) Follow-up with cardiology and gastroenterology 5) Continue to monitor I&O, labs, and skin integrity Expected Outcomes/Goals: 1) appetite and labs to advance 2) f/u in 3-5 days Plan discussed with: Patient JODY VELASQUEZ MD December 31, 2024 14:27
--- NOTE | 2024-12-31 15:27 | DVHPN2 ---
Subjective The patient is seen and examined at bedside. No complaint today. Reviewed: Care Plan, H&P, Labs, Medications, Previous Orders, Radiology, Other (Consultations) Changes from previous H/P or p: No Changes Objective Vitals Vital Signs Date Time Temp Pulse Resp B/P (MAP) Pulse Ox O2 Delivery O2 Flow Rate FiO2 12/31/24 13:00 97.9 88 22 116/64 (81) 92 97.9 12/31/24 08:00 Nasal Cannula* 2 28 Intake/Output Intake and Output 12/31/24 07:00 Intake Total 1504 ml Output Total 800 ml Balance 704 ml Intake Oral 1504 ml Output Urine Total 800 ml # Voids 4 General Appearance: Alert, Other (Uncooperative; confused) HEENT: Atraumatic Lungs: Other (Decreased air entry bilateral with scattered crackles) Cardiovascular: Regular rate, Normal S1, Normal S2 Abdomen: Normal bowel sounds, Soft, No tenderness Neuro: Normal speech, Cranial nerves 3-12 NL, Other (Confused) Psych/Mental Status: Other (Confused) Medications Current Medications Medications Dose Ordered Sig/Shubham Route Start Time Stop Time Status Last Admin Dose Admin Ondansetron HCl 4 mg Q4HP PRN IV 12/21/24 20:45 12/23/24 19:40 4 MG Enoxaparin Sodium 40 mg DAILY SC 12/22/24 10:00 12/31/24 09:50 40 MG Pantoprazole Sodium 40 mg DAILY IV 12/22/24 10:00 12/31/24 09:49 40 MG Sodium Chloride 1,000 ml @ 100 mls/hr Q10H IV 12/21/24 21:45 12/31/24 11:49 100 MLS/HR Piperacillin Sod/ Tazobactam Sod 100 ml @ 25 mls/hr Q8HR IV 12/22/24 06:00 12/31/24 13:41 25 MLS/HR Vancomycin HCl 0 ml @ 0 mls/hr UD IV 12/21/24 21:45 Potassium Chloride 100 ml @ 50 mls/hr Q2H IV 12/21/24 21:45 12/22/24 01:44 UNV Ipratropium [place] 0.5 mg Q6HWA NEB 12/22/24 06:00 12/31/24 12:00 0.5 MG Levalbuterol HCl 0.625 mg Q6HR NEB 12/22/24 06:00 12/31/24 12:00 0.625 MG Throat Lozenges 1 dominick Q2HP PRN MT 12/23/24 21:00 12/26/24 15:08 1 DOMINICK Haloperidol Lactate 5 mg Q8HP PRN IM 12/24/24 17:45 12/29/24 16:40 5 MG Chlordiazepoxide HCl 50 mg Q8HPRN PO 12/26/24 12:30 12/31/24 13:40 50 MG Cyanocobalamin 500 mcg DAILY PO 12/27/24 10:00 12/31/24 09:49 500 MCG Furosemide 40 mg DAILY IV 12/29/24 10:00 12/31/24 09:50 40 MG Acetaminophen 325 mg Q6H PRN PO 12/28/24 13:15 Hold 12/28/24 13:36 325 MG Folic Acid 1 mg DAILY PO 12/29/24 10:00 12/31/24 09:49 1 MG Multivitamins 1 tab DAILY PO 12/29/24 10:00 12/31/24 09:49 1 TAB Magnesium Oxide 400 mg DAILY PO 12/29/24 10:00 12/31/24 09:49 400 MG Thiamine HCl 100 mg DAILY PO 12/29/24 10:00 12/31/24 09:49 100 MG Vancomycin HCl 350 ml @ 233.333 mls/hr Q24H IV 12/28/24 16:00 12/30/24 16:29 233.333 MLS/HR Ketorolac Tromethamine 30 mg Q8HPRN PRN IV 12/29/24 12:30 01/03/25 12:29 Laboratory Results Laboratory Tests 12/30/24 15:10 Urinalysis Test 12/21/24 23:23 Urine Color [place] (Yellow) H Urine Clarity Turbid (Clear) H Urine pH 5.5 (5.0-9.0) Urine Specific [place] 1.018 (1.001-1.035) Urine Protein Trace (Negative) H Urine Ketones Trace (Negative) Urine Blood Negative /uL (Negative) Urine Nitrite Negative (Negative) Urine Bilirubin Negative (Negative) Urine Urobilinogen 4 mg/dL (Negative) H Urine Leukocyte Esterase Negative /uL (Negative) Urine RBC 1 /hpf (0 - 3) Urine Microscopic WBC 3 /HPF (0-3) Urine Squamous Epithelial Cells Few /hpf (<5) Urine Bacteria Few /hpf (None Seen) H Urine Hyaline Casts Few /lpf (0 - 2) Urine Granular Casts Few /lpf (0) Urine Mucus Few (None Seen) Urine Glucose 1+ mg/dL (Normal) H Microbiology Microbiology Date/Time Source Procedure Growth Status 12/29/24 11:00 Pleural Fluid Gram Stain - Final Resulted 12/29/24 11:00 Pleural Fluid Body Fluid Culture - Preliminary Resulted 12/28/24 14:11 Sputum Gram Stain - Final Complete 12/28/24 14:11 Sputum Respiratory Culture - Final Complete 12/26/24 05:45 Blood Blood Culture - Final NO GROWTH AFTER 5 DAYS OF INCUBATION. Complete 12/23/24 05:35 Nose MRSA Screen - Final Methicillin Resistant S.aureus Complete 12/21/24 23:23 Voided Urine Urine Culture - Final Complete Labs and/or images reviewed: Labs reviewed by me Assessment/Plan Assessment/Plan Sepsis due to multifocal pneumonia --> Lactic acidosis --> Tachycardia --> Blood culture positive for gram positive cocci -- > IV vancomycin per pharmacy, IV Zosyn Rule out PE --> Tachycardia and tachypnea --> on 2-3L of oxygen --> EKG --> CT angio with Contrast Pneumonia, probably aspiration --> IV Zosyn Bilateral pleural effusion --> s/p thoracentesis today 12/29/2024 --> 200 mL fluid removed from right pleural space --> 550 mL fluid removed from left pleural space --> Pending pending fluid analysis ( EXUDATE VS transudate) Acute hypoxic respiratory failure --> On 2L oxygen Metabolic encephalography --> Likely secondary to sepsis --> Improved --> Continue current management Alcohol withdrawal, CIWA 6 - IV NS 1 L bolus times x4 - IV NS at 100 cc per hour -Ativan PRN for anxiety and withdrawal This medical document was created using an electronic medical record system with M[employer] direct computerized dictation system. Although this document has been carefully reviewed, there may still be some phonetic and typographical errors. These areas are purely typographical due to imperfections of the software programs, and do not reflect any compromise in the patient's medical care. Plan discussed with: Patient Date of Service: December 31, 2024 Billing Provider: GRACE JEFFERSON MD Common Visit Codes: [id number] INP/OBS CARE(HIGH) GRACE JEFFERSON MD December 31, 2024 15:27
--- NOTE | 2024-12-31 15:28 | DVHPN2 ---
Progress Note - Dictate Date Seen: December 31, 2024 Has the PT tested + for MRSA If YES, has PT been informed?: No Medical Necessity Reason Pt with a Central, PICC or Fol: No Subjective Patient was seen and evaluated in follow up. Patient is on 2 LPM NC. Sitter is at bedside. Patient appears comfortable in bed. vital signs Vital Sign Date Time Temp Pulse Resp B/P (MAP) Pulse Ox O2 Delivery O2 Flow Rate FiO2 12/31/24 09:50 121/78 12/31/24 08:00 77 20 94 Nasal Cannula* 2 28 12/31/24 05:00 98.5 98.5 Total Intake and Output 12/30/24 12/30/24 12/31/24 15:00 23:00 07:00 Intake Total 218 ml 886 ml 400 ml Output Total 500 ml 300 ml Balance 218 ml 386 ml 100 ml medications Current Medications Medications Dose Ordered Sig/Shubham Route Start Time Stop Time Status Last Admin Dose Admin Ondansetron HCl 4 mg Q4HP PRN IV 12/21/24 20:45 12/23/24 19:40 4 MG Enoxaparin Sodium 40 mg DAILY SC 12/22/24 10:00 12/31/24 09:50 40 MG Pantoprazole Sodium 40 mg DAILY IV 12/22/24 10:00 12/31/24 09:49 40 MG Sodium Chloride 1,000 ml @ 100 mls/hr Q10H IV 12/21/24 21:45 12/31/24 11:49 100 MLS/HR Piperacillin Sod/ Tazobactam Sod 100 ml @ 25 mls/hr Q8HR IV 12/22/24 06:00 12/31/24 05:13 25 MLS/HR Vancomycin HCl 0 ml @ 0 mls/hr UD IV 12/21/24 21:45 Potassium Chloride 100 ml @ 50 mls/hr Q2H IV 12/21/24 21:45 12/22/24 01:44 UNV Ipratropium [place] 0.5 mg Q6HWA NEB 12/22/24 06:00 12/31/24 06:21 0.5 MG Levalbuterol HCl 0.625 mg Q6HR NEB 12/22/24 06:00 12/31/24 06:21 0.625 MG Throat Lozenges 1 dominick Q2HP PRN MT 12/23/24 21:00 12/26/24 15:08 1 DOMINICK Haloperidol Lactate 5 mg Q8HP PRN IM 12/24/24 17:45 12/29/24 16:40 5 MG Chlordiazepoxide HCl 50 mg Q8HPRN PO 12/26/24 12:30 12/31/24 05:14 50 MG Cyanocobalamin 500 mcg DAILY PO 12/27/24 10:00 12/31/24 09:49 500 MCG Furosemide 40 mg DAILY IV 12/29/24 10:00 12/31/24 09:50 40 MG Acetaminophen 325 mg Q6H PRN PO 12/28/24 13:15 Hold 12/28/24 13:36 325 MG Folic Acid 1 mg DAILY PO 12/29/24 10:00 12/31/24 09:49 1 MG Multivitamins 1 tab DAILY PO 12/29/24 10:00 12/31/24 09:49 1 TAB Magnesium Oxide 400 mg DAILY PO 12/29/24 10:00 12/31/24 09:49 400 MG Thiamine HCl 100 mg DAILY PO 12/29/24 10:00 12/31/24 09:49 100 MG Vancomycin HCl 350 ml @ 233.333 mls/hr Q24H IV 12/28/24 16:00 12/30/24 16:29 233.333 MLS/HR Ketorolac Tromethamine 30 mg Q8HPRN PRN IV 12/29/24 12:30 01/03/25 12:29 objective GENERAL: Alert and oriented x 3. No acute distress. EYES: PERRL, EOMI. Anicteric. HENT: Moist mucous membranes. LUNGS: Clear to auscultation bilaterally. CARDIOVASCULAR: Regular rate and rhythm. ABDOMEN: Soft, nontender and nondistended.Bilateral upper flank tenderness to palpation. EXTREMITIES: No edema. NEUROLOGIC: No focal neurological deficits. SKIN: Warm, dry. laboratory and microbiology Laboratory Tests 12/30/24 15:10 Test 12/30/24 15:10 Range/Units Serum Glucose 121 H 74-106 mg/dL Problem List Sepsis due to multifocal pneumonia. Pneumonia. Acute hypoxic respiratory failure. Metabolic encephalography. Alcohol withdrawal. Hypomagnesemia. Hypokalemia. Transaminitis. Hyperbilirubinemia. Alcohol use disorder. Unhoused. UDS positive for methamphetamine. Assessment/Plan Continued all current supportive medical care. DVT and GI prophylactics. IV antibiotics as ordered. Additional plan as per the hospital course. Dietary Evaluation Review Comments: 1) Encourage optimal PO intake 2) Continue multivitamin with thiamin and folate 3) Follow-up with social media analyst regarding ETOH abuse 4) Follow-up with cardiology and gastroenterology 5) Continue to monitor I&O, labs, and skin integrity Expected Outcomes/Goals: 1) appetite and labs to advance 2) f/u in 3-5 days Plan discussed with: Patient FELIPE FERRIS MD December 31, 2024 12:01
[2025-01-01] VITALS (15 sets, daily range): BP systolic 101–135; BP diastolic 40–90; PULSE 72–98; RESP 16–20; TEMP 97.8–98.4; O2SAT 91–100
[2025-01-01] MEDS ORDERED: chlordiazePOXIDE HCL 25 MG CAP PO SCH (08:45)
[2025-01-01 08:59] LABS: Basophils # (auto) 0.1 10 ^3/uL (0-0.2); Eosinophils # (auto) 0.3 10 ^3/uL (0-0.8); Mean Corpuscular Volume 111.4 fL (80.0-100.0)
[2025-01-01 09:01] LABS: Basophils % (auto) 1.1 % (0.0-2.0); Eosinophils % (auto) 3.8 % (0.0-7.0); Lymphocytes % (auto) 13.5 % (10.0-50.0); Mean Corpuscular Hemoglobin 38.3 pg (28.0-32.0); Mean Corpuscular Hgb Conc. 34.4 g/dL (32.0-36.0); Monocytes # (auto) 0.4 10 ^3/uL (0-1.3); Monocytes % (auto) 6.2 % (0.0-12.0); Neutrophils # (auto) 5.4 10 ^3/uL (1.6-8.6); Neutrophils % (auto) 75.4 % (37.0-80.0); Platelet Count (auto) 455 10^3/uL (140-450); Red Blood Cells 2.87 10^6/uL (4.5-5.90); Red Cell Distribution Width 15.4 % (11.8-14.3); White Blood Cell 7.2 10^3/uL (4.4-10.8)
[2025-01-01 09:14] LABS: Alanine Aminotransferase 36 U/L (7-40); Albumin 3.7 g/dL (3.2-4.8); Alkaline Phosphatase 119 U/L (46-116); Anion Gap 10 (5-15); Aspartate Aminotransferase 101 U/L (13-40); BUN/Creatinine Ratio 14.1 (10.0-20.0); Blood Urea Nitrogen 14 mg/dL (9-23); Calcium 9.6 mg/dL (8.7-10.4); Carbon Dioxide 28 mmol/L (20-31); Chloride 102 mmol/L (98-107); Glucose 99 mg/dL (74-106); Potassium 3.5 mmol/L (3.5-5.1); Sodium 140 mmol/L (136-145)
--- NOTE | 2025-01-01 13:33 | DVHPN2 ---
Progress Note - Dictate Date Seen: January 01, 2025 Has the PT tested + for MRSA If YES, has PT been informed?: No Medical Necessity Reason Pt with a Central, PICC or Fol: No vital signs Vital Sign Date Time Temp Pulse Resp B/P (MAP) Pulse Ox O2 Delivery O2 Flow Rate FiO2 01/01/25 12:30 97.8 96 16 120/72 (88) 96 97.8 01/01/25 11:24 Nasal Cannula 1.0 01/01/25 11:24 24 Total Intake and Output 12/31/24 12/31/24 01/01/25 15:00 23:00 07:00 Intake Total 572 ml 1162 ml 700 ml Output Total 800 ml Balance 572 ml 362 ml 700 ml medications Current Medications Medications Dose Ordered Sig/Shubham Route Start Time Stop Time Status Last Admin Dose Admin Ondansetron HCl 4 mg Q4HP PRN IV 12/21/24 20:45 12/23/24 19:40 4 MG Enoxaparin Sodium 40 mg DAILY SC 12/22/24 10:00 01/01/25 10:35 40 MG Pantoprazole Sodium 40 mg DAILY IV 12/22/24 10:00 01/01/25 10:34 40 MG Sodium Chloride 1,000 ml @ 100 mls/hr Q10H IV 12/21/24 21:45 01/01/25 10:37 100 MLS/HR Piperacillin Sod/ Tazobactam Sod 100 ml @ 25 mls/hr Q8HR IV 12/22/24 06:00 01/01/25 06:00 25 MLS/HR Vancomycin HCl 0 ml @ 0 mls/hr UD IV 12/21/24 21:45 Potassium Chloride 100 ml @ 50 mls/hr Q2H IV 12/21/24 21:45 12/22/24 01:44 UNV Ipratropium [place] 0.5 mg Q6HWA NEB 12/22/24 06:00 01/01/25 06:33 0.5 MG Levalbuterol HCl 0.625 mg Q6HR NEB 12/22/24 06:00 01/01/25 06:33 0.625 MG Throat Lozenges 1 dominick Q2HP PRN MT 12/23/24 21:00 12/26/24 15:08 1 DOMINICK Haloperidol Lactate 5 mg Q8HP PRN IM 12/24/24 17:45 12/29/24 16:40 5 MG Cyanocobalamin 500 mcg DAILY PO 12/27/24 10:00 01/01/25 10:34 500 MCG Furosemide 40 mg DAILY IV 12/29/24 10:00 01/01/25 10:35 40 MG Acetaminophen 325 mg Q6H PRN PO 12/28/24 13:15 Hold 12/28/24 13:36 325 MG Folic Acid 1 mg DAILY PO 12/29/24 10:00 01/01/25 10:34 1 MG Multivitamins 1 tab DAILY PO 12/29/24 10:00 01/01/25 10:34 1 TAB Magnesium Oxide 400 mg DAILY PO 12/29/24 10:00 01/01/25 10:34 400 MG Thiamine HCl 100 mg DAILY PO 12/29/24 10:00 01/01/25 10:34 100 MG Vancomycin HCl 350 ml @ 233.333 mls/hr Q24H IV 12/28/24 16:00 12/31/24 16:53 233.333 MLS/HR Ketorolac Tromethamine 30 mg Q8HPRN PRN IV 12/29/24 12:30 01/03/25 12:29 Chlordiazepoxide HCl 25 mg Q8HR PO 01/01/25 14:00 laboratory and microbiology Laboratory Tests 01/01/25 08:52 Test 01/01/25 08:52 Range/Units Serum Glucose 99 74-106 mg/dL Assessment/Plan Impression Acute hypoxemic respiratory failure Failure to thrive Substance abuse Pleural effusions Pneumonia Atelectasis Patient seen and examined Events Low oxygen requirements On 2 liters nasal cannula No distress Labs and imaging reviewed Management Supplemental oxygen Titrate to maintain sats 90% or above Incentive spirometry Continue antibiotics Bronchodilators Monitor renal function Monitor electrolytes Supplement as needed Okay to discharge from pulmonary standpoint DVT prophylaxis Dietary Evaluation Review Comments: 1) Encourage optimal PO intake 2) Continue multivitamin with thiamin and folate 3) Follow-up with social service liaison regarding ETOH abuse 4) Follow-up with cardiology and gastroenterology 5) Continue to monitor I&O, labs, and skin integrity Expected Outcomes/Goals: 1) appetite and labs to advance 2) f/u in 3-5 days Plan discussed with: Patient JODY VELASQUEZ MD January 01, 2025 13:33
[2025-01-01] MEDS: chlordiazePOXIDE HCL 25 MG CAP PO SCH (13:57)
--- NOTE | 2025-01-01 18:16 | DVHPNRES ---
Progress Note Date Seen: January 01, 2025 Resident Creating Document: EMERSON KLINE RESIDENT Has the PT tested + for MRSA If YES, has PT been informed?: No Medical Necessity Reason Pt with a Central, PICC or Fol: No Medical Necessity Reason istory of Present Illness Patient is a 64-year-old unhoused male with past medical history of recurrent alcohol withdrawals and alcohol use disorder, who comes in due to alcohol withdrawal. According to the patient, he drinks 4 pt of vodka daily, last drink was 2 days ago. Patient also notes bilateral flank pain that has been ongoing for the past 1 month. On review of systems patient is complaining of fatigue, fever, chills, shortness of breath, dry cough, nausea and dry heaving. CT abdomen pelvis showed possible right lower lobe pneumonia, patient was noted to have a lactic acid level of 7.7, 8.5. Plasma alcohol level 158.9. At the time of my assessment patient was AO x3, CIWA score 10. Patient was started on banana bag, IV NS and IV lorazepam along with IV vancomycin and piperacillin- tazobactam. Past Medical History: alcohol withdrawals and alcohol use disorder Past Surgical History: Denies Past Social History: Smoking: Denies, Alcohol: Drinks 4 pt of vodka per day for the last 40 years Medicine: Denies Drugs PN 12/22/2024 Patient seen in the ED today. He was confused sleeping. Per the night team report, patient received 5mg total of ativan and 100mg of librium. Vitals signs shows tachycardiac 129, fever ( Temp: 100.7); Preliminary blood culture grew Gram Positive Cocci in chains and Gram Positive Cocci in pairs. Patient is already on Zosyn and vancomycin. Patient received another bolus of fluid. In lactic acid is currently pending. Added Librium protocol starting with 50 b.i.d. and we will taper down slowly. PN: . Patient is seen and examined at the bedside. He was mild tachypneic and tachycardic. He was on Ativan 1mg q4hr as needed and Librium 25mg bid. At the time of my assess, his CIWA score was 6 ( fine tremors and some agitation). Later in the afternoon, patient became aggressive towards the [employer], took out his IV and wanted to go our looking for his brother Don. Looks like he is not completely out of the withdrawal. Blood pressure was stable however HR 120-130. temperature was stable. He does not seem to be in DT. We gave him 2mg ativan stat. Immediately after the Librium, patient was a bit more agitated. Had haloperidol 5mg as needed (if need). After 20 minutes, patient became stable and communicating with me and the staff. PN 12/26/2024 Patient seen.He is communication better and more alert and oriented,but his HR is still elevate and his breathing is not normall. he is on 4L of oxygen. Will get CT angio and EKg to rule out PE. Also will get sputum culture. Orders placed nurse informed. PN 12/27/2024 patient is seen and examined today. Also with the electroformer on board. He is current being managed for multifocal pneumonia and alcohol withdrawal which is getting better and patient is on antibiotics as well has Librium for the alcohol withdrawal. CT angiogram revealed CHF and/or volume overload, with cardiomegaly, increase in a moderate left and moderate to large right pleural effusion, and mild interstitial and alveolar pulmonary edema. Dependent consolidations in the lower lobes which could be atelectasis though a component of pneumonia (which could be on the basis of aspiration) could contribute to this appearance Moderate hepatic steatosis. Pulmonology has been inform of the possibility of bronchoscopy. PN 12/28/2024 patient is seen and examined today. Also with the electroformer on board. He is current being managed for multifocal pneumonia and alcohol withdrawal which is getting better and patient is on antibiotics as well has Librium for the alcohol withdrawal. Pending Thoracentesis tomorrow PN 12/29/2024: Patient is stable. Seen by the pulmonology and underwent bilateral thoracentesis. The indication is Bilateral pleural effusion, shortness of breaths. Procedure was a Success with 200 mL fluid removed from right pleural space and 550 mL fluid removed from left pleural space. Patient is doing well post procedure. PN: 12/30/2024 Patient is seen and examined at bedside. He is status post thoracentesis yesterday with 750 L of fluid during total from both lung. Fluid analysis done currently pending the CMP and LDH to determine if the fluid drained was exudate was transudate. Patient initially refused the blood draw this morning. however, after speaking with patient, he agreed to have the blood drawn to check for lactic dehydrogenase. Pending that report. Patient is otherwise doing well. He is now down on oxygen demand to 2L and saturating at 100%. 01/01/2025 Patient is seen and examined at bedside. Doing well. He is currently on 2L on oxygen and doing well. Orded for PT evaluation today. Per the pulmonology, patient is stable for D/C. Will discharge him home tomorrow on Augment 875 for 7 days. Subjective Review of Systems Review of Systems Constitutional: Denies fever no chills no feeling of malaise HEENT: Denies headache, ear pain, ear discharges, conjunctivitis, nasal discharge throat pain Cardiovascular: Denies chest pain, palpitation, orthopnea, PND, or pedal edema Respiratory: On 2L of oxygen SpO 2 100%; cough, sputum production, hemoptysis, GI: Denies abdominal pain, nausea, vomiting, diarrhea, hematemesis, hematochezia, : Denies frequency, urgency, hematuria, Endocrine: Denies unintentional weight gain or weight loss, feeling of hot flashes, [place]: Denies easy bruising, bleeding disorders, epistaxis Musculoskeletal: Denies joint pains, muscle aches Psych: No evidence of depression, lopez, suicidal ideation Objective vital signs Vital Sign Date Time Temp Pulse Resp B/P (MAP) Pulse Ox O2 Delivery O2 Flow Rate FiO2 01/01/25 18:02 82 18 93 01/01/25 18:02 Nasal Cannula 2.0 01/01/25 18:02 28 01/01/25 16:44 97.9 110/69 (83) 97.9 Total Intake and Output 12/31/24 12/31/24 01/01/25 15:00 23:00 07:00 Intake Total 572 ml 1162 ml 700 ml Output Total 800 ml Balance 572 ml 362 ml 700 ml medications Current Medications Medications Dose Ordered Sig/Shubham Route Start Time Stop Time Status Last Admin Dose Admin Ondansetron HCl 4 mg Q4HP PRN IV 12/21/24 20:45 12/23/24 19:40 4 MG Enoxaparin Sodium 40 mg DAILY SC 12/22/24 10:00 01/01/25 10:35 40 MG Pantoprazole Sodium 40 mg DAILY IV 12/22/24 10:00 01/01/25 10:34 40 MG Sodium Chloride 1,000 ml @ 100 mls/hr Q10H IV 12/21/24 21:45 01/01/25 10:37 100 MLS/HR Piperacillin Sod/ Tazobactam Sod 100 ml @ 25 mls/hr Q8HR IV 12/22/24 06:00 01/01/25 13:59 25 MLS/HR Vancomycin HCl 0 ml @ 0 mls/hr UD IV 12/21/24 21:45 Potassium Chloride 100 ml @ 50 mls/hr Q2H IV 12/21/24 21:45 12/22/24 01:44 UNV Ipratropium [place] 0.5 mg Q6HWA NEB 12/22/24 06:00 01/01/25 18:05 0.5 MG Levalbuterol HCl 0.625 mg Q6HR NEB 12/22/24 06:00 01/01/25 18:05 0.625 MG Throat Lozenges 1 dominick Q2HP PRN MT 12/23/24 21:00 12/26/24 15:08 1 DOMINICK Haloperidol Lactate 5 mg Q8HP PRN IM 12/24/24 17:45 12/29/24 16:40 5 MG Cyanocobalamin 500 mcg DAILY PO 12/27/24 10:00 01/01/25 10:34 500 MCG Furosemide 40 mg DAILY IV 12/29/24 10:00 01/01/25 10:35 40 MG Acetaminophen 325 mg Q6H PRN PO 12/28/24 13:15 Hold 12/28/24 13:36 325 MG Folic Acid 1 mg DAILY PO 12/29/24 10:00 01/01/25 10:34 1 MG Multivitamins 1 tab DAILY PO 12/29/24 10:00 01/01/25 10:34 1 TAB Magnesium Oxide 400 mg DAILY PO 12/29/24 10:00 01/01/25 10:34 400 MG Thiamine HCl 100 mg DAILY PO 12/29/24 10:00 01/01/25 10:34 100 MG Vancomycin HCl 350 ml @ 233.333 mls/hr Q24H IV 12/28/24 16:00 01/01/25 16:25 233.333 MLS/HR Ketorolac Tromethamine 30 mg Q8HPRN PRN IV 12/29/24 12:30 01/03/25 12:29 Chlordiazepoxide HCl 25 mg Q8HR PO 01/01/25 14:00 01/01/25 13:57 25 MG Examination General Appearance: Alert, Oriented X3, Cooperative, No acute distress HEENT: Atraumatic, PERRLA, EOMI, Mucous membrane moist/pink Respiratory: Improved aeration in both lungs. Normal air movement Cardiovascular: Regular rate, Normal S1, Normal S2, No murmurs, no chest wall tenderness Abdominal: NO distention, no tenderness, bowel sounds present, no scars noted Extremities: No clubbing, No cyanosis, No edema, Normal pulses, No tenderness/swelling Skin: No rashes, No breakdown, No significant lesion Neuro: Normal gait, Normal speech, Strength at / X4 ext, Normal tone, Sensation intact, Cranial nerves 3-12 NL, Reflexes 2+ Psych/Mental Status: Mental status NL, Mood NL laboratory and microbiology Laboratory Tests 01/01/25 08:52 Test 01/01/25 08:52 Range/Units Serum Glucose 99 74-106 mg/dL Microbiology Date/Time Source Procedure Growth Status 12/29/24 11:00 Pleural Fluid Gram Stain - Final Resulted 12/29/24 11:00 Pleural Fluid Body Fluid Culture - Preliminary Resulted 12/28/24 14:11 Sputum Gram Stain - Final Complete 12/28/24 14:11 Sputum Respiratory Culture - Final Complete 12/26/24 05:45 Blood Blood Culture - Final NO GROWTH AFTER 5 DAYS OF INCUBATION. Complete 12/23/24 05:35 Nose MRSA Screen - Final Methicillin Resistant S.aureus Complete 12/21/24 23:23 Voided Urine Urine Culture - Final Complete Problem List/Assessment/Plan Problem List/Assessment/Plan Assessment Sepsis due to multifocal pneumonia --> Lactic acidosis --> Tachycardia --> Blood culture positive for gram positive cocci -- > IV vancomycin per pharmacy, IV Zosyn Rule out PE --> Tachycardia and tachypnea --> on 2-3L of oxygen --> EKG --> CT angio with Contrast Pneumonia, probably aspiration --> IV Zosyn --> Improcing Bilateral pleural effusion --> s/p thoracentesis today 12/29/2024 --> 200 mL fluid removed from right pleural space --> 550 mL fluid removed from left pleural space --> Pending pending fluid analysis ( EXUDATE VS transudate) Acute hypoxic respiratory failure --> On 2L oxygen Metabolic encephalography --> Likely secondary to sepsis --> Improved --> Continue current treatly Alcohol withdrawal, CIWA 6 - IV NS 1 L bolus times x4 - IV NS at 100 cc per hour - banana bag - IV lorazepam 2 mg q.2 h prn - Librium 25mg bid - IV Protonix daily - IV Zofran as needed Hypomagnesemia, severe: Serum magnesium 0.6 Hypokalemia--. IMPROVED - KCl rider - magnesium rider Transaminitis, alcohol induced Hyperbilirubinemia - total bilirubin 2.3, AST 224, ALT 58 - monitor - hepatomegaly noted on prior scans - ordered hepatitis panel Alcohol use disorder Unhoused UDS positive for methamphetamine - hepatitis panel :Negative - HIV testing : Negative - consulted health social work professor for alcohol dependency and homeless PUD prophylaxis: protonix 40mg DVT prophylaxis: Levonox 40mg Goals of care discuss with nurse for 15 minutes: full code For D/c tomorrow Case and plan discussed + Dr. Ny Plan discussed with: Patient My Orders My Orders Orders - EMERSON KLINE Procedure Category Date Status Time Pt Request For Service PT 01/01/25 Logged 08:37 Chlordiazepoxide Hcl PHA 01/01/25 In Process Capsule (Librium Ca 14:00 Pt Request For Service PT 01/01/25 Logged 09:35 Dietary Evaluation Review Comments: 1) Encourage optimal PO intake 2) Continue multivitamin with thiamin and folate 3) Follow-up with social sciences lecturer regarding ETOH abuse 4) Follow-up with cardiology and gastroenterology 5) Continue to monitor I&O, labs, and skin integrity Expected Outcomes/Goals: 1) appetite and labs to advance 2) f/u in 3-5 days Date of Service: January 01, 2025 Billing Provider: GRACE [place] MD Common Visit Codes: [id number] INP/OBS CARE(HIGH) EMERSON KLINE January 01, 2025 18:16 GRACE [place] MD January 01, 2025 22:15
--- NOTE | 2025-01-01 23:19 | DVHPN2 ---
Progress Note - Dictate Date Seen: January 01, 2025 Has the PT tested + for MRSA If YES, has PT been informed?: No Medical Necessity Reason Pt with a Central, PICC or Fol: No Subjective Patient was seen and evaluated in follow up. Patient is on 1 LPM NC. Sitter is at bedside. Pending PT eval. No cardiac symptoms. vital signs Vital Sign Date Time Temp Pulse Resp B/P (MAP) Pulse Ox O2 Delivery O2 Flow Rate FiO2 01/01/25 12:30 97.8 96 16 120/72 (88) 96 97.8 01/01/25 11:24 Nasal Cannula 1.0 01/01/25 11:24 24 Total Intake and Output 12/31/24 12/31/24 01/01/25 15:00 23:00 07:00 Intake Total 572 ml 1162 ml 700 ml Output Total 800 ml Balance 572 ml 362 ml 700 ml medications Current Medications Medications Dose Ordered Sig/Shubham Route Start Time Stop Time Status Last Admin Dose Admin Ondansetron HCl 4 mg Q4HP PRN IV 12/21/24 20:45 12/23/24 19:40 4 MG Enoxaparin Sodium 40 mg DAILY SC 12/22/24 10:00 01/01/25 10:35 40 MG Pantoprazole Sodium 40 mg DAILY IV 12/22/24 10:00 01/01/25 10:34 40 MG Sodium Chloride 1,000 ml @ 100 mls/hr Q10H IV 12/21/24 21:45 01/01/25 10:37 100 MLS/HR Piperacillin Sod/ Tazobactam Sod 100 ml @ 25 mls/hr Q8HR IV 12/22/24 06:00 01/01/25 06:00 25 MLS/HR Vancomycin HCl 0 ml @ 0 mls/hr UD IV 12/21/24 21:45 Potassium Chloride 100 ml @ 50 mls/hr Q2H IV 12/21/24 21:45 12/22/24 01:44 UNV Ipratropium [place] 0.5 mg Q6HWA NEB 12/22/24 06:00 01/01/25 06:33 0.5 MG Levalbuterol HCl 0.625 mg Q6HR NEB 12/22/24 06:00 01/01/25 06:33 0.625 MG Throat Lozenges 1 dominick Q2HP PRN MT 12/23/24 21:00 12/26/24 15:08 1 DOMINICK Haloperidol Lactate 5 mg Q8HP PRN IM 12/24/24 17:45 12/29/24 16:40 5 MG Cyanocobalamin 500 mcg DAILY PO 12/27/24 10:00 01/01/25 10:34 500 MCG Furosemide 40 mg DAILY IV 12/29/24 10:00 01/01/25 10:35 40 MG Acetaminophen 325 mg Q6H PRN PO 12/28/24 13:15 Hold 12/28/24 13:36 325 MG Folic Acid 1 mg DAILY PO 12/29/24 10:00 01/01/25 10:34 1 MG Multivitamins 1 tab DAILY PO 12/29/24 10:00 01/01/25 10:34 1 TAB Magnesium Oxide 400 mg DAILY PO 12/29/24 10:00 01/01/25 10:34 400 MG Thiamine HCl 100 mg DAILY PO 12/29/24 10:00 01/01/25 10:34 100 MG Vancomycin HCl 350 ml @ 233.333 mls/hr Q24H IV 12/28/24 16:00 12/31/24 16:53 233.333 MLS/HR Ketorolac Tromethamine 30 mg Q8HPRN PRN IV 12/29/24 12:30 01/03/25 12:29 Chlordiazepoxide HCl 25 mg Q8HR PO 01/01/25 14:00 objective GENERAL: Alert and oriented x 3. No acute distress. EYES: PERRL, EOMI. Anicteric. HENT: Moist mucous membranes. LUNGS: Clear to auscultation bilaterally. CARDIOVASCULAR: Regular rate and rhythm. ABDOMEN: Soft, nontender and nondistended.Bilateral upper flank tenderness to palpation. EXTREMITIES: No edema. NEUROLOGIC: No focal neurological deficits. SKIN: Warm, dry. laboratory and microbiology Laboratory Tests 01/01/25 08:52 Test 01/01/25 08:52 Range/Units Serum Glucose 99 74-106 mg/dL Problem List Sepsis due to multifocal pneumonia. Pneumonia. Acute hypoxic respiratory failure. Metabolic encephalography. Alcohol withdrawal. Hypomagnesemia. Hypokalemia. Transaminitis. Hyperbilirubinemia. Alcohol use disorder. Unhoused. UDS positive for methamphetamine. Assessment/Plan Continued all current supportive medical care. DVT and GI prophylactics. Diuretics with Lasix. IV antibiotics as ordered. Additional plan as per the hospital course. Dietary Evaluation Review Comments: 1) Encourage optimal PO intake 2) Continue multivitamin with thiamin and folate 3) Follow-up with social studies teacher regarding ETOH abuse 4) Follow-up with cardiology and gastroenterology 5) Continue to monitor I&O, labs, and skin integrity Expected Outcomes/Goals: 1) appetite and labs to advance 2) f/u in 3-5 days Plan discussed with: Patient FELIPE FERRIS MD January 01, 2025 13:31
[2025-01-02] VITALS (12 sets, daily range): BP systolic 110–140; BP diastolic 64–92; PULSE 67–86; RESP 15–20; TEMP 97.3–98.1; O2SAT 91–99
--- NOTE | 2025-01-02 07:07 | DVHTSRES ---
Transfer Summary Transfer Summary Resident Creating Document: EMERSON KLINE RESIDENT Date of Admission Dec 21, 2024 at 20:34 Date of Transfer: January 02, 2025 Transfer Diagnosis Sepsis due to multifocal pneumonia Pneumonia, probably aspiration Bilateral pleural effusioN Acute hypoxic respiratory failure Metabolic encephalopathy Alcohol withdrawal, CIWA 6 Hypomagnesemia, severe: Serum magnesium 0.6 Hypokalemia--. IMPROVED Transaminitis, alcohol induced Hyperbilirubinemia Alcohol use disorder UDS positive for methamphetamine Brief Hx & Hospital Course: Patient is a 64-year-old homeless patient wtih past medical history of recurrent alcohol withdrawals and alcohol use disorder who presented to ED on 12/22/2023 for alcohol withdrawal. Per the patient, he had drank 4 pints of vodka daily, last drink was 2 days prior to presenting to the ED. Patient also notes bilateral flank pain that has been ongoing for the past 1 month. On review of systems patient complained of fatigue, fever, chills, shortness of breath, dry cough, nausea and dry heaving. CT abdomen pelvis showed possible right lower lobe pneumonia, patient was noted to have a lactic acid level of 7.7, 8.5. Plasma alcohol level 158.9. At the time of my assessment patient was AO x3, CIWA score 10. Patient was started on banana bag, IV NS and IV lorazepam along with IV vancomycin and piperacillin-tazobactam. Past Medical History: alcohol withdrawals and alcohol use disorder Past Surgical History: Denies Past Social History: Smoking: Denies, Alcohol: Drinks 4 pt of vodka per day for the last 40 years Medicine: Denies Drugs Brief Hospital Course This 64 yo male presented in alcohol withdrawal state with confusion, fever, chills, shortness of breath, dry cough, nausea and dry heaving. He was managed for acute alcohol withdrawal with ativan and later librium. His initial vitals showed tachycardiac 129, fever (Temp: 100.7);lactic acid was markedly elevated. Chest xray showed consolidation in the right lung base and cardiomegaly. Patient had sepsis seconday to multifocal pneumonia and managed with Zosyn and vancomycin, and fluids.Two days later, blood culture grew Gram Positive Cocci in chains and Gram Positive Cocci in pairs. We continue with the same antibiotics and his withdrawal management as well. patient had a very bad multifocal pneumonia with bilateral pleural effusion. Over the days, he became more alert and oriented. However, his breathing was still labored and he continued to demand a minimal of4L of oxygen. Pulmonology was consult and they did thoracentesis with improve his respiratory efforts. We continued to monitor the patient on librium taper, antibiotics and breathing treatment. Patient is currently on 2L of oxygen. He is doing well and ready to go home. From the pulmonary standpoint, patient is stable for discharge. PT was consult for physical with and without oxygen therapy. Patient will be going home to his brother' house ( [place]). He will be discharge on Augmentin 875 mg bid for 7 days. Transfer to: Dr. Villatoro Discharge Instructions: Going home to his brother's house Continue Augmentin 875mg for 7 days Follow up at the discharge clinic Follow up at alcohol rehab centers for help Find a PCP Return to the ED if he notes any changes Transfer Status Improved Stable for discharge EMERSON KLINE RESIDENT January 02, 2025 07:07 LETI THAKKAR MD January 03, 2025 12:33
[2025-01-02] MEDS: LOSARTAN POTASSIUM 25 MG TAB PO SCH (09:45)
[2025-01-02] MEDS ORDERED: ACETAMINOPHEN 325 MG TAB PO PRN (09:45)
[2025-01-02] MEDS: PANTOPRAZOLE 40 MG TAB PO ONE (12:11)
--- NOTE | 2025-01-02 13:07 | DVHPNRES ---
Progress Note Date Seen: January 02, 2025 Resident Creating Document: JAKE PAUL RESIDENT Has the PT tested + for MRSA If YES, has PT been informed?: No Medical Necessity Reason Pt with a Central, PICC or Fol: No Subjective Review of Systems Patient is a 64-year-old unhoused male with past medical history of recurrent alcohol withdrawals and alcohol use disorder, who comes in due to alcohol withdrawal. According to the patient, he drinks 4 pt of vodka daily, last drink was 2 days ago. Patient also notes bilateral flank pain that has been ongoing for the past 1 month. On review of systems patient is complaining of fatigue, fever, chills, shortness of breath, dry cough, nausea and dry heaving. CT abdomen pelvis showed possible right lower lobe pneumonia, patient was noted to have a lactic acid level of 7.7, 8.5. Plasma alcohol level 158.9. At the time of my assessment patient was AO x3, CIWA score 10. Patient was started on banana bag, IV NS and IV lorazepam along with IV vancomycin and piperacillin- tazobactam. Past Medical History: alcohol withdrawals and alcohol use disorder Past Surgical History: Denies Past Social History: Smoking: Denies, Alcohol: Drinks 4 pt of vodka per day for the last 40 years Medicine: Denies Drugs Review of systems Patient seen and examined at bedside Currently on room air and denies feeling short of breath. Physical therapy worked with the patient and recommended front wheel walker as patient has poor balance Patient reported of a headache but denied any anxiety, agitation, nausea or vomiting, hallucinations Objective vital signs Vital Sign Date Time Temp Pulse Resp B/P (MAP) Pulse Ox O2 Delivery O2 Flow Rate FiO2 01/02/25 12:12 140/92 01/02/25 11:47 70 18 99 01/02/25 11:41 Room Air 0.0 01/02/25 11:41 21 01/02/25 09:00 97.7 97.7 Total Intake and Output 01/01/25 01/01/25 01/02/25 15:00 23:00 07:00 Intake Total 900 ml 600 ml Balance 900 ml 600 ml medications Current Medications Medications Dose Ordered Sig/Shubham Route Start Time Stop Time Status Last Admin Dose Admin Ondansetron HCl 4 mg Q4HP PRN IV 12/21/24 20:45 12/23/24 19:40 4 MG Enoxaparin Sodium 40 mg DAILY SC 12/22/24 10:00 01/02/25 09:46 40 MG Potassium Chloride 100 ml @ 50 mls/hr Q2H IV 12/21/24 21:45 12/22/24 01:44 UNV Ipratropium [place] 0.5 mg Q6HWA [facility] 12/22/24 06:00 01/02/25 11:40 0.5 MG Levalbuterol HCl 0.625 mg Q6HR NEB 12/22/24 06:00 01/02/25 11:41 0.625 MG Throat Lozenges 1 dominick Q2HP PRN MT 12/23/24 21:00 12/26/24 15:08 1 DOMINICK Cyanocobalamin 500 mcg DAILY PO 12/27/24 10:00 01/02/25 09:44 500 MCG Furosemide 40 mg DAILY IV 12/29/24 10:00 01/02/25 12:12 40 MG Folic Acid 1 mg DAILY PO 12/29/24 10:00 01/02/25 09:44 1 MG Multivitamins 1 tab DAILY PO 12/29/24 10:00 01/02/25 09:44 1 TAB Magnesium Oxide 400 mg DAILY PO 12/29/24 10:00 01/02/25 09:44 400 MG Thiamine HCl 100 mg DAILY PO 12/29/24 10:00 01/02/25 09:45 100 MG Chlordiazepoxide HCl 25 mg Q8HR PO 01/01/25 14:00 01/02/25 05:24 25 MG Pantoprazole Sodium 40 mg DAILY@0600 PO 01/03/25 06:00 Losartan Potassium 25 mg DAILY PO 01/02/25 10:00 01/02/25 09:45 25 MG Acetaminophen 325 mg Q6H PRN PO 01/02/25 09:45 Examination Constitutional: Patient was alert and oriented X 4, does not appear to be in any acute distress Gen - no pallor, no icterus, no cyanosis, no clubbing, no LAD, no edema . Skin - Patients skin is warm and dry. HEENT - normocephalic, atraumatic, moist mucous membranes. Neck - full ROM, no LAD, no JVD Pulmonary - B/L equal breath sounds in the upper 2/3 of the lungs but low 1/3 decreased breath sounds with minimal diffuse crackles, no wheezing, no stridor. cardiovascular - regular S1,S2 heard. no murmurs heard. GI - soft, nontender abdomen. no hepatospleenomegaly. Bowel sounds normoactive Neurological - Bilateral upper extremity strength 4/5, bilateral lower extremity strength 4/5, no facial droop, comprehensible speech, no tremor, no sensory deficiets, cranial nerve 2 pupils equal and reactive, cranial nerve 3 4 6 exam normal extraocular movements, cranial nerve 5- normal facial sensation and muscles of jaw regular movement, cranial 7 exam normal laboratory and microbiology Laboratory Tests 01/01/25 08:52 Test 01/01/25 08:52 Range/Units Serum Glucose 99 74-106 mg/dL Microbiology Date/Time Source Procedure Growth Status 12/29/24 11:00 Pleural Fluid Gram Stain - Final Resulted 12/29/24 11:00 Pleural Fluid Body Fluid Culture - Preliminary Resulted 12/28/24 14:11 Sputum Gram Stain - Final Complete 12/28/24 14:11 Sputum Respiratory Culture - Final Complete 12/26/24 05:45 Blood Blood Culture - Final NO GROWTH AFTER 5 DAYS OF INCUBATION. Complete 12/23/24 05:35 Nose MRSA Screen - Final Methicillin Resistant S.aureus Complete 12/21/24 23:23 Voided Urine Urine Culture - Final Complete Problem List/Assessment/Plan Problem List/Assessment/Plan Acute metabolic encephalography likely d/t alcohol/ sepsis Alcohol withdrawal, resolved - chlordiazepoxide - patient currently is A/O X 4 Sepsis likely due to bacteremia ?multifocal pneumonia - initial blood cultures showed strept pneumoniae, was on zosyn - repeat blood cultures negative Acute hypoxic respiratory failure, resolved Pneumonia likely d/t gram+/- bacteria ?aspiration Bilateral pleural effusion PE ruled out - s/p thoracentesis today 12/29/2024, 200 mL fluid removed from right pleural space, 550 mL fluid removed from left pleural space - fluid analysis shows exudate - CT angio showed no evidence of PE - patient received zosyn for 11 days, no fever, WBC normal, no sputum, ABx d/presley Hypomagnesemia, Hypokalemia - replaced Transaminitis, alcohol induced Hyperbilirubinemia - improving Alcohol use disorder Unhoused UDS positive for methamphetamine - hepatitis panel :Negative - HIV testing : Negative - consulted socially responsible investment adviser for alcohol dependency and homeless PUD prophylaxis: protonix 40mg DVT prophylaxis: Levonox 40mg Goals of care discuss with the patient for over 27 minutes: full code Plan discussed with Dr. Romano Plan discussed with: Patient, Other (RN ( Katherine )) My Orders My Orders Orders - JAKE PAUL RESIDENT Procedure Category Date Status Time Pantoprazole Tablet PHA 01/03/25 In Process (Protonix Tablet) 06:00 Losartan Tablet PHA 01/02/25 In Process (Cozaar Tablet) 10:00 Strict I & O REYES 01/02/25 In Process 09:15 Dietary Evaluation Review Comments: 1) Encourage optimal PO intake 2) Continue multivitamin with thiamin and folate 3) Follow-up with social media marketing analyst regarding ETOH abuse 4) Follow-up with cardiology and gastroenterology 5) Continue to monitor I&O, labs, and skin integrity Expected Outcomes/Goals: 1) appetite and labs to advance 2) f/u in 3-5 days Date of Service: January 02, 2025 Billing Provider: SHAJI ROMANO DO Common Visit Codes: [id number] INP/OBS CARE(HIGH) JAKE PAUL RESIDENT January 02, 2025 13:07 SHAJI ROMANO DO January 02, 2025 20:18
[2025-01-02] MEDS: MAGNESIUM OXIDE 400 MG TAB PO ONE (15:52)
[2025-01-02] MEDS: ACETAMINOPHEN 325 MG TAB PO PRN (20:16)
[2025-01-02] MEDS: CARVEDILOL 3.125 MG TAB PO SCH (21:52)
[2025-01-02] MEDS: MELATONIN 5 MG TAB PO SCH (22:00)
--- NOTE | 2025-01-02 22:28 | DVHPN2 ---
Progress Note - Dictate Date Seen: January 02, 2025 Has the PT tested + for MRSA If YES, has PT been informed?: No Medical Necessity Reason Pt with a Central, PICC or Fol: No Subjective Patient was seen and evaluated in follow up. No overnight events. Patient now on room air. Patient c/o a headache. Physical therapy worked with the patient and recommended front wheel walker as patient has poor balance. vital signs Vital Sign Date Time Temp Pulse Resp B/P (MAP) Pulse Ox O2 Delivery O2 Flow Rate FiO2 01/02/25 21:52 86 110/64 01/02/25 21:00 97.6 15 95 97.6 01/02/25 11:41 Room Air 0.0 01/02/25 11:41 21 Total Intake and Output 01/01/25 01/01/25 01/02/25 14:59 22:59 06:59 Intake Total 900 ml 600 ml Balance 900 ml 600 ml medications Current Medications Medications Dose Ordered Sig/Shubham Route Start Time Stop Time Status Last Admin Dose Admin Ondansetron HCl 4 mg Q4HP PRN IV 12/21/24 20:45 12/23/24 19:40 4 MG Enoxaparin Sodium 40 mg DAILY SC 12/22/24 10:00 01/02/25 09:46 40 MG Potassium Chloride 100 ml @ 50 mls/hr Q2H IV 12/21/24 21:45 12/22/24 01:44 UNV Ipratropium [place] 0.5 mg Q6HWA [facility] 12/22/24 06:00 01/02/25 11:40 0.5 MG Levalbuterol HCl 0.625 mg Q6HR [facility] 12/22/24 06:00 01/02/25 11:41 0.625 MG Throat Lozenges 1 dominick Q2HP PRN MT 12/23/24 21:00 12/26/24 15:08 1 DOMINICK Cyanocobalamin 500 mcg DAILY PO 12/27/24 10:00 01/02/25 09:44 500 MCG Furosemide 40 mg DAILY IV 12/29/24 10:00 01/02/25 12:12 40 MG Folic Acid 1 mg DAILY PO 12/29/24 10:00 01/02/25 09:44 1 MG Multivitamins 1 tab DAILY PO 12/29/24 10:00 01/02/25 09:44 1 TAB Thiamine HCl 100 mg DAILY PO 12/29/24 10:00 01/02/25 09:45 100 MG Pantoprazole Sodium 40 mg DAILY@0600 PO 01/03/25 06:00 Losartan Potassium 25 mg DAILY PO 01/02/25 10:00 01/02/25 09:45 25 MG Acetaminophen 650 mg Q6H PRN PO 01/02/25 13:00 01/02/25 20:16 650 MG Magnesium Oxide 800 mg DAILY PO 01/03/25 10:00 Carvedilol 3.125 mg Q12HR PO 01/02/25 22:00 01/02/25 21:52 3.125 MG Chlordiazepoxide HCl 25 mg DAILY PO 01/03/25 10:00 Melatonin 5 mg HS PO 01/02/25 22:00 objective GENERAL: Alert and oriented x 3. No acute distress. EYES: PERRL, EOMI. Anicteric. HENT: Moist mucous membranes. LUNGS: Clear to auscultation bilaterally. CARDIOVASCULAR: Regular rate and rhythm. ABDOMEN: Soft, nontender and nondistended.Bilateral upper flank tenderness to palpation. EXTREMITIES: No edema. NEUROLOGIC: No focal neurological deficits. SKIN: Warm, dry. laboratory and microbiology Laboratory Tests 01/01/25 08:52 Test 01/01/25 08:52 Range/Units Serum Glucose 99 74-106 mg/dL Problem List Sepsis due to multifocal pneumonia. Pneumonia. Acute hypoxic respiratory failure. Metabolic encephalography. Alcohol withdrawal. Hypomagnesemia. Hypokalemia. Transaminitis. Hyperbilirubinemia. Alcohol use disorder. Unhoused. UDS positive for methamphetamine. Assessment/Plan Continued all current supportive medical care. DVT and GI prophylactics. Diuretics with Lasix. IV antibiotics as ordered. Additional plan as per the hospital course. Dietary Evaluation Review Comments: 1) Encourage optimal PO intake 2) Continue multivitamin with thiamin and folate 3) Follow-up with hospital social worker regarding ETOH abuse 4) Follow-up with cardiology and gastroenterology 5) Continue to monitor I&O, labs, and skin integrity Expected Outcomes/Goals: 1) appetite and labs to advance 2) f/u in 3-5 days Plan discussed with: Patient FELIPE FERRIS MD January 02, 2025 22:28
--- NOTE | 2025-01-02 23:07 | DVHPN2 ---
Progress Note - Dictate Date Seen: January 02, 2025 Has the PT tested + for MRSA If YES, has PT been informed?: No Medical Necessity Reason Pt with a Central, PICC or Fol: No Subjective Patient seen and examined at bedside. Breathing comfortably on room air. Overnight events reviewed. vital signs Vital Sign Date Time Temp Pulse Resp B/P (MAP) Pulse Ox O2 Delivery O2 Flow Rate FiO2 01/02/25 21:52 86 110/64 01/02/25 21:00 97.6 15 95 97.6 01/02/25 11:41 Room Air 0.0 01/02/25 11:41 21 Total Intake and Output 01/01/25 01/01/25 01/02/25 15:00 23:00 07:00 Intake Total 900 ml 600 ml Balance 900 ml 600 ml medications Current Medications Medications Dose Ordered Sig/Shubham Route Start Time Stop Time Status Last Admin Dose Admin Ondansetron HCl 4 mg Q4HP PRN IV 12/21/24 20:45 12/23/24 19:40 4 MG Enoxaparin Sodium 40 mg DAILY SC 12/22/24 10:00 01/02/25 09:46 40 MG Potassium Chloride 100 ml @ 50 mls/hr Q2H IV 12/21/24 21:45 12/22/24 01:44 UNV Ipratropium [place] 0.5 mg Q6HWA [facility] 12/22/24 06:00 01/02/25 11:40 0.5 MG Levalbuterol HCl 0.625 mg Q6HR NEB 12/22/24 06:00 01/02/25 11:41 0.625 MG Throat Lozenges 1 dominick Q2HP PRN MT 12/23/24 21:00 12/26/24 15:08 1 DOMINICK Cyanocobalamin 500 mcg DAILY PO 12/27/24 10:00 01/02/25 09:44 500 MCG Furosemide 40 mg DAILY IV 12/29/24 10:00 01/02/25 12:12 40 MG Folic Acid 1 mg DAILY PO 12/29/24 10:00 01/02/25 09:44 1 MG Multivitamins 1 tab DAILY PO 12/29/24 10:00 01/02/25 09:44 1 TAB Thiamine HCl 100 mg DAILY PO 12/29/24 10:00 01/02/25 09:45 100 MG Pantoprazole Sodium 40 mg DAILY@0600 PO 01/03/25 06:00 Losartan Potassium 25 mg DAILY PO 01/02/25 10:00 01/02/25 09:45 25 MG Acetaminophen 650 mg Q6H PRN PO 01/02/25 13:00 01/02/25 20:16 650 MG Magnesium Oxide 800 mg DAILY PO 01/03/25 10:00 Carvedilol 3.125 mg Q12HR PO 01/02/25 22:00 01/02/25 21:52 3.125 MG Chlordiazepoxide HCl 25 mg DAILY PO 01/03/25 10:00 Melatonin 5 mg HS PO 01/02/25 22:00 objective Gen.: Patient lying in bed in no apparent distress. Breathing on room air. Head: Normocephalic, atraumatic. Eyes: EOMI/PERRLA. Ears: Normal hearing. Normal anatomy. Neck/trachea: Trachea midline, supple. Nose: Normal external anatomy. Mouth: Moist mucous membranes. Chest: Decreased air entry bilaterally. No wheezing or rhonchi. Cardiovascular: Positive S1, positive S2. Regular rate and rhythm. Abdomen: Positive bowel sounds in all 4 quadrants. Soft, non-tender, non- distended. : Deferred. Rectal: Deferred. Skin: Warm, dry. Intact. Extremities: 2+ radial pulses bilaterally. No lower extremity edema. Neuro: Awake, alert, oriented x3. No gross motor or sensory deficits. Cranial nerves II through XII intact. Gait not assessed. laboratory and microbiology Laboratory Tests 01/01/25 08:52 Test 01/01/25 08:52 Range/Units Serum Glucose 99 74-106 mg/dL Assessment/Plan Impression Acute hypoxemic respiratory failure Failure to thrive Substance abuse Pleural effusions Pneumonia Atelectasis Events Patient seen and examined On room air Supplemental oxygen PRN No distress Continue bronchodilators Incentive spirometry Cepacol lozenges Tylenol 650 mg q. hours Diurese w/ Lasix Monitor renal function Monitor electrolytes. Supplement as needed. Monitor ins and outs Labs and imaging reviewed Plan: Supplemental oxygen PRN Titrate to maintain sats 90% or above Incentive spirometry Continue antibiotics Bronchodilators Monitor renal function Monitor electrolytes Supplement as needed GI prophylaxis - Protonix DVT prophylaxis- Lovenox Prognosis: Poor given patient's multiple co-morbidities. Rest of plan per hospitalist and other consultants. Thank you, Dr. Villatoro, for allowing me to participate in this patient's care. Further recommendations will depend on the patient's clinical course. Please do not hesitate to contact me if you have any questions or concerns. This medical document was created using an electronic medical record system with [employer] dictation system. Although these documentations are being carefully reviewed, there may still be some phonetic and typographical changes. The errors are purely typographical, due to imperfection on the software program, and do not reflect any compromise in the patient's medical care. Dietary Evaluation Review Comments: 1) Encourage optimal PO intake 2) Continue multivitamin with thiamin and folate 3) Follow-up with manager social regarding ETOH abuse 4) Follow-up with cardiology and gastroenterology 5) Continue to monitor I&O, labs, and skin integrity Expected Outcomes/Goals: 1) appetite and labs to advance 2) f/u in 3-5 days Plan discussed with: Patient, Other (IZA Bryant) FRANCE LARA MD January 02, 2025 23:07
[2025-01-03] VITALS (11 sets, daily range): BP systolic 101–123; BP diastolic 64–78; PULSE 71–90; RESP 15–18; TEMP 97.2–98; O2SAT 92–100
[2025-01-03] MEDS: PANTOPRAZOLE 40 MG TAB PO SCH (06:19)
[2025-01-03 06:58] LABS: Basophils # (auto) 0.1 10 ^3/uL (0-0.2); Eosinophils # (auto) 0.4 10 ^3/uL (0-0.8); Lymphocytes # (auto) 1.1 10 ^3/uL (0.4-5.4); Monocytes # (auto) 0.6 10 ^3/uL (0-1.3); Neutrophils # (auto) 4.1 10 ^3/uL (1.6-8.6); Nucleated Red Blood Cells % 0.1 %
--- NOTE | 2025-01-03 06:59 | DVH ---
CHEST RADIOGRAPH Indication: SOB Technique: Single frontal view of the chest was obtained Comparison: XY CHEST PORTABLE on DOS: 12/30/24, XY CHEST XRAY 1 VIEW on DOS: 12/21/24, XY CHEST XRAY 1 V IEW on DOS: 07/28/24, XY CHEST XRAY 1 VIEW on DOS: 05/08/24, XY CHEST XRAY 1 VIEW on DOS: 05/07/24 FINDINGS: Lines and Tubes: None Lungs: No focal consolidation. Pleura: No effusion. No pneumothorax. Cardiomediastinal contours: Unremarkable Bones: No acute osseous abnormality. IMPRESSION: 1. No acute cardiopulmonary disease.
[2025-01-03 07:00] LABS: Basophils % (auto) 1.2 % (0.0-2.0); Eosinophils % (auto) 6.3 % (0.0-7.0); Hematocrit 32.2 % (41.0-53.0); Hemoglobin 11.2 g/dL (13.5-17.5); Lymphocytes % (auto) 17.4 % (10.0-50.0); Mean Corpuscular Hemoglobin 38.6 pg (28.0-32.0); Mean Corpuscular Hgb Conc. 34.9 g/dL (32.0-36.0); Mean Corpuscular Volume 110.7 fL (80.0-100.0); Monocytes % (auto) 9.7 % (0.0-12.0); Neutrophils % (auto) 65.4 % (37.0-80.0); Platelet Count (auto) 459 10^3/uL (140-450); Red Blood Cells 2.91 10^6/uL (4.5-5.90); White Blood Cell 6.2 10^3/uL (4.4-10.8)
[2025-01-03 07:01] LABS: Albumin 3.7 g/dL (3.2-4.8); Anion Gap 9 (5-15); Bilirubin, Total 0.7 mg/dL (0.2-1.0); Blood Urea Nitrogen 17 mg/dL (9-23); Calcium 10.2 mg/dL (8.7-10.4); Carbon Dioxide 28 mmol/L (20-31); Chloride 103 mmol/L (98-107); Glucose 106 mg/dL (74-106); Magnesium 1.7 mg/dL (1.6-2.6); Potassium 3.9 mmol/L (3.5-5.1); Sodium 140 mmol/L (136-145)
[2025-01-03 07:02] LABS: Alanine Aminotransferase 55 U/L (7-40); Alkaline Phosphatase 126 U/L (46-116); Aspartate Aminotransferase 137 U/L (13-40)
[2025-01-03] MEDS: chlordiazePOXIDE HCL 25 MG CAP PO SCH (10:55)
[2025-01-03] MEDS: MAGNESIUM OXIDE 400 MG TAB PO SCH (10:56)
--- NOTE | 2025-01-03 12:18 | CODING ---
Date of Service: Dec 26, 2024 Billing Provider: LETI THAKKAR MD Common Visit Codes: [id number] INP/OBS CARE(HIGH) LETI THAKKAR MD January 03, 2025 12:18
--- NOTE | 2025-01-03 16:57 | DVHPNRES ---
Progress Note Date Seen: January 03, 2025 Resident Creating Document: JAKE PAUL RESIDENT Has the PT tested + for MRSA If YES, has PT been informed?: No Medical Necessity Reason Pt with a Central, PICC or Fol: No Subjective Review of Systems Patient is a 64-year-old unhoused male with past medical history of recurrent alcohol withdrawals and alcohol use disorder, who comes in due to alcohol withdrawal. According to the patient, he drinks 4 pt of vodka daily, last drink was 2 days ago. Patient also notes bilateral flank pain that has been ongoing for the past 1 month. On review of systems patient is complaining of fatigue, fever, chills, shortness of breath, dry cough, nausea and dry heaving. CT abdomen pelvis showed possible right lower lobe pneumonia, patient was noted to have a lactic acid level of 7.7, 8.5. Plasma alcohol level 158.9. At the time of my assessment patient was AO x3, CIWA score 10. Patient was started on banana bag, IV NS and IV lorazepam along with IV vancomycin and piperacillin- tazobactam. Past Medical History: alcohol withdrawals and alcohol use disorder Past Surgical History: Denies Past Social History: Smoking: Denies, Alcohol: Drinks 4 pt of vodka per day for the last 40 years Medicine: Denies Drugs Review of systems Patient seen and examined at bedside Currently on room air and denies feeling short of breath. Physical therapy worked with the patient and recommended front wheel walker as patient has poor balance Patient was reports of urinary and fecal incontinence, on rectal exam tone is preserved Patient reported of a headache but denied any anxiety, agitation, nausea or vomiting, hallucinations Objective vital signs Vital Sign Date Time Temp Pulse Resp B/P (MAP) Pulse Ox O2 Delivery O2 Flow Rate FiO2 01/03/25 11:20 94 Room Air 0.0 01/03/25 11:20 21 01/03/25 10:58 71 112/70 01/03/25 09:00 97.8 16 97.8 Total Intake and Output 01/02/25 01/02/25 01/03/25 15:00 23:00 07:00 Intake Total 700 ml 400 ml Output Total 150 ml 200 ml Balance -150 ml 700 ml 200 ml medications Current Medications Medications Dose Ordered Sig/Shubham Route Start Time Stop Time Status Last Admin Dose Admin Ondansetron HCl 4 mg Q4HP PRN IV 12/21/24 20:45 12/23/24 19:40 4 MG Enoxaparin Sodium 40 mg DAILY SC 12/22/24 10:00 01/03/25 10:57 40 MG Potassium Chloride 100 ml @ 50 mls/hr Q2H IV 12/21/24 21:45 12/22/24 01:44 UNV Ipratropium [place] 0.5 mg Q6HWA [facility] 12/22/24 06:00 01/03/25 06:09 0.5 MG Levalbuterol HCl 0.625 mg Q6HR NEB 12/22/24 06:00 01/03/25 06:09 0.625 MG Throat Lozenges 1 dominick Q2HP PRN MT 12/23/24 21:00 12/26/24 15:08 1 DOMINICK Cyanocobalamin 500 mcg DAILY PO 12/27/24 10:00 01/03/25 10:55 500 MCG Furosemide 40 mg DAILY IV 12/29/24 10:00 01/03/25 10:58 40 MG Folic Acid 1 mg DAILY PO 12/29/24 10:00 01/03/25 10:56 1 MG Multivitamins 1 tab DAILY PO 12/29/24 10:00 01/03/25 10:56 1 TAB Thiamine HCl 100 mg DAILY PO 12/29/24 10:00 01/03/25 10:56 100 MG Pantoprazole Sodium 40 mg DAILY@0600 PO 01/03/25 06:00 01/03/25 06:19 40 MG Losartan Potassium 25 mg DAILY PO 01/02/25 10:00 01/03/25 10:58 25 MG Acetaminophen 650 mg Q6H PRN PO 01/02/25 13:00 01/02/25 20:16 650 MG Magnesium Oxide 800 mg DAILY PO 01/03/25 10:00 01/03/25 10:56 800 MG Carvedilol 3.125 mg Q12HR PO 01/02/25 22:00 01/03/25 10:58 3.125 MG Melatonin 5 mg HS PO 01/02/25 22:00 Examination Constitutional: Patient was alert and oriented X 4, does not appear to be in any acute distress Gen - no pallor, no icterus, no cyanosis, no clubbing, no LAD, no edema . Skin - Patients skin is warm and dry. HEENT - normocephalic, atraumatic, moist mucous membranes. Neck - full ROM, no LAD, no JVD Pulmonary - B/L equal breath sounds with minimal diffuse crackles, no wheezing, no stridor. cardiovascular - regular S1,S2 heard. no murmurs heard. GI - soft, nontender abdomen. no hepatospleenomegaly. Bowel sounds normoactive Neurological - Bilateral upper extremity strength 4/5, bilateral lower extremity strength 4/5, no facial droop, comprehensible speech, no tremor, no sensory deficiets, cranial nerve 2 pupils equal and reactive, cranial nerve 3 4 6 exam normal extraocular movements, cranial nerve 5- normal facial sensation and muscles of jaw regular movement, cranial 7 exam normal Rectal exam: Rectal tone is preserved laboratory and microbiology Laboratory Tests 01/03/25 05:54 Test 01/03/25 05:54 Range/Units Serum Glucose 106 74-106 mg/dL Microbiology Date/Time Source Procedure Growth Status 12/29/24 11:00 Pleural Fluid Gram Stain - Final Complete 12/29/24 11:00 Pleural Fluid Body Fluid Culture - Final Complete 12/28/24 14:11 Sputum Gram Stain - Final Complete 12/28/24 14:11 Sputum Respiratory Culture - Final Complete 12/26/24 05:45 Blood Blood Culture - Final NO GROWTH AFTER 5 DAYS OF INCUBATION. Complete 12/23/24 05:35 Nose MRSA Screen - Final Methicillin Resistant S.aureus Complete 12/21/24 23:23 Voided Urine Urine Culture - Final Complete Problem List/Assessment/Plan Problem List/Assessment/Plan Acute metabolic encephalography likely d/t alcohol/ sepsis Alcohol withdrawal, resolved - patient currently is A/O X 4 Sepsis likely due to bacteremia ?multifocal pneumonia - initial blood cultures showed strept pneumoniae, was on zosyn - repeat blood cultures negative - antibiotics held Acute hypoxic respiratory failure, resolved Pneumonia likely d/t gram+/- bacteria ?aspiration Bilateral pleural effusion PE ruled out - s/p thoracentesis today 12/29/2024, 200 mL fluid removed from right pleural space, 550 mL fluid removed from left pleural space - fluid analysis shows exudate - CT angio showed no evidence of PE - patient received zosyn for 11 days, no fever, WBC normal, no sputum, ABx d/presley Hypomagnesemia, Hypokalemia - replaced Transaminitis, alcohol induced Hyperbilirubinemia - improving Alcohol use disorder Unhoused UDS positive for methamphetamine - hepatitis panel :Negative - HIV testing : Negative - patient has to be relocated back to his nephew's house, [place] who did not respond to multiple calls. We will be discharged tomorrow PUD prophylaxis: protonix 40mg DVT prophylaxis: Levonox 40mg Goals of care discuss with the patient and his brother Franklin for over 23 minutes: full code Plan discussed with Dr. Thakkar Plan discussed with: Patient, Other (Brother (franklin)) My Orders My Orders Orders - JAKE PAUL RESIDENT Procedure Category Date Status Time Melatonin (Melatonin) PHA 01/02/25 In Process 22:00 Chest Xray 1 View XY 01/03/25 Resulted 04:00 Dietary Evaluation Review Comments: 1) Encourage optimal PO intake 2) Continue multivitamin with thiamin and folate 3) Follow-up with social service worker regarding ETOH abuse 4) Follow-up with cardiology and gastroenterology 5) Continue to monitor I&O, labs, and skin integrity Expected Outcomes/Goals: 1) appetite and labs to advance 2) f/u in 3-5 days Date of Service: January 03, 2025 Billing Provider: LETI THAKKAR MD Common Visit Codes: [id number] INP/OBS CARE(HIGH) JAKE PAUL RESIDENT January 03, 2025 16:57 LETI THAKKAR MD January 04, 2025 08:42
--- NOTE | 2025-01-03 23:03 | DVHPN2 ---
Progress Note - Dictate Date Seen: January 03, 2025 Has the PT tested + for MRSA If YES, has PT been informed?: No Medical Necessity Reason Pt with a Central, PICC or Fol: No Subjective Patient seen and examined at bedside. Breathing comfortably on room air. Overnight events reviewed. vital signs Vital Sign Date Time Temp Pulse Resp B/P (MAP) Pulse Ox O2 Delivery O2 Flow Rate FiO2 01/03/25 21:28 76 98/64 01/03/25 21:00 97.9 18 95 97.9 01/03/25 11:20 Room Air 0.0 01/03/25 11:20 21 Total Intake and Output 01/02/25 01/02/25 01/03/25 15:00 23:00 07:00 Intake Total 700 ml 400 ml Output Total 150 ml 200 ml Balance -150 ml 700 ml 200 ml medications Current Medications Medications Dose Ordered Sig/Shubham Route Start Time Stop Time Status Last Admin Dose Admin Ondansetron HCl 4 mg Q4HP PRN IV 12/21/24 20:45 12/23/24 19:40 4 MG Enoxaparin Sodium 40 mg DAILY SC 12/22/24 10:00 01/03/25 10:57 40 MG Potassium Chloride 100 ml @ 50 mls/hr Q2H IV 12/21/24 21:45 12/22/24 01:44 UNV Ipratropium [place] 0.5 mg Q6HWA [facility] 12/22/24 06:00 01/03/25 06:09 0.5 MG Levalbuterol HCl 0.625 mg Q6HR NEB 12/22/24 06:00 01/03/25 06:09 0.625 MG Throat Lozenges 1 dominick Q2HP PRN MT 12/23/24 21:00 12/26/24 15:08 1 DOMINICK Cyanocobalamin 500 mcg DAILY PO 12/27/24 10:00 01/03/25 10:55 500 MCG Furosemide 40 mg DAILY IV 12/29/24 10:00 01/03/25 10:58 40 MG Folic Acid 1 mg DAILY PO 12/29/24 10:00 01/03/25 10:56 1 MG Multivitamins 1 tab DAILY PO 12/29/24 10:00 01/03/25 10:56 1 TAB Thiamine HCl 100 mg DAILY PO 12/29/24 10:00 01/03/25 10:56 100 MG Pantoprazole Sodium 40 mg DAILY@0600 PO 01/03/25 06:00 01/03/25 06:19 40 MG Losartan Potassium 25 mg DAILY PO 01/02/25 10:00 01/03/25 10:58 25 MG Acetaminophen 650 mg Q6H PRN PO 01/02/25 13:00 01/02/25 20:16 650 MG Magnesium Oxide 800 mg DAILY PO 01/03/25 10:00 01/03/25 10:56 800 MG Carvedilol 3.125 mg Q12HR PO 01/02/25 22:00 01/03/25 10:58 3.125 MG Melatonin 5 mg HS PO 01/02/25 22:00 01/03/25 21:22 5 MG objective Gen.: Patient lying in bed in no apparent distress. Breathing on room air. Head: Normocephalic, atraumatic. Eyes: EOMI/PERRLA. Ears: Normal hearing. Normal anatomy. Neck/trachea: Trachea midline, supple. Nose: Normal external anatomy. Mouth: Moist mucous membranes. Chest: Decreased air entry bilaterally. No wheezing or rhonchi. Cardiovascular: Positive S1, positive S2. Regular rate and rhythm. Abdomen: Positive bowel sounds in all 4 quadrants. Soft, non-tender, non- distended. : Deferred. Rectal: Deferred. Skin: Warm, dry. Intact. Extremities: 2+ radial pulses bilaterally. No lower extremity edema. Neuro: Awake, alert, oriented x3. No gross motor or sensory deficits. Cranial nerves II through XII intact. Gait not assessed. laboratory and microbiology Laboratory Tests 01/03/25 05:54 Test 01/03/25 05:54 Range/Units Serum Glucose 106 74-106 mg/dL Assessment/Plan Impression Acute hypoxemic respiratory failure Failure to thrive Substance abuse Pleural effusions Pneumonia Atelectasis Events Patient seen and examined On room air Supplemental oxygen PRN No distress Patient is s/p mechanical fall today Tylenol PRN. Bronchodilators PRN. Cepacol lozenges PRN Incentive spirometry Continue diuresis PRN Monitor renal function Monitor electrolytes. Supplement as needed. Monitor ins and outs DVT/GI prophylaxis Labs and imaging reviewed Plan: Supplemental oxygen PRN Titrate to maintain sats 90% or above Incentive spirometry Bronchodilators PRN Monitor renal function Monitor electrolytes Supplement as needed GI prophylaxis - Protonix DVT prophylaxis- Lovenox Prognosis: Poor given patient's multiple co-morbidities. Rest of plan per hospitalist and other consultants. Thank you, Dr. Villatoro, for allowing me to participate in this patient's care. Further recommendations will depend on the patient's clinical course. Please do not hesitate to contact me if you have any questions or concerns. This medical document was created using an electronic medical record system with [employer] dictation system. Although these documentations are being carefully reviewed, there may still be some phonetic and typographical changes. The errors are purely typographical, due to imperfection on the software program, and do not reflect any compromise in the patient's medical care. Dietary Evaluation Review Comments: 1) Encourage optimal PO intake 2) Continue multivitamin with thiamin and folate 3) Follow-up with manager social responsibility regarding ETOH abuse 4) Follow-up with cardiology and gastroenterology 5) Continue to monitor I&O, labs, and skin integrity Expected Outcomes/Goals: 1) appetite and labs to advance 2) f/u in 3-5 days Plan discussed with: Patient, Other (IZA Murphy) FRANCE LARA MD January 03, 2025 23:03
--- NOTE | 2025-01-03 23:52 | DVHPN2 ---
Progress Note - Dictate Date Seen: January 03, 2025 Has the PT tested + for MRSA If YES, has PT been informed?: No Medical Necessity Reason Pt with a Central, PICC or Fol: No Subjective Patient was seen and evaluated in follow up. No overnight events. Patient is resting in bed. ALT 55, AST 137. vital signs Vital Sign Date Time Temp Pulse Resp B/P (MAP) Pulse Ox O2 Delivery O2 Flow Rate FiO2 01/03/25 21:28 76 98/64 01/03/25 21:00 97.9 18 95 97.9 01/03/25 11:20 Room Air 0.0 01/03/25 11:20 21 Total Intake and Output 01/02/25 01/02/25 01/03/25 15:00 23:00 07:00 Intake Total 700 ml 400 ml Output Total 150 ml 200 ml Balance -150 ml 700 ml 200 ml medications Current Medications Medications Dose Ordered Sig/Shubham Route Start Time Stop Time Status Last Admin Dose Admin Ondansetron HCl 4 mg Q4HP PRN IV 12/21/24 20:45 12/23/24 19:40 4 MG Enoxaparin Sodium 40 mg DAILY SC 12/22/24 10:00 01/03/25 10:57 40 MG Potassium Chloride 100 ml @ 50 mls/hr Q2H IV 12/21/24 21:45 12/22/24 01:44 UNV Ipratropium [place] 0.5 mg Q6HWA [facility] 12/22/24 06:00 01/03/25 06:09 0.5 MG Levalbuterol HCl 0.625 mg Q6HR NEB 12/22/24 06:00 01/03/25 06:09 0.625 MG Throat Lozenges 1 dominick Q2HP PRN MT 12/23/24 21:00 12/26/24 15:08 1 DOMINICK Cyanocobalamin 500 mcg DAILY PO 12/27/24 10:00 01/03/25 10:55 500 MCG Furosemide 40 mg DAILY IV 12/29/24 10:00 01/03/25 10:58 40 MG Folic Acid 1 mg DAILY PO 12/29/24 10:00 01/03/25 10:56 1 MG Multivitamins 1 tab DAILY PO 12/29/24 10:00 01/03/25 10:56 1 TAB Thiamine HCl 100 mg DAILY PO 12/29/24 10:00 01/03/25 10:56 100 MG Pantoprazole Sodium 40 mg DAILY@0600 PO 01/03/25 06:00 01/03/25 06:19 40 MG Losartan Potassium 25 mg DAILY PO 01/02/25 10:00 01/03/25 10:58 25 MG Acetaminophen 650 mg Q6H PRN PO 01/02/25 13:00 01/02/25 20:16 650 MG Magnesium Oxide 800 mg DAILY PO 01/03/25 10:00 01/03/25 10:56 800 MG Carvedilol 3.125 mg Q12HR PO 01/02/25 22:00 01/03/25 10:58 3.125 MG Melatonin 5 mg HS PO 01/02/25 22:00 01/03/25 21:22 5 MG objective GENERAL: Alert and oriented x 3. No acute distress. EYES: PERRL, EOMI. Anicteric. HENT: Moist mucous membranes. LUNGS: Clear to auscultation bilaterally. CARDIOVASCULAR: Regular rate and rhythm. ABDOMEN: Soft, nontender and nondistended.Bilateral upper flank tenderness to palpation. EXTREMITIES: No edema. NEUROLOGIC: No focal neurological deficits. SKIN: Warm, dry. laboratory and microbiology Laboratory Tests 01/03/25 05:54 Test 01/03/25 05:54 Range/Units Serum Glucose 106 74-106 mg/dL Problem List Sepsis due to multifocal pneumonia. Pneumonia. Acute hypoxic respiratory failure. Metabolic encephalography. Alcohol withdrawal. Hypomagnesemia. Hypokalemia. Transaminitis. Hyperbilirubinemia. Alcohol use disorder. Unhoused. UDS positive for methamphetamine. Assessment/Plan Continued all current supportive medical care. DVT and GI prophylactics. Diuretics with Lasix. IV antibiotics as ordered. Additional plan as per the hospital course. Dietary Evaluation Review Comments: 1) Encourage optimal PO intake 2) Continue multivitamin with thiamin and folate 3) Follow-up with geriatric social work professor regarding ETOH abuse 4) Follow-up with cardiology and gastroenterology 5) Continue to monitor I&O, labs, and skin integrity Expected Outcomes/Goals: 1) appetite and labs to advance 2) f/u in 3-5 days Plan discussed with: Patient FELIPE FERRIS MD January 03, 2025 23:52
[2025-01-04] VITALS (10 sets, daily range): BP systolic 94–113; BP diastolic 57–76; PULSE 67–90; RESP 16–18; TEMP 97.9–98.7; O2SAT 95–100
--- NOTE | 2025-01-04 09:50 | DVH ---
CLINICAL INFORMATION: Fall injury TECHNIQUE: Axial imaging was obtained through the brain without contrast. Coronal and sagittal reform atted images were obtained, reviewed, and stored. Images were reviewed in brain and bone windows. Al l CT scans at this medical facility are performed using dose modulation techniques as appropriate to a performed exam including the following: Automated exposure control was utilized; adjustment of the MA and/or KV according to patient size; and use of iterative reconstruction technique. CTDIvol = 54.1 6 mGy DLP = 1067.36 mGy-cm COMPARISON: CT HEAD WITHOUT CONTRAST on DOS: 05/09/24 FINDINGS: There is no acute intracranial hemorrhage. No mass effect or midline shift. The ventricles and sulci are within normal limits in size for age. Basal cisterns are patent. The calvarium is unre markable. Mild mucosal thickening of the paranasal sinuses. IMPRESSION: No CT evidence of acute intracranial abnormality.
[2025-01-04] MEDS ORDERED: LOSA-534 PO (15:30)
[2025-01-04] MEDS ORDERED: PANT40T PO (15:30)
[2025-01-04] MEDS ORDERED: POTA-36 PO (15:30)
[2025-01-04] MEDS ORDERED: CARV-214 PO (15:30)
[2025-01-04] MEDS ORDERED: FURO1TAB31 PO (15:30)
--- NOTE | 2025-01-04 15:31 | DVHDSRES ---
Discharge Summary Date of Admission Resident Creating Document: JAKE PAUL RESIDENT Dec 21, 2024 at 20:34 Date of Discharge: January 02, 2025 Labs/Diagnostic Data: Laboratory Results Test 01/03/25 05:54 12/30/24 15:10 12/29/24 11:00 12/28/24 05:01 White Blood Count 6.2 10^3/uL (4.4-10.8) Red Blood Count 2.91 10^6/uL (4.5-5.90) Hemoglobin 11.2 g/dL (13.5-17.5) Hematocrit 32.2 % (41.0-53.0) Mean Corpuscular Volume 110.7 fL (80.0-100.0) Mean Corpuscular Hemoglobin 38.6 pg (28.0-32.0) Mean Corpuscular Hemoglobin Concent 34.9 g/dL (32.0-36.0) Red Cell Distribution Width 15.0 % (11.8-14.3) Platelet Count 459 10^3/uL (140-450) Mean Platelet Volume 8.6 fL (6.9-10.8) Neutrophils (%) (Auto) 65.4 % (37.0-80.0) Lymphocytes (%) (Auto) 17.4 % (10.0-50.0) Monocytes (%) (Auto) 9.7 % (0.0-12.0) Eosinophils (%) (Auto) 6.3 % (0.0-7.0) Basophils (%) (Auto) 1.2 % (0.0-2.0) Neutrophils # (Auto) 4.1 10 ^3/uL (1.6-8.6) Lymphocytes # (Auto) 1.1 10 ^3/uL (0.4-5.4) Monocytes # (Auto) 0.6 10 ^3/uL (0-1.3) Eosinophils # (Auto) 0.4 10 ^3/uL (0-0.8) Basophils # (Auto) 0.1 10 ^3/uL (0-0.2) Nucleated Red Blood Cells 0.1 % Sodium Level 140 mmol/L (136-145) Potassium Level 3.9 mmol/L (3.5-5.1) Chloride Level 103 mmol/L (98-107) Carbon Dioxide Level 28 mmol/L (20-31) Anion Gap 9 (5-15) Blood Urea Nitrogen 17 mg/dL (9-23) Creatinine 1.06 mg/dL (0.700-1.30) Glomerular Filtration Rate Calc 79 mL/min (>90) BUN/Creatinine Ratio 16.0 (10.0-20.0) Serum Glucose 106 mg/dL (74-106) Calcium Level 10.2 mg/dL (8.7-10.4) Magnesium Level 1.7 mg/dL (1.6-2.6) Total Bilirubin 0.7 mg/dL (0.2-1.0) Aspartate Amino Transferase (AST) 137 U/L (13-40) Alanine Aminotransferase (ALT) 55 U/L (7-40) Alkaline Phosphatase 126 U/L (46-116) Total Protein 7.0 g/dL (5.7-8.2) Albumin 3.7 g/dL (3.2-4.8) Lactate Dehydrogenase 266 U/L (120-246) Vancomycin Level Trough 18.1 ug/mL (5-10) Body Fluid Source Pleural fluid Body Fluid pH 8.0 Body Fluid WBC (Manual) 222 CUMM (0-200) Body Fluid RBC (Manual) 39 CUMM (0-2000) Body Fluid Mononuclear Cells 70 % Body Fluid Polymorphonuclear Cells 30 % (0-25) Body Fluid Glucose 145 mg/dL (.) Body Fluid Total Protein 3.1 g/dL (.) Body Fluid Lactate Dehydrogenase 390 IU/L (.) Differential Total Cells Counted 100.0 (100) Neutrophils % (Manual) 69 (37.0-80.0) Band Neutrophils % (Manual) 0 Lymphocytes % (Manual) 12 (10.0-50.0) Monocytes % (Manual) 12 (0-12) Eosinophils % (Manual) 6 (0-7) Basophils % (Manual) 0 (0.0-2.0) Metamyelocytes % (manual) 0 Myelocytes % (Manual) 1 Promyelocytes % (Manual) 0 Blast Cells % (Manual) 0 Reactive Lymphocytes 0 Platelet Estimate Adequate Clumped Platelets Few Giant Platelets Few Stomatocytes Few Random Vancomycin Level 11.7 ug/mL (5-10) Test 12/27/24 16:30 12/26/24 23:42 12/24/24 15:16 12/23/24 05:50 Miscellaneous Referred Test (Rm Tmp Sent to [facility] Prothrombin Time 10.7 sec (9.3-11.8) Prothrombin Time INR 1.01 (0.9-1.15) Activated Partial Thromboplast Time 25.6 SEC (24.5-34.5) D-Dimer, Quantitative 3.50 mg/L FEU (0.0-0.49) Blood Gas Specimen Type Arterial Blood Gas Sample Site Left radial Blood Gas Patient Temperature 37.0 Arterial Blood Date Drawn [id number] Arterial Blood pH 7.495 (7.350-7.450) Arterial Blood Partial Pressure CO2 26.3 mmHg (35.0-48.0) Arterial Blood Partial Pressure O2 66.4 mmHg (83.0-108.0) Arterial Blood HCO3 19.8 mmol/L (21.0-28.0) Arterial Blood Oxygen Saturation 93.9 % (94.0-98.0) Arterial Blood Base Excess -2.3 mmol/L (-2.0-3.0) Arterial Blood Oxyhemoglobin 93.0 % (94.0-98.0) Arterial Blood Carboxyhemoglobin 0.7 % (0.5-1.5) Arterial Blood Methemoglobin 0.3 % (0.0-1.5) Fredy Test Yes Blood Gas Total Hemoglobin 11.50 g/dL (13.5-17.5) Blood Gas Modality Room air Blood Gas Spontaneous Rate 28 FiO2 % 36.0 Lactic Acid Level 1.4 mmol/L (0.4-2.0) Test 12/22/24 05:17 12/22/24 00:37 12/21/24 23:24 12/21/24 23:23 Hemoglobin A1c 4.8 % A1C (<5.7) Vitamin B12 Level 619 pg/mL (211-911) Vitamin D 25-Hydroxy 15.6 ng/mL (30.0-100) Folic Acid > 48.00 ng/mL (>5.38) Thyroid Stimulating Hormone (TSH) 0.61 uIU/mL (0.55-4.78) HIV (1&2) Antibody Negative (Negative) Blood Gas Liter Flow 60.00 Blood Gas Critical Value Read Back Yes Blood Gas Notified Whom Md [place] Blood Gas Notified Time [id number] Blood Gas Notified By Rt marshall allen Urine Color [place] (Yellow) Urine Clarity Turbid (Clear) Urine pH 5.5 (5.0-9.0) Urine Specific [place] 1.018 (1.001-1.035) Urine Protein Trace (Negative) Urine Ketones Trace (Negative) Urine Blood Negative /uL (Negative) Urine Nitrite Negative (Negative) Urine Bilirubin Negative (Negative) Urine Urobilinogen 4 mg/dL (Negative) Urine Leukocyte Esterase Negative /uL (Negative) Urine RBC 1 /hpf (0 - 3) Urine Microscopic WBC 3 /HPF (0-3) Urine Squamous Epithelial Cells Few /hpf (<5) Urine Bacteria Few /hpf (None Seen) Urine Hyaline Casts Few /lpf (0 - 2) Urine Granular Casts Few /lpf (0) Urine Mucus Few (None Seen) Urine Glucose 1+ mg/dL (Normal) Urine Opiates Screen Neg (NEGATIVE) Urine Fentanyl Screen Neg (NEGATIVE) Urine Barbiturates Screen Neg (NEGATIVE) Urine Phencyclidine Screen Neg (NEGATIVE) Urine Amphetamines Screen Pos (NEGATIVE) Urine Benzodiazepines Screen Neg (NEGATIVE) Urine Cocaine Screen Neg (NEGATIVE) Urine Cannabinoids Screen Neg (NEGATIVE) Test 12/21/24 22:14 12/21/24 21:15 12/21/24 15:26 Influenza Type A Antigen Negative (Negative) Influenza Type B Antigen Negative (Negative) SARS-CoV-2 Antigen (Rapid) Negative (NEGATIVE) Phosphorus Level 3.1 mg/dL (2.4-5.1) Creatine Kinase 104 U/L (46-171) Hepatitis A Antibody Total Positive (Negative) Hepatitis B Surface Antigen Negative (Negative) Hepatitis B Surface Antibody Negative (Negative) Hepatitis B Core Total Antibody Negative (Negative) Hepatitis C Antibody Negative (Negative) Anisocytosis (manual) Slight Macrocytosis Moderate Lipase 45 U/L (12-53) Plasma/Serum Blood Alcohol 158.9 mg/dL (<10) Other Laboratory Tests 01/03/25 05:54 Final Diagnosis/Problems List Acute metabolic encephalography likely d/t alcohol/ sepsis, resolved Alcohol withdrawal, resolved Sepsis likely due to bacteremia ?multifocal pneumonia Acute hypoxic respiratory failure, resolved Pneumonia likely d/t gram+/- bacteria ?aspiration Bilateral pleural effusion PE ruled out Hypomagnesemia, Hypokalemia Transaminitis, alcohol induced Hyperbilirubinemia Alcohol use disorder Unhoused UDS positive for methamphetamine Discharge Disposition: Home Discharge Instruct/Medications Diet: Cardiac 2g Na,low cholest Activity: No Restrictions, As Tolerated Follow Up/Referral: Follow up in the d/c clinic in one week Medications: as per EMR Discharge Statement: "Patient was advised to return to the ER or call 911 if any headaches, dizziness, shortness of breath, chest pain, abdominal pain, bleeding, fevers, or worsening of medical condition. Patient was counseled about treatment plan, medications, possible side effects, patientverbalized understanding. All questions were answered to the best of my ability. This discharge took greater then 30 minutes in planning, reviewing documentation, counseling the patient, and discussing with other team members." ASSESSMENT ASSESSMENT Assessment Acute metabolic encephalography likely d/t alcohol/ sepsis, resolved Alcohol withdrawal, resolved Sepsis likely due to bacteremia ?multifocal pneumonia Acute hypoxic respiratory failure, resolved Pneumonia likely d/t gram+/- bacteria ?aspiration Bilateral pleural effusion PE ruled out Hypomagnesemia, Hypokalemia Transaminitis, alcohol induced Hyperbilirubinemia Alcohol use disorder Unhoused UDS positive for methamphetamine JAKE PAUL RESIDENT January 04, 2025 15:31
--- NOTE | 2025-01-04 19:09 | DVHDSRES ---
Discharge Summary Date of Admission Resident Creating Document: JAKE PAUL RESIDENT Dec 21, 2024 at 20:34 Date of Discharge: January 02, 2025 Admitting Diagnosis Alcohol withdrawal, CIWA 10 Acute hypoxic respiratory failure Pneumonia, probably aspiration Sepsis due to above Lactic acidosis due to above Hypomagnesemia, severe: Serum magnesium 0.6 Hypokalemia Transaminitis, alcohol induced Hyperbilirubinemia Alcohol use disorder Unhoused UDS positive for methamphetamine Wounds: none Labs/Diagnostic Data: Laboratory Results Test 01/03/25 05:54 12/30/24 15:10 12/29/24 11:00 12/28/24 05:01 White Blood Count 6.2 10^3/uL (4.4-10.8) Red Blood Count 2.91 10^6/uL (4.5-5.90) Hemoglobin 11.2 g/dL (13.5-17.5) Hematocrit 32.2 % (41.0-53.0) Mean Corpuscular Volume 110.7 fL (80.0-100.0) Mean Corpuscular Hemoglobin 38.6 pg (28.0-32.0) Mean Corpuscular Hemoglobin Concent 34.9 g/dL (32.0-36.0) Red Cell Distribution Width 15.0 % (11.8-14.3) Platelet Count 459 10^3/uL (140-450) Mean Platelet Volume 8.6 fL (6.9-10.8) Neutrophils (%) (Auto) 65.4 % (37.0-80.0) Lymphocytes (%) (Auto) 17.4 % (10.0-50.0) Monocytes (%) (Auto) 9.7 % (0.0-12.0) Eosinophils (%) (Auto) 6.3 % (0.0-7.0) Basophils (%) (Auto) 1.2 % (0.0-2.0) Neutrophils # (Auto) 4.1 10 ^3/uL (1.6-8.6) Lymphocytes # (Auto) 1.1 10 ^3/uL (0.4-5.4) Monocytes # (Auto) 0.6 10 ^3/uL (0-1.3) Eosinophils # (Auto) 0.4 10 ^3/uL (0-0.8) Basophils # (Auto) 0.1 10 ^3/uL (0-0.2) Nucleated Red Blood Cells 0.1 % Sodium Level 140 mmol/L (136-145) Potassium Level 3.9 mmol/L (3.5-5.1) Chloride Level 103 mmol/L (98-107) Carbon Dioxide Level 28 mmol/L (20-31) Anion Gap 9 (5-15) Blood Urea Nitrogen 17 mg/dL (9-23) Creatinine 1.06 mg/dL (0.700-1.30) Glomerular Filtration Rate Calc 79 mL/min (>90) BUN/Creatinine Ratio 16.0 (10.0-20.0) Serum Glucose 106 mg/dL (74-106) Calcium Level 10.2 mg/dL (8.7-10.4) Magnesium Level 1.7 mg/dL (1.6-2.6) Total Bilirubin 0.7 mg/dL (0.2-1.0) Aspartate Amino Transferase (AST) 137 U/L (13-40) Alanine Aminotransferase (ALT) 55 U/L (7-40) Alkaline Phosphatase 126 U/L (46-116) Total Protein 7.0 g/dL (5.7-8.2) Albumin 3.7 g/dL (3.2-4.8) Lactate Dehydrogenase 266 U/L (120-246) Vancomycin Level Trough 18.1 ug/mL (5-10) Body Fluid Source Pleural fluid Body Fluid pH 8.0 Body Fluid WBC (Manual) 222 CUMM (0-200) Body Fluid RBC (Manual) 39 CUMM (0-2000) Body Fluid Mononuclear Cells 70 % Body Fluid Polymorphonuclear Cells 30 % (0-25) Body Fluid Glucose 145 mg/dL (.) Body Fluid Total Protein 3.1 g/dL (.) Body Fluid Lactate Dehydrogenase 390 IU/L (.) Differential Total Cells Counted 100.0 (100) Neutrophils % (Manual) 69 (37.0-80.0) Band Neutrophils % (Manual) 0 Lymphocytes % (Manual) 12 (10.0-50.0) Monocytes % (Manual) 12 (0-12) Eosinophils % (Manual) 6 (0-7) Basophils % (Manual) 0 (0.0-2.0) Metamyelocytes % (manual) 0 Myelocytes % (Manual) 1 Promyelocytes % (Manual) 0 Blast Cells % (Manual) 0 Reactive Lymphocytes 0 Platelet Estimate Adequate Clumped Platelets Few Giant Platelets Few Stomatocytes Few Random Vancomycin Level 11.7 ug/mL (5-10) Test 12/27/24 16:30 12/26/24 23:42 12/24/24 15:16 12/23/24 05:50 Miscellaneous Referred Test (Rm Tmp Sent to [facility] Prothrombin Time 10.7 sec (9.3-11.8) Prothrombin Time INR 1.01 (0.9-1.15) Activated Partial Thromboplast Time 25.6 SEC (24.5-34.5) D-Dimer, Quantitative 3.50 mg/L FEU (0.0-0.49) Blood Gas Specimen Type Arterial Blood Gas Sample Site Left radial Blood Gas Patient Temperature 37.0 Arterial Blood Date Drawn [id number] Arterial Blood pH 7.495 (7.350-7.450) Arterial Blood Partial Pressure CO2 26.3 mmHg (35.0-48.0) Arterial Blood Partial Pressure O2 66.4 mmHg (83.0-108.0) Arterial Blood HCO3 19.8 mmol/L (21.0-28.0) Arterial Blood Oxygen Saturation 93.9 % (94.0-98.0) Arterial Blood Base Excess -2.3 mmol/L (-2.0-3.0) Arterial Blood Oxyhemoglobin 93.0 % (94.0-98.0) Arterial Blood Carboxyhemoglobin 0.7 % (0.5-1.5) Arterial Blood Methemoglobin 0.3 % (0.0-1.5) Fredy Test Yes Blood Gas Total Hemoglobin 11.50 g/dL (13.5-17.5) Blood Gas Modality Room air Blood Gas Spontaneous Rate 28 FiO2 % 36.0 Lactic Acid Level 1.4 mmol/L (0.4-2.0) Test 12/22/24 05:17 12/22/24 00:37 12/21/24 23:24 12/21/24 23:23 Hemoglobin A1c 4.8 % A1C (<5.7) Vitamin B12 Level 619 pg/mL (211-911) Vitamin D 25-Hydroxy 15.6 ng/mL (30.0-100) Folic Acid > 48.00 ng/mL (>5.38) Thyroid Stimulating Hormone (TSH) 0.61 uIU/mL (0.55-4.78) HIV (1&2) Antibody Negative (Negative) Blood Gas Liter Flow 60.00 Blood Gas Critical Value Read Back Yes Blood Gas Notified Whom Md [place] Blood Gas Notified Time [id number] Blood Gas Notified By Rt marshall allen Urine Color [place] (Yellow) Urine Clarity Turbid (Clear) Urine pH 5.5 (5.0-9.0) Urine Specific [place] 1.018 (1.001-1.035) Urine Protein Trace (Negative) Urine Ketones Trace (Negative) Urine Blood Negative /uL (Negative) Urine Nitrite Negative (Negative) Urine Bilirubin Negative (Negative) Urine Urobilinogen 4 mg/dL (Negative) Urine Leukocyte Esterase Negative /uL (Negative) Urine RBC 1 /hpf (0 - 3) Urine Microscopic WBC 3 /HPF (0-3) Urine Squamous Epithelial Cells Few /hpf (<5) Urine Bacteria Few /hpf (None Seen) Urine Hyaline Casts Few /lpf (0 - 2) Urine Granular Casts Few /lpf (0) Urine Mucus Few (None Seen) Urine Glucose 1+ mg/dL (Normal) Urine Opiates Screen Neg (NEGATIVE) Urine Fentanyl Screen Neg (NEGATIVE) Urine Barbiturates Screen Neg (NEGATIVE) Urine Phencyclidine Screen Neg (NEGATIVE) Urine Amphetamines Screen Pos (NEGATIVE) Urine Benzodiazepines Screen Neg (NEGATIVE) Urine Cocaine Screen Neg (NEGATIVE) Urine Cannabinoids Screen Neg (NEGATIVE) Test 12/21/24 22:14 12/21/24 21:15 12/21/24 15:26 Influenza Type A Antigen Negative (Negative) Influenza Type B Antigen Negative (Negative) SARS-CoV-2 Antigen (Rapid) Negative (NEGATIVE) Phosphorus Level 3.1 mg/dL (2.4-5.1) Creatine Kinase 104 U/L (46-171) Hepatitis A Antibody Total Positive (Negative) Hepatitis B Surface Antigen Negative (Negative) Hepatitis B Surface Antibody Negative (Negative) Hepatitis B Core Total Antibody Negative (Negative) Hepatitis C Antibody Negative (Negative) Anisocytosis (manual) Slight Macrocytosis Moderate Lipase 45 U/L (12-53) Plasma/Serum Blood Alcohol 158.9 mg/dL (<10) Other Laboratory Tests 01/03/25 05:54 Brief Hx & Hospital Course: HPI Patient is a 64-year-old unhoused male with past medical history of recurrent alcohol withdrawals and alcohol use disorder, who comes in due to alcohol withdrawal. According to the patient, he drinks 4 pt of vodka daily, last drink was 2 days ago. Patient also notes bilateral flank pain that has been ongoing for the past 1 month. On review of systems patient is complaining of fatigue, fever, chills, shortness of breath, dry cough, nausea and dry heaving. CT abdomen pelvis showed possible right lower lobe pneumonia, patient was noted to have a lactic acid level of 7.7, 8.5. Plasma alcohol level 158.9. At the time of my assessment patient was AO x3, CIWA score 10. Patient was started on banana bag, IV NS and IV lorazepam along with IV vancomycin and piperacillin- tazobactam. Past Medical History: alcohol withdrawals and alcohol use disorder Past Surgical History: Denies Past Social History: Smoking: Denies, Alcohol: Drinks 4 pt of vodka per day for the last 40 years Home Medicine: Denies any Drugs Brief hospital course This 64 yo male presented in alcohol withdrawal state with confusion, fever, chills, shortness of breath, dry cough, nausea and dry heaving. He was managed for acute alcohol withdrawal with ativan and later librium. His initial vitals showed tachycardiac 129, fever (Temp: 100.7);lactic acid was markedly elevated. Chest xray showed consolidation in the right lung base and cardiomegaly. Patient had sepsis seconday to multifocal pneumonia and managed with Zosyn and vancomycin, and fluids.Two days later, blood culture grew Gram Positive Cocci in chains and Gram Positive Cocci in pairs. We continue with the same antibiotics and his withdrawal management as well. patient had a very bad multifocal pneumonia with bilateral pleural effusion. He was treated with antibiotics adequately and repeat blood cultures and sputum cultures were negative for any growth. Patient was eventually taken off antibiotics and oxygen support and he did not require any oxygen even while ambulating. Patient was weak and physical therapy were consulted who recommended the patient walker and residential facility on discharge. Patient refused going to a residential facility although he had recurrent falls in the hospital while he was trying to get out of the bed. Patient was advised the benefits of going to a residential facility for physical therapy rehabilitation but he denied being aware of the risk of falls. Patient's brother Franklin was contacted and he gave contact information of patient's nephew Calixto with a whom he lived before coming to the hospital but Calixto could not be contacted even after multiple attempts. Patient on asking where he wants to go reported that he wants to go to live [facility] where he lives on [address] and wanted to go back there. While getting into the wheelchair patient had another fall right before he was being discharged, no injuries were seen and the patient was again told that he would be benefitted from going to residential facility for physical therapy rehab but he refused. Patient was sent to the location mentioned by him on an Uber with his walker. Medications worsened to 986 pharmacy to be delivered at bedside. Consults/Reason for consult Cardiology consultation for tachycardia and reduced ejection fraction Pulmonary consultation for pneumonia ?Bronch Operations or Procedures Echocardiogram Conclusion Technically good study. Sinus rhythm. Left atrial enlargement. Aortic root enlargement. Valves are normal. Left ventricular systolic function is diminished at 30% with global hypokinesis especially of the anterior and anteroapical segment of the left ventricle. Normal right ventricular function. Mild tricuspid insufficiency. Mild aortic insufficiency. No pericardial effusion masses or vegetations. Condition at Discharge: Fair Final Diagnosis/Problems List Acute metabolic encephalography likely d/t alcohol/ sepsis, resolved Alcohol withdrawal, resolved Sepsis likely due to bacteremia ?multifocal pneumonia Acute hypoxic respiratory failure, resolved Pneumonia likely d/t gram+/- bacteria ?aspiration Bilateral pleural effusion PE ruled out Hypomagnesemia, Hypokalemia Transaminitis, alcohol induced Hyperbilirubinemia Alcohol use disorder Unhoused UDS positive for methamphetamine Discharge Disposition: Home Discharge Instruct/Medications Diet: Cardiac 2g Na,low cholest Activity: No Restrictions, As Tolerated Follow Up/Referral: Follow up in the d/c clinic in one week Medications: as per EMR Discharge Statement: "Patient was advised to return to the ER or call 911 if any headaches, dizziness, shortness of breath, chest pain, abdominal pain, bleeding, fevers, or worsening of medical condition. Patient was counseled about treatment plan, medications, possible side effects, patientverbalized understanding. All questions were answered to the best of my ability. This discharge took greater then 30 minutes in planning, reviewing documentation, counseling the patient, and discussing with other team members." ASSESSMENT ASSESSMENT Assessment Acute metabolic encephalography likely d/t alcohol/ sepsis, resolved Alcohol withdrawal, resolved Sepsis likely due to bacteremia ?multifocal pneumonia Acute hypoxic respiratory failure, resolved Pneumonia likely d/t gram+/- bacteria ?aspiration Bilateral pleural effusion PE ruled out Hypomagnesemia, Hypokalemia Transaminitis, alcohol induced Hyperbilirubinemia Alcohol use disorder Unhoused UDS positive for methamphetamine JAKE PAUL RESIDENT January 04, 2025 19:09
--- NOTE | 2025-01-04 21:40 | DVHPN2 ---
Progress Note - Dictate Date Seen: January 04, 2025 Has the PT tested + for MRSA If YES, has PT been informed?: No Medical Necessity Reason Pt with a Central, PICC or Fol: No Subjective Patient was seen and evaluated in follow up. Patient has no new complaints at this time. Patient denies any cardiac symptoms. Patient is cardiac stable for discharge. vital signs Vital Sign Date Time Temp Pulse Resp B/P (MAP) Pulse Ox O2 Delivery O2 Flow Rate FiO2 01/04/25 12:06 80 16 100 01/04/25 10:41 113/74 01/04/25 09:00 98.3 98.3 01/04/25 08:15 Room Air* 0 21 Total Intake and Output 01/03/25 01/03/25 01/04/25 15:00 23:00 07:00 Intake Total 1100 ml 400 ml Output Total 101 ml Balance 1100 ml 299 ml medications Current Medications Medications Dose Ordered Sig/Shubham Route Start Time Stop Time Status Last Admin Dose Admin Ondansetron HCl 4 mg Q4HP PRN IV 12/21/24 20:45 12/23/24 19:40 4 MG Enoxaparin Sodium 40 mg DAILY SC 12/22/24 10:00 01/04/25 10:39 40 MG Potassium Chloride 100 ml @ 50 mls/hr Q2H IV 12/21/24 21:45 12/22/24 01:44 UNV Ipratropium [place] 0.5 mg Q6HWA [facility] 12/22/24 06:00 01/04/25 11:56 0.5 MG Levalbuterol HCl 0.625 mg Q6HR NEB 12/22/24 06:00 01/04/25 11:56 0.625 MG Throat Lozenges 1 dominick Q2HP PRN MT 12/23/24 21:00 12/26/24 15:08 1 DOMINICK Cyanocobalamin 500 mcg DAILY PO 12/27/24 10:00 01/04/25 10:39 500 MCG Furosemide 40 mg DAILY IV 12/29/24 10:00 01/04/25 10:39 40 MG Folic Acid 1 mg DAILY PO 12/29/24 10:00 01/04/25 10:39 1 MG Multivitamins 1 tab DAILY PO 12/29/24 10:00 01/04/25 10:40 1 TAB Thiamine HCl 100 mg DAILY PO 12/29/24 10:00 01/04/25 10:40 100 MG Pantoprazole Sodium 40 mg DAILY@0600 PO 01/03/25 06:00 01/04/25 06:15 40 MG Losartan Potassium 25 mg DAILY PO 01/02/25 10:00 01/04/25 10:41 25 MG Acetaminophen 650 mg Q6H PRN PO 01/02/25 13:00 01/02/25 20:16 650 MG Magnesium Oxide 800 mg DAILY PO 01/03/25 10:00 01/04/25 10:40 800 MG Carvedilol 3.125 mg Q12HR PO 01/02/25 22:00 01/03/25 10:58 3.125 MG Melatonin 5 mg HS PO 01/02/25 22:00 01/03/25 21:22 5 MG objective GENERAL: Alert and oriented x 3. No acute distress. EYES: PERRL, EOMI. Anicteric. HENT: Moist mucous membranes. LUNGS: Clear to auscultation bilaterally. CARDIOVASCULAR: Regular rate and rhythm. ABDOMEN: Soft, nontender and nondistended.Bilateral upper flank tenderness to palpation. EXTREMITIES: No edema. NEUROLOGIC: No focal neurological deficits. SKIN: Warm, dry. laboratory and microbiology Laboratory Tests 01/03/25 05:54 Test 01/03/25 05:54 Range/Units Serum Glucose 106 74-106 mg/dL Problem List Sepsis due to multifocal pneumonia. Pneumonia. Acute hypoxic respiratory failure. Metabolic encephalography. Alcohol withdrawal. Hypomagnesemia. Hypokalemia. Transaminitis. Hyperbilirubinemia. Alcohol use disorder. Unhoused. UDS positive for methamphetamine. Assessment/Plan Continued all current supportive medical care. DVT and GI prophylactics. Diuretics with Lasix. IV antibiotics as ordered. Additional plan as per the hospital course. Dietary Evaluation Review Comments: 1) Encourage optimal PO intake 2) Continue multivitamin with thiamin and folate 3) Follow-up with social science research assistant regarding ETOH abuse 4) Follow-up with cardiology and gastroenterology 5) Continue to monitor I&O, labs, and skin integrity Expected Outcomes/Goals: 1) appetite and labs to advance 2) f/u in 3-5 days Plan discussed with: Patient FELIPE FERRIS MD January 04, 2025 13:56
--- NOTE | 2025-01-04 23:04 | DVHPN2 ---
Progress Note - Dictate Date Seen: January 04, 2025 Has the PT tested + for MRSA If YES, has PT been informed?: No Medical Necessity Reason Pt with a Central, PICC or Fol: No Subjective Patient seen and examined at bedside. Breathing comfortably on room air. Overnight events reviewed. vital signs Vital Sign Date Time Temp Pulse Resp B/P (MAP) Pulse Ox O2 Delivery O2 Flow Rate FiO2 01/04/25 15:25 97.9 78 18 97 01/04/25 13:00 108/76 (87) 01/04/25 08:15 Room Air* 0 21 Total Intake and Output 01/03/25 01/03/25 01/04/25 15:00 23:00 07:00 Intake Total 1100 ml 400 ml Output Total 101 ml Balance 1100 ml 299 ml medications Current Medications Medications Dose Ordered Sig/Shubham Route Start Time Stop Time Status Last Admin Dose Admin Potassium Chloride 100 ml @ 50 mls/hr Q2H IV 12/21/24 21:45 12/22/24 01:44 UNV objective Gen.: Patient lying in bed in no apparent distress. Breathing on room air. Head: Normocephalic, atraumatic. Eyes: EOMI/PERRLA. Ears: Normal hearing. Normal anatomy. Neck/trachea: Trachea midline, supple. Nose: Normal external anatomy. Mouth: Moist mucous membranes. Chest: Decreased air entry bilaterally. No wheezing or rhonchi. Cardiovascular: Positive S1, positive S2. Regular rate and rhythm. Abdomen: Positive bowel sounds in all 4 quadrants. Soft, non-tender, non- distended. : Deferred. Rectal: Deferred. Skin: Warm, dry. Intact. Extremities: 2+ radial pulses bilaterally. No lower extremity edema. Neuro: Awake, alert, oriented x3. No gross motor or sensory deficits. Cranial nerves II through XII intact. Gait not assessed. laboratory and microbiology Laboratory Tests 01/03/25 05:54 Test 01/03/25 05:54 Range/Units Serum Glucose 106 74-106 mg/dL Assessment/Plan Impression Acute hypoxemic respiratory failure Failure to thrive Substance abuse Pleural effusions Pneumonia Atelectasis Events Patient seen and examined On room air Supplemental oxygen PRN No distress CT head demonstrates no evidence of intracranial hemorrhage or stroke. Continue bronchodilators Incentive spirometry Vitamin supplementation Maintain euvolemia w/ Lasix Monitor renal function Monitor electrolytes. Supplement as needed. Monitor ins and outs DVT/GI prophylaxis Disposition per hospitalist. Labs and imaging reviewed Plan: Supplemental oxygen PRN Titrate to maintain sats 90% or above Incentive spirometry Bronchodilators PRN Monitor renal function Monitor electrolytes Supplement as needed GI prophylaxis - Protonix DVT prophylaxis- Lovenox Prognosis: Guarded given patient's multiple co-morbidities. Rest of plan per hospitalist and other consultants. Thank you, Dr. Villatoro, for allowing me to participate in this patient's care. Further recommendations will depend on the patient's clinical course. Please do not hesitate to contact me if you have any questions or concerns. This medical document was created using an electronic medical record system with [employer] dictation system. Although these documentations are being carefully reviewed, there may still be some phonetic and typographical changes. The errors are purely typographical, due to imperfection on the software program, and do not reflect any compromise in the patient's medical care. Dietary Evaluation Review Comments: 1) Encourage optimal PO intake 2) Continue multivitamin with thiamin and folate 3) Follow-up with manager social regarding ETOH abuse 4) Follow-up with cardiology and gastroenterology 5) Continue to monitor I&O, labs, and skin integrity Expected Outcomes/Goals: 1) appetite and labs to advance 2) f/u in 3-5 days Plan discussed with: Patient, Other (RN Jarad) FRANCE LARA MD January 04, 2025 23:04
--- NOTE | 2025-01-05 23:51 | DVHPN2 ---
Progress Note - Dictate Date Seen: January 05, 2025 Has the PT tested + for MRSA If YES, has PT been informed?: No Medical Necessity Reason Pt with a Central, PICC or Fol: No Subjective Patient seen and examined at bedside. Breathing comfortably on room air. Overnight events reviewed. vital signs Vital Sign Date Time Temp Pulse Resp B/P (MAP) Pulse Ox O2 Delivery O2 Flow Rate FiO2 01/04/25 15:25 97.9 78 18 97 01/04/25 13:00 108/76 (87) 01/04/25 08:15 Room Air* 0 21 medications Current Medications Medications Dose Ordered Sig/Shubham Route Start Time Stop Time Status Last Admin Dose Admin Potassium Chloride 100 ml @ 50 mls/hr Q2H IV 12/21/24 21:45 12/22/24 01:44 UNV objective Gen.: Patient lying in bed in no apparent distress. Breathing on room air. Head: Normocephalic, atraumatic. Eyes: EOMI/PERRLA. Ears: Normal hearing. Normal anatomy. Neck/trachea: Trachea midline, supple. Nose: Normal external anatomy. Mouth: Moist mucous membranes. Chest: Decreased air entry bilaterally. No wheezing or rhonchi. Cardiovascular: Positive S1, positive S2. Regular rate and rhythm. Abdomen: Positive bowel sounds in all 4 quadrants. Soft, non-tender, non- distended. : Deferred. Rectal: Deferred. Skin: Warm, dry. Intact. Extremities: 2+ radial pulses bilaterally. No lower extremity edema. Neuro: Awake, alert, oriented x3. No gross motor or sensory deficits. Cranial nerves II through XII intact. Gait not assessed. laboratory and microbiology Laboratory Tests 01/03/25 05:54 Test 01/03/25 05:54 Range/Units Serum Glucose 106 74-106 mg/dL Assessment/Plan Impression Acute hypoxemic respiratory failure Failure to thrive Substance abuse Pleural effusions Pneumonia Atelectasis Events Patient seen and examined On room air Supplemental oxygen PRN No distress CT head demonstrates no evidence of intracranial hemorrhage or stroke. Continue bronchodilators Incentive spirometry Vitamin supplementation Maintain euvolemia w/ Lasix Monitor renal function Monitor electrolytes. Supplement as needed. Monitor ins and outs DVT/GI prophylaxis Disposition per hospitalist. Labs and imaging reviewed Plan: Supplemental oxygen PRN Titrate to maintain sats 90% or above Incentive spirometry Bronchodilators PRN Monitor renal function Monitor electrolytes Supplement as needed GI prophylaxis - Protonix DVT prophylaxis- Lovenox Prognosis: Guarded given patient's multiple co-morbidities. Rest of plan per hospitalist and other consultants. Thank you, Dr. Villatoro, for allowing me to participate in this patient's care. Further recommendations will depend on the patient's clinical course. Please do not hesitate to contact me if you have any questions or concerns. This medical document was created using an electronic medical record system with [employer] dictation system. Although these documentations are being carefully reviewed, there may still be some phonetic and typographical changes. The errors are purely typographical, due to imperfection on the software program, and do not reflect any compromise in the patient's medical care. Dietary Evaluation Review Comments: 1) Encourage optimal PO intake 2) Continue multivitamin with thiamin and folate 3) Follow-up with nephrology social worker regarding ETOH abuse 4) Follow-up with cardiology and gastroenterology 5) Continue to monitor I&O, labs, and skin integrity Expected Outcomes/Goals: 1) appetite and labs to advance 2) f/u in 3-5 days FRANCE LARA MD January 05, 2025 23:51
== END 2025-01-04 16:50 | disposition home or self-care (01) | DRG 720 ==
LOC: EDBD 11:04 → EDUNIT# 11:04 → ER 11:04 → OVERFLOW 20:34 → TELE-EAST 12-22 10:03 → EAST 12-30 01:12
PROVIDERS: ADMIT Student in an Organized Health Care Education/Training Program; ATTEND Student in an Organized Health Care Education/Training Program
PROC: 0W9B3ZZ Drainage of Left Pleural Cavity, Percutaneous Approach (ICD-10-PCS; principal; 2024-12-29)
PROC: 0W993ZZ Drainage of Right Pleural Cavity, Percutaneous Approach (ICD-10-PCS; 2024-12-29)
DX: A41.02 Sepsis due to Methicillin resistant Staphylococcus aureus (principal); J96.01 Acute respiratory failure with hypoxia; J69.0 Pneumonitis due to inhalation of food and vomit; G92.8 Other toxic encephalopathy; E87.20 Acidosis, unspecified; J15.69 Pneumonia due to other Gram-negative bacteria; R16.0 Hepatomegaly, not elsewhere classified; J90 Pleural effusion, not elsewhere classified; E87.6 Hypokalemia; E83.42 Hypomagnesemia; E80.6 Other disorders of bilirubin metabolism; Z68.27 Body mass index [BMI] 27.0-27.9, adult; F10.239 Alcohol dependence with withdrawal, unspecified; Z20.822 Contact with and (suspected) exposure to COVID-19; Y90.6 Blood alcohol level of 120-199 mg/100 ml; R62.7 Adult failure to thrive; J98.11 Atelectasis; R79.89 Other specified abnormal findings of blood chemistry; F10.229 Alcohol dependence with intoxication, unspecified; F15.10 Other stimulant abuse, uncomplicated; K76.0 Fatty (change of) liver, not elsewhere classified; Z79.899 Other long term (current) drug therapy; Z59.00 Homelessness unspecified; Z82.49 Family history of ischemic heart disease and other diseases of the circulatory system; Z83.3 Family history of diabetes mellitus; J15.9 Unspecified bacterial pneumonia
CPT/HCPCS: 36415; 36600; 70450; 71045; 71250; 71275; 74176; 80048; 80053; 80202; 80307; 80320; 81001; 82306; 82550; 82565; 82607; 82746; 82805; 83036; 83605; 83615; 83690; 83735; 83986; 84100; 84443; 85007; 85025; 85027; 85379; 85610; 85730; 86703; 86704; 86706; 86708; 86803; 87040; 87070; 87077; 87081; 87086; 87186; 87205; 87340; 87426; 87804; 89051; 93005; 93306; 94640; 96365; 96375; 97163; 99291; G0378; J0692; J1885; J2405; J2470; J2543

== ENCOUNTER 2025-01-09 14:59 | Emergency (ER) | payer MEDICAID ==
[~2025-01-09] VITALS: Ht 162.6 cm; Wt 68.0 kg
[~2025-01-09 14:59] MED LIST changes: -ACET-1882 PO; +CARV-214 PO; -CHL10C PO; -CHL25C PO; -ERGO1CAP23 PO; -FOLI-119 PO; +FURO1TAB31 PO; -GABA-1250 PO; +LOSA-534 PO; -MULT-1018 PO; +POTA-36 PO
[2025-01-09] MEDS: KETOROLAC TROMETH 30 MG/ML 1ML VIAL IM ONE (16:15)
--- NOTE | 2025-01-09 16:28 | ED.PDOC ---
History of Present Illness HPI Comments 64 year old male presents to the ED via EMS with a chief complaint of facial injury onset today (01/09/25). Patient states he was drinking ETOH today, was walking with walker when he tripped, fell, hit RT side head on cement floor. Patient is currently experiencing headache, bleeding was controlled on scene. Denies any PMHx as well as LOC, nausea, vomiting, dizziness, blurry vision, chest pain, shortness of breath, numbness/tingling. No other symptoms or modifying factors present at this time. Chief Complaint: Facial Injury Time Seen by MD: 15:55 Primary Care Provider: NONE Reviewed Notes: Medications, Allergies Allergies: Coded Allergies: NO KNOWN ALLERGIES (Unverified , 02/01/24) Home Meds Active Scripts Losartan Potassium (Losartan Potassium) 50 Mg Tab, 50 MG PO DAILY for 30 Days, #30 TAB 0 [facility] 01/04/25 Potassium Chloride (POTASSIUM CHLORIDE CR) 10 Meq Tb, 10 MEQ PO DAILY for 10 Days, #10 TAB 0 Refills Prov:JAKE PAUL [facility] 01/04/25 Furosemide (Lasix) 40 Mg Tab, 40 MG PO DAILY for 10 Days, #10 TAB 0 Refills Prov:JAKE PAUL [facility] 01/04/25 Pantoprazole Sodium Sesquihydr (Pantoprazole Sodium) 40 Mg Tab, 40 MG PO DAILY@0600 for 14 Days, #14 TAB [facility] 01/04/25 Carvedilol (COREG) 3.125 Mg Tab, 3.125 MG PO Q12HR for 30 Days, #60 TAB Prov:[facility]KE [facility] 01/04/25 Thiamine HCl (Thiamine Hydrochloride) 100 Mg Tab, 100 MG PO DAILY, #30 TAB Prov:ESTRELLITA COBB MD 08/02/24 Multiple Vitamins W/ Iron (Multi Vitamin with Iron) 1 Tab Tab, 1 TAB PO DAILY for 30 Days, #30 TAB Prov:FAUSTO ULNDBERG 05/09/24 Discontinued Scripts Chlordiazepoxide Hcl (Librium) 25 Mg Cp, 25 MG PO TID, #30 CAP Prov:ESTRELLITA COBB MD 08/02/24 Multiple Vitamin (Multivitamins) Tab, 1 TAB PO DAILY, #90 TAB 3 Refills Prov:ESTRELLITA COBB MD 08/02/24 Folic Acid (Folic Acid) 1 Mg Tab, 1 MG PO DAILY, #90 TAB Prov:ESTRELLITA COBB MD 08/02/24 Chlordiazepoxide Hcl (Ni-1) (I (Librium) 10 Mg Cap, 10 MG PO BID for 5 Days, #10 CAP Prov:TODD ELLIOTT MD 07/27/24 Pantoprazole Sodium Sesquihydr (Pantoprazole Sodium) 40 Mg Tab, 40 MG PO DAILY@0600 for 30 Days, #30 TAB Prov:FAUSTO LUNDBERG 05/09/24 Gabapentin (Gabapentin) 300 Mg Cap, 300 MG PO TID for 30 Days, #120 CAP Prov:FAUSTO LUNDBERG 05/09/24 Ergocalciferol (VITAMIN D 45991 UNIT) 50,000 [place], [address] UNIT PO Q7D for 30 Days, #10 CAP Prov:FAUSTO LUNDBERG 05/09/24 Acetaminophen (Acetaminophen) 325 Mg Tab, 650 MG PO Q6HP PRN for 10 Days, #80 TAB Prov:FAUSTO LUNDBERG 05/09/24 Information Source: Patient, Emergency Med Personnel Mode of Arrival: EMS Severity: Moderate Timing: Hours Duration: Since onset Prehospital treatment: None Past Medical History PAST MEDICAL HISTORY: Denies Surgical History: Denies all surgeries Family History Family History: Reviewed,noncontributory to illness, Unknown Social History Smoker: Non-Smoker Alcohol: Heavy Drugs: Denies Drug Use Lives In: Homeless Constitutional: denies: chills, diaphoresis, fatigue, fever, malaise, sweats, weakness, others EENTM: denies: blurred vision, double vision, ear bleeding, ear discharge, ear drainage, ear pain, ear ringing, eye pain, eye redness, hearing loss, mouth pain, mouth swelling, nasal discharge, nose bleeding, nose congestion, nose pain, photophobia, tearing, throat pain, throat swelling, voice changes, others Respiratory: denies: cough, hemoptysis, orthopnea, SOB at rest, shortness of breath, SOB with excertion, stridor, wheezing, others Cardiovascular: denies: chest pain, dizzy spells, diaphoresis, Dyspnea on exertion, edema, irregular heart beat, left arm pain, lightheadedness, palpitations, PND, syncope, others Gastrointestinal: denies: abdomen distended, abdominal pain, blood streaked bowels, constipated, diarrhea, dysphagia, difficulty swallowing, hematemesis, melena, nausea, poor appetite, poor fluid intake, rectal bleeding, rectal pain, vomiting, others Genitourinary: denies: burning, dysuria, flank pain, frequency, hematuria, incontinence, penile discharge, penile sore, pain, testicle pain, testicle swelling, urgency, others Neurological: reports: headache; denies: dizziness, fainting, left sided numbness, left sided weakness, numbness, paresthesia, pre-existing deficit, right sided numbness, right sided weakness, seizure, speech problems, tingling, tremors, weakness, others Musculoskeletal: denies: back pain, gout, joint pain, joint swelling, muscle pain, muscle stiffness, neck pain, others Integumetry: reports: others (abrasion RT forehead); denies: bruises, change in color, change in hair/nails, dryness, laceration, lesions, lumps, rash, wounds Allergic/Immunocompromised: denies: Difficulty Healing, Frequent Infections, Hives, Itching, others Hematologic/Lymphatic: denies: anemia, blood clots, easy bleeding, easy bruising, swollen glands, others Endocrine: denies: excessive hunger, excessive sweating, excessive thirst, excessive urination, flushing, intolerance to cold, intolerance to heat, u nexplained weight gain, unexplained weight loss, others Psychiatric: denies: anxiety, bipolar disorder, depression, hopeless, panic disorder, schizophrenia, sleepless, suicidal, others All Other Systems: Reviewed and Negative Physical Exam General Appearance: No Apparent Distress, Normal HEENT: Normal ENT Inspection, Pharynx Normal, TMs Normal Neck: Full Range of Motion, Non-Tender, Normal, Normal Inspection Respiratory: Chest Non-Tender, Lungs Clear, No Accessory Muscle Use, No Respiratory Distress, Normal Breath Sounds Cardiovascular: No Edema, No JVD, No Murmur, No Gallop, Normal Peripheral P ulses, Regular Rate/Rhythm Breast Exam: Deferred Gastrointestinal: No Organomegaly, Non Tender, No Pulsatile Mass, Normal Bowel Sounds, Soft Genitalia: Deferred Pelvic: Deferred Rectal: Deferred Extremities: No calf tenderness, Normal capillary refill, Normal inspection, Normal range of motion, Non-tender, No pedal edema Musculoskeletal : Apperance: Normal Neurologic: 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 Was a procedure done?: No Differential Dx Considerations may include: TIA, traumatic brain injury, facial laceration, ETOH withdrawals. X-Ray, Labs, Meds, VS Vital Signs Date Time Temp Pulse Resp B/P (MAP) Pulse Ox O2 Delivery O2 Flow Rate FiO2 01/09/25 14:59 98.7 105 16 119/76 (90) 98 98.7 [place] [address] Ph: [phone] DIAGNOSTIC IMAGING Diagnostic Imaging Report : [id number] Signed PATIENT: VIC SHIPMAN ACCT: [id number] UNIT: [id number] : 1960 LOC: ER ROOM / BED: / AGE / SEX: 64 / M ADM STATUS: REG ER SERVICE [id number] ORDERING PHYSICIAN: FRANTZ LILLY PROCEDURE(s): HWOCT - HEAD WITHOUT CONTRAST REASON: FALL ORDER NUMBER(s): [id number], ACCESSION NUMBER(s): [id number] CT HEAD WITHOUT CONTRAST Indication: FALL EXAM DATE: 01/09/2025 04:45 PM COMPARISON: CT HEAD WITHOUT CONTRAST on DOS: 01/04/25, CT HEAD WITHOUT CONTRAST on DOS: 05/09/24 TECHNIQUE: CT of the head without intravenous contrast. RADIATION DOSE: CTDIvol: 52.33 mGy, DLP: 838.98 mGy*cm FINDINGS: There is no intracranial hemorrhage. There is no extra-axial fluid, mass, mass effect or midline shift. The ventricles are midline and normal in size. Basilar cisterns are patent. There are mild to moderate periventricular and subcortical white matter chronic microvascular ischemic changes. Old bilateral basal ganglia lacunar infarcts. Moderate global cerebral volume loss. Right frontal scalp, right orbital preseptal and right facial region hematoma. Right frontoparietal encephalomalacia. The paranasal sinuses demonstrate tiny left maxillary sinus effusion. Small right mastoid effusion.. Imaged portion of the orbits are unremarkable. IMPRESSION: 1. No intracranial hemorrhage or mass effect. 2. Mild to moderate chronic microvascular ischemic changes. Moderate global cerebral volume loss. 3. Right frontal scalp, right orbital preseptal and right facial region contusion/hematoma. ATED BY: PANDA LABOY MD DICTATED DATE/TIME: 01/09/251710 SIGNED BY: PANDA LABOY MD SIGNED DATE/TIME: 01/09/251710 CC: X-Ray, Labs, Meds, VS Comment Imaging: X-rays and CT scans were reviewed and interpreted by this provider, imaging shows no fractures and no pathological disease. Pending radiology review. Laboratory: Labs reviewed and interpreted by this provider. No significant abnormalities noted. Patient has prior medical visits reviewed. Med reconciliation performed Vital signs reviewed Time of 1ST Reevaluation: 16:25 Reevaluation 1ST: Unchanged Patient Education/Counseling: Diagnosis, Treatment, Prognosis, Need For Follow Up (Follow up in the emergency department in the next 24-48 hours if symptoms worsen. It was advised to follow up with your primary care doctor in the next 3-4 days for further evaluation.) Family Education/Counseling: No Family Present Departure 1 Departure Time of Disposition: 18:01 Impression: Primary Impression: Alcohol intoxication Qualified Codes: F10.920 - Alcohol use, unspecified with intoxication, uncomplicated Additional Impressions: Facial trauma Qualified Codes: S09.93XA - Unspecified injury of face, initial encounter Closed head injury Qualified Codes: S09.90XA - Unspecified injury of head, initial encounter Disposition: 01 HOME / SELF CARE / HOMELESS Condition: Fair Discharged With: Self Critical Care Note Critical Care Time?: No Stability Stability form required: No I personally scribed for FRANTZ LILLYP ([email or web address]) on 01/09/25 at 16:28. Electronically submitted by Cherry Jones ([email or web address]). I personally scribed for FRANTZ LILLY ([email or web address]) on 01/09/25 at 17:51. Electronically submitted by Cherry Jones [email or web address]). FRANTZ LILLY [facility] January 09, 2025 16:28
--- NOTE | 2025-01-09 17:13 | DVH ---
CT HEAD WITHOUT CONTRAST Indication: FALL EXAM DATE: 01/09/2025 04:45 PM COMPARISON: CT HEAD WITHOUT CONTRAST on DOS: 01/04/25, CT HEAD WITHOUT CONTRAST on DOS: 05/09/24 TECHNIQUE: CT of the head without intravenous contrast. RADIATION DOSE: CTDIvol: 52.33 mGy, DLP: 838.98 mGy*cm FINDINGS: There is no intracranial hemorrhage. There is no extra-axial fluid, mass, mass effect or midline shif t. The ventricles are midline and normal in size. Basilar cisterns are patent. There are mild to mode rate periventricular and subcortical white matter chronic microvascular ischemic changes. Old bilater al basal ganglia lacunar infarcts. Moderate global cerebral volume loss. Right frontal scalp, right o rbital preseptal and right facial region hematoma. Right frontoparietal encephalomalacia. The paranasal sinuses demonstrate tiny left maxillary sinus effusion. Small right mastoid effusion.. Imaged portion of the orbits are unremarkable. IMPRESSION: 1. No intracranial hemorrhage or mass effect. 2. Mild to moderate chronic microvascular ischemic changes. Moderate global cerebral volume loss. 3. Right frontal scalp, right orbital preseptal and right facial region contusion/hematoma.
[2025-01-09] MEDS: NEOMYCIN-BACITRACIN-POLYM UNITDOSE PKG TOP OINT TOP ONE (18:15)
[2025-01-09] MEDS: SODIUM CHLORIDE 0.9% 1,000 ML IV ONE (18:54)
[2025-01-09 19:30] VITALS: BP 120/74; PULSE 90; RESP 20; TEMP 97.9; O2SAT 96
[2025-01-10] MEDS ORDERED: ACET500T58 PO (05:00)
== END 2025-01-09 22:35 | disposition home or self-care (01) ==
LOC: EDUNIT# 14:59 → EDBD 14:59 → ER 15:05
DX: S00.81XA Abrasion of other part of head, initial encounter (principal); F10.129 Alcohol abuse with intoxication, unspecified; W22.09XA Striking against other stationary object, initial encounter; Y93.01 Activity, walking, marching and hiking; Y92.89 Other specified places as the place of occurrence of the external cause; Y99.8 Other external cause status
CPT/HCPCS: 70450; 96360; 99284; J7030; J1885

== ENCOUNTER 2025-01-10 02:53 | Emergency (ER) | payer MEDICAID ==
[~2025-01-10] VITALS: Ht 167.6 cm; Wt 72.7 kg
[2025-01-10 03:25] VITALS: BP 124/85; PULSE 100; RESP 16; TEMP 97.5; O2SAT 100
--- NOTE | 2025-01-10 03:45 | ED.PDOC ---
Back pain HPI HPI Comments 64 YEAR OLD MALE PRESENTS TO ER WITH COMPLAINTS OF RIB PAIN X 1 HOUR. PATIENT STATES HE WAS LEANING LATERALLY AGAINST A CHAIR SLEEPING WHEN HE FELL OUT OF THE CHAIR ONTO CEMENT AND HAS SINCE BEEN EXPERIENCING BILATERAL LOWER RIB CAGE PAIN. PATIENT WAS RECENTLY DISCHARGED FROM THIS HOSPITAL ON 01/09/25 AFTER BEING SEEN FOR A HEAD INJURY WHERE HE SUSTAINED ABRASIONS TO RIGHT SIDE OF FOREHEAD AND STATES HE DID NOT HIT HIS HEAD OR SUSTAIN LOC UPON FALLING OFF OF A CHAIR TODAY. HE RATES HIS CURRENT BILATERAL LOWER RIB CAGE PAIN A 10/10. PATIENT PRESENTS TO ER ALERT AND ORIENTED X4, AMBULATORY WITH USE OF WALKER, IN NO DISTRESS. DENIES SHORTNESS OF BREATH, CHEST PAIN, N/V, ABDOMINAL PAIN OR ANY FURTHER SYM PTOMS/COMPLAINTS Chief Complaint: Rib Pain Time Seen by MD: 03:19 Primary Care Provider: NONE Reviewed Notes: Nurses Notes, Medications, Allergies Allergies: Coded Allergies: NO KNOWN ALLERGIES (Unverified , 02/01/24) Home Meds Active Scripts Acetaminophen (Acetaminophen) 500 Mg Tab, 500 MG PO Q4HPRN, #30 TAB 0 Refills Prov:JULIEN BARNARD 01/10/25 Losartan Potassium (Losartan Potassium) 50 Mg Tab, 50 MG PO DAILY for 30 Days, #30 TAB 0 Refills Prov:JAKE PAUL 01/04/25 Potassium Chloride (POTASSIUM CHLORIDE CR) 10 Meq Tb, 10 MEQ PO DAILY for 10 Days, #10 TAB 0 Refills Prov:JAKE PAUL 01/04/25 Furosemide (Lasix) 40 Mg Tab, 40 MG PO DAILY for 10 Days, #10 TAB 0 Refills Prov:JAKE PAUL 01/04/25 Pantoprazole Sodium Sesquihydr (Pantoprazole Sodium) 40 Mg Tab, 40 MG PO DAILY@0600 for 14 Days, #14 TAB Prov:JAKE PAUL 01/04/25 Carvedilol (COREG) 3.125 Mg Tab, 3.125 MG PO Q12HR for 30 Days, #60 TAB Prov:JAKE PAUL 01/04/25 Thiamine HCl (Thiamine Hydrochloride) 100 Mg Tab, 100 MG PO DAILY, #30 TAB Prov:ESTRELLITA COBB MD 08/02/24 Multiple Vitamins W/ Iron (Multi Vitamin with Iron) 1 Tab Tab, 1 TAB PO DAILY for 30 Days, #30 TAB Prov:FAUSTO LUNDBERG 05/09/24 Discontinued Scripts Chlordiazepoxide Hcl (Librium) 25 Mg Cp, 25 MG PO TID, #30 CAP Prov:ESTRELLITA COBB MD 08/02/24 Multiple Vitamin (Multivitamins) Tab, 1 TAB PO DAILY, #90 TAB 3 Refills Prov:ESTRELLITA COBB MD 08/02/24 Folic Acid (Folic Acid) 1 Mg Tab, 1 MG PO DAILY, #90 TAB Prov:ESTRELLITA COBB MD 08/02/24 Chlordiazepoxide Hcl (Ni-1) (I (Librium) 10 Mg Cap, 10 MG PO BID for 5 Days, #10 CAP Prov:TODD ELLIOTT MD 07/27/24 Pantoprazole Sodium Sesquihydr (Pantoprazole Sodium) 40 Mg Tab, 40 MG PO DAILY@0600 for 30 Days, #30 TAB Prov:FAUSTO LUNDBERG 05/09/24 Gabapentin (Gabapentin) 300 Mg Cap, 300 MG PO TID for 30 Days, #120 CAP Prov:FAUSTO LUNDBERG 05/09/24 Ergocalciferol (VITAMIN D 68011 UNIT) 50,000 [place], [address] UNIT PO Q7D for 30 Days, #10 CAP Prov:FAUSTO LUNDBERG 05/09/24 Acetaminophen (Acetaminophen) 325 Mg Tab, 650 MG PO Q6HP PRN for 10 Days, #80 TAB Prov:FAUSTO LUNDBERG 05/09/24 Information Source: Patient Mode of Arrival: Wheelchair Past Medical History PAST MEDICAL HISTORY: Denies Surgical History: Denies all surgeries Family History Family History: Unknown Social History Smoker: Non-Smoker Alcohol: Heavy Drugs: Denies Drug Use Lives In: Homeless Constitutional: denies: chills, diaphoresis, fatigue, fever, malaise, sweats, weakness, others EENTM: denies: blurred vision, double vision, ear bleeding, ear discharge, ear drainage, ear pain, ear ringing, eye pain, eye redness, hearing loss, mouth pain, mouth swelling, nasal discharge, nose bleeding, nose congestion, nose pain, photophobia, tearing, throat pain, throat swelling, voice changes, others Respiratory: denies: cough, hemoptysis, orthopnea, SOB at rest, shortness of breath, SOB with excertion, stridor, wheezing, others Cardiovascular: denies: chest pain, dizzy spells, diaphoresis, Dyspnea on exertion, edema, irregular heart beat, left arm pain, lightheadedness, palpitations, PND, syncope, others Gastrointestinal: denies: abdomen distended, abdominal pain, blood streaked bowels, constipated, diarrhea, dysphagia, difficulty swallowing, hematemesis, melena, nausea, poor appetite, poor fluid intake, rectal bleeding, rectal pain, vomiting, others Genitourinary: denies: burning, dysuria, flank pain, frequency, hematuria, incontinence, penile discharge, penile sore, pain, testicle pain, testicle swelling, urgency, others Neurological: denies: dizziness, fainting, headache, left sided numbness, left sided weakness, numbness, paresthesia, pre-existing deficit, right sided numbness, right sided weakness, seizure, speech problems, tingling, tremors, weakness, others Musculoskeletal: reports: others (As stated in HPI) Integumetry: denies: bruises, change in color, change in hair/nails, dryness, laceration, lesions, lumps, rash, wounds, others Allergic/Immunocompromised: denies: Difficulty Healing, Frequent Infections, Hives, Itching, others Hematologic/Lymphatic: denies: anemia, blood clots, easy bleeding, easy bruising, swollen glands, others Endocrine: denies: excessive hunger, excessive sweating, excessive thirst, excessive urination, flushing, intolerance to cold, intolerance to heat, unex plained weight gain, unexplained weight loss, others Psychiatric: denies: anxiety, bipolar disorder, depression, hopeless, panic disorder, schizophrenia, sleepless, suicidal, others Physical Exam General Appearance: No Apparent Distress HEENT: Normal ENT Inspection, PERRL/EOMI, Pharynx Normal, TMs Normal Neck: Full Range of Motion, Non-Tender, Normal Respiratory: Lungs Clear, No Accessory Muscle Use, No Respiratory Distress, Normal Breath Sounds, Other (Slight TTP to bilateral lower ribcage noted. 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 Was a procedure done?: No Sedation Sedation?: No Back Pain Differential Dx Differential Diagnosis: Fracture, Other (pneumothorax, [place]) X-Ray, Labs, Meds, VS Vital Signs Date Time Temp Pulse Resp B/P (MAP) Pulse Ox O2 Delivery O2 Flow Rate FiO2 01/10/25 03:25 100 Room Air* 0 21 01/10/25 03:25 97.5 100 16 124/85 (98) 100 97.5 01/10/25 03:09 97.5 100 16 124/85 (98) 100 97.5 PATIENT: VIC SHIPMAN CACCT: [id number]: [id number] : 1960 LOC: ER ROOM / BED: / AGE / SEX: 64 / M ADM STATUS: REG ER SERVICE [id number] ORDERING PHYSICIAN: JULIEN BARNARD PROCEDURE(s): CX2CT - CHEST WITHOUT CONTRAST REASON: Bilateral lower rib cage pain post fall ORDER NUMBER(s): [id number], ACCESSION NUMBER(s): [id number] Procedure: CT CHEST WITHOUT CONTRAST Reason for study/Clinical History: Bilateral lower rib cage pain post fall Comparison Study: CT CHEST WITHOUT CONTRAST on DOS: 12/22/24 Exam Date: 01/10/2025 03:54 AM TECHNIQUE: Multidetector CT of the chest was performed from the lung apices to the upper abdomen without the use of intravenous contract. Coronal and sagittal multiplanar reformats were performed. Radiation Dose Information: CT Dose: CTDI volume is 12.76 mGy. Dose-length product is 505.17 mGy*cm The dose indicators for CT are the volume Computed Tomography (CT) Dose Index (CTDIvol) and the Dose Length Product (DLP), and are measured in units of mGy and mGy-cm, respectively. These indicators are not patient dose, but values generated from the CT scanner acquisition factors. The report includes radiation exposure data for exposures received during this examination. FINDINGS: Lower neck: Normal thyroid. Lungs: Right lower lobe atelectasis. Central airways: Patent. Pleura: No pleural effusion or significant pneumothorax. Previously seen pleural effusions resolved. Heart/Vascular Structures: Normal heart size. Coronary artery calcifications. No pericardial effusion. Normal caliber thoracic aorta and main pulmonary artery. Lymph Nodes: No adenopathy Musculoskeletal: No acute osseous abnormality. Soft tissues: Normal. Upper abdomen: Limited portions of the upper abdomen are unremarkable. IMPRESSION: 1. No acute intrathoracic abnormality. No acute rib fracture. 2. Right lower lobe atelectasis. 3. Coronary artery calcifications. Radiation optimization: All CT scans at this facility use at least one of these dose optimization techniques: automated exposure control mA and/or kV adjus tment per patient size (includes targeted exams where dose is matched to clinical indication) or iterative reconstruction. ATED BY: SRAVANTHI MARIEE MD DICTATED DATE/TIME: 01/10/25433 SIGNED BY: SRAVANTHI MARIEE MD SIGNED DATE/TIME: 01/10/25433 CC: CT chest w/o contrast reviewed Previous chart visit reviewed Patient had improvement in symptoms, denied any chest pain/shortness of breath and in no distress prior to discharge ETOH Cessation discussed and advised Advised to follow up with PCP in 1-2 days Patient alert and oriented x4 prior to discharge. Patient verbalized understanding and agreeable with current plan of care Advised to return to ER immediately if symptoms worsen Images Reviewed?: Images reviewed and evaluated by me Time of 1ST Reevaluation: 03:40 Reevaluation 1ST: N/A Patient Education/Counseling: Diagnosis, Treatment, Prognosis, Need For Follow Up Family Education/Counseling: No Family Present Departure 1 Departure Time of Disposition: 05:00 Impression: Primary Impression: Contusion of ribs Qualified Codes: S20.219A - Contusion of unspecified front wall of thorax, initial encounter Disposition: HOME / SELF CARE / HOMELESS Condition: Stable e-Prescriptions Acetaminophen (Acetaminophen) 500 Mg Tab 500 MG PO Q4HPRN, #30 TAB 0 Refills Prov: JULIEN BARNARD 01/10/25 Discharged With: Friend Critical Care Note Critical Care Time?: No Stability Stability form required: No Heart Score Heart Score: Heart Score Response (Comments) Value History N/A 0 EKG N/A 0 Age N/A 0 Risk Factors N/A 0 Troponin N/A 0 Total 0 JULIEN BARNARD January 10, 2025 03:45
--- NOTE | 2025-01-10 04:36 | DVH ---
Procedure: CT CHEST WITHOUT CONTRAST Reason for study/Clinical History: Bilateral lower rib cage pain post fall Comparison Study: CT CHEST WITHOUT CONTRAST on DOS: 12/22/24 Exam Date: 01/10/2025 03:54 AM TECHNIQUE: Multidetector CT of the chest was performed from the lung apices to the upper abdomen with out the use of intravenous contract. Coronal and sagittal multiplanar reformats were performed. Radiation Dose Information: CT Dose: CTDI volume is 12.76 mGy. Dose-length product is 505.17 mGy*cm The dose indicators for CT are the volume Computed Tomography (CT) Dose Index (CTDIvol) and the Dose Length Product (DLP), and are measured in units of mGy and mGy-cm, respectively. These indicators are not patient dose, but values generated from the CT scanner acquisition factors. The report includes radiation exposure data for exposures received during this examination. FINDINGS: Lower neck: Normal thyroid. Lungs: Right lower lobe atelectasis. Central airways: Patent. Pleura: No pleural effusion or significant pneumothorax. Previously seen pleural effusions resolved. Heart/Vascular Structures: Normal heart size. Coronary artery calcifications. No pericardial effusion . Normal caliber thoracic aorta and main pulmonary artery. Lymph Nodes: No adenopathy Musculoskeletal: No acute osseous abnormality. Soft tissues: Normal. Upper abdomen: Limited portions of the upper abdomen are unremarkable. IMPRESSION: 1. No acute intrathoracic abnormality. No acute rib fracture. 2. Right lower lobe atelectasis. 3. Coronary artery calcifications. Radiation optimization: All CT scans at this facility use at least one of these dose optimization jessenia hniques: automated exposure control mA and/or kV adjustment per patient size (includes targeted exam s where dose is matched to clinical indication) or iterative reconstruction.
[2025-01-10] MEDS ORDERED: ACET500T58 PO (05:00)
== END 2025-01-10 05:08 | disposition home or self-care (01) ==
LOC: ER 02:53
DX: S20.219A Contusion of unspecified front wall of thorax, initial encounter (principal); S00.81XA Abrasion of other part of head, initial encounter; Z79.899 Other long term (current) drug therapy; Z59.00 Homelessness unspecified; W07.XXXA Fall from chair, initial encounter; Y93.89 Activity, other specified; Y92.89 Other specified places as the place of occurrence of the external cause; Y99.8 Other external cause status
CPT/HCPCS: 71250

== ENCOUNTER 2025-01-10 09:50 | Emergency (ER) | payer MEDICAID ==
[~2025-01-10] VITALS: Ht 167.6 cm; Wt 93.0 kg
[~2025-01-10 09:50] MED LIST changes: +ACET500T58 PO
--- NOTE | 2025-01-10 10:55 | ED.PDOC ---
History of Present Illness HPI Comments 64-year-old male JORGE LUIS presents with a chief complaint of fall injury. Patient had a mechanical fall while using his walker. Denies LOC. Patient has hematoma noted to right forehead. Patient was here yesterday and the day before for also falling on his face. States that he is having recurrent falls. Patient is homeless. Foul urine smell noted. Chief Complaint: Fall Injury Time Seen by MD: 10:37 Primary Care Provider: NONE Reviewed Notes: Medications, Allergies Allergies: Coded Allergies: NO KNOWN ALLERGIES (Unverified , 02/01/24) Home Meds Active Scripts Acetaminophen (Acetaminophen) 500 Mg Tab, 500 MG PO Q4HPRN, #30 TAB 0 Refills Prov:JULIEN BARNARD 01/10/25 Losartan Potassium (Losartan Potassium) 50 Mg Tab, 50 MG PO DAILY for 30 Days, #30 TAB 0 [facility]/04/25 Potassium Chloride (POTASSIUM CHLORIDE CR) 10 Meq Tb, 10 MEQ PO DAILY for 10 Days, #10 TAB 0 Ref[facility] Prov[facility] 01/04/25 Furosemide (Lasix) 40 Mg Tab, 40 MG PO DAILY for 10 Days, #10 TAB 0 Refills Prov[facility] 01/04/25 Pantoprazole Sodium Sesquihydr (Pantoprazole Sodium) 40 Mg Tab, 40 MG PO DAILY@0600 for 14 Days, #14 TAB Prov:[facility] 01/04/25 Carvedilol (COREG) 3.125 Mg Tab, 3.125 MG PO Q12HR for 30 Days, #60 TAB Prov:[facility] 01/04/25 Thiamine HCl (Thiamine Hydrochloride) 100 Mg Tab, 100 MG PO DAILY, #30 TAB Prov:ESTRELLITA COBB MD 08/02/24 Multiple Vitamins W/ Iron (Multi Vitamin with Iron) 1 Tab Tab, 1 TAB PO DAILY for 30 Days, #30 TAB Prov:FAUSTO LUNDBERG 05/09/24 Discontinued Scripts Chlordiazepoxide Hcl (Librium) 25 Mg Cp, 25 MG PO TID, #30 CAP Prov:ESTRELLITA COBB MD 08/02/24 Multiple Vitamin (Multivitamins) Tab, 1 TAB PO DAILY, #90 TAB 3 Refills Prov:ESTRELLITA COBB MD 08/02/24 Folic Acid (Folic Acid) 1 Mg Tab, 1 MG PO DAILY, #90 TAB Prov:ESTRELLITA COBB MD 08/02/24 Chlordiazepoxide Hcl (Ni-1) (I (Librium) 10 Mg Cap, 10 MG PO BID for 5 Days, #10 CAP Prov:TODD ELLIOTT MD 07/27/24 Pantoprazole Sodium Sesquihydr (Pantoprazole Sodium) 40 Mg Tab, 40 MG PO DAILY@0600 for 30 Days, #30 TAB Prov:FAUSTO LUNDBERG 05/09/24 Gabapentin (Gabapentin) 300 Mg Cap, 300 MG PO TID for 30 Days, #120 CAP Prov:FAUSTO LUNDBERG 05/09/24 Ergocalciferol (VITAMIN D 67079 UNIT) 50,000 [place], [address] UNIT PO Q7D for 30 Days, #10 CAP Prov:FAUSTO LUNDBERG 05/09/24 Acetaminophen (Acetaminophen) 325 Mg Tab, 650 MG PO Q6HP PRN for 10 Days, #80 TAB Prov:FAUSTO LUNDBERG 05/09/24 Information Source: Patient Mode of Arrival: EMS Severity: Moderate Timing: Days Duration: Intermittent Prehospital treatment: None Past Medical History PAST MEDICAL HISTORY: Denies Surgical History: Denies all surgeries Family History Family History: Unknown Social History Smoker: Non-Smoker Alcohol: Heavy Drugs: Denies Drug Use Lives In: Homeless Constitutional: reports: others (RECURRENT FALLS); denies: chills, diaphoresis, fatigue, fever, malaise, sweats, weakness EENTM: denies: blurred vision, double vision, ear bleeding, ear discharge, ear drainage, ear pain, ear ringing, eye pain, eye redness, hearing loss, mouth pain, mouth swelling, nasal discharge, nose bleeding, nose congestion, nose pain, photophobia, tearing, throat pain, throat swelling, voice changes, others Respiratory: denies: cough, hemoptysis, orthopnea, SOB at rest, shortness of breath, SOB with excertion, stridor, wheezing, others Cardiovascular: denies: chest pain, dizzy spells, diaphoresis, Dyspnea on exertion, edema, irregular heart beat, left arm pain, lightheadedness, palpitations, PND, syncope, others Gastrointestinal: denies: abdomen distended, abdominal pain, blood streaked bowels, constipated, diarrhea, dysphagia, difficulty swallowing, hematemesis, melena, nausea, poor appetite, poor fluid intake, rectal bleeding, rectal pain, vomiting, others Genitourinary: denies: burning, dysuria, flank pain, frequency, hematuria, incontinence, penile discharge, penile sore, pain, testicle pain, testicle swelling, urgency, others Neurological: denies: dizziness, fainting, headache, left sided numbness, left sided weakness, numbness, paresthesia, pre-existing deficit, right sided numbness, right sided weakness, seizure, speech problems, tingling, tremors, weakness, others Musculoskeletal: denies: back pain, gout, joint pain, joint swelling, muscle pain, muscle stiffness, neck pain, others Integumetry: reports: bruises; denies: change in color, change in hair/nails, dryness, laceration, lesions, lumps, rash, wounds, others Allergic/Immunocompromised: denies: Difficulty Healing, Frequent Infections, Hives, Itching, others Hematologic/Lymphatic: denies: anemia, blood clots, easy bleeding, easy bruising, swollen glands, others Endocrine: denies: excessive hunger, excessive sweating, excessive thirst, excessive urination, flushing, intolerance to cold, intolerance to heat, unexplained weight gain, unexplained weight loss, others Psychiatric: denies: anxiety, bipolar disorder, depression, hopeless, panic disorder, schizophrenia, sleepless, suicidal, others All Other Systems: Reviewed and Negative Physical Exam General Appearance: Moderate Distress, Normal HEENT: Normal ENT Inspection, Pharynx Normal, TMs Normal Neck: Full Range of Motion, Non-Tender, Normal, Normal Inspection Respiratory: Chest Non-Tender, Lungs Clear, No Accessory Muscle Use, No Respiratory Distress, Normal Breath Sounds Cardiovascular: No Edema, No JVD, No Murmur, No Gallop, Normal Peripheral Pulses, Regular Rate/Rhythm Breast Exam: Deferred Gastrointestinal: No Organomegaly, Non Tender, No Pulsatile Mass, Normal Bowel Sounds, Soft Genitalia: Deferred Pelvic: Deferred Rectal: Deferred Extremities: No calf tenderness, Normal capillary refill, Normal inspection, Normal range of motion, Non-tender, No pedal edema Musculoskeletal : Apperance: Normal 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 Was a procedure done?: No Differential Dx Considerations may include: Head injury Electrolyte imbalance X-Ray, Labs, Meds, VS Vital Signs Date Time Temp Pulse Resp B/P (MAP) Pulse Ox O2 Delivery O2 Flow Rate FiO2 01/10/25 14:49 97.9 78 18 119/78 (92) 97 97.9 01/10/25 12:37 98.1 85 16 119/77 (91) 95 98.1 01/10/25 10:55 98.0 79 18 127/79 (95) 97 98.0 01/10/25 09:59 97.9 88 16 132/78 (96) 98 97.9 Patient alert. Status post fall. Was seen recently here. Vitals stable. Compared to the previous scan this scan of the head does show increasing hematoma of the scalp extending to the eye. Explained to the patient that his wound is getting worse pain He is not on blood thinner. Will transfer for higher level of care. Time of 1ST Reevaluation: 10:37 (EXPLAINED TO THE PATIENT THAT THEY MAY BE STAYING WITH US IN THE HOSPITAL, BUT IF STABLE FOR DISCHARGE, THEY WILL BE NOTIFIED AND SENT HOME. ) Reevaluation 1ST: Unchanged Time of 2ND Reevaluation: 11:07 Reevaluation 2ND: Unchanged Patient Education/Counseling: Diagnosis, Treatment Family Education/Counseling: No Family Present Departure 1 Departure Time of Disposition: 12:24 Impression: Primary Impression: Scalp hematoma Qualified Codes: S00.03XA - Contusion of scalp, initial encounter Additional Impression: Closed head injury Qualified Codes: S09.90XA - Unspecified injury of head, initial encounter Disposition: 02 SHORT TERM HOSPITAL Admit to: Med Surg Condition: Guarded Comments Spoke to the patient at 4:35 a.m. behind the curtain with the patient's are seen to explained that he will be transferred to [facility] and possibly will be discharged from their after observation Critical Care Note Critical Care Time?: Yes (90 min-critical care time only) Critical care comment: Head injury transferred for higher level of care Stability Stability form required: No Heart Score Heart Score: Heart Score Response (Comments) Value History N/A 0 EKG N/A 0 Age N/A 0 Risk Factors N/A 0 Troponin N/A 0 Total 0 I personally scribed for SHANAE HANEY MD ([email or web address]) on 01/10/25 at 10:55. Electronically submitted by Rajiv Shankar ([email or web address]). SHANAE HANEY MD January 10, 2025 10:55
--- NOTE | 2025-01-10 11:37 | DVH ---
CLINICAL INFORMATION: 64 years old, Male; fall injury. TECHNIQUE: Axial imaging was obtained through the brain without contrast. Coronal and sagittal reform atted images were obtained, reviewed, and stored. Images were reviewed in brain and bone windows. Al l CT scans at this medical facility are performed using dose modulation techniques as appropriate to a performed exam including the following: Automated exposure control was utilized; adjustment of the MA and/or KV according to patient size; and use of iterative reconstruction technique. CTDIvol = 53.9 9 mGy DLP = 971.88 mGy-cm COMPARISON: CT HEAD WITHOUT CONTRAST on DOS: 01/09/25, CT HEAD WITHOUT CONTRAST on DOS: 01/04/25, CT HEA D WITHOUT CONTRAST on DOS: 05/09/24 FINDINGS: There is no acute intracranial hemorrhage. No mass effect or midline shift. Scattered areas of hypoattenuation are seen in the periventricular and subcortical white matter, which are nonspecif ic but most likely sequelae of small vessel ischemic disease. The ventricles and sulci are within nor mal limits in size for age. Basal cisterns are patent. The calvarium is unremarkable. Paranasal sinu ses and mastoid air cells are clear. Moderate right frontal scalp hematoma extending to the right per iorbital region and right pre malar region. IMPRESSION: 1. No CT evidence of acute intracranial abnormality. 2. Moderate-sized right frontal scalp hematoma extending to the right periorbital and pre malar regio ns, may be slightly larger compared to the recent exam.
--- NOTE | 2025-01-10 11:51 | DVH ---
CLINICAL INFORMATION: Fall injury. TECHNIQUE: Axial CT images of the maxillofacial region were obtained without contrast. Coronal and sa gittal reformatted images were obtained, reviewed, and stored. One or more of the following dose redu ction techniques were used: Automated exposure control. Adjustment of mA and/or kV according to patie nt size. CTDIvol = 56.73 mGy DLP = 1249.6 mGy-cm COMPARISON: None FINDINGS: The pterygoid plates and zygomatic arches are intact. Sinus palencia and orbital palencia are i ntact. Chronic appearing deformities in the nasal bones bilaterally, may be sequelae of old trauma, g rossly similar to prior CT head exams. Mandible is intact. No evidence of facial bone fracture. Moder ate soft tissue swelling / hematoma in the right frontal scalp and extending to the right periorbital and pre malar regions. No orbital hematoma. Globes and orbital structures appear otherwise intact. No significant proptosis. Paranasal sinuses are clear. Mild soft tissue swelling overlying the nasal bones. IMPRESSION: 1. No evidence of acute facial bone fracture. 2. Moderate right frontal scalp hematoma extending to the periorbital and pre malar regions. No orbit al hematoma. Globes and orbital structures appear intact. 3. Chronic appearing deformity of the nasal bones, stable in appearance compared to the prior CT head exams. 4. Additional findings as described above.
[2025-01-10 16:30] VITALS: BP 119/78; PULSE 78; RESP 18; TEMP 97.9; O2SAT 97
== END 2025-01-10 16:40 | disposition short-term general hospital (02) ==
LOC: EDBD 09:50 → ER 09:50
DX: S00.03XA Contusion of scalp, initial encounter (principal); S00.83XA Contusion of other part of head, initial encounter; Z79.899 Other long term (current) drug therapy; Z59.00 Homelessness unspecified; W19.XXXA Unspecified fall, initial encounter; Y93.89 Activity, other specified; Y92.89 Other specified places as the place of occurrence of the external cause; Y99.8 Other external cause status
CPT/HCPCS: 70450; 70486

== ENCOUNTER 2025-01-29 17:02 | Emergency (ER) | payer MEDICAID ==
[~2025-01-29] VITALS: Ht 175.3 cm; Wt 68.4 kg
--- NOTE | 2025-01-29 17:35 | ED.PDOC ---
Psychiatric HPI Comments 64y M who presents to the ED via EMS for chief complaint of ETOH intoxication. Per EMS, pt was found sitting on the ground by local [employer] [place] with 3 bottles of hard liquor and bystander called EMS. EMS arrived on scene with stable vitals and alert and oriented x 4 and brought to the ED. Pt in the ED, otherwise smells of ETOH and not willing to answer any questions. Pt otherwise has no past medical history. EMS states pt is homeless. Pt denies any other symptoms at this time. 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 Information Source: Patient, Emergency Med Personnel Mode of Arrival: EMS Severity: Able to Care for Self Severity of Pain: Moderate Severity of Mental Status: Moderate Severity of Symptoms: Moderate Timing: Hours Duration: Since onset Prehospital treatment: None Presents with: Alcohol Intoxication Ingestion: Intentional Circumstance: Medical Clearance Current substance abuse: ETOH Stressors: Homeless History of: None Quality: None Location: None Location of pain or injury: None Associated signs and symptoms: ETOH Past Medical History PAST MEDICAL HISTORY: Denies Surgical History: Denies all surgeries Family History Family History: Unknown Social History Smoker: Non-Smoker Alcohol: Heavy Drugs: Denies Drug Use Lives In: Homeless Constitutional: denies: chills, diaphoresis, fatigue, fever, malaise, sweats, weakness, others EENTM: denies: blurred vision, double vision, ear bleeding, ear discharge, ear drainage, ear pain, ear ringing, eye pain, eye redness, hearing loss, mouth pain, mouth swelling, nasal discharge, nose bleeding, nose congestion, nose pain, photophobia, tearing, throat pain, throat swelling, voice changes, others Respiratory: denies: cough, hemoptysis, orthopnea, SOB at rest, shortness of breath, SOB with excertion, stridor, wheezing, others Cardiovascular: denies: chest pain, dizzy spells, diaphoresis, Dyspnea on exertion, edema, irregular heart beat, left arm pain, lightheadedness, palpitations, PND, syncope, others Gastrointestinal: denies: abdomen distended, abdominal pain, blood streaked bowels, constipated, diarrhea, dysphagia, difficulty swallowing, hematemesis, melena, nausea, poor appetite, poor fluid intake, rectal bleeding, rectal pain, vomiting, others Genitourinary: denies: burning, dysuria, flank pain, frequency, hematuria, incontinence, penile discharge, penile sore, pain, testicle pain, testicle swelling, urgency, others Neurological: denies: dizziness, fainting, headache, left sided numbness, left sided weakness, numbness, paresthesia, pre-existing deficit, right sided numbness, right sided weakness, seizure, speech problems, tingling, tremors, weakness, others Musculoskeletal: denies: back pain, gout, joint pain, joint swelling, muscle pain, muscle stiffness, neck pain, others Integumetry: denies: bruises, change in color, change in hair/nails, dryness, laceration, lesions, lumps, rash, wounds, others Allergic/Immunocompromised: denies: Difficulty Healing, Frequent Infections, Hives, Itching, others Hematologic/Lymphatic: denies: anemia, blood clots, easy bleeding, easy bruising, swollen glands, others Endocrine: denies: excessive hunger, excessive sweating, excessive thirst, excessive urination, flushing, intolerance to cold, intolerance to heat, unexplained weight gain, unexplained weight loss, others Psychiatric: denies: anxiety, bipolar disorder, depression, hopeless, panic disorder, schizophrenia, sleepless, suicidal, others All Other Systems: Reviewed and Negative Physical Exam General Appearance: No Apparent Distress, Other (Alcohol intoxication) HEENT: Normal ENT Inspection, Pharynx Normal, TMs Normal Neck: Full Range of Motion, Non-Tender, Normal, Normal Inspection Respiratory: Chest Non-Tender, Lungs Clear, No Accessory Muscle Use, No Respir atory Distress, Normal Breath Sounds Cardiovascular: No Edema, No JVD, No Murmur, No Gallop, Normal Peripheral Pulses, Regular Rate/Rhythm Breast Exam: Deferred Gastrointestinal: No Organomegaly, Non Tender, No Pulsatile Mass, Normal Bowel Sounds, Soft Genitalia: Deferred Pelvic: Deferred Rectal: Deferred Extremities: No calf tenderness, Normal capillary refill, Normal inspection, Normal range of motion, Non-tender, No pedal edema Musculoskeletal : Apperance: Normal 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 Was a procedure done?: No Psych Differential Dx OD Differential Dx: Encephalopathy, Substance Abuse Suicidal Differential Dx: Alcohol Abuse Intoxication Differential Dx: Alcohol Withdraw Syndrome, Delerium Tremens, Drug-Induced Psychosis, Electrolyte Imbalance, Substance Abuse Disorder X-Ray, Labs, Meds, VS Vital Signs Date Time Temp Pulse Resp B/P (MAP) Pulse Ox O2 Delivery O2 Flow Rate FiO2 01/29/25 17:16 97.4 88 18 128/69 (88) 97 97.4 Lab Test 01/29/25 17:39 Range/Units White Blood Count 6.8 4.4-10.8 10^3/uL Red Blood Count 2.93 L 4.5-5.90 10^6/uL Hemoglobin 10.7 L 13.5-17.5 g/dL Hematocrit 30.8 L 41.0-53.0 % Mean Corpuscular Volume 105.1 H 80.0-100.0 fL Mean Corpuscular Hemoglobin 36.5 H 28.0-32.0 pg Mean Corpuscular Hemoglobin Concent 34.7 32.0-36.0 g/dL Red Cell Distribution Width 14.4 H 11.8-14.3 % Platelet Count 374 140-450 10^3/uL Mean Platelet Volume 7.1 6.9-10.8 fL Neutrophils (%) (Auto) 52.1 37.0-80.0 % Lymphocytes (%) (Auto) 35.2 10.0-50.0 % Monocytes (%) (Auto) 5.4 0.0-12.0 % Eosinophils (%) (Auto) 6.3 0.0-7.0 % Basophils (%) (Auto) 1.0 0.0-2.0 % Neutrophils # (Auto) 3.5 1.6-8.6 10 ^3/uL Lymphocytes # (Auto) 2.4 0.4-5.4 10 ^3/uL Monocytes # (Auto) 0.4 0-1.3 10 ^3/uL Eosinophils # (Auto) 0.4 0-0.8 10 ^3/uL Basophils # (Auto) 0.1 0-0.2 10 ^3/uL Nucleated Red Blood Cells 0.1 % Sodium Level 144 136-145 mmol/L Potassium Level 3.3 L 3.5-5.1 mmol/L Chloride Level 108 H 98-107 mmol/L Carbon Dioxide Level 23 20-31 mmol/L Anion Gap 13 5-15 Blood Urea Nitrogen 12 9-23 mg/dL Creatinine 0.84 0.700-1.30 mg/dL Glomerular Filtration Rate Calc 98 >90 mL/min BUN/Creatinine Ratio 14.3 10.0-20.0 Serum Glucose 95 74-106 mg/dL Calcium Level 8.7 8.7-10.4 mg/dL Plasma/Serum Blood Alcohol 332.7 H <10 mg/dL Current Medications Medications (Trade) Dose Ordered Sig/Shubham Route Start Time Stop Time Status Last Admin Sodium Chloride 1,000 ml @ 1,000 mls/hr Q1H ONCE IVB 01/29/25 17:30 01/29/25 18:29 DC 01/29/25 19:10 The patient's CBC shows anemia with a hemoglobin of 10.7 hematocrit of 30.8 The rest of the CBC and chemistry panel are within normal limits except for hypokalemia at 3.3 The patient's alcohol level is 332.7 The patient was bolused with normal saline At this time, the patient's seems to be more alert then we are going to discharge the patient The patient will follow up with his primary care doctor The patient was given alcohol abuse counseling Time of 1ST Reevaluation: 18:05 Reevaluation 1ST: Unchanged Patient Education/Counseling: Diagnosis, Treatment Family Education/Counseling: No Family Present Departure 1 Departure Time of Disposition: 20:12 Impression: Primary Impression: Alcohol intoxication Qualified Codes: F10.920 - Alcohol use, unspecified with intoxication, uncomplicated Disposition: 01 HOME / SELF CARE / HOMELESS Condition: Fair Discharged With: Self Critical Care Note Critical Care Time?: No Stability Stability form required: No Heart Score Heart Score: Heart Score Response (Comments) Value History N/A 0 EKG N/A 0 Age N/A 0 Risk Factors N/A 0 Troponin N/A 0 Total 0 I personally scribed for TODD ELLIOTT MD ([email or web address]) on 01/29/25 at 17:35. Electronically submitted by Corry aClvin ([email or web address]). TODD ELLIOTT MD Jan 29, 2025 17:35
[2025-01-29 17:50] LABS: Basophils # (auto) 0.1 10 ^3/uL (0-0.2); Eosinophils # (auto) 0.4 10 ^3/uL (0-0.8); Lymphocytes # (auto) 2.4 10 ^3/uL (0.4-5.4); Monocytes # (auto) 0.4 10 ^3/uL (0-1.3); Neutrophils # (auto) 3.5 10 ^3/uL (1.6-8.6)
[2025-01-29 17:52] LABS: Eosinophils % (auto) 6.3 % (0.0-7.0); Hematocrit 30.8 % (41.0-53.0); Hemoglobin 10.7 g/dL (13.5-17.5); Lymphocytes % (auto) 35.2 % (10.0-50.0); Mean Corpuscular Hemoglobin 36.5 pg (28.0-32.0); Mean Corpuscular Hgb Conc. 34.7 g/dL (32.0-36.0); Mean Corpuscular Volume 105.1 fL (80.0-100.0); Monocytes % (auto) 5.4 % (0.0-12.0); Neutrophils % (auto) 52.1 % (37.0-80.0); Nucleated Red Blood Cells % 0.1 %; Platelet Count (auto) 374 10^3/uL (140-450); Red Blood Cells 2.93 10^6/uL (4.5-5.90); Red Cell Distribution Width 14.4 % (11.8-14.3); White Blood Cell 6.8 10^3/uL (4.4-10.8)
[2025-01-29 17:59] LABS: Chloride 108 mmol/L (98-107); Potassium 3.3 mmol/L (3.5-5.1); Sodium 144 mmol/L (136-145)
[2025-01-29 18:00] LABS: Anion Gap 13 (5-15); Calcium 8.7 mg/dL (8.7-10.4); Carbon Dioxide 23 mmol/L (20-31)
[2025-01-29 18:05] LABS: BUN/Creatinine Ratio 14.3 (10.0-20.0); Blood Urea Nitrogen 12 mg/dL (9-23); Glucose 95 mg/dL (74-106)
[2025-01-29] MEDS: SODIUM CHLORIDE 0.9% 1,000 ML IVB ONE (19:10)
[2025-01-29 19:25] LABS: Blood Alcohol 332.7 mg/dL (<10)
[2025-01-29 20:11] VITALS: PULSE 87; RESP 18; TEMP 98.3; O2SAT 97
[2025-01-29 22:45] VITALS: BP 133/74; PULSE 81; RESP 17; O2SAT 98
== END 2025-01-30 00:13 | disposition home or self-care (01) ==
LOC: EDBD 17:02 → EDUNIT# 17:02 → ER 17:02
DX: F10.129 Alcohol abuse with intoxication, unspecified (principal); Z79.899 Other long term (current) drug therapy; Y90.9 Presence of alcohol in blood, level not specified; Z59.00 Homelessness unspecified
CPT/HCPCS: 36415; 80048; 80320; 85025; 96360; 99284; J7030

== ENCOUNTER 2025-01-31 16:32 | Emergency (ER) | payer MEDICAID ==
[~2025-01-31] VITALS: Ht 172.7 cm; Wt 72.7 kg
--- NOTE | 2025-01-31 16:37 | ED.PDOC ---
History of Present Illness HPI Comments 64y M who presents to the ED via EMS for chief complaint of ETOH intoxication. Per EMS, pt has fallen after drinking a significant amount of alcohol and bystander called EMS. EMS arrived on scene with stable vitals and alert and oriented x 4 and brought to the ED. Pt in the ED, otherwise smells of ETOH and not willing to answer any questions. Pt otherwise has no past medical history. EMS states pt is homeless. Pt denies any other symptoms at this time. Time Seen by MD: 16:35 Primary Care Provider: NONE Reviewed Notes: Nurses Notes, Medications, Allergies Allergies: Coded Allergies: NO KNOWN ALLERGIES (Unverified , 02/01/24) Home Meds Active Scripts Acetaminophen (Acetaminophen) 500 Mg Tab, 500 MG PO Q4HPRN, #30 TAB 0 Refills Prov:JULIEN BARNARD 01/10/25 Losartan Potassium (Losartan Potassium) 50 Mg Tab, 50 MG PO DAILY for 30 Days, #30 TAB 0 Refills Prov:JAKE PAUL 01/04/25 Potassium Chloride (POTASSIUM CHLORIDE CR) 10 Meq Tb, 10 MEQ PO DAILY for 10 Days, #10 TAB 0 Refills Prov:JAKE PAUL 01/04/25 Furosemide (Lasix) 40 Mg Tab, 40 MG PO DAILY for 10 Days, #10 TAB 0 Refills Prov:JAKE PAUL 01/04/25 Pantoprazole Sodium Sesquihydr (Pantoprazole Sodium) 40 Mg Tab, 40 MG PO DAILY@0600 for 14 Days, #14 TAB Prov:JAKE PAUL 01/04/25 Carvedilol (COREG) 3.125 Mg Tab, 3.125 MG PO Q12HR for 30 Days, #60 TAB Prov:JAKE PAUL 01/04/25 Thiamine HCl (Thiamine Hydrochloride) 100 Mg Tab, 100 MG PO DAILY, #30 TAB Prov:ESTRELLITA COBB MD 08/02/24 Multiple Vitamins W/ Iron (Multi Vitamin with Iron) 1 Tab Tab, 1 TAB PO DAILY for 30 Days, #30 TAB Prov:FAUSTO LUNDBERG 05/09/24 Information Source: Patient Mode of Arrival: Ambulatory Severity: Moderate Timing: Minutes Duration: Since onset 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 Past Medical History PAST MEDICAL HISTORY: Denies Surgical History: Denies all surgeries Family History Family History: Unknown Social History Smoker: Non-Smoker Alcohol: Heavy Drugs: Denies Drug Use Lives In: Homeless Constitutional: denies: chills, diaphoresis, fatigue, fever, malaise, sweats, weakness, others EENTM: denies: blurred vision, double vision, ear bleeding, ear discharge, ear drainage, ear pain, ear ringing, eye pain, eye redness, hearing loss, mouth pain, mouth swelling, nasal discharge, nose bleeding, nose congestion, nose pain, photophobia, tearing, throat pain, throat swelling, voice changes, others Respiratory: denies: cough, hemoptysis, orthopnea, SOB at rest, shortness of breath, SOB with excertion, stridor, wheezing, others Cardiovascular: denies: chest pain, dizzy spells, diaphoresis, Dyspnea on exertion, edema, irregular heart beat, left arm pain, lightheadedness, palpitations, PND, syncope, others Gastrointestinal: denies: abdomen distended, abdominal pain, blood streaked bowels, constipated, diarrhea, dysphagia, difficulty swallowing, hematemesis, melena, nausea, poor appetite, poor fluid intake, rectal bleeding, rectal pain, vomiting, others Genitourinary: denies: burning, dysuria, flank pain, frequency, hematuria, incontinence, penile discharge, penile sore, pain, testicle pain, testicle swelling, urgency, others Neurological: denies: dizziness, fainting, headache, left sided numbness, left sided weakness, numbness, paresthesia, pre-existing deficit, right sided numbness, right sided weakness, seizure, speech problems, tingling, tremors, w eakness, others Musculoskeletal: denies: back pain, gout, joint pain, joint swelling, muscle pain, muscle stiffness, neck pain, others Integumetry: denies: bruises, change in color, change in hair/nails, dryness, laceration, lesions, lumps, rash, wounds, others Allergic/Immunocompromised: denies: Difficulty Healing, Frequent Infections, Hives, Itching, others Hematologic/Lymphatic: denies: anemia, blood clots, easy bleeding, easy bruising, swollen glands, others Endocrine: denies: excessive hunger, excessive sweating, excessive thirst, excessive urination, flushing, intolerance to cold, intolerance to heat, unexplained weight gain, unexplained weight loss, others Psychiatric: denies: anxiety, bipolar disorder, depression, hopeless, panic disorder, schizophrenia, sleepless, suicidal, others Unable to Obtain due to: Altered Mental Status (EtOH Intoxication) All Other Systems: Reviewed and Negative Physical Exam General Appearance: Moderate Distress HEENT: Normal ENT Inspection, Pharynx Normal, TMs Normal Neck: Full Range of Motion, Non-Tender, Normal, Normal Inspection Respiratory: Chest Non-Tender, Lungs Clear, No Accessory Muscle Use, No Respiratory Distress, Normal Breath Sounds Cardiovascular: No Edema, No JVD, No Murmur, No Gallop, Normal Peripheral Pulses, Regular Rate/Rhythm Breast Exam: Deferred Gastrointestinal: No Organomegaly, Non Tender, No Pulsatile Mass, Normal Bowel Sounds, Soft Genitalia: Deferred Pelvic: Deferred Rectal: Deferred Extremities: No calf tenderness, Normal capillary refill, No pedal edema Musculoskeletal : Apperance: Normal 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 Was a procedure done?: No Differential Dx Considerations may include: Alcohol intoxication, blunt head trauma, dehydration, generalized weakness X-Ray, Labs, Meds, VS Vital Signs Date Time Temp Pulse Resp B/P (MAP) Pulse Ox O2 Delivery O2 Flow Rate FiO2 01/31/25 16:50 97.8 90 16 105/67 (80) 94 97.8 Lab Test 01/31/25 16:55 Range/Units Plasma/Serum Blood Alcohol 344.7 H <10 mg/dL Current Medications Medications (Trade) Dose Ordered Sig/Shubham Route Start Time Stop Time Status Last Admin Sodium Chloride 1,000 ml @ 1,000 mls/hr Q1H ONCE IV 01/31/25 16:45 01/31/25 17:44 DC 01/31/25 19:59 CAT scan of the head shows: IMPRESSION: 1. No acute intracranial abnormality. 2. Aeration in the left frontal scalp and a small right frontal scalp contusion. 3. Generalized cerebral volume loss and mild chronic microvascular ischemic change. The patient was given a bolus of normal saline at 1 L The patient's alcohol level is 344.7 At this time, the patient will be signed out to Dr. Moore The patient has been stable here in the emergency department's Images Reviewed?: Images reviewed and evaluated by me Time of 1ST Reevaluation: 17:00 Reevaluation 1ST: Improved Patient Education/Counseling: Diagnosis, Treatment, Need For Follow Up Family Education/Counseling: No Family Present Departure 1 Departure Time of Disposition: 21:20 Impression: Primary Impression: Alcohol intoxication Qualified Codes: F10.920 - Alcohol use, unspecified with intoxication, uncomplicated Additional Impression: Scalp hematoma Qualified Codes: S00.03XA - Contusion of scalp, initial encounter Disposition: 30 STILL A PATIENT Condition: Fair Critical Care Note Critical Care Time?: No Stability Stability form required: No Heart Score Heart Score: Heart Score Response (Comments) Value History N/A 0 EKG N/A 0 Age N/A 0 Risk Factors N/A 0 Troponin N/A 0 Total 0 I personally scribed for TODD ELLIOTT MD ([email or web address]) on 01/31/25 at 16:37. Electronically submitted by Rajiv Shankar ([email or web address]). I personally scribed for TODD ELLIOTT MD ([email or web address]) on 01/31/25 at 16:39. Electronically submitted by Rajiv Shankar ([email or web address]). TODD ELLIOTT MD Jan 31, 2025 16:37
--- NOTE | 2025-01-31 18:27 | DVH ---
CLINICAL HISTORY: fall TECHNIQUE: Helical imaging carried out from skull base to vertex without intravenous contrast. This e xam was performed according to our departmental dose optimization program. Up-to-date CT equipment an d radiation dose reduction techniques are utilized as appropriate. CTDIVol: 62.18 mGy DLP: 1100.48 mGy-cm WID: COMPARISON: CT HEAD WITHOUT CONTRAST on DOS: 01/10/25, FINDINGS: There is a laceration in the left frontal scalp ( series 3, image 49). There is a small right fronta l scalp contusion. Generalized cerebral volume loss with concordant prominence of the subarachnoid sp aces and ventricles. Mild patchy low attenuation in the cerebral white matter consistent with nonspec ific white matter disease. There is no midline shift or mass effect. The maciel white matter interfaces are maintained. The basal cisterns are patent. There is no evidence of acute intracranial hemorrhage or extra-axial fluid branden ection. The mastoid air cells and visualized paranasal sinuses are well-aerated. IMPRESSION: 1. No acute intracranial abnormality. 2. Aeration in the left frontal scalp and a small right frontal scalp contusion. 3. Generalized cerebral volume loss and mild chronic microvascular ischemic change.
[2025-01-31] MEDS: SODIUM CHLORIDE 0.9% 1,000 ML IV ONE (19:59)
[2025-02-01 03:41] VITALS: PULSE 68; RESP 12; O2SAT 99
[2025-02-01 08:03] VITALS: PULSE 75; TEMP 98
[2025-02-01] MEDS: cloNIDine HCL 0.1 MG TAB PO ONE (08:15)
[2025-02-01 11:14] VITALS: BP 137/82; RESP 16; O2SAT 97
== END 2025-02-01 12:03 | disposition home or self-care (01) ==
LOC: EDBD 16:32 → EDUNIT# 16:32 → ER 16:32
DX: S00.03XA Contusion of scalp, initial encounter (principal); F10.129 Alcohol abuse with intoxication, unspecified; Z59.00 Homelessness unspecified; Z79.899 Other long term (current) drug therapy; W19.XXXA Unspecified fall, initial encounter; Y93.89 Activity, other specified; Y92.89 Other specified places as the place of occurrence of the external cause; Y99.8 Other external cause status; Y90.8 Blood alcohol level of 240 mg/100 ml or more
CPT/HCPCS: 36415; 70450; 80320; 96360; 99285; J7030

== ENCOUNTER 2025-02-07 14:00 | Emergency (ER) | payer MEDICAID ==
[~2025-02-07] VITALS: Ht 167.6 cm; Wt 72.0 kg
[2025-02-07 14:20] VITALS: TEMP 98.1
[2025-02-07 14:23] VITALS: BP 136/75; PULSE 92; RESP 18; O2SAT 94
--- NOTE | 2025-02-07 14:34 | ED.PDOC ---
Psychiatric HPI Comments 64-year-old male, JORGE LUIS, presents to the emergency department with chief complaint of ETOH withdrawal. EMS reports, drinking x6 pt of vodka today (02/07/25). Patient denies suicidal ideation, homicidal ideation, auditory hallucinations or visual hallucinations. Chief Complaint: ETOH Time Seen by MD: 14:30 Primary Care Provider: n/a Reviewed Notes: Nurses Notes, Parer Notes, Medications, Allergies Information Source: Patient, Emergency Med Personnel Mode of Arrival: Ambulatory Severity: Unable to Care for Self Severity of Pain: None Severity of Mental Status: Moderate Severity of Symptoms: Moderate Timing: Hours Duration: Since onset Prehospital treatment: None Presents with: None Ingestion: None Circumstance: Withdrawal Symptoms Current substance abuse: ETOH Stressors: None History of: None Quality: None Location: None Location of pain or injury: None Associated signs and symptoms: Intoxication, ETOH Past Medical History PAST MEDICAL HISTORY: Denies Surgical History: Denies all surgeries Family History Family History: Unknown Social History Smoker: Non-Smoker Alcohol: Heavy Drugs: Denies Drug Use Lives In: Homeless Constitutional: denies: chills, diaphoresis, fatigue, fever, malaise, sweats, weakness, others EENTM: denies: blurred vision, double vision, ear bleeding, ear discharge, ear drainage, ear pain, ear ringing, eye pain, eye redness, hearing loss, mouth pain, mouth swelling, nasal discharge, nose bleeding, nose congestion, nose pain, photophobia, tearing, throat pain, throat swelling, voice changes, others Respiratory: denies: cough, hemoptysis, orthopnea, SOB at rest, shortness of breath, SOB with excertion, stridor, wheezing, others Cardiovascular: denies: chest pain, dizzy spells, diaphoresis, Dyspnea on exertion, edema, irregular heart beat, left arm pain, lightheadedness, palpitations, PND, syncope, others Gastrointestinal: denies: abdomen distended, abdominal pain, blood streaked bowels, constipated, diarrhea, dysphagia, difficulty swallowing, hematemesis, melena, nausea, poor appetite, poor fluid intake, rectal bleeding, rectal pain, vomiting, others Genitourinary: denies: burning, dysuria, flank pain, frequency, hematuria, in continence, penile discharge, penile sore, pain, testicle pain, testicle swelling, urgency, others Neurological: denies: dizziness, fainting, headache, left sided numbness, left sided weakness, numbness, paresthesia, pre-existing deficit, right sided numbness, right sided weakness, seizure, speech problems, tingling, tremors, weakness, others Musculoskeletal: denies: back pain, gout, joint pain, joint swelling, muscle pain, muscle stiffness, neck pain, others Integumetry: denies: bruises, change in color, change in hair/nails, dryness, laceration, lesions, lumps, rash, wounds, others Allergic/Immunocompromised: denies: Difficulty Healing, Frequent Infections, Hives, Itching, others Hematologic/Lymphatic: denies: anemia, blood clots, easy bleeding, easy bruising, swollen glands, others Endocrine: denies: excessive hunger, excessive sweating, excessive thirst, excessive urination, flushing, intolerance to cold, intolerance to heat, unexplained weight gain, unexplained weight loss, others Psychiatric: denies: anxiety, bipolar disorder, depression, hopeless, panic disorder, schizophrenia, sleepless, suicidal, others Unable to Obtain due to: Other All Other Systems: Reviewed and Negative Physical Exam General Appearance: No Apparent Distress, Normal HEENT: Normal ENT Inspection, Pharynx Normal Neck: Full Range of Motion, Non-Tender, Normal, Normal Inspection Respiratory: Chest Non-Tender, Lungs Clear, No Accessory Muscle Use, No Respiratory Distress, Normal Breath Sounds Cardiovascular: No Edema, No Murmur, No Gallop, Normal Peripheral Pulses, Regular Rate/Rhythm Breast Exam: Deferred Gastrointestinal: No Organomegaly, Non Tender, No Pulsatile Mass, Normal Bowel Sounds, Soft Genitalia: Deferred Pelvic: Deferred Rectal: Deferred Extremities: No calf tenderness, Normal capillary refill, Normal inspection, Normal range of motion, Non-tender, No pedal edema Musculoskeletal : Apperance: Normal 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 Was a procedure done?: No Psych Differential Dx Psych. Differential Dx: Other Intoxication Differential Dx: Alcohol Withdraw Syndrome, Electrolyte Imbalance, Encephalopathy, Intoxication Other Differentail Dx Alcohol abuse, ETOH intoxication, ETOH withdrawal X-Ray, Labs, Meds, VS Vital Signs Date Time Temp Pulse Resp B/P (MAP) Pulse Ox O2 Delivery O2 Flow Rate FiO2 02/07/25 14:23 92 18 136/75 (95) 94 02/07/25 14:23 92 18 94 Room Air* 0 21 02/07/25 14:20 98.1 94 18 119/78 (92) 95 98.1 Time of 1ST Reevaluation: 15:00 Reevaluation 1ST: Unchanged Patient Education/Counseling: Diagnosis, Treatment Family Education/Counseling: No Family Present Departure 1 Departure Time of Disposition: 17:46 (Patient presenting with alcohol intoxication. Patient eloped prior to workup completion.) Impression: Primary Impression: Alcohol intoxication Qualified Codes: F10.921 - Alcohol use, unspecified with intoxication delirium Disposition: 07 LEFT AWOL/ELOPED Condition: Serious Critical Care Note Critical Care Time?: No Stability Stability form required: No Heart Score Heart Score: Heart Score Response (Comments) Value History N/A 0 EKG N/A 0 Age N/A 0 Risk Factors N/A 0 Troponin N/A 0 Total 0 I personally scribed for JOSÉ MIGUEL CASTILLO MD ([email or web address]) on 02/07/25 at 14:34. Electronically submitted by Deb Malloy ([email or web address]). JOSÉ MIGUEL CASTILLO MD Feb 07, 2025 14:34
== END 2025-02-07 17:46 | disposition left against medical advice (07) ==
LOC: EDBD 14:00 → ER 14:04
DX: F10.129 Alcohol abuse with intoxication, unspecified (principal); Y90.9 Presence of alcohol in blood, level not specified

== ENCOUNTER 2025-02-08 17:42 | Emergency (ER) | payer MEDICAID ==
[~2025-02-08] VITALS: Ht 172.7 cm; Wt 77.5 kg
--- NOTE | 2025-02-08 18:06 | ED.PDOC ---
Altered Mental Status HPI Comments 64 year old male JORGE LUIS presents to the ED with chief complaint of ETOH intoxication. Patient reports that he had drank 4 pints of vodka today, but started to feel anxious with associated SOB and dehydration. EMS relays that the patient called due to his anxiety and was found outside a business. Patient denies any chest pain, headache, dizziness, N/V/D, or abdominal pain. Chief Complaint: ETOH Time Seen by MD: 18:03 Primary Care Provider: n/a Reviewed Notes: Nurses Notes, Medications, Allergies Allergies: Coded Allergies: NO KNOWN ALLERGIES (Unverified , 02/01/24) Home Meds Active Scripts Acetaminophen (Acetaminophen) 500 Mg Tab, 500 MG PO Q4HPRN, #30 TAB 0 Refills Prov:JULIEN BARNARD 01/10/25 Losartan Potassium (Losartan Potassium) 50 Mg Tab, 50 MG PO DAILY for 30 Days, #30 TAB 0 Refills Prov:JAKE PAUL 01/04/25 Potassium Chloride (POTASSIUM CHLORIDE CR) 10 Meq Tb, 10 MEQ PO DAILY for 10 Days, #10 TAB 0 Refills Prov:JAKE PAUL 01/04/25 Furosemide (Lasix) 40 Mg Tab, 40 MG PO DAILY for 10 Days, #10 TAB 0 Refills Prov:JAKE PAUL 01/04/25 Pantoprazole Sodium Sesquihydr (Pantoprazole Sodium) 40 Mg Tab, 40 MG PO DAILY@0600 for 14 Days, #14 TAB Prov:JAKE PAUL 01/04/25 Carvedilol (COREG) 3.125 Mg Tab, 3.125 MG PO Q12HR for 30 Days, #60 TAB Prov:JAKE PAUL 01/04/25 Thiamine HCl (Thiamine Hydrochloride) 100 Mg Tab, 100 MG PO DAILY, #30 TAB Prov:ESTRELLITA COBB MD 08/02/24 Multiple Vitamins W/ Iron (Multi Vitamin with Iron) 1 Tab Tab, 1 TAB PO DAILY for 30 Days, #30 TAB Prov:FAUSTO LUNDBERG 05/09/24 Information Source: Patient, Emergency Med Personnel Mode of Arrival: EMS Severity: Moderate Timing: Hours Duration: Since onset Prehospital treatment: None Recent: Other (ETOH abuse) History of: None Past Medical History PAST MEDICAL HISTORY: Denies Surgical History: Denies all surgeries Family History Family History: Reviewed,noncontributory to illness, Unknown Social History Smoker: Non-Smoker Alcohol: Heavy Drugs: Denies Drug Use Lives In: Homeless Constitutional: denies: chills, diaphoresis, fatigue, fever, malaise, sweats, weakness, others EENTM: denies: blurred vision, double vision, ear bleeding, ear discharge, ear drainage, ear pain, ear ringing, eye pain, eye redness, hearing loss, mouth pain, mouth swelling, nasal discharge, nose bleeding, nose congestion, nose pain, photophobia, tearing, throat pain, throat swelling, voice changes, others Respiratory: reports: shortness of breath; denies: cough, hemoptysis, orthopnea, SOB at rest, SOB with excertion, stridor, wheezing, others Cardiovascular: reports: chest pain; denies: dizzy spells, diaphoresis, Dyspnea on exertion, edema, irregular heart beat, left arm pain, lightheadedness, palpitations, PND, syncope, others Gastrointestinal: denies: abdomen distended, abdominal pain, blood streaked bowels, constipated, diarrhea, dysphagia, difficulty swallowing, hematemesis, melena, nausea, poor appetite, poor fluid intake, rectal bleeding, rectal pain, vomiting, others Genitourinary: denies: burning, dysuria, flank pain, frequency, hematuria, incontinence, penile discharge, penile sore, pain, testicle pain, testicle swel ling, urgency, others Neurological: denies: dizziness, fainting, headache, left sided numbness, left sided weakness, numbness, paresthesia, pre-existing deficit, right sided numbness, right sided weakness, seizure, speech problems, tingling, tremors, weakness, others Musculoskeletal: denies: back pain, gout, joint pain, joint swelling, muscle pain, muscle stiffness, neck pain, others Integumetry: denies: bruises, change in color, change in hair/nails, dryness, laceration, lesions, lumps, rash, wounds, others Allergic/Immunocompromised: denies: Difficulty Healing, Frequent Infections, Hives, Itching, others Hematologic/Lymphatic: denies: anemia, blood clots, easy bleeding, easy bruising, swollen glands, others Endocrine: denies: excessive hunger, excessive sweating, excessive thirst, excessive urination, flushing, intolerance to cold, intolerance to heat, unexplained weight gain, unexplained weight loss, others Psychiatric: reports: anxiety; denies: bipolar disorder, depression, hopeless, panic disorder, schizophrenia, sleepless, suicidal, others All Other Systems: Reviewed and Negative Physical Exam General Appearance: No Apparent Distress, Other (Intoxicated) HEENT: Normal ENT Inspection, Pharynx Normal, TMs Normal Neck: Full Range of Motion, Non-Tender, Normal, Normal Inspection Respiratory: Chest Non-Tender, Lungs Clear, No Accessory Muscle Use, No Respiratory Distress, Normal Breath Sounds Cardiovascular: No Edema, No JVD, No Murmur, No Gallop, Normal Peripheral Pulses, Regular Rate/Rhythm Breast Exam: Deferred Gastrointestinal: No Organomegaly, Non Tender, No Pulsatile Mass, Normal Bowel Sounds, Soft Genitalia: Deferred Pelvic: Deferred Rectal: Deferred Extremities: No calf tenderness, Normal capillary refill, Normal inspection, Normal range of motion, Non-tender, No pedal edema Musculoskeletal : Apperance: Normal Neurologic: 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 Was a procedure done?: No Differential Diagnosis (ALOC) Differential Diagnosis: Dehydration, ETOH Intoxication X-Ray, Labs, Meds, VS Vital Signs Date Time Temp Pulse Resp B/P (MAP) Pulse Ox O2 Delivery O2 Flow Rate FiO2 02/08/25 18:00 98.1 96 18 138/81 (100) 97 98.1 Current Medications Medications (Trade) Dose Ordered Sig/Shubham Route Start Time Stop Time Status Last Admin Sodium Chloride 1,000 ml @ 1,000 mls/hr Q1H ONCE IV 02/08/25 18:15 02/08/25 19:14 DC 02/08/25 19:12 Ketorolac Tromethamine (Toradol Injection) 30 mg ONCE ONCE IM 02/08/25 18:15 02/08/25 18:16 DC 02/08/25 19:15 X-Ray, Labs, Meds, VS Comment Imaging: X-rays and CT scans were reviewed and interpreted by this provider, imaging shows no fractures and no pathological disease. Pending radiology review. Laboratory: Labs reviewed and interpreted by this provider. No significant abnormalities noted. Patient has prior medical visits reviewed. Med reconciliation performed Vital signs reviewed Time of 1ST Reevaluation: 19:03 Reevaluation 1ST: Unchanged Patient Education/Counseling: Diagnosis, Treatment, Need For Follow Up (Follow up in the emergency department in the next 24-48 hours if symptoms worsen. It was advised to follow up with your primary care doctor in the next 3-4 days for further evaluation.) Family Education/Counseling: No Family Present Departure 1 Departure Time of Disposition: 21:22 Impression: Primary Impression: Alcohol intoxication Qualified Codes: F10.920 - Alcohol use, unspecified with intoxication, uncomplicated Disposition: 01 HOME / SELF CARE / HOMELESS Condition: Fair Discharged With: Self Critical Care Note Critical Care Time?: No Stability Stability form required: No Heart Score Heart Score: Heart Score Response (Comments) Value History N/A 0 EKG N/A 0 Age N/A 0 Risk Factors N/A 0 Troponin N/A 0 Total 0 I personally scribed for FRANTZ LILLY ([email or web address]) on 02/08/25 at 18:06. Electronically submitted by Stephen Steward ([email or web address]). FRANTZ LILLY Feb 08, 2025 18:06
[2025-02-08] MEDS: SODIUM CHLORIDE 0.9% 1,000 ML IV ONE (19:12)
[2025-02-08] MEDS: KETOROLAC TROMETH 30 MG/ML 1ML VIAL IM ONE (19:15)
[2025-02-09] MEDS: PROCHLORPERAZINE EDISYLATE 5 MG/ML 2ML VIAL IV ONE (02:06)
[2025-02-09 02:18] VITALS: TEMP 97.9
[2025-02-09 05:30] VITALS: BP 147/89; PULSE 86; RESP 18; O2SAT 97
== END 2025-02-09 05:43 | disposition home or self-care (01) ==
LOC: EDUNIT# 17:42 → EDBD 17:42 → ER 17:51
DX: F10.129 Alcohol abuse with intoxication, unspecified (principal); Z59.00 Homelessness unspecified; Z79.899 Other long term (current) drug therapy; Y90.9 Presence of alcohol in blood, level not specified
CPT/HCPCS: 96361; 96372; 96374; 99284; J0780; J1885; J7030

== ENCOUNTER 2025-02-12 15:49 | Emergency (ER) | payer MEDICAID ==
[~2025-02-12] VITALS: Ht 167.6 cm; Wt 81.0 kg
[~2025-02-12 15:49] MED LIST changes: +ACET-1882 PO; +ASPI-325 PO; +ERGO1CAP23 PO; +FER325T PO
--- NOTE | 2025-02-12 15:55 | ED.PDOC ---
History of Present Illness HPI Comments 74 y.o male presents to the ED via EMS for an evaluation of ETOH intoxication. EMS reports bystander called 911 after finding patient on the floor outside a grocery store complaining of abdominal pain. Patient reported on scene purchasing a Vodka bottle today and finished it. Patient denies any abdominal pain at this time, SI, HI, fever, chills, chest pain or SOB. No medical history reported. Time Seen by MD: 15:49 Reviewed Notes: Nurses Notes, Neck Band Operator Notes, Medications, Allergies Allergies: Coded Allergies: NO KNOWN ALLERGIES (Unverified , 02/01/24) Home Meds Active Scripts Acetaminophen (Acetaminophen) 500 Mg Tab, 500 MG PO Q4HPRN, #30 TAB 0 Refills Prov:JULIEN BARNARD 01/10/25 Losartan Potassium (Losartan Potassium) 50 Mg Tab, 50 MG PO DAILY for 30 Days, #30 TAB 0 Refills Prov:JAKE PUAL 01/04/25 Potassium Chloride (POTASSIUM CHLORIDE CR) 10 Meq Tb, 10 MEQ PO DAILY for 10 Days, #10 TAB 0 Refills Prov:JAKE PAUL 01/04/25 Furosemide (Lasix) 40 Mg Tab, 40 MG PO DAILY for 10 Days, #10 TAB 0 Refills Prov:JAKE PAUL 01/04/25 Pantoprazole Sodium Sesquihydr (Pantoprazole Sodium) 40 Mg Tab, 40 MG PO DAILY@0600 for 14 Days, #14 TAB Prov:JAKE PAUL 01/04/25 Carvedilol (COREG) 3.125 Mg Tab, 3.125 MG PO Q12HR for 30 Days, #60 TAB Prov:JAKE PAUL 01/04/25 Thiamine HCl (Thiamine Hydrochloride) 100 Mg Tab, 100 MG PO DAILY, #30 TAB Prov:ESTRELLITA COBB MD 08/02/24 Multiple Vitamins W/ Iron (Multi Vitamin with Iron) 1 Tab Tab, 1 TAB PO DAILY for 30 Days, #30 TAB Prov:FAUSTO LUNDBERG 05/09/24 Information Source: Patient, Emergency Med Personnel Mode of Arrival: EMS Severity: Moderate Timing: Hours Duration: Since onset Prehospital treatment: 12 Lead EKG, Migrant Leader Past Medical History PAST MEDICAL HISTORY: Denies Surgical History: Denies all surgeries Family History Family History: Reviewed,noncontributory to illness Social History Smoker: Non-Smoker Alcohol: Heavy Drugs: Denies Drug Use Lives In: Homeless Constitutional: denies: chills, diaphoresis, fatigue, fever, malaise, sweats, weakness, others EENTM: denies: blurred vision, double vision, ear bleeding, ear discharge, ear drainage, ear pain, ear ringing, eye pain, eye redness, hearing loss, mouth pain, mouth swelling, nasal discharge, nose bleeding, nose congestion, nose pain, photophobia, tearing, throat pain, throat swelling, voice changes, others Respiratory: denies: cough, hemoptysis, orthopnea, SOB at rest, shortness of breath, SOB with excertion, stridor, wheezing, others Cardiovascular: denies: chest pain, dizzy spells, diaphoresis, Dyspnea on exertion, edema, irregular heart beat, left arm pain, lightheadedness, palpitations, PND, syncope, others Gastrointestinal: reports: abdominal pain; denies: abdomen distended, blood s treaked bowels, constipated, diarrhea, dysphagia, difficulty swallowing, hematemesis, melena, nausea, poor appetite, poor fluid intake, rectal bleeding, rectal pain, vomiting, others Genitourinary: denies: burning, dysuria, flank pain, frequency, hematuria, incontinence, penile discharge, penile sore, pain, testicle pain, testicle swelling, urgency, others Neurological: denies: dizziness, fainting, headache, left sided numbness, left sided weakness, numbness, paresthesia, pre-existing deficit, right sided numbness, right sided weakness, seizure, speech problems, tingling, tremors, weakness, others Musculoskeletal: denies: back pain, gout, joint pain, joint swelling, muscle pain, muscle stiffness, neck pain, others Integumetry: denies: bruises, change in color, change in hair/nails, dryness, laceration, lesions, lumps, rash, wounds, others Allergic/Immunocompromised: denies: Difficulty Healing, Frequent Infections, Hives, Itching, others Endocrine: denies: excessive hunger, excessive sweating, excessive thirst, excessive urination, flushing, intolerance to cold, intolerance to heat, unexplained weight gain, unexplained weight loss, others Psychiatric: denies: anxiety, bipolar disorder, depression, hopeless, panic disorder, schizophrenia, sleepless, suicidal, others All Other Systems: Reviewed and Negative Physical Exam General Appearance: Mild Distress, Other (Alcohol on his breath) HEENT: Normal ENT Inspection, Pharynx Normal, TMs Normal Neck: Full Range of Motion, Non-Tender, Normal, Normal Inspection Respiratory: Chest Non-Tender, Lungs Clear, No Accessory Muscle Use, No Respiratory Distress, Normal Breath Sounds Cardiovascular: No Edema, No JVD, No Murmur, No Gallop, Normal Peripheral Pulses, Regular Rate/Rhythm Breast Exam: Deferred Gastrointestinal: No Organomegaly, Non Tender, No Pulsatile Mass, Normal Bowel Sounds, Soft Genitalia: Deferred Pelvic: Deferred Rectal: Deferred Extremities: No calf tenderness, Normal capillary refill, No pedal edema Musculoskeletal : Apperance: Normal Neurologic: counter control operator II-XII nml as Tested, Motor Weakness, Normal Affect, Normal Mood, No Sensory Deficits Cerebellar Function: Unable to Test Reflexes: Normal Skin: Dry, Normal Color, Warm Lymphatic: No Adenopathy Was a procedure done? Was a procedure done?: No Differential Dx Considerations may include: ETOH intoxication, Dehydration, Electrolyte imbalance, Gastroenteritis X-Ray, Labs, Meds, VS Vital Signs Date Time Temp Pulse Resp B/P (MAP) Pulse Ox O2 Delivery O2 Flow Rate FiO2 02/12/25 16:44 98.2 74 16 117/63 (81) 99 98.2 02/12/25 16:44 74 14 98 Room Air* 0 21 02/12/25 15:56 98.1 87 12 110/71 (84) 95 98.1 Lab Test 02/12/25 16:09 Range/Units Plasma/Serum Blood Alcohol 393.5 H <10 mg/dL Current Medications Medications (Trade) Dose Ordered Sig/Shubham Route Start Time Stop Time Status Last Admin Sodium Chloride 1,000 ml @ 1,000 mls/hr Q1H ONCE IVB 02/12/25 16:00 02/12/25 16:59 DC 02/12/25 16:54 IV Hep-Lock was established The patient was given a 1 L bolus of normal saline The patient has an alcohol level of 393.5 The patient will be signed out to Time of 1ST Reevaluation: 16:50 Reevaluation 1ST: Unchanged Patient Education/Counseling: Diagnosis, Treatment, Prognosis Family Education/Counseling: No Family Present Departure 1 Departure Time of Disposition: 19:55 Impression: Primary Impression: Alcohol intoxication Qualified Codes: F10.920 - Alcohol use, unspecified with intoxication, uncomplicated Disposition: 30 STILL A PATIENT Condition: Fair Critical Care Note Critical Care Time?: No Stability Stability form required: No I personally scribed for TODD ELLIOTT MD ([email or web address]) on 02/12/25 at 15:54. Electronically submitted by Ritika Clark ([facility]). TODD ELLIOTT MD Feb 12, 2025 15:54
[2025-02-12 16:44] VITALS: PULSE 74; RESP 14; O2SAT 98
[2025-02-12] MEDS: SODIUM CHLORIDE 0.9% 1,000 ML IVB ONE (16:54)
[2025-02-13 03:39] VITALS: PULSE 78; RESP 18; O2SAT 96
--- NOTE | 2025-02-13 06:03 | ED.PDOC ---
Departure 1 Departure Time of Disposition: 06:02 (Patient is clinically sober. He is tolerating PO ambulating without assistance and A&O x4. We will discharge patient home with outpatient follow up) Impression: Primary Impression: Alcohol intoxication Qualified Codes: F10.920 - Alcohol use, unspecified with intoxication, uncomplicated Disposition: 01 HOME / SELF CARE / HOMELESS Condition: Stable Additional Instructions: You were intoxicated. It is important to only drink in moderation. If you need help quitting you can call (HELP). If your symptoms worsen or you have any other concerns then please return to the ER. JOSÉ MIGUEL CASTILLO MD Feb 13, 2025 06:03
[2025-02-13 08:15] VITALS: BP 161/97; PULSE 75; RESP 18; TEMP 97.9; O2SAT 97
== END 2025-02-13 08:15 | disposition home or self-care (01) ==
LOC: EDUNIT# 15:49 → EDBD 15:49 → ER 15:49
DX: F10.129 Alcohol abuse with intoxication, unspecified (principal); Z59.00 Homelessness unspecified; Z79.899 Other long term (current) drug therapy; Y90.9 Presence of alcohol in blood, level not specified
CPT/HCPCS: 36415; 80320; 96360; 99283; J7030

== ENCOUNTER 2025-02-22 19:59 | Inpatient (IN) | payer MEDICAID ==
[~2025-02-22] VITALS: Ht 167.6 cm; Wt 76.2 kg
--- NOTE | 2025-02-22 20:36 | ED.PDOC ---
Rajinder. trauma (HPI) HPI Comments This is a 64 year old male ELDAA presenting to the ED with chief complaint of facial injury s/p fall. EMS reports bystanders had witnessed patient walking with a walker when he had tripped and fell forward, landing face first. EMS relays that the patient does not remember the incident and admits to drinking 4 pints of vodka today. Patient denies any N/V, dizziness, chest pain, or head injury. Chief Complaint: Fall Injury Time Seen by MD: 20:33 Primary Care Provider: n/a Reviewed notes: Nurses Notes, Bracelet Form Coverer Notes, Medications, Allergies Allergies: Coded Allergies: NO KNOWN ALLERGIES (Unverified , 02/01/24) Home Meds Active Scripts Ergocalciferol (VITAMIN D 22872 UNIT) 50,000 [place], [address] UNIT PO QWEEKLY for 90 Days, #12 CAP Prov:ANNELISE BLACKMAN 01/17/25 Acetaminophen (Acetaminophen) 325 Mg Tab, 650 MG PO TIDPRN PRN for 10 Days, #30 TAB Prov:ANNELISE BLACKMAN 01/17/25 Aspirin (Aspirin Low Dose) 81 Mg Tab, 81 MG PO DAILY for 30 Days, #30 TAB Prov:ANNELISE BLACKMAN 01/17/25 Ferrous Sulfate (Ferrous Sulfate) 325 Mg Tab, 325 MG PO MWF for 90 Days, #45 TAB Prov:ANNELISE BLACKMAN 01/17/25 Acetaminophen (Acetaminophen) 500 Mg Tab, 500 MG PO Q4HPRN, #30 TAB 0 Refills Prov:JULIEN BARNARD 01/10/25 Losartan Potassium (Losartan Potassium) 50 Mg Tab, 50 MG PO DAILY for 30 Days, #30 TAB 0 Refills Prov:JAKE PAUL 01/04/25 Potassium Chloride (POTASSIUM CHLORIDE CR) 10 Meq Tb, 10 MEQ PO DAILY for 10 Days, #10 TAB 0 Refills Prov:JAKE PAUL 01/04/25 Furosemide (Lasix) 40 Mg Tab, 40 MG PO DAILY for 10 Days, #10 TAB 0 Refills Prov:JAKE PAUL 01/04/25 Pantoprazole Sodium Sesquihydr (Pantoprazole Sodium) 40 Mg Tab, 40 MG PO DAILY@0600 for 14 Days, #14 TAB Prov:JAKE PAUL 01/04/25 Carvedilol (COREG) 3.125 Mg Tab, 3.125 MG PO Q12HR for 30 Days, #60 TAB Prov:JAKE PAUL RESIDENT 01/04/25 Thiamine HCl (Thiamine Hydrochloride) 100 Mg Tab, 100 MG PO DAILY, #30 TAB Prov:ESTRELLITA COBB MD 08/02/24 Multiple Vitamins W/ Iron (Multi Vitamin with Iron) 1 Tab Tab, 1 TAB PO DAILY for 30 Days, #30 TAB Prov:FAUSTO LUNDBERG RESIDENT 05/09/24 Information Source: Patient, Emergency Med Personnel Mode of Arrival: EMS Severity: Moderate Timing: Hours Duration: Since onset Prehospital treatment: C-Collar Location: Face Mechanism: Fall Past Medical History PAST MEDICAL HISTORY: Denies Surgical History: Denies all surgeries Family History Family History: Reviewed,noncontributory to illness Social History Smoker: Non-Smoker Alcohol: Heavy Drugs: Denies Drug Use Lives In: Homeless Constitutional: denies: chills, diaphoresis, fatigue, fever, malaise, sweats, weakness, others EENTM: reports: others (Facial pain and swelling); denies: blurred vision, double vision, ear bleeding, ear discharge, ear drainage, ear pain, ear ringing, eye pain, eye redness, hearing loss, mouth pain, mouth swelling, nasal discharge, nose bleeding, nose congestion, nose pain, photophobia, tearing, throat pain, throat swelling, voice changes Respiratory: denies: cough, hemoptysis, orthopnea, SOB at rest, shortness of breath, SOB with excertion, stridor, wheezing, others Cardiovascular: denies: chest pain, dizzy spells, diaphoresis, Dyspnea on exertion, edema, irregular heart beat, left arm pain, lightheadedness, palpitations, PND, syncope, others Gastrointestinal: denies: abdomen distended, abdominal pain, blood streaked bowels, constipated, diarrhea, dysphagia, difficulty swallowing, hematemesis, melena, nausea, poor appetite, poor fluid intake, rectal bleeding, rectal pain, vomiting, others Genitourinary: denies: burning, dysuria, flank pain, frequency, hematuria, incontinence, penile discharge, penile sore, pain, testicle pain, testicle swelling, urgency, others Neurological: denies: dizziness, fainting, headache, left sided numbness, left sided weakness, numbness, paresthesia, pre-existing deficit, right sided numbness, right sided weakness, seizure, speech problems, tingling, tremors, weakness, others Musculoskeletal: denies: back pain, gout, joint pain, joint swelling, muscle pain, muscle stiffness, neck pain, others Integumetry: reports: others (Abrasion to forehead); denies: bruises, change in color, change in hair/nails, dryness, laceration, lesions, lumps, rash, wounds Allergic/Immunocompromised: denies: Difficulty Healing, Frequent Infections, Hives, Itching, others Hematologic/Lymphatic: denies: anemia, blood clots, easy bleeding, easy bruising, swollen glands, others Endocrine: denies: excessive hunger, excessive sweating, excessive thirst, excessive urination, flushing, intolerance to cold, intolerance to heat, unexplained weight gain, unexplained weight loss, others Psychiatric: denies: anxiety, bipolar disorder, depression, hopeless, panic disorder, schizophrenia, sleepless, suicidal, others All Other Systems: Reviewed and Negative Physical Exam General Appearance: No Apparent Distress, Normal HEENT: Pharynx Normal, TMs Normal, Other (Abrasion to right forehead, swelling and tenderness to maxila. In C-Collar.) Neck: Full Range of Motion, Non-Tender, Normal, Normal Inspection Respiratory: Chest Non-Tender, Lungs Clear, No Accessory Muscle Use, No Respiratory Distress, Normal Breath Sounds Cardiovascular: No Edema, No JVD, No Murmur, No Gallop, Normal Peripheral Pulses, Regular Rate/Rhythm Breast Exam: Deferred Gastrointestinal: No Organomegaly, Non Tender, No Pulsatile Mass, Normal Bowel Sounds, Soft Genitalia: Deferred Pelvic: Deferred Rectal: Deferred Extremities: No calf tenderness, Normal capillary refill, Normal inspection, Normal range of motion, Non-tender, No pedal edema Musculoskeletal : Apperance: Normal Neurologic: Alert, stile ripsaw operator II-XII nml as Tested, No Motor Deficits, Normal Affect, Normal Mood, No Sensory Deficits Cerebellar Function: Normal Reflexes: Normal Skin: Dry, Normal Color, Warm Lymphatic: No Adenopathy Was a procedure done? Was a procedure done?: No Differential Diagnosis Multiple Trauma: Closed Head Injury, Fractures, Foreign Body, Hematoma, Laceration, Encephalopathy X-Ray, Labs, Meds, VS Vital Signs Date Time Temp Pulse Resp B/P (MAP) Pulse Ox O2 Delivery O2 Flow Rate FiO2 02/23/25 00:00 93 02/22/25 20:52 98.7 83 14 115/80 (92) 98 98.7 Lab Test 02/22/25 21:02 Range/Units White Blood Count 4.5 4.4-10.8 10^3/uL Red Blood Count 3.48 L 4.5-5.90 10^6/uL Hemoglobin 12.5 L 13.5-17.5 g/dL Hematocrit 36.4 L 41.0-53.0 % Mean Corpuscular Volume 104.5 H 80.0-100.0 fL Mean Corpuscular Hemoglobin 35.9 H 28.0-32.0 pg Mean Corpuscular Hemoglobin Concent 34.4 32.0-36.0 g/dL Red Cell Distribution Width 16.1 H 11.8-14.3 % Platelet Count 120 L 140-450 10^3/uL Mean Platelet Volume 7.5 6.9-10.8 fL Neutrophils (%) (Auto) 44.7 37.0-80.0 % Lymphocytes (%) (Auto) 40.5 10.0-50.0 % Monocytes (%) (Auto) 9.0 0.0-12.0 % Eosinophils (%) (Auto) 4.5 0.0-7.0 % Basophils (%) (Auto) 1.3 0.0-2.0 % Neutrophils # (Auto) 2.0 1.6-8.6 10 ^3/uL Lymphocytes # (Auto) 1.8 0.4-5.4 10 ^3/uL Monocytes # (Auto) 0.4 0-1.3 10 ^3/uL Eosinophils # (Auto) 0.2 0-0.8 10 ^3/uL Basophils # (Auto) 0.1 0-0.2 10 ^3/uL Nucleated Red Blood Cells 0.2 % Sodium Level 145 136-145 mmol/L Potassium Level 3.8 3.5-5.1 mmol/L Chloride Level 108 H 98-107 mmol/L Carbon Dioxide Level 22 20-31 mmol/L Anion Gap 15 5-15 Blood Urea Nitrogen 11 9-23 mg/dL Creatinine 0.79 0.700-1.30 mg/dL Glomerular Filtration Rate Calc 100 >90 mL/min BUN/Creatinine Ratio 13.9 10.0-20.0 Serum Glucose 116 H 74-106 mg/dL Calcium Level 9.3 8.7-10.4 mg/dL Plasma/Serum Blood Alcohol 385.6 H <10 mg/dL [place] [address] Ph: [phone] DIAGNOSTIC IMAGING Diagnostic Imaging Report : [id number] Signed PATIENT: VIC SHIPMAN ACCT: [id number] UNIT: [id number] : 1960 LOC: ER ROOM / BED: / AGE / SEX: 64 / M ADM STATUS: REG ER SERVICE 08 ORDERING PHYSICIAN: FRANTZ LILLY PROCEDURE(s): HWOCT - HEAD WITHOUT CONTRAST REASON: Fall, head inj ORDER NUMBER(s): [id number], ACCESSION NUMBER(s): [id number] CT HEAD WITHOUT CONTRAST INDICATION: Fall, head inj COMPARISON: CT HEAD WITHOUT CONTRAST on DOS: 01/31/25, CT HEAD WITHOUT CONTRAST on DOS: 01/10/25, CT HEAD WITHOUT CONTRAST on DOS: 01/09/25, CT HEAD WITHOUT CONTRAST on DOS: 01/04/25, CT HEAD WITHOUT CONTRAST on DOS: 05/09/24 TECHNIQUE: CT of the head without intravenous contrast. RADIATION DOSE: CTDIvol: 59 mGy, DLP: 1171 mGy*cm FINDINGS: There is no evidence of acute intracranial hemorrhage, extra-axial collection, mass effect, midline shift, herniation or hydrocephalus. The ventricles, sulci and cisterns are age appropriate. The maciel-white differentiation is intact. The visualized paranasal sinuses and mastoid air cells are clear. Large superficial hematoma is seen in the right cheek which measures 3.6 x 4.3 cm. IMPRESSION: 1. No evidence of acute intracranial hemorrhage, mass effect or hydrocephalus. 2. Large superficial hematoma is seen in the right cheek which measures 3.6 x 4.3 cm. ATED BY: JACOBO SAENZ MD DICTATED DATE/TIME: 02/22/252140 SIGNED BY: JACOBO SAENZ MD SIGNED DATE/TIME: 02/22/252140 CC: [place] [address] Ph: [phone] DIAGNOSTIC IMAGING Diagnostic Imaging Report : [id number] Signed PATIENT: VIC SHIPMAN ACCT: [id number] UNIT: [id number] : 1960 LOC: ER ROOM / BED: / AGE / SEX: 64 / M ADM STATUS: REG ER SERVICE 32 ORDERING PHYSICIAN: FRANTZ LILLY PROCEDURE(s): FAC2C - MAXILLOFACIAL WITHOUT REASON: fall ORDER NUMBER(s): [id number], ACCESSION NUMBER(s): [id number] HISTORY: fall TECHNIQUE: Nonenhanced axial images through the facial bones with coronal and sagittal MPR. Radiation Dose Information: CT Dose: CTDI volume is 67 mGy. Dose-length product is 1540 mGy*cm COMPARISON: CT MAXILLOFACIAL WITHOUT on DOS: 01/10/25 FINDINGS: Mandible: Unremarkable Maxilla: Unremarkable Zygomatic arches: Unremarkable Nasal bone: Unremarkable Orbits: Unremarkable Sinuses: Clear Facial swelling: Large superficial hematoma is seen in the right cheek /periorbital region which measures 6.3 x 4.3 cm. IMPRESSION: No acute facial fractures. Large superficial hematoma is seen in the right cheek /periorbital region which measures 6.3 x 4.3 cm. Radiation optimization: All CT scans at this facility use at least one of these dose optimization techniques: automated exposure control mA and/or kV adjustment per patient size (includes targeted exams where dose is matched to clinical indication) or iterative reconstruction. ATED BY: JACOBO SAENZ MD DICTATED DATE/TIME: 02/22/252200 SIGNED BY: JACOBO SAENZ MD SIGNED DATE/TIME: 02/22/252200 CC: [address] [address] Ph: [phone] DIAGNOSTIC IMAGING Diagnostic Imaging Report : [id number] Signed PATIENT: VIC SHIPMAN ACCT: [id number] UNIT: [id number] : 1960 LOC: ER ROOM / BED: / AGE / SEX: 64 / M ADM STATUS: REG ER SERVICE 32 ORDERING PHYSICIAN: FRANTZ LILLY PROCEDURE(s): CS2 - CERVICAL WITHOUT CONTRAST REASON: fall ORDER NUMBER(s): [id number], ACCESSION NUMBER(s): [id number] EXAM: CT CERVICAL WITHOUT CONTRAST INDICATION: fall EXAM DATE: 02/22/2025 09:09 PM COMPARISON: None TECHNIQUE: Multiple axial CT images of the cervical spine were obtained using bone algorithm. Axial and coronal reformatting was done. Bone and soft tissue windows were reviewed. Radiation Dose Information: CT Dose: CTDI volume is 25 mGy. Dose-length product is 645 mGy*cm FINDINGS: The cervical alignment is intact. No acute cervical spine fracture is identified. The vertebral body heights are intact. No suspicious osseous lesions are identified. Moderate degenerative changes throughout the cervical spine There is no prevertebral soft tissue swelling. IMPRESSION: 1. No evidence of acute cervical spine fracture or traumatic malalignment. 2. Moderate degenerative changes throughout the cervical spine. All CT scans at this medical facility are performed using dose modulation t echniques as appropriate to a performed exam including the following: Automated exposure control was utilized; adjustment of the MA and/or KV according to patient size; and use of iterative reconstruction technique. ATED BY: JACOBO SAENZ MD DICTATED DATE/TIME: 02/22/252135 SIGNED BY: JACOBO SAENZ MD SIGNED DATE/TIME: 02/22/252135 CC: X-Ray, Labs, Meds, VS Comment Imaging: X-rays and CT scans were reviewed and interpreted by this provider, imaging shows no fractures and no pathological disease. Pending radiology review. Laboratory: Labs reviewed and interpreted by this provider. No significant abnormalities noted. Patient has prior medical visits reviewed. Med reconciliation performed Vital signs reviewed Patient will be admitted for alcohol withdrawals, pain control, facial contusion Recommend social service consult Time of 1ST Reevaluation: 21:33 Reevaluation 1ST: Unchanged Patient Education/Counseling: Diagnosis, Treatment Family Education/Counseling: No Family Present Departure 1 Departure Time of Disposition: 01:57 Impression: Primary Impression: Alcohol intoxication Qualified Codes: F10.920 - Alcohol use, unspecified with intoxication, uncomplicated Additional Impressions: Alcohol withdrawal Qualified Codes: F10.930 - Alcohol use, unspecified with withdrawal, uncomplicated Facial trauma Qualified Codes: S09.93XA - Unspecified injury of face, initial encounter Disposition: ADMITTED INPATIENT Condition: Guarded Discharged With: Self Critical Care Note Critical Care Time?: No Stability Stability form required: No Heart Score Heart Score: Heart Score Response (Comments) Value History N/A 0 EKG N/A 0 Age N/A 0 Risk Factors N/A 0 Troponin N/A 0 Total 0 I personally scribed for FRANTZ LILLY ([email or web address]) on 02/22/25 at 20:36. Electronically submitted by Stephen Steward ([email or web address]). I personally scribed for FRANTZ LILLYP ([email or web address]) on 02/23/25 at 01:05. Electronically submitted by Goyo Bower ([email or web address]). FRANTZ LILLY Feb 22, 2025 20:36
[2025-02-22 21:20] LABS: Basophils # (auto) 0.1 10 ^3/uL (0-0.2); Eosinophils # (auto) 0.2 10 ^3/uL (0-0.8); Eosinophils % (auto) 4.5 % (0.0-7.0); Hemoglobin 12.5 g/dL (13.5-17.5); Lymphocytes # (auto) 1.8 10 ^3/uL (0.4-5.4); Mean Corpuscular Hemoglobin 35.9 pg (28.0-32.0); Monocytes # (auto) 0.4 10 ^3/uL (0-1.3); Platelet Count (auto) 120 10^3/uL (140-450); Red Blood Cells 3.48 10^6/uL (4.5-5.90); Red Cell Distribution Width 16.1 % (11.8-14.3)
[2025-02-22 21:21] LABS: Basophils % (auto) 1.3 % (0.0-2.0); Hematocrit 36.4 % (41.0-53.0); Lymphocytes % (auto) 40.5 % (10.0-50.0); Mean Corpuscular Hgb Conc. 34.4 g/dL (32.0-36.0); Mean Corpuscular Volume 104.5 fL (80.0-100.0); Neutrophils % (auto) 44.7 % (37.0-80.0); Nucleated Red Blood Cells % 0.2 %; White Blood Cell 4.5 10^3/uL (4.4-10.8)
[2025-02-22 21:29] LABS: Potassium 3.8 mmol/L (3.5-5.1); Sodium 145 mmol/L (136-145)
[2025-02-22 21:30] LABS: Anion Gap 15 (5-15); Calcium 9.3 mg/dL (8.7-10.4); Carbon Dioxide 22 mmol/L (20-31)
[2025-02-22 21:35] LABS: BUN/Creatinine Ratio 13.9 (10.0-20.0); Blood Urea Nitrogen 11 mg/dL (9-23)
[2025-02-22 21:39] LABS: Chloride 108 mmol/L (98-107); Glucose 116 mg/dL (74-106)
--- NOTE | 2025-02-22 21:39 | DVH ---
EXAM: CT CERVICAL WITHOUT CONTRAST INDICATION: fall EXAM DATE: 02/22/2025 09:09 PM COMPARISON: None TECHNIQUE: Multiple axial CT images of the cervical spine were obtained using bone algorithm. Axial a nd coronal reformatting was done. Bone and soft tissue windows were reviewed. Radiation Dose Information: CT Dose: CTDI volume is 25 mGy. Dose-length product is 645 mGy*cm FINDINGS: The cervical alignment is intact. No acute cervical spine fracture is identified. The vertebral body heights are intact. No suspicious osseous lesions are identified. Moderate degenerative changes throughout the cervical spine There is no prevertebral soft tissue swelling. IMPRESSION: 1. No evidence of acute cervical spine fracture or traumatic malalignment. 2. Moderate degenerative changes throughout the cervical spine. All CT scans at this medical facility are performed using dose modulation techniques as appropriate t o a performed exam including the following: Automated exposure control was utilized; adjustment of th e MA and/or KV according to patient size; and use of iterative reconstruction technique.
--- NOTE | 2025-02-22 21:43 | DVH ---
CT HEAD WITHOUT CONTRAST INDICATION: Fall, head inj COMPARISON: CT HEAD WITHOUT CONTRAST on DOS: 01/31/25, CT HEAD WITHOUT CONTRAST on DOS: 01/10/25, CT HEA D WITHOUT CONTRAST on DOS: 01/09/25, CT HEAD WITHOUT CONTRAST on DOS: 01/04/25, CT HEAD WITHOUT CONTRAST on DOS: 05/09/24 TECHNIQUE: CT of the head without intravenous contrast. RADIATION DOSE: CTDIvol: 59 mGy, DLP: 1171 mGy*cm FINDINGS: There is no evidence of acute intracranial hemorrhage, extra-axial collection, mass effect, midline s hift, herniation or hydrocephalus. The ventricles, sulci and cisterns are age appropriate. The maciel -white differentiation is intact. The visualized paranasal sinuses and mastoid air cells are clear. Large superficial hematoma is seen in the right cheek which measures 3.6 x 4.3 cm. IMPRESSION: 1. No evidence of acute intracranial hemorrhage, mass effect or hydrocephalus. 2. Large superficial hematoma is seen in the right cheek which measures 3.6 x 4.3 cm.
--- NOTE | 2025-02-22 22:03 | DVH ---
HISTORY: fall TECHNIQUE: Nonenhanced axial images through the facial bones with coronal and sagittal MPR. Radiation Dose Information: CT Dose: CTDI volume is 67 mGy. Dose-length product is 1540 mGy*cm COMPARISON: CT MAXILLOFACIAL WITHOUT on DOS: 01/10/25 FINDINGS: Mandible: Unremarkable Maxilla: Unremarkable Zygomatic arches: Unremarkable Nasal bone: Unremarkable Orbits: Unremarkable Sinuses: Clear Facial swelling: Large superficial hematoma is seen in the right cheek /periorbital region which caleb sures 6.3 x 4.3 cm. IMPRESSION: No acute facial fractures. Large superficial hematoma is seen in the right cheek /periorbital region which measures 6.3 x 4.3 cm . Radiation optimization: All CT scans at this facility use at least one of these dose optimization jessenia hniques: automated exposure control mA and/or kV adjustment per patient size (includes targeted exam s where dose is matched to clinical indication) or iterative reconstruction.
[2025-02-22 23:30] VITALS: PULSE 86; RESP 14; O2SAT 94
[2025-02-23] MEDS: SODIUM CHLORIDE 0.9% 1,000 ML IV ONE ×2 (00:34→04:30)
[2025-02-23] MEDS: MORPHINE SULFATE 4 MG/ML SYR/VIAL IV ONE (00:34)
[2025-02-23] MEDS: ONDANSETRON HCL 4 MG/2 ML VIAL IV ONE (00:34)
[2025-02-23] MEDS ORDERED: ACETAMINOPHEN 325 MG TAB PO PRN (04:00)
[2025-02-23] MEDS ORDERED: ONDANSETRON HCL 4 MG/2 ML VIAL IV PRN (04:00)
--- NOTE | 2025-02-23 04:35 | DVHHP2 ---
History of Present Illness Reason for Visit: Fall injury History of Present Illness 64-year-old male presents for evaluation of fall injury. Of note, patient has been admitted on multiple occasions for similar complaints. Patient has a history of alcohol abuse. Patient presents after having a fall in which he oni ded on his face. Patient with noted right facial swelling. Patient's slurring. Noted to have high blood alcohol level. Past Medical History None Past Surgical History Noncontributory Smoke: No ALCOHOL: heavy Drugs: None Lives: Homeless Review of Systems Review of Systems Review of systems are currently negative otherwise addressed in HPI. Allergies: Coded Allergies: NO KNOWN ALLERGIES (Unverified , 02/01/24) Medications Current Medications Medications Dose Ordered Sig/Shubham Route Start Time Stop Time Status Last Admin Dose Admin Chlordiazepoxide HCl 25 mg Q6HPRN PRN PO 02/23/25 04:00 Thiamine HCl 100 mg DAILY PO 02/23/25 10:00 Folic Acid 1 mg DAILY PO 02/23/25 10:00 Acetaminophen/ Hydrocodone Bitart 1 tab Q4HP PRN PO 02/23/25 04:00 Ondansetron HCl 4 mg Q4HP PRN IV 02/23/25 04:00 Acetaminophen 650 mg Q6HP PRN PO 02/23/25 04:00 Exam Vital Signs Vital Signs Date Time Temp Pulse Resp B/P (MAP) Pulse Ox O2 Delivery O2 Flow Rate FiO2 02/23/25 02:00 85 14 149/93 (111) 96 02/22/25 23:30 Room Air* 0 21 02/22/25 20:52 98.7 98.7 Exam Gen: 64-year-old male in mild distress Skin: Warm, dry, normal color and texture, no rash. HEENT: Right facial trauma with swelling, mucous membranes moist and pink. Neck: Cervical and supraclavicular nodes normal without enlargement, trachea is midline, thyroid gland is normal without masses. Pulmonary: Clear to auscultation and percussion bilaterally. Cardiac: Regular rate and rhythm. No murmur Abdomen: Soft, nontender, nondistended, bowel sounds present all 4 quadrants, no guarding, no rigidity, no organomegaly. Extremities: No cyanosis, clubbing, no edema Neuro: Cranial nerves II through XII grossly intact, normal affect and speech, no focal motor deficits. Labs/Xrays ORDERING PHYSICIAN: FRANTZ LILLYP PROCEDURE(s): CS2 - CERVICAL WITHOUT CONTRAST REASON: fall ORDER NUMBER(s): [id number], ACCESSION NUMBER(s): [id number] EXAM: CT CERVICAL WITHOUT CONTRAST INDICATION: fall EXAM DATE: 02/22/2025 09:09 PM COMPARISON: None TECHNIQUE: Multiple axial CT images of the cervical spine were obtained using bone algorithm. Axial and coronal reformatting was done. Bone and soft tissue windows were reviewed. Radiation Dose Information: CT Dose: CTDI volume is 25 mGy. Dose-length product is 645 mGy*cm FINDINGS: The cervical alignment is intact. No acute cervical spine fracture is identified. The vertebral body heights are intact. No suspicious osseous lesions are identified. Moderate degenerative changes throughout the cervical spine There is no prevertebral soft tissue swelling. IMPRESSION: 1. No evidence of acute cervical spine fracture or traumatic malalignment. 2. Moderate degenerative changes throughout the cervical spine. All CT scans at this medical facility are performed using dose modulation techniques as appropriate to a performed exam including the following: Automated exposure control was utilized; adjustment of the MA and/or KV according to patient size; and use of iterative reconstruction technique. ATED BY: JACOBO SAENZ MD ORDERING PHYSICIAN: FRANTZ LILLY PROCEDURE(s): HWOCT - HEAD WITHOUT CONTRAST REASON: Fall, head inj ORDER NUMBER(s): [id number], ACCESSION NUMBER(s): [id number] CT HEAD WITHOUT CONTRAST INDICATION: Fall, head inj COMPARISON: CT HEAD WITHOUT CONTRAST on DOS: 01/31/25, CT HEAD WITHOUT CONTRAST on DOS: 01/10/25, CT HEAD WITHOUT CONTRAST on DOS: 01/09/25, CT HEAD WITHOUT CONTRAST on DOS: 01/04/25, CT HEAD WITHOUT CONTRAST on DOS: 05/09/24 TECHNIQUE: CT of the head without intravenous contrast. RADIATION DOSE: CTDIvol: 59 mGy, DLP: 1171 mGy*cm FINDINGS: There is no evidence of acute intracranial hemorrhage, extra-axial collection, mass effect, midline shift, herniation or hydrocephalus. The ventricles, sulci and cisterns are age appropriate. The maciel-white differentiation is intact. The visualized paranasal sinuses and mastoid air cells are clear. Large superficial hematoma is seen in the right cheek which measures 3.6 x 4.3 cm. IMPRESSION: 1. No evidence of acute intracranial hemorrhage, mass effect or hydrocephalus. 2. Large superficial hematoma is seen in the right cheek which measures 3.6 x 4.3 cm. RING PHYSICIAN: FRANTZ LILLY PROCEDURE(s): FAC2C - MAXILLOFACIAL WITHOUT REASON: fall ORDER NUMBER(s): [id number], ACCESSION NUMBER(s): [id number] HISTORY: fall TECHNIQUE: Nonenhanced axial images through the facial bones with coronal and sagittal MPR. Radiation Dose Information: CT Dose: CTDI volume is 67 mGy. Dose-length product is 1540 mGy*cm COMPARISON: CT MAXILLOFACIAL WITHOUT on DOS: 01/10/25 FINDINGS: Mandible: Unremarkable Maxilla: Unremarkable Zygomatic arches: Unremarkable Nasal bone: Unremarkable Orbits: Unremarkable Sinuses: Clear Facial swelling: Large superficial hematoma is seen in the right cheek /periorbital region which measures 6.3 x 4.3 cm. IMPRESSION: No acute facial fractures. Large superficial hematoma is seen in the right cheek /periorbital region which measures 6.3 x 4.3 cm. Radiation optimization: All CT scans at this facility use at least one of these dose optimization techniques: automated exposure control mA and/or kV adjustment per patient size (includes targeted exams where dose is matched to clinical indication) or iterative reconstruction. ATED BY: JACOBO SAENZ MD Labs Test 02/22/25 21:02 Range/Units White Blood Count 4.5 4.4-10.8 10^3/uL Red Blood Count 3.48 L 4.5-5.90 10^6/uL Hemoglobin 12.5 L 13.5-17.5 g/dL Hematocrit 36.4 L 41.0-53.0 % Mean Corpuscular Volume 104.5 H 80.0-100.0 fL Mean Corpuscular Hemoglobin 35.9 H 28.0-32.0 pg Mean Corpuscular Hemoglobin Concent 34.4 32.0-36.0 g/dL Red Cell Distribution Width 16.1 H 11.8-14.3 % Platelet Count 120 L 140-450 10^3/uL Mean Platelet Volume 7.5 6.9-10.8 fL Neutrophils (%) (Auto) 44.7 37.0-80.0 % Lymphocytes (%) (Auto) 40.5 10.0-50.0 % Monocytes (%) (Auto) 9.0 0.0-12.0 % Eosinophils (%) (Auto) 4.5 0.0-7.0 % Basophils (%) (Auto) 1.3 0.0-2.0 % Neutrophils # (Auto) 2.0 1.6-8.6 10 ^3/uL Lymphocytes # (Auto) 1.8 0.4-5.4 10 ^3/uL Monocytes # (Auto) 0.4 0-1.3 10 ^3/uL Eosinophils # (Auto) 0.2 0-0.8 10 ^3/uL Basophils # (Auto) 0.1 0-0.2 10 ^3/uL Nucleated Red Blood Cells 0.2 % Sodium Level 145 136-145 mmol/L Potassium Level 3.8 3.5-5.1 mmol/L Chloride Level 108 H 98-107 mmol/L Carbon Dioxide Level 22 20-31 mmol/L Anion Gap 15 5-15 Blood Urea Nitrogen 11 9-23 mg/dL Creatinine 0.79 0.700-1.30 mg/dL Glomerular Filtration Rate Calc 100 >90 mL/min BUN/Creatinine Ratio 13.9 10.0-20.0 Serum Glucose 116 H 74-106 mg/dL Calcium Level 9.3 8.7-10.4 mg/dL Plasma/Serum Blood Alcohol 385.6 H <10 mg/dL Assessment/Plan Assessment/Plan Assessment Toxic encephalopathy Alcohol intoxication Facial trauma Plan Admit the patient to [facility] to the hospitalist Maintenance IV fluids Pain management Librium taper Continue treatment per orders. Plan discussed with: Patient My Orders Orders - ROXANA PONCE [facility] Procedure Category Date Status Time Chlordiazepoxide Hcl PHA 02/23/25 In Process Capsule (Librium Ca 04:00 Thiamine Tab PHA 02/23/25 In Process 10:00 Folic Acid Tablet PHA 02/23/25 In Process 10:00 Sodium Chloride 0.9% PHA 02/23/25 In Process 04:00 Admit ADMIT 02/23/25 Transmitted 03:52 Hydrocodone-Acet PHA 02/23/25 In Process 5/325mg Tab (Tranquillity 04:00 Ondansetron Hcl PHA 02/23/25 In Process (Zofran) 04:00 Condition: Stable REYES 02/23/25 In Process 03:52 Acetaminophen Tablet PHA 02/23/25 In Process (Tylenol Tablet) 04:00 Bedrest With Bathroom REYES 02/23/25 In Process Privileg 03:52 Regular Diet DIET 02/23/25 Transmitted Breakfast Date of Service: Feb 23, 2025 Billing Provider: ROXANA PONCE Common Visit Codes: [id number] INP/OBS CARE (MOD) ROXANA PONCE Feb 23, 2025 04:35
[2025-02-23 07:40] VITALS: PULSE 80; RESP 20; O2SAT 95
[2025-02-23 08:27] LABS: Amphetamine Screen, Urine Neg (NEGATIVE)
[2025-02-23 08:28] LABS: Barbiturate Scree,Urine Neg (NEGATIVE); Benzodiazephine Screen, Urine Pos (NEGATIVE); Cannabinoid Screen, Urine Neg (NEGATIVE); Cocaine Screen, Urine Neg (NEGATIVE); Opiate Scree,Urine Neg (NEGATIVE); Phencyclidine Screen, Urine Neg (NEGATIVE)
[2025-02-23] MEDS: HYDROcodone-ACET 5/325MG TAB PO PRN (09:23)
[2025-02-23] MEDS: THIAMINE HCL 100 MG TAB PO SCH (11:01)
[2025-02-23] MEDS: FOLIC ACID 1 MG TAB PO SCH (11:01)
[2025-02-23] MEDS: chlordiazePOXIDE HCL 25 MG CAP PO PRN (11:20)
[2025-02-23 16:43] VITALS: BP 173/97; PULSE 69; RESP 18; TEMP 98.4; O2SAT 98
[2025-02-23 17:30] VITALS: PULSE 69; RESP 16; O2SAT 98
[2025-02-23] MEDS: MULTIPLE VITAMINS W/ MINERALS TAB PO ONE (18:16)
[2025-02-23 18:27] LABS: Urine Bacteria None Seen /hpf (None Seen)
[2025-02-23 18:53] LABS: Urine Blood Negative /uL (Negative); Urine Clarity Clear (Clear); Urine Color Yellow (Yellow); Urine Protein, UAD Negative (Negative); Urine Specific Gravity 1.017 (1.001-1.035); Urine Squamous Epithelial Cell FEW /hpf (<5); Urine Urobilinogen Normal (Negative); Urine WBC < 1 /HPF (0-3); Urine pH 6.5 (5.0-9.0)
[2025-02-23] MEDS ORDERED: hydrALAZINE HCL 20 MG/ML VL IV PRN (19:15)
[2025-02-23 21:00] VITALS: BP 148/88; PULSE 87; RESP 19; TEMP 97.5; O2SAT 96
[2025-02-24 00:57] VITALS: BP 137/84; PULSE 79; RESP 20; TEMP 96.7; O2SAT 95
[2025-02-24 05:08] VITALS: BP 131/82; PULSE 76; RESP 19; TEMP 97.5; O2SAT 98
[2025-02-24 06:52] LABS: Alanine Aminotransferase 15 U/L (7-40); Anion Gap 9 (5-15); BUN/Creatinine Ratio 14.9 (10.0-20.0); Blood Urea Nitrogen 10 mg/dL (9-23); Calcium 9.4 mg/dL (8.7-10.4); Carbon Dioxide 30 mmol/L (20-31); Glucose 88 mg/dL (74-106); Potassium 3.8 mmol/L (3.5-5.1); Sodium 137 mmol/L (136-145)
[2025-02-24 06:53] LABS: Albumin 4.2 g/dL (3.2-4.8); Alkaline Phosphatase 151 U/L (46-116); Chloride 98 mmol/L (98-107); Total Protein 7.4 g/dL (5.7-8.2)
[2025-02-24 06:54] LABS: Aspartate Aminotransferase 53 U/L (<34); Magnesium 1.4 mg/dL (1.6-2.6)
[2025-02-24 08:30] VITALS: BP 142/90; PULSE 70; RESP 18; TEMP 98.4; O2SAT 98
[2025-02-24] MEDS: MULTIPLE VITAMINS W/ MINERALS TAB PO SCH (09:06)
--- NOTE | 2025-02-24 11:48 | DVHPN2 ---
Subjective Seen and examined at bedside, facial swelling decreasing. Cont to monitor. Social service eval. Changes from previous H/P or p: No Changes Objective Vitals Vital Signs Date Time Temp Pulse Resp B/P (MAP) Pulse Ox O2 Delivery O2 Flow Rate FiO2 02/24/25 08:30 98.4 70 18 142/90 (107) 98 98.4 02/24/25 08:00 Room Air* 0 21 Intake/Output Intake and Output 02/24/25 07:00 Intake Total 300 ml Output Total 600 ml Balance -300 ml Intake Oral 300 ml Output Urine Total 600 ml # Bowel Movements 1 General Appearance: Alert, Oriented X3, Cooperative HEENT: Other (Facial swelling+) Lungs: Clear to auscultation Cardiovascular: Regular rate, Normal S1, Normal S2 Abdomen: Normal bowel sounds, Soft Rectal: Deferred Psych/Mental Status: Mental status NL Medications Current Medications Medications Dose Ordered Sig/Shubham Route Start Time Stop Time Status Last Admin Dose Admin Chlordiazepoxide HCl 25 mg Q6HPRN PRN PO 02/23/25 04:00 02/24/25 06:33 25 MG Thiamine HCl 100 mg DAILY PO 02/23/25 10:00 02/24/25 09:06 100 MG Folic Acid 1 mg DAILY PO 02/23/25 10:00 02/24/25 09:06 1 MG Acetaminophen/ Hydrocodone Bitart 1 tab Q4HP PRN PO 02/23/25 04:00 02/24/25 06:33 1 TAB Ondansetron HCl 4 mg Q4HP PRN IV 02/23/25 04:00 Acetaminophen 650 mg Q6HP PRN PO 02/23/25 04:00 Multivitamins/ Minerals 1 tab DAILY PO 02/24/25 10:00 02/24/25 09:06 1 TAB Hydralazine HCl 10 mg Q6HP PRN IV 02/23/25 19:15 Laboratory Results Laboratory Tests 02/22/25 21:02 02/24/25 06:01 Chemistry Test 02/24/25 06:01 Albumin 4.2 g/dL (3.2-4.8) Calcium Level 9.4 mg/dL (8.7-10.4) Magnesium Level 1.4 mg/dL (1.6-2.6) L Total Protein 7.4 g/dL (5.7-8.2) LFT Test 02/24/25 06:01 Alanine Aminotransferase (ALT) 15 U/L (7-40) Alkaline Phosphatase 151 U/L (46-116) H Aspartate Amino Transferase (AST) 53 U/L (<34) H Total Bilirubin 2.0 mg/dL (0.2-1.0) H Urinalysis Test 02/23/25 18:21 Urine Color Yellow (Yellow) Urine Clarity Clear (Clear) Urine pH 6.5 (5.0-9.0) Urine Specific [place] 1.017 (1.001-1.035) Urine Protein Negative (Negative) Urine Ketones Negative (Negative) Urine Blood Negative /uL (Negative) Urine Nitrite Negative (Negative) Urine Bilirubin Negative (Negative) Urine Urobilinogen Normal mg/dL (Negative) Urine Leukocyte Esterase Negative /uL (Negative) Urine RBC None seen /hpf (0 - 3) Urine Microscopic WBC < 1 /HPF (0-3) Urine Squamous Epithelial Cells Few /hpf (<5) Urine Bacteria None seen /hpf (None Seen) Urine Glucose Normal mg/dL (Normal) Assessment/Plan Assessment/Plan Toxic encephalopathy- Improving Alcohol intoxication - Monitor, Cont MVT/Thiamine/Folic Acid Facial trauma - Ice Packs Transaminitis- Monitor Plan discussed with: Patient My Orders Orders - KATELIN HANSON MD Procedure Category Date Status Time Multiple Vitamin W PHA 02/24/25 In Process Mineral Tab (Mvi W/ M 10:00 Apply Ice To Affected REYES 02/23/25 In Process Area 17:22 Magnesium Oxide PHA 02/24/25 Transmitted Tablet (Mag-Ox Tablet) 22:00 Magnesium Oxide PHA 02/24/25 Transmitted Tablet (Mag-Ox Tablet) 11:45 Comprehensive LAB 02/25/25 Verified Metabolic Panel 04:00 Magnesium LAB 02/25/25 Verified 04:00 Phosphorus LAB 02/25/25 Verified 04:00 Date of Service: Feb 24, 2025 Billing Provider: KATELIN HANSON MD Common Visit Codes: [id number] INP/OBS CARE(HIGH) KATELIN HANSON MD Feb 24, 2025 11:48
[2025-02-24 13:19] VITALS: BP 121/80; PULSE 74; RESP 17; TEMP 99; O2SAT 95
[2025-02-24] MEDS: MAGNESIUM OXIDE 400 MG TAB PO ONE (14:23)
[2025-02-24 17:20] VITALS: BP 137/85; PULSE 78; RESP 18; TEMP 99.3; O2SAT 99
[2025-02-24 21:00] VITALS: BP 149/96; PULSE 79; RESP 20; TEMP 98.3; O2SAT 98
[2025-02-24] MEDS: MAGNESIUM OXIDE 400 MG TAB PO SCH (21:04)
[2025-02-25 01:00] VITALS: BP 147/90; PULSE 86; RESP 19; TEMP 98.2; O2SAT 96
[2025-02-25 05:00] VITALS: BP 143/89; PULSE 89; RESP 19; TEMP 98.6; O2SAT 95
[2025-02-25 07:26] LABS: Anion Gap 6 (5-15); Aspartate Aminotransferase 8 U/L (<34); BUN/Creatinine Ratio 18.3 (10.0-20.0); Blood Urea Nitrogen 13 mg/dL (9-23); Phosphorus 4.1 mg/dL (2.4-5.1); Total Protein 5.8 g/dL (5.7-8.2)
[2025-02-25 07:30] LABS: Alanine Aminotransferase < 9 U/L (7-40); Alkaline Phosphatase 126 U/L (46-116); Bilirubin, Total 0.2 mg/dL (0.2-1.0); Calcium 9.4 mg/dL (8.7-10.4); Carbon Dioxide 28 mmol/L (20-31); Chloride 108 mmol/L (98-107); Potassium 4.5 mmol/L (3.5-5.1); Sodium 142 mmol/L (136-145)
[2025-02-25 07:37] LABS: Glucose 102 mg/dL (74-106)
[2025-02-25 09:07] VITALS: BP 148/94; PULSE 83; RESP 15; TEMP 98.3; O2SAT 96
--- NOTE | 2025-02-25 11:40 | DVHPN2 ---
Subjective Seen and examined at bedside, facial swelling decreasing. Ice packs. Possible DC tomorrow. Changes from previous H/P or p: No Changes Objective Vitals Vital Signs Date Time Temp Pulse Resp B/P (MAP) Pulse Ox O2 Delivery O2 Flow Rate FiO2 02/25/25 09:07 98.3 83 15 148/94 (112) 96 98.3 02/24/25 20:00 Room Air* 0 21 Intake/Output Intake and Output 02/25/25 07:00 Intake Total 1600 ml Output Total 800 ml Balance 800 ml Intake Oral 1600 ml Output Urine Total 800 ml # Voids 3 # Bowel Movements 1 General Appearance: Alert, Oriented X3, Cooperative HEENT: Other (Facial swelling+) Lungs: Clear to auscultation Cardiovascular: Regular rate, Normal S1, Normal S2 Abdomen: Normal bowel sounds, Soft Rectal: Deferred Psych/Mental Status: Mental status NL Medications Current Medications Medications Dose Ordered Sig/Shubham Route Start Time Stop Time Status Last Admin Dose Admin Chlordiazepoxide HCl 25 mg Q6HPRN PRN PO 02/23/25 04:00 02/25/25 09:54 25 MG Thiamine HCl 100 mg DAILY PO 02/23/25 10:00 02/25/25 09:54 100 MG Folic Acid 1 mg DAILY PO 02/23/25 10:00 02/25/25 09:54 1 MG Acetaminophen/ Hydrocodone Bitart 1 tab Q4HP PRN PO 02/23/25 04:00 02/25/25 09:54 1 TAB Ondansetron HCl 4 mg Q4HP PRN IV 02/23/25 04:00 Acetaminophen 650 mg Q6HP PRN PO 02/23/25 04:00 Multivitamins/ Minerals 1 tab DAILY PO 02/24/25 10:00 02/25/25 09:54 1 TAB Hydralazine HCl 10 mg Q6HP PRN IV 02/23/25 19:15 Magnesium Oxide 800 mg BID PO 02/24/25 22:00 02/25/25 09:54 800 MG Laboratory Results Laboratory Tests 02/22/25 21:02 02/25/25 06:28 Chemistry Test 02/25/25 06:28 Albumin 4.0 g/dL (3.2-4.8) Calcium Level 9.4 mg/dL (8.7-10.4) Magnesium Level 2.0 mg/dL (1.6-2.6) Phosphorus Level 4.1 mg/dL (2.4-5.1) Total Protein 5.8 g/dL (5.7-8.2) LFT Test 02/25/25 06:28 Alanine Aminotransferase (ALT) < 9 U/L (7-40) Alkaline Phosphatase 126 U/L (46-116) H Aspartate Amino Transferase (AST) 8 U/L (<34) Total Bilirubin 0.2 mg/dL (0.2-1.0) Urinalysis Test 02/23/25 18:21 Urine Color Yellow (Yellow) Urine Clarity Clear (Clear) Urine pH 6.5 (5.0-9.0) Urine Specific [place] 1.017 (1.001-1.035) Urine Protein Negative (Negative) Urine Ketones Negative (Negative) Urine Blood Negative /uL (Negative) Urine Nitrite Negative (Negative) Urine Bilirubin Negative (Negative) Urine Urobilinogen Normal mg/dL (Negative) Urine Leukocyte Esterase Negative /uL (Negative) Urine RBC None seen /hpf (0 - 3) Urine Microscopic WBC < 1 /HPF (0-3) Urine Squamous Epithelial Cells Few /hpf (<5) Urine Bacteria None seen /hpf (None Seen) Urine Glucose Normal mg/dL (Normal) Assessment/Plan Assessment/Plan Toxic encephalopathy- Improving Alcohol intoxication - Monitor, Cont MVT/Thiamine/Folic Acid Facial trauma - Ice Packs Transaminitis- Monitor Plan discussed with: Patient My Orders Orders - KATELIN HANSON MD Procedure Category Date Status Time Magnesium Oxide PHA 02/24/25 In Process Tablet (Mag-Ox Tablet) 22:00 * Wire Galvanizer CONS 02/24/25 Transmitted Consult Date of Service: Feb 25, 2025 Billing Provider: KATELIN HANSON MD Common Visit Codes: [id number] INP/OBS CARE(HIGH) KATELIN HANSON MD Feb 25, 2025 11:40
[2025-02-25 12:11] VITALS: BP 131/88; PULSE 89; RESP 17; TEMP 98.5; O2SAT 97
[2025-02-25 16:45] VITALS: BP 116/87; PULSE 98; RESP 17; TEMP 98.3; O2SAT 96
[2025-02-25 21:00] VITALS: BP 139/79; PULSE 93; RESP 18; TEMP 98; O2SAT 96
[2025-02-26 01:00] VITALS: BP 122/85; PULSE 85; RESP 18; TEMP 98.3; O2SAT 96
[2025-02-26 05:00] VITALS: BP 132/88; PULSE 74; RESP 17; TEMP 97.9; O2SAT 96
[2025-02-26 06:25] LABS: Eosinophils # (auto) 0.3 10 ^3/uL (0-0.8); Hemoglobin 12.3 g/dL (13.5-17.5); Lymphocytes # (auto) 1.4 10 ^3/uL (0.4-5.4); Monocytes # (auto) 0.6 10 ^3/uL (0-1.3); Red Blood Cells 3.39 10^6/uL (4.5-5.90); Red Cell Distribution Width 16.1 % (11.8-14.3)
[2025-02-26 06:28] LABS: Basophils # (auto) 0.1 10 ^3/uL (0-0.2); Basophils % (auto) 1.3 % (0.0-2.0); Eosinophils % (auto) 6.5 % (0.0-7.0); Hematocrit 34.9 % (41.0-53.0); Lymphocytes % (auto) 30.7 % (10.0-50.0); Mean Corpuscular Hemoglobin 36.4 pg (28.0-32.0); Mean Corpuscular Hgb Conc. 35.2 g/dL (32.0-36.0); Mean Corpuscular Volume 103.2 fL (80.0-100.0); Monocytes % (auto) 13.2 % (0.0-12.0); Neutrophils # (auto) 2.3 10 ^3/uL (1.6-8.6); Neutrophils % (auto) 48.3 % (37.0-80.0); Platelet Count (auto) 132 10^3/uL (140-450); White Blood Cell 4.7 10^3/uL (4.4-10.8)
[2025-02-26 06:38] LABS: Chloride 99 mmol/L (98-107); Potassium 3.9 mmol/L (3.5-5.1); Sodium 137 mmol/L (136-145)
[2025-02-26 06:39] LABS: Anion Gap 8 (5-15); Calcium 9.9 mg/dL (8.7-10.4); Carbon Dioxide 30 mmol/L (20-31)
[2025-02-26 06:44] LABS: BUN/Creatinine Ratio 25.6 (10.0-20.0); Blood Urea Nitrogen 21 mg/dL (9-23); Glucose 101 mg/dL (74-106)
[2025-02-26 06:45] LABS: Magnesium 1.7 mg/dL (1.6-2.6)
[2025-02-26 08:30] VITALS: BP 122/79; PULSE 72; RESP 15; TEMP 97.7; O2SAT 98
[2025-02-26] MEDS ORDERED: PANT40T PO (11:13)
[2025-02-26] MEDS ORDERED: FOLI-119 PO (11:13)
[2025-02-26] MEDS ORDERED: THIA100T13 PO (11:13)
[2025-02-26] MEDS ORDERED: MULT1TAB96 PO (11:13)
--- NOTE | 2025-02-26 11:15 | DVHDS2 ---
Discharge Summary Date of Admission Feb 23, 2025 at 03:52 Date of Discharge: Feb 26, 2025 Admitting Diagnosis Toxic encephalopathy Labs/Diagnostic Data: Laboratory Results Test 02/26/25 05:48 02/25/25 06:28 02/23/25 18:21 02/23/25 07:50 White Blood Count 4.7 10^3/uL (4.4-10.8) Red Blood Count 3.39 10^6/uL (4.5-5.90) Hemoglobin 12.3 g/dL (13.5-17.5) Hematocrit 34.9 % (41.0-53.0) Mean Corpuscular Volume 103.2 fL (80.0-100.0) Mean Corpuscular Hemoglobin 36.4 pg (28.0-32.0) Mean Corpuscular Hemoglobin Concent 35.2 g/dL (32.0-36.0) Red Cell Distribution Width 16.1 % (11.8-14.3) Platelet Count 132 10^3/uL (140-450) Mean Platelet Volume 8.3 fL (6.9-10.8) Neutrophils (%) (Auto) 48.3 % (37.0-80.0) Lymphocytes (%) (Auto) 30.7 % (10.0-50.0) Monocytes (%) (Auto) 13.2 % (0.0-12.0) Eosinophils (%) (Auto) 6.5 % (0.0-7.0) Basophils (%) (Auto) 1.3 % (0.0-2.0) Neutrophils # (Auto) 2.3 10 ^3/uL (1.6-8.6) Lymphocytes # (Auto) 1.4 10 ^3/uL (0.4-5.4) Monocytes # (Auto) 0.6 10 ^3/uL (0-1.3) Eosinophils # (Auto) 0.3 10 ^3/uL (0-0.8) Basophils # (Auto) 0.1 10 ^3/uL (0-0.2) Nucleated Red Blood Cells 0.0 % Sodium Level 137 mmol/L (136-145) Potassium Level 3.9 mmol/L (3.5-5.1) Chloride Level 99 mmol/L (98-107) Carbon Dioxide Level 30 mmol/L (20-31) Anion Gap 8 (5-15) Blood Urea Nitrogen 21 mg/dL (9-23) Creatinine 0.82 mg/dL (0.700-1.30) Glomerular Filtration Rate Calc 99 mL/min (>90) BUN/Creatinine Ratio 25.6 (10.0-20.0) Serum Glucose 101 mg/dL (74-106) Calcium Level 9.9 mg/dL (8.7-10.4) Magnesium Level 1.7 mg/dL (1.6-2.6) Phosphorus Level 4.1 mg/dL (2.4-5.1) Total Bilirubin 0.2 mg/dL (0.2-1.0) Aspartate Amino Transferase (AST) 8 U/L (<34) Alanine Aminotransferase (ALT) < 9 U/L (7-40) Alkaline Phosphatase 126 U/L (46-116) Total Protein 5.8 g/dL (5.7-8.2) Albumin 4.0 g/dL (3.2-4.8) Urine Color Yellow (Yellow) Urine Clarity Clear (Clear) Urine pH 6.5 (5.0-9.0) Urine Specific [place] 1.017 (1.001-1.035) Urine Protein Negative (Negative) Urine Ketones Negative (Negative) Urine Blood Negative /uL (Negative) Urine Nitrite Negative (Negative) Urine Bilirubin Negative (Negative) Urine Urobilinogen Normal mg/dL (Negative) Urine Leukocyte Esterase Negative /uL (Negative) Urine RBC None seen /hpf (0 - 3) Urine Microscopic WBC < 1 /HPF (0-3) Urine Squamous Epithelial Cells Few /hpf (<5) Urine Bacteria None seen /hpf (None Seen) Urine Glucose Normal mg/dL (Normal) Urine Opiates Screen Neg (NEGATIVE) Urine Fentanyl Screen Neg (NEGATIVE) Urine Barbiturates Screen Neg (NEGATIVE) Urine Phencyclidine Screen Neg (NEGATIVE) Urine Amphetamines Screen Neg (NEGATIVE) Urine Benzodiazepines Screen Pos (NEGATIVE) Urine Cocaine Screen Neg (NEGATIVE) Urine Cannabinoids Screen Neg (NEGATIVE) Test 02/22/25 21:02 Plasma/Serum Blood Alcohol 385.6 mg/dL (<10) Other Laboratory Tests 02/26/25 05:48 Brief Hx & Hospital Course: Patient is a 64-year-old gentleman present in the hospital with the episodes of confusion after a fall due to alcohol intoxication. Patient has facial bruising on the right side of the face imaging was done no acute findings of CT head. Patient has no neurological deficits or deficits in his vision. Ice packs were applied. Patient was treated with multivitamin thiamine folic acid. Patient's mental status has come back to baseline. Patient will be discharged to [facility], patient was counseled on alcohol cessation. Patient will be advised to continue applying ice packs to the facial area. Follow up in discharge clinic in one week. Condition at Discharge: Poor Final Diagnosis/Problems List Toxic encephalopathy- Improving Alcohol intoxication - Monitor, Cont MVT/Thiamine/Folic Acid Facial trauma - Ice Packs Transaminitis- Monitor Discharge Disposition: Home Discharge Instruct/Medications Diet: Regular Activity: Light activity Follow Up/Referral: DC Clinic in 1 week Medications: MVT/Thiamine/Folic Acid Discharge Statement: "Patient was advised to return to the ER or call 911 if any headaches, dizziness, shortness of breath, chest pain, abdominal pain, bleeding, fevers, or worsening of medical condition. Patient was counseled about treatment plan, medications, possible side effects, patientverbalized understanding. All questions were answered to the best of my ability. This discharge took greater then 30 minutes in planning, reviewing documentation, counseling the patient, and discussing with other team members." ASSESSMENT ASSESSMENT Assessment Toxic encephalopathy- Improving Alcohol intoxication - Monitor, Cont MVT/Thiamine/Folic Acid Facial trauma - Ice Packs Transaminitis- Monitor Date of Service: Feb 26, 2025 Billing Provider: KATELIN HANSON MD Common Visit Codes: [id number] DISCH DAY >30min KATELIN HANSON MD Feb 26, 2025 11:15
== END 2025-02-26 14:45 | disposition home or self-care (01) | DRG 52 ==
LOC: ER 19:59 → EDBD 19:59 → OVERFLOW 02-23 03:52 → EAST 02-23 16:34
PROVIDERS: ADMIT Internal Medicine; ATTEND Internal Medicine
DX: G92.8 Other toxic encephalopathy (principal); F10.129 Alcohol abuse with intoxication, unspecified; F10.139 Alcohol abuse with withdrawal, unspecified; S00.83XA Contusion of other part of head, initial encounter; R74.01 Elevation of levels of liver transaminase levels; R78.0 Finding of alcohol in blood; Z59.00 Homelessness unspecified; W18.39XA Other fall on same level, initial encounter; Y93.89 Activity, other specified; Y99.8 Other external cause status; Y92.89 Other specified places as the place of occurrence of the external cause
CPT/HCPCS: 36415; 70450; 70486; 72125; 80048; 80053; 80307; 80320; 81001; 83735; 84100; 85025; G0378

== ENCOUNTER 2025-03-08 19:50 | Emergency (ER) | payer MEDICAID ==
[~2025-03-08] VITALS: Ht 167.6 cm; Wt 72.8 kg
[~2025-03-08 19:50] MED LIST changes: -ACET500T58 PO; +FOLI-119 PO
[2025-03-08 19:56] VITALS: TEMP 98.2
--- NOTE | 2025-03-08 20:03 | ED.PDOC ---
HPI Comments 64 year old male presents to the ED via EMS with a chief complaint of chest pain onset today (03/08/25). Patient states he has been drinking ETOH, last drink was about 1 hour ago. He began experiencing chest pain radiates to LT arm, neck and back pain, was also experiencing nausea, abdominal pain. Patient has been seen in this ED for similar symptoms, last visit was 02/22/25. Denies any PMHx as well as vomiting, diarrhea, constipation, dizziness, headache, dysuria, hemate mesis, blood in stool, fever, chills. No other symptoms or modifying factors present at this time. Chief Complaint: Chest Pain Time Seen by MD: 19:55 Primary Care Provider: n/a Allergies: Coded Allergies: NO KNOWN ALLERGIES (Unverified , 02/01/24) Home Meds Active Scripts Folic Acid (Folic Acid) 1 Mg Tab, 1 MG PO DAILY for 30 Days, #30 TAB Prov:KATELIN HANSON MD 02/26/25 Pantoprazole Sodium Sesquihydr (Pantoprazole Sodium) 40 Mg Tab, 40 MG PO DAILY@0600 for 30 Days, #30 TAB Prov:KATELIN HANSON MD 02/26/25 Thiamine HCl (Thiamine Hydrochloride) 100 Mg Tab, 100 MG PO DAILY for 30 Days, #30 TAB Prov:KATELIN HANSON MD 02/26/25 Multiple Vitamins W/ Iron (Multi Vitamin with Iron) 1 Tab Tab, 1 TAB PO DAILY for 30 Days, #30 TAB Prov:KATELIN HANSON MD 02/26/25 Ergocalciferol (VITAMIN D 27589 UNIT) 50,000 [place], [address] UNIT PO QWEEKLY for 90 Days, #12 CAP Prov:ANNELISE BLACKMAN 01/17/25 Acetaminophen (Acetaminophen) 325 Mg Tab, 650 MG PO TIDPRN PRN for 10 Days, #30 TAB Prov:ANNELISE BLACKMAN 01/17/25 Aspirin (Aspirin Low Dose) 81 Mg Tab, 81 MG PO DAILY for 30 Days, #30 TAB Prov:ANNELISE BLACKMAN 01/17/25 Ferrous Sulfate (Ferrous Sulfate) 325 Mg Tab, 325 MG PO MWF for 90 Days, #45 TAB Prov:ANNELISE BLACKMAN 01/17/25 Losartan Potassium (Losartan Potassium) 50 Mg Tab, 50 MG PO DAILY for 30 Days, #30 TAB 0 Refills Prov:JAKE PAUL 01/04/25 Potassium Chloride (POTASSIUM CHLORIDE CR) 10 Meq Tb, 10 MEQ PO DAILY for 10 Days, #10 TAB 0 Refills Prov:JAKE PAUL 01/04/25 Furosemide (Lasix) 40 Mg Tab, 40 MG PO DAILY for 10 Days, #10 TAB 0 Refills Prov:JAKE PAUL 01/04/25 Carvedilol (COREG) 3.125 Mg Tab, 3.125 MG PO Q12HR for 30 Days, #60 TAB Prov:JAKE PAUL 01/04/25 Past Medical History PAST MEDICAL HISTORY: Denies Surgical History: Denies all surgeries Family History Family History: Reviewed,noncontributory to illness Social History Smoker: Non-Smoker Alcohol: Heavy Drugs: Denies Drug Use Lives In: Homeless EKG EKG : Pulse Rate (adult): 85 Cardiac Rhythm: NSR Was a procedure done? Was a procedure done?: No X-Ray, Labs, Meds, VS Vital Signs Date Time Temp Pulse Resp B/P (MAP) Pulse Ox O2 Delivery O2 Flow Rate FiO2 03/08/25 19:55 85 Time of 1ST Reevaluation: 20:25 Reevaluation 1ST: Unchanged Patient Education/Counseling: Need For Follow Up Family Education/Counseling: No Family Present SEPSIS Sepsis Screen Physician Orders Electrocardigram (03/08/25 19:58) Basic Metabolic Panel (03/08/25 19:59) Complete Blood Count (03/08/25 19:59) Chest Xray 1 View (03/08/25 19:59) Troponin-I Hs (03/08/25 19:59) Troponin-I Hs (03/08/25 20:59) Troponin-I Hs (03/08/25 22:59) Acetaminophen Tab Or Cap (Tylenol Tablet (03/08/25 20:15) Maxillofacial Without (03/08/25 20:01) Vital Signs Date Time Temp Pulse Resp B/P (MAP) Pulse Ox O2 Delivery O2 Flow Rate FiO2 03/08/25 19:55 85 Critical Care Note Critical Care Time?: No Stability Stability form required: No I personally scribed for MINTAH,CHAILLE A MD ([email or web address]) on 03/08/25 at 20:03. Electronically submitted by Cherry Jones ([email or web address]). I personally scribed for ZITA YOON MD ([email or web address]) on 03/08/25 at 20:04. Electronically submitted by Cherry Jones ([email or web address]). ZITA YOON MD Mar 08, 2025 20:03
--- NOTE | 2025-03-08 20:06 | ED.PDOC ---
HPI Comments 64 year old male presents to the ED via EMS with a chief complaint of chest pain onset today (03/08/25). Patient states he has been drinking ETOH, last drink was about 1 hour ago. He began experiencing chest pain radiates to LT arm, neck and back pain, was also experiencing nausea, abdominal pain. Patient has been seen in this ED for similar symptoms, last visit was 02/22/25. Denies any PMHx as well as vomiting, diarrhea, constipation, dizziness, headache, dysuria, hemate mesis, blood in stool, fever, chills. No other symptoms or modifying factors present at this time. Chief Complaint: Chest Pain Time Seen by MD: 19:55 Primary Care Provider: n/a Reviewed Notes: Medications, Allergies Allergies: Coded Allergies: NO KNOWN ALLERGIES (Unverified , 02/01/24) Home Meds Active Scripts Folic Acid (Folic Acid) 1 Mg Tab, 1 MG PO DAILY for 30 Days, #30 TAB Prov:KATELIN HANSON MD 02/26/25 Pantoprazole Sodium Sesquihydr (Pantoprazole Sodium) 40 Mg Tab, 40 MG PO DAILY@0600 for 30 Days, #30 TAB Prov:KATELIN HANSON MD 02/26/25 Thiamine HCl (Thiamine Hydrochloride) 100 Mg Tab, 100 MG PO DAILY for 30 Days, #30 TAB Prov:KATELIN HANSON MD 02/26/25 Multiple Vitamins W/ Iron (Multi Vitamin with Iron) 1 Tab Tab, 1 TAB PO DAILY for 30 Days, #30 TAB Prov:KATELIN HANSON MD 02/26/25 Ergocalciferol (VITAMIN D 84042 UNIT) 50,000 [place], [address] UNIT PO QWEEKLY for 90 Days, #12 CAP Prov:ANNELISE BLACKMAN 01/17/25 Acetaminophen (Acetaminophen) 325 Mg Tab, 650 MG PO TIDPRN PRN for 10 Days, #30 TAB Prov:ANNELISE BLACKMAN 01/17/25 Aspirin (Aspirin Low Dose) 81 Mg Tab, 81 MG PO DAILY for 30 Days, #30 TAB Prov:ANNELISE BLACKMAN 01/17/25 Ferrous Sulfate (Ferrous Sulfate) 325 Mg Tab, 325 MG PO MWF for 90 Days, #45 TAB Prov:ANNELISE BLACKMAN 01/17/25 Losartan Potassium (Losartan Potassium) 50 Mg Tab, 50 MG PO DAILY for 30 Days, #30 TAB 0 Refills Prov:JAKE WINKLER [facility] 01/04/25 Potassium Chloride (POTASSIUM CHLORIDE CR) 10 Meq Tb, 10 MEQ PO DAILY for 10 Days, #10 TAB 0 Refills Prov:JAKE PAUL [facility] 01/04/25 Furosemide (Lasix) 40 Mg Tab, 40 MG PO DAILY for 10 Days, #10 TAB 0 Refills Prov:JAKE WINKLER [facility] 01/04/25 Carvedilol (COREG) 3.125 Mg Tab, 3.125 MG PO Q12HR for 30 Days, #60 TAB Prov:JAKE PAUL [facility] 01/04/25 Information Source: Patient, Emergency Med Personnel Mode of Arrival: EMS Severity: Moderate Timing: Hours Duration: Since onset Prehospital treatment: None Location: Chest (L) Radiation: Abdomen, Back, Neck, Arm (L) Quality: Sharp Onset: At Rest Cardiac Risk Factors: None PE Risk Factors: None History of: Similar pain in past Modifying Factors: Nothing Associated Signs and Symptoms: Abdominal Pain, N/V, Back Pain Vital Signs Vital Signs Date Time Temp Pulse Resp B/P (MAP) Pulse Ox O2 Delivery O2 Flow Rate FiO2 03/08/25 22:57 71 03/08/25 21:28 16 99 Room Air* 0 21 03/08/25 21:28 148/81 (103) 03/08/25 19:56 98.2 98.2 Physical Exam General: Awake, alert and oriented. Patient is disheveled Skin: Skin in warm, dry and intact. Appropriate color for ethnicity. HEENT: Hematoma right cheek. Conjunctivae erythema bilaterally. Sclera is non- icteric. EOM are intact. No signs of nystagmus. Eyelids are normal in appearance without swelling or lesions. Oral mucosa is pink and moist Neck: The neck is supple with normal range of motion. No JVD. Cardiac: Heart rate and rhythm are normal. No murmurs, gallops, or rubs are auscultated. Respiratory: No signs of respiratory distress. Lung sounds are clear in all lobes bilaterally without rales, rhonchi, or wheezes. Abdominal: Abdomen is soft, non-tender without distention, guarding or rigidity. Extremities: Lower extremities are atraumatic in appearance without deformity or edema. Neurological: The patient is awake, alert and oriented to person, place, and time with normal speech. Speech is clear. There is no facial asymmetry. Psychiatric: Appropriate mood and affect. Good judgement and insight. Review of Systems: As stated in HPI Past Medical History PAST MEDICAL HISTORY: Denies Surgical History: Denies all surgeries Family History Family History: Reviewed,noncontributory to illness Social History Smoker: Non-Smoker Alcohol: Heavy Drugs: Denies Drug Use Lives In: Homeless Was a procedure done? Was a procedure done?: No CP Differential Dx Differential Diagnosis: Other (Differential diagnoses considered include acute ischemic coronary syndrome, aortic dissection, cardiac tamponade, mediastinitis, pulmonary embolus, pneumothorax, tension pneumothorax, esophageal rupture, coronary artery vasospasm, myocarditis, pericarditis, pneumonia, pulmonary edema, esophageal tear, pancreatitis, aortic stenosis, dilated cardiomyopathy, hypertrophic cardiomyopathy, mitral valve prolapse, malignancy, pleuritis, pneumomediastinum, primary pulmonary hypertension, cholecystitis, esophageal spasm, esophagus, gastritis, GERD, peptic ulcer disease, costochondritis, fib romyalgia, rib fracture, herpes zoster, radicular syndromes, thoracic outlet syndrome, somatization.) X-Ray, Labs, Meds, VS Vital Signs Date Time Temp Pulse Resp B/P (MAP) Pulse Ox O2 Delivery O2 Flow Rate FiO2 03/08/25 22:57 71 03/08/25 21:28 84 16 99 Room Air* 0 21 03/08/25 21:28 84 16 148/81 (103) 99 03/08/25 20:51 84 03/08/25 20:03 85 03/08/25 19:56 84 03/08/25 19:56 98.2 84 15 148/81 (103) 99 98.2 03/08/25 19:55 85 Lab Test 03/08/25 23:10 03/08/25 21:00 03/08/25 20:09 Range/Units Troponin I High Sensitivity 5 5 5 </=54 ng/L White Blood Count 6.3 4.4-10.8 10^3/uL Red Blood Count 3.58 L 4.5-5.90 10^6/uL Hemoglobin 13.0 L 13.5-17.5 g/dL Hematocrit 38.0 L 41.0-53.0 % Mean Corpuscular Volume 106.0 H 80.0-100.0 fL Mean Corpuscular Hemoglobin 36.2 H 28.0-32.0 pg Mean Corpuscular Hemoglobin Concent 34.2 32.0-36.0 g/dL Red Cell Distribution Width 16.5 H 11.8-14.3 % Platelet Count 328 140-450 10^3/uL Mean Platelet Volume 7.4 6.9-10.8 fL Neutrophils (%) (Auto) 44.2 37.0-80.0 % Lymphocytes (%) (Auto) 39.3 10.0-50.0 % Monocytes (%) (Auto) 11.7 0.0-12.0 % Eosinophils (%) (Auto) 4.2 0.0-7.0 % Basophils (%) (Auto) 0.6 0.0-2.0 % Neutrophils # (Auto) 2.8 1.6-8.6 10 ^3/uL Lymphocytes # (Auto) 2.5 0.4-5.4 10 ^3/uL Monocytes # (Auto) 0.7 0-1.3 10 ^3/uL Eosinophils # (Auto) 0.3 0-0.8 10 ^3/uL Basophils # (Auto) 0 0-0.2 10 ^3/uL Nucleated Red Blood Cells 0.2 % Sodium Level 143 136-145 mmol/L Potassium Level 4.6 3.5-5.1 mmol/L Chloride Level 107 98-107 mmol/L Carbon Dioxide Level 22 20-31 mmol/L Anion Gap 14 5-15 Blood Urea Nitrogen 19 9-23 mg/dL Creatinine 0.90 0.700-1.30 mg/dL Glomerular Filtration Rate Calc 96 >90 mL/min BUN/Creatinine Ratio 21.1 H 10.0-20.0 Serum Glucose 99 74-106 mg/dL Calcium Level 9.7 8.7-10.4 mg/dL Current Medications Medications (Trade) Dose Ordered Sig/Shubham Route Start Time Stop Time Status Last Admin Aspirin 324 mg ONCE ONCE PO 03/08/25 20:00 03/08/25 20:01 DC 03/08/25 21:11 Chlordiazepoxide HCl (Librium Capsule) 25 mg ONCE ONCE PO 03/08/25 20:00 03/08/25 20:01 DC 03/08/25 21:12 Acetaminophen (Tylenol Tablet Or Capsule) 1,000 mg ONCE ONCE PO 03/08/25 20:15 03/08/25 20:16 DC 03/08/25 21:[address] [address] Ph: [phone] DIAGNOSTIC IMAGING Diagnostic Imaging Report : [id number] Signed PATIENT: VIC SHIPMAN ACCT: [id number] UNIT: [id number] : 1960 LOC: ER ROOM / BED: / AGE / SEX: 64 / M ADM STATUS: REG ER SERVICE 00 ORDERING PHYSICIAN: ZITA YOON MD PROCEDURE(s): FAC2C - MAXILLOFACIAL WITHOUT REASON: Right facial injury ORDER NUMBER(s): [id number], ACCESSION NUMBER(s): [id number] HISTORY: Right facial injury TECHNIQUE: Nonenhanced axial images through the facial bones with coronal and sagittal MPR. COMPARISON: 02/22/2025 Radiation Dose Information: CT Dose: CTDI volume is 56.28 mGy. Dose-length product is 1056.7 mGy*cm FINDINGS: Mandible: No fracture Maxilla: 4.8 by 5 3.2 cm soft tissue mass on the right lateral to the maxilla with soft tissue density of the 71 Hounsfield units may represent abscess or hematoma. There are no findings to suggest bony fracture. Pterygoid plates: No fracture Zygomatic processes: No fracture. Zygomatic arches: No fracture Orbits: No fracture Sinuses: No air-fluid level. No fracture. Facial swelling: Soft tissue swelling over the right side of the face. IMPRESSION: 1. 4.7 x 5 x 3.2 cm soft tissue mass lateral to the right maxilla and maxillary sinus. There is no fracture of the maxillary sinus no sinusitis. Tissue density of this lesion 71 Hounsfield units. Tissues may represent abscess or hematoma. There is no gas noted in the collection. 2. This collection is slightly smaller than on the previous study of 02/22/2025. Radiation optimization: All CT scans at this facility use at least one of these dose optimization techniques: automated exposure control mA and/or kV adjustment per patient size (includes targeted exams where dose is matched to clinical indication) or iterative reconstruction. ATED BY: MISHA ZULETA Jr., DO DICTATED DATE/TIME: 03/08/252108 SIGNED BY: MISHA ZULETA Jr., DO SIGNED DATE/TIME: 03/08/252108 CC: [place] [id number] Ph: [phone] DIAGNOSTIC IMAGING Diagnostic Imaging Report : [id number] Signed PATIENT: VIC SHIPMAN ACCT: [id number] UNIT: [id number] : 1960 LOC: ER ROOM / BED: / AGE / SEX: 64 / M ADM STATUS: REG ER SERVICE 58 ORDERING PHYSICIAN: ZITA YOON MD PROCEDURE(s): CXR1 - CHEST XRAY 1 VIEW REASON: Chest pain ORDER NUMBER(s): [id number], ACCESSION NUMBER(s): [id number] CHEST RADIOGRAPH Indication: Chest pain Technique: Single frontal view of the chest was obtained Comparison: XY CHEST XRAY 1 VIEW on DOS: 01/03/25, XY CHEST PORTABLE on DOS: 12/30/24, XY CHEST XRAY 1 VIEW on DOS: 12/21/24 FINDINGS: Lines and Tubes: None Lungs: No focal consolidation. Pleura: No effusion. No pneumothorax. Cardiomediastinal contours: Unremarkable Bones: No acute osseous abnormality. IMPRESSION: 1. No acute cardiopulmonary disease. ATED BY: MISHA ZULETA Jr., DO DICTATED DATE/TIME: 03/08/252031 SIGNED BY: MISHA ZULETA Jr., DO SIGNED DATE/TIME: 03/08/252031 CC: Time of 1ST Reevaluation: 20:25 Reevaluation 1ST: Unchanged Patient Education/Counseling: Need For Follow Up Family Education/Counseling: No Family Present SEPSIS Sepsis Screen Date sepsis recognized/suspect: Mar 08, 2025 Time Sepsis recognized/suspect: 1954 Recent Procedure: No On Antibiotic Therapy: No Respiratory Rate >20: No Heart Rate >90: No Temp<36 C (96.8 F) or >38.3 C: No SBP <90 or MAP <65 mmHG: No New Acute Mental Status Change: No Is the patient on CPAP, BIPAP,: No Physician Orders Chest Xray 1 View (03/08/25 19:59) Maxillofacial Without (03/08/25 20:01) Vital Signs Date Time Temp Pulse Resp B/P (MAP) Pulse Ox O2 Delivery O2 Flow Rate FiO2 03/08/25 22:57 71 03/08/25 21:28 84 16 99 Room Air* 0 21 03/08/25 21:28 84 16 148/81 (103) 99 03/08/25 20:51 84 03/08/25 20:03 85 03/08/25 19:56 84 03/08/25 19:56 98.2 84 15 148/81 (103) 99 98.2 03/08/25 19:55 85 Laboratory Tests Test 03/08/25 20:09 White Blood Count 6.3 10^3/uL (4.4-10.8) Medications Medications Dose Ordered Sig/Shubham Route Start Time Stop Time Status Last Admin Dose Admin Acetaminophen 1,000 mg ONCE ONCE PO 03/08/25 20:15 03/08/25 20:16 DC 03/08/25 21:12 Aspirin 324 mg ONCE ONCE PO 03/08/25 20:00 03/08/25 20:01 DC 03/08/25 21:11 Chlordiazepoxide HCl 25 mg ONCE ONCE PO 03/08/25 20:00 03/08/25 20:01 DC 03/08/25 21:12 Departure 1 Departure Time of Disposition: 20:25 Impression: Primary Impression: Chest pain Disposition: HOME / SELF CARE / HOMELESS Condition: Stable Additional Instructions: ED DISCHARGE INSTRUCTIONS Instructions: Please read all instructions provided in this packet carefully. Although you have been discharged from the Emergency Department, this does not mean that you have a "clean bill of health". No definitive diagnosis for your symptoms has been made today. It is possible that you are in the process of developing a serious illness. This is why you must return to the ED without fail if any new or worsening symptoms (especially if your symptoms include chest pain, trouble breathing, abdominal pain, fever, headache, confusion, trouble seeing, or trouble walking) It is also very important that you see a primary care doctor within the next 3-5 days to follow up. If you are unable to get an appointment, return to the ED for re-evaluation. It is very important that you follow up with your primary care physician (PCP). You can call your insurance company or check your insurance card to find out who your PCP is. Establishing and regularly seeing a PCP and undergoing routine screenings are vital for maintaining good health. Your PCP acts as your main healthcare partner, helping you stay healthy, manage chronic conditions, and detect potential problems early. Routine screenings, like mammograms or colonoscopies, can catch diseases like cancer early when treatment is often more effective. A screening test is like a quick check-up your doctor does to see if there are any problems starting in your body, even when you feel okay, so they can find them early when they're easier to fix. Why Establish a Relationship with a Primary Care Physician (PCP)? Preventive Care: Your PCP focuses on preventing illness through regular checkups, vaccinations, and health advice tailored to your needs. Chronic Disease Management: If you have a chronic condition, like diabetes or high blood pressure, your PCP can help you manage it effectively through monitoring, medication management, and lifestyle recommendations. Early Detection: Regular visits allow your PCP to track your health over time, identify subtle changes, and order necessary screenings or tests to catch potential problems early. Trusted Resource: Your PCP gets to know you, your medical history, and your concerns, making them a trusted resource for all your health-related questions. Referrals: If you need specialized care, your PCP will refer you to the appropriate specialists and help coordinate your care. Continuity of Care: Your PCP ensures that your healthcare is coordinated, especially after hospital stays or visits to other specialists. Why are Routine Screenings Important? Early Detection: Many serious illnesses like cancer, diabetes and heart disease, can be treated more successfully when detected early. Screenings like lab tests, blood pressure checks, mammograms, colonoscopies, and Pap smears are designed to catch these diseases early. Preventing Disease: Some screenings can actually help prevent diseases from developing. Peace of Mind: Knowing that you are up-to-date on your screenings can provide peace of mind and reduce anxiety about potential health problems. In summary, establishing a relationship with a primary care physician and following their recommendations for routine screenings is important for staying healthy and managing your health effectively. It's an investment in your well- being that can pay off in the long run. Comments 64-year-old male with a recurrent ED visits for chest pain and alcohol intoxication. Serial EKG negative for signs of ischemia. Serial High sensitivity troponin negative. CXR shows no acute process. Presentation not suggestive of acute coronary syndrome, pulmonary embolism or aortic dissection. Patient improved at time of discharge. No hypoxia, respiratory distress or dyspnea at discharge. Patient able to ambulate without difficulty. Critical Care Note Critical Care Time?: No Stability Stability form required: No Heart Score Heart Score: Heart Score Response (Comments) Value History Slightly Suspicious 0 EKG Normal 0 Age 45-64 1 Risk Factors 1 or 2 risk factors 1 Troponin Normal limit 0 Total 2 I personally scribed for ZITA YOON MD ([email or web address]) on 03/08/25 at 20:06. Electronically submitted by Cherry Jones ([email or web address]). I personally scribed for ZITA YOON MD ([email or web address]) on 03/08/25 at 22:10. Electronically submitted by Cherry Jones ([email or web address]). ZITA YOON MD Mar 08, 2025 20:06
[2025-03-08 20:25] LABS: Hematocrit 38.0 % (41.0-53.0); Hemoglobin 13.0 g/dL (13.5-17.5); Mean Corpuscular Hemoglobin 36.2 pg (28.0-32.0); Mean Corpuscular Volume 106.0 fL (80.0-100.0); Nucleated Red Blood Cells % 0.2 %
--- NOTE | 2025-03-08 20:34 | DVH ---
CHEST RADIOGRAPH Indication: Chest pain Technique: Single frontal view of the chest was obtained Comparison: XY CHEST XRAY 1 VIEW on DOS: 01/03/25, XY CHEST PORTABLE on DOS: 12/30/24, XY CHEST XRAY 1 EW on DOS: 12/21/24 FINDINGS: Lines and Tubes: None Lungs: No focal consolidation. Pleura: No effusion. No pneumothorax. Cardiomediastinal contours: Unremarkable Bones: No acute osseous abnormality. IMPRESSION: 1. No acute cardiopulmonary disease.
[2025-03-08 20:49] LABS: Potassium 4.6 mmol/L (3.5-5.1); Sodium 143 mmol/L (136-145)
[2025-03-08 20:50] LABS: Anion Gap 14 (5-15); Calcium 9.7 mg/dL (8.7-10.4); Carbon Dioxide 22 mmol/L (20-31)
[2025-03-08 20:55] LABS: BUN/Creatinine Ratio 21.1 (10.0-20.0); Blood Urea Nitrogen 19 mg/dL (9-23); Glucose 99 mg/dL (74-106)
--- NOTE | 2025-03-08 21:11 | DVH ---
HISTORY: Right facial injury TECHNIQUE: Nonenhanced axial images through the facial bones with coronal and sagittal MPR. COMPARISON: 02/22/2025 Radiation Dose Information: CT Dose: CTDI volume is 56.28 mGy. Dose-length product is 1056.7 mGy*cm FINDINGS: Mandible: No fracture Maxilla: 4.8 by 5 3.2 cm soft tissue mass on the right lateral to the maxilla with soft tissue densi ty of the 71 Hounsfield units may represent abscess or hematoma. There are no findings to suggest bon y fracture. Pterygoid plates: No fracture Zygomatic processes: No fracture. Zygomatic arches: No fracture Orbits: No fracture Sinuses: No air-fluid level. No fracture. Facial swelling: Soft tissue swelling over the right side of the face. IMPRESSION: 1. 4.7 x 5 x 3.2 cm soft tissue mass lateral to the right maxilla and maxillary sinus. There is no f racture of the maxillary sinus no sinusitis. Tissue density of this lesion 71 Hounsfield units. Tissu es may represent abscess or hematoma. There is no gas noted in the collection. 2. This collection is slightly smaller than on the previous study of 02/22/2025. Radiation optimization: All CT scans at this facility use at least one of these dose optimization jessenia hniques: automated exposure control mA and/or kV adjustment per patient size (includes targeted exam s where dose is matched to clinical indication) or iterative reconstruction.
[2025-03-08] MEDS: ACETAMINOPHEN 500 MG TAB or CAP PO ONE (21:12)
[2025-03-08 21:19] LABS: Chloride 107 mmol/L (98-107)
[2025-03-08 21:28] VITALS: BP 148/81; PULSE 84; RESP 16; O2SAT 99
[2025-03-08 22:57] VITALS: PULSE 71
--- NOTE | 2025-03-09 00:55 | ECG ---
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
--- NOTE | 2025-03-09 00:55 | ECG ---
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
--- NOTE | 2025-03-09 00:56 | ECG ---
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
== END 2025-03-09 01:20 | disposition home or self-care (01) ==
LOC: EDBD 19:50 → ER 19:50
DX: S00.83XA Contusion of other part of head, initial encounter (principal); R07.89 Other chest pain; F10.10 Alcohol abuse, uncomplicated; Z59.00 Homelessness unspecified; Z79.82 Long term (current) use of aspirin; Z79.899 Other long term (current) drug therapy; X58.XXXA Exposure to other specified factors, initial encounter; Y93.89 Activity, other specified; Y92.89 Other specified places as the place of occurrence of the external cause; Y99.8 Other external cause status; Y90.9 Presence of alcohol in blood, level not specified
CPT/HCPCS: 36415; 70486; 71045; 80048; 84484; 85025; 93005

== ENCOUNTER 2025-03-22 16:25 | Emergency (ER) | payer MEDICAID ==
[~2025-03-22] VITALS: Ht 167.6 cm; Wt 68.1 kg
[2025-03-22] MEDS: MAGNESIUM SULFATE 1GM/100ML 100 ML IV ONE (16:30)
--- NOTE | 2025-03-22 16:38 | ED.PDOC ---
Psychiatric HPI Comments HPI: 64 y/o M, BIBA, with PMHx of alcohol abuse presents to the ED for CC of alcohol withdrawals. 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 Patient reports, symptoms of chest pain and increased anxiety. Patient denies suicidal ideation, homicidal ideation, auditory hallucinations, or visual hallucinations. No other associated symptoms or modifying factors present at this time. Past Medical history: ETOH ABUSE, RIGHT SUPERFICIAL FACIAL HEMATOMA Past Surgical history: DENIES ANY Medications: LIBRIUM Social History: HEAVY ETOH CONSUMPTION, DENIES TOBACCO OR ILLICIT DRUGS Allergies: NKA Denies any recent fall or trauma or injury. HPI: Poor Historian. REVIEW OF SYSTEMS: CONSTITUTIONAL: Denies acute: fever, diaphoresis, chills, HEAD: Denies acute: headache, photophobia Eyes: Denies acute: Double vision, vision loss, eye pain, eye discharge. EARS: Denies acute: tinnitus, hearing loss, ear discharge, ear pain, THROAT: Denies acute: sore throat, swelling, difficulty swallowing , pain with swallowing, change in voice. NECK: Denies acute: neck pain, neck swelling, stiff neck. HEART: Denies acute : palpitations, LUNGS: Denies acute: SOB, wheezing, cough, hemoptysis ABDOMEN: Denies acute: abdominal pain, Nausea, Vomiting, diarrhea, melena , hematemesis, hematochezia SKIN: Denies acute: rash, redness, lesions, itchiness. EXTREMITIES: Denies acute: calf pain, numbness, tingling, weakness, denies pain in extremity. Denies acute: Low back pain. Neuro: Denies acute: focal neurological deficit, motor or sensory focal neurological deficit, tremors, seizure like activity, confusion, dizziness, change in mental status, loss of bowel or bladder function, cauda equina like symptoms. : Denies acute: dysuria, hematuria, flank pain, increase in urinary frequency. PSYCH: Denies acute: hallucination, suicidal ideation, homicidal ideation. PHYSICAL EXAM: General: ----no----acute distress, awake and alert. Head: normocephalic, atraumatic. Noted right facial hematoma present on his previous evaluation here in the ED. Neck: supple, trachea is midline, no swelling. Throat: Normal phonation. Eyes:, no erythema, no purulent discharge, no proptosis, no icterus. Heart: regular tachycardia, no significant murmur appreciated. Lungs: no apparent respiratory distress, Able to speak in full sentences. No wheezing, no rhonchi, no crackles. No stridors Clear to auscultation bilaterally. Abdomen: non tender to palpation, non distended, soft, no guarding, no rebound, + bowel sounds. Neuro: Awake, Alert, oriented to name, self, situation, follows commands GCS=15. Speech is normal. Skin: no petechia, no purpura, no cyanosis, non-pale, not jaundice. Lower extremities: --no - Pitting edema no deformity, no focal swelling, no calf TTP. Makes eye contact. moves all four extremities. Face: no apparent facial droop. ED COURSE: DISCLAIMER: This medical document was created using an electronic medical record system with voice recognition software and computerized dictation system. Although this docu ment has been carefully reviewed, there might still be some phonetic and typographical errors. Occasional wrong-word or "sound-alike" substitutions may have occurred due to the inherent limitations of voice recognition software. These areas are purely typographical due to imperfections of the software programs and do not reflect any compromise in the patient's medical care. Please read the chart carefully and recognize, using context, where these substitutions have occurred. Time Seen by MD: 16:30 Primary Care Provider: n/a Reviewed Notes: Nurses Notes, Gut Puller Notes, Medications, Allergies Information Source: Patient, Emergency Med Personnel Mode of Arrival: EMS Severity: Able to Care for Self Severity of Pain: None Severity of Mental Status: Moderate Severity of Symptoms: Moderate Timing: Hours Duration: Since onset Prehospital treatment: None Presents with: Alcohol Intoxication Ingestion: ETOH Circumstance: Withdrawal Symptoms Current substance abuse: ETOH Stressors: None History of: Alcoholism Quality: None Associated signs and symptoms: Intoxication, ETOH Was a procedure done? Was a procedure done?: No Psych Differential Dx Intoxication Differential Dx: Alcohol Withdraw Syndrome, Delerium Tremens, Hallucinations, Seizures, Anticholinergic Poisoning, CVA, Dehydration, Depression, Drug-Induced Psychosis, Electrolyte Imbalance, Encephalitis, Encephalopathy, Hepatitis, Hyperthermia, Intoxication, Medical Noncompliance, Personality Disorder, Schizophrenia, Seizure Disorder, Thiamine Deficiency, Thyrotoxicosis X-Ray, Labs, Meds, VS Vital Signs Date Time Temp Pulse Resp B/P (MAP) Pulse Ox O2 Delivery O2 Flow Rate FiO2 03/22/25 22:30 98.6 96 20 130/73 (92) 98 98.6 03/22/25 16:34 98.5 102 16 137/89 (105) 98 98.5 Lab Test 03/22/25 22:49 03/22/25 17:46 03/22/25 16:50 Range/Units Plasma/Serum Blood Alcohol Pending 403.3 *H <10 mg/dL Troponin I High Sensitivity 6 6 </=54 ng/L White Blood Count 5.7 4.4-10.8 10^3/uL Red Blood Count 3.69 L 4.5-5.90 10^6/uL Hemoglobin 13.3 L 13.5-17.5 g/dL Hematocrit 38.0 L 41.0-53.0 % Mean Corpuscular Volume 103.0 H 80.0-100.0 fL Mean Corpuscular Hemoglobin 35.9 H 28.0-32.0 pg Mean Corpuscular Hemoglobin Concent 34.9 32.0-36.0 g/dL Red Cell Distribution Width 16.3 H 11.8-14.3 % Platelet Count 139 L 140-450 10^3/uL Mean Platelet Volume 7.5 6.9-10.8 fL Neutrophils (%) (Auto) 49.9 37.0-80.0 % Lymphocytes (%) (Auto) 34.1 10.0-50.0 % Monocytes (%) (Auto) 8.4 0.0-12.0 % Eosinophils (%) (Auto) 6.4 0.0-7.0 % Basophils (%) (Auto) 1.2 0.0-2.0 % Neutrophils # (Auto) 2.8 1.6-8.6 10 ^3/uL Lymphocytes # (Auto) 1.9 0.4-5.4 10 ^3/uL Monocytes # (Auto) 0.5 0-1.3 10 ^3/uL Eosinophils # (Auto) 0.4 0-0.8 10 ^3/uL Basophils # (Auto) 0.1 0-0.2 10 ^3/uL Nucleated Red Blood Cells 0.1 % Sodium Level 145 136-145 mmol/L Potassium Level 3.6 3.5-5.1 mmol/L Chloride Level 106 98-107 mmol/L Carbon Dioxide Level 23 20-31 mmol/L Anion Gap 16 H 5-15 Blood Urea Nitrogen 13 9-23 mg/dL Creatinine 0.89 0.700-1.30 mg/dL Glomerular Filtration Rate Calc 96 >90 mL/min BUN/Creatinine Ratio 14.6 10.0-20.0 Serum Glucose 111 H 74-106 mg/dL Calcium Level 8.9 8.7-10.4 mg/dL Magnesium Level 1.6 1.6-2.6 mg/dL Total Bilirubin 0.6 0.2-1.0 mg/dL Aspartate Amino Transferase (AST) 110 H 13-40 U/L Alanine Aminotransferase (ALT) 24 7-40 U/L Alkaline Phosphatase 181 H 46-116 U/L Total Protein 7.8 5.7-8.2 g/dL Albumin 4.6 3.2-4.8 g/dL Current Medications Medications (Trade) Dose Ordered Sig/Shubham Route Start Time Stop Time Status Last Admin Sodium Chloride 1,000 ml @ 1,000 mls/hr Q1H ONCE IV 03/22/25 16:30 03/22/25 17:29 DC 03/22/25 20:41 Thiamine HCl 100 mg ONCE ONCE PO 03/22/25 16:30 03/22/25 16:33 DC 03/22/25 22:27 Sodium Chloride 1,000 ml @ 1,000 mls/hr Q1H ONCE IV 03/22/25 18:15 03/22/25 19:14 DC 03/22/25 20:41 [place] [id number] Ph: [phone] DIAGNOSTIC IMAGING Diagnostic Imaging Report : [id number] Signed PATIENT: VIC SHIPMAN ACCT: [id number] UNIT: [id number] : 1960 LOC: ER ROOM / BED: / AGE / SEX: 64 / M ADM STATUS: REG ER SERVICE 1630 ORDERING PHYSICIAN: PORFIRIO SHUKLA DO PROCEDURE(s): CXRP - CHEST PORTABLE REASON: cp ORDER NUMBER(s): [id number], ACCESSION NUMBER(s): [id number] EXAM: XY CHEST PORTABLE TECHNIQUE: Single frontal chest radiograph CLINICAL HISTORY: cp COMPARISON: XY CHEST XRAY 1 VIEW on DOS: 03/08/25 Findings/Impression: Frontal chest radiograph demonstrates no acute osseous or superficial soft tissue abnormalities. The trachea is midline. The cardiac silhouette and mediastinum are within normal limits. Low lung volumes with bronchovascular crowding. No pneumothorax, pleural effusions, or consolidations. ATED BY: NICOLE ANGELES DO DICTATED DATE/TIME: 03/22/251712 SIGNED BY: NICOLE ANGELES DO SIGNED DATE/TIME: 03/22/251712 CC: Time of 1ST Reevaluation: 17:00 Reevaluation 1ST: Unchanged Time of 2ND Reevaluation: 22:13 (Patient tolerating p.o. intake well. No nausea or vomiting here in the ED. Vital signs remained stable. Patient was given fluid hydration. We will repeat alcohol level again. The care of this patient will be signed out to my colleague Dr. Cleary. ) Patient Education/Counseling: Diagnosis, Treatment Family Education/Counseling: No Family Present Assigned to Dr. DR. CLEARY. WAITING REPEAT ALCOHOL LEVEL AND REASSESSMENT UNTIL HE IS SOBER FOR DISCHARGE. Comments MDM: patient presented with the above HPI.---alcohol abuse--workup was initiated. patient was found with the above mentioned diagnosis. the following medications were ordered: please refer to order lists of meds and tests obtained by myself Dr. Shukla. Patient ED course and VS have been stabilized. Patient has been reassessed in the ED and remained in a stable condition. Patient has been observed in the ED adequate length of time to insure improvement/stability. The care of this patient was signed out to my colleague Dr. Cleary. All the reports of any imaging studies that were ordered by myself were reviewed by myself. Departure 1 Departure Time of Disposition: 22:12 Impression: Primary Impression: Alcohol abuse Additional Impressions: Thrombocytopenia Homelessness Disposition: 30 STILL A PATIENT Condition: Guarded Discharged With: Self Heart Score Heart Score: Heart Score Response (Comments) Value History N/A 0 EKG N/A 0 Age N/A 0 Risk Factors N/A 0 Troponin N/A 0 Total 0 I personally scribed for PORFIRIO SHUKLA DO ([email or web address]) on 03/22/25 at 16:38. E lectronically submitted by Deb Malloy ([email or web address]). I personally scribed for PORFIRIO SHUKLA DO ([email or web address]) on 03/22/25 at 17:20. Elect ronically submitted by Deb Malloy ([email or web address]). PORFIRIO SHUKLA DO Mar 22, 2025 16:38
[2025-03-22 17:01] LABS: Hematocrit 38.0 % (41.0-53.0); Hemoglobin 13.3 g/dL (13.5-17.5); Mean Corpuscular Hemoglobin 35.9 pg (28.0-32.0); Mean Corpuscular Volume 103.0 fL (80.0-100.0); Nucleated Red Blood Cells % 0.1 %
[2025-03-22 17:15] LABS: Alanine Aminotransferase 24 U/L (7-40); Albumin 4.6 g/dL (3.2-4.8); Anion Gap 16 (5-15); BUN/Creatinine Ratio 14.6 (10.0-20.0); Bilirubin, Total 0.6 mg/dL (0.2-1.0); Blood Urea Nitrogen 13 mg/dL (9-23); Calcium 8.9 mg/dL (8.7-10.4); Carbon Dioxide 23 mmol/L (20-31); Chloride 106 mmol/L (98-107); Potassium 3.6 mmol/L (3.5-5.1); Sodium 145 mmol/L (136-145); Total Protein 7.8 g/dL (5.7-8.2)
[2025-03-22 17:16] LABS: Alkaline Phosphatase 181 U/L (46-116); Glucose 111 mg/dL (74-106); Magnesium 1.6 mg/dL (1.6-2.6)
--- NOTE | 2025-03-22 17:16 | DVH ---
EXAM: XY CHEST PORTABLE TECHNIQUE: Single frontal chest radiograph CLINICAL HISTORY: cp COMPARISON: XY CHEST XRAY 1 VIEW on DOS: 03/08/25 Findings/Impression: Frontal chest radiograph demonstrates no acute osseous or superficial soft tissue abnormalities. The trachea is midline. The cardiac silhouette and mediastinum are within normal limits. Low lung volumes with bronchovascular crowding. No pneumothorax, pleural effusions, or consolidations.
[2025-03-22] MEDS: SODIUM CHLORIDE 0.9% 1,000 ML IV ONE ×2 (20:41)
[2025-03-22] MEDS: THIAMINE HCL 100 MG TAB PO ONE (22:27)
[2025-03-23] MEDS: ONDANSETRON HCL 4 MG/2 ML VIAL IV ONE ×2 (01:21→07:46)
[2025-03-23 07:31] VITALS: PULSE 73; RESP 20; O2SAT 95
[2025-03-23] MEDS: MORPHINE SULFATE INJ 2 MG/ml SYRG IV ONE (07:48)
[2025-03-23 08:00] VITALS: TEMP 97.9
[2025-03-23 11:02] LABS: Urine Protein, UAD Negative (Negative)
[2025-03-23 11:19] LABS: Amphetamine Screen, Urine Pos (NEGATIVE); Opiate Scree,Urine Neg (NEGATIVE)
[2025-03-23 11:20] LABS: Barbiturate Scree,Urine Neg (NEGATIVE); Benzodiazephine Screen, Urine Pos (NEGATIVE); Cannabinoid Screen, Urine Neg (NEGATIVE); Cocaine Screen, Urine Neg (NEGATIVE); Phencyclidine Screen, Urine Neg (NEGATIVE)
[2025-03-23] MEDS ORDERED: CHL25C PO (11:43)
[2025-03-23] MEDS: HYDROcodone-ACET 5/325MG TAB PO ONE (12:08)
[2025-03-23 12:46] VITALS: BP 133/75; PULSE 68; RESP 16; O2SAT 95
== END 2025-03-23 12:52 | disposition home or self-care (01) ==
LOC: EDBD 16:25 → ER 16:25
DX: F10.10 Alcohol abuse, uncomplicated (principal); D69.6 Thrombocytopenia, unspecified; F10.129 Alcohol abuse with intoxication, unspecified; R06.02 Shortness of breath; F15.10 Other stimulant abuse, uncomplicated; Z79.899 Other long term (current) drug therapy; Y90.9 Presence of alcohol in blood, level not specified
CPT/HCPCS: 36415; 71045; 80053; 80307; 80320; 81001; 82947; 83735; 84484; 85025; 96361; 96365; 96375; 96376; 99285; J2270; J2405; J3475; J7030; 82962

== ENCOUNTER 2025-04-23 16:35 | Inpatient (IN) | payer MEDICAID ==
[~2025-04-23] VITALS: Ht 167.6 cm; Wt 74.1 kg
[2025-04-23] MEDS: MAALOX PLUS or MAALOX 30 ML PO ONE (16:45)
[2025-04-23] MEDS: ONDANSETRON HCL 4 MG/2 ML VIAL IV ONE (16:45)
[2025-04-23] MEDS: DONNATAL 5ml ORAL Elix (BELLADONNA ALK-PHENOBARB) PO ONE (16:45)
[2025-04-23] MEDS: LIDOCAINE VISCOUS 2% 15ML UD PO ONE (16:45)
--- NOTE | 2025-04-23 16:46 | ED.PDOC ---
History of Present Illness HPI Comments chest pain, alcohol intoxication Comments This 64-year-old male with a past medical history screen for alcohol intoxication states he has been drinking has been provocative last three days. He now has epigastric abdominal discomfort and left-sided chest discomfort. He denies any association with position or activity. He denies any other signs or symptoms. Denies any other palliative or provocative factors. Denies modifying factors. Denies radiation of symptoms. Fourteen systems reviewed and negative except as mentioned above Time Seen by MD: 16:40 Primary Care Provider: n/a Allergies: Coded Allergies: NO KNOWN ALLERGIES (Unverified , 02/01/24) Home Meds Active Scripts Folic Acid (Folic Acid) 1 Mg Tab, 1 MG PO DAILY for 30 Days, #30 TAB Prov:KATELIN HANSON MD 02/26/25 Pantoprazole Sodium Sesquihydr (Pantoprazole Sodium) 40 Mg Tab, 40 MG PO DAILY@0600 for 30 Days, #30 TAB Prov:KATELIN HANSON MD 02/26/25 Thiamine HCl (Thiamine Hydrochloride) 100 Mg Tab, 100 MG PO DAILY for 30 Days, #30 TAB Prov:KATELIN HANSON MD 02/26/25 Multiple Vitamins W/ Iron (Multi Vitamin with Iron) 1 Tab Tab, 1 TAB PO DAILY for 30 Days, #30 TAB Prov:KATELIN HANSON MD 02/26/25 Ergocalciferol (VITAMIN D 35003 UNIT) 50,000 [place], [address] UNIT PO QWEEKLY for 90 Days, #12 CAP Prov:ANNELISE BLACKMAN 01/17/25 Acetaminophen (Acetaminophen) 325 Mg Tab, 650 MG PO TIDPRN PRN for 10 Days, #30 TAB Prov:ANNELISE BLACKMAN 01/17/25 Aspirin (Aspirin Low Dose) 81 Mg Tab, 81 MG PO DAILY for 30 Days, #30 TAB Prov:ANNELISE BLACKMAN 01/17/25 Ferrous Sulfate (Ferrous Sulfate) 325 Mg Tab, 325 MG PO MWF for 90 Days, #45 TAB Prov:ANNELISE BLACKMAN RESIDENT 01/17/25 Losartan Potassium (Losartan Potassium) 50 Mg Tab, 50 MG PO DAILY for 30 Days, #30 TAB 0 Refills Prov:JAKE PAUL RESIDENT 01/04/25 Potassium Chloride (POTASSIUM CHLORIDE CR) 10 Meq Tb, 10 MEQ PO DAILY for 10 Days, #10 TAB 0 [facility] 01/04/25 Furosemide (Lasix) 40 Mg Tab, 40 MG PO DAILY for 10 Days, #10 TAB 0 Refills [facility] 01/04/25 Carvedilol (COREG) 3.125 Mg Tab, 3.125 MG PO Q12HR for 30 Days, #60 TAB Prov[facility] 01/04/25 Past Medical History PAST MEDICAL HISTORY: Denies (Chronic alcohol abuse) Surgical History: Denies all surgeries Family History Family History: Reviewed,noncontributory to illness Social History Smoker: Non-Smoker Alcohol: Heavy Drugs: Denies Drug Use Lives In: Homeless Constitutional: reports: fatigue, malaise; denies: chills, diaphoresis, fever, sweats, weakness, others EENTM: denies: blurred vision, double vision, ear bleeding, ear discharge, ear drainage, ear pain, ear ringing, eye pain, eye redness, hearing loss, mouth pain, mouth swelling, nasal discharge, nose bleeding, nose congestion, nose pain, photophobia, tearing, throat pain, throat swelling, voice changes, others Respiratory: denies: cough, hemoptysis, orthopnea, SOB at rest, shortness of breath, SOB with excertion, stridor, wheezing, others Cardiovascular: reports: chest pain; denies: dizzy spells, diaphoresis, Dyspnea on exertion, edema, irregular heart beat, left arm pain, lightheadedness, palpitations, PND, syncope, others Gastrointestinal: denies: abdomen distended, abdominal pain, blood streaked bowels, constipated, diarrhea, dysphagia, difficulty swallowing, hematemesis, melena, nausea, poor appetite, poor fluid intake, rectal bleeding, rectal pain, vomiting, others Genitourinary: denies: burning, dysuria, flank pain, frequency, hematuria, incontinence, penile discharge, penile sore, pain, testicle pain, testicle swelling, urgency, others Neurological: denies: dizziness, fainting, headache, left sided numbness, left sided weakness, numbness, paresthesia, pre-existing deficit, right sided numbness, right sided weakness, seizure, speech problems, tingling, tremors, weakness, others Musculoskeletal: denies: back pain, gout, joint pain, joint swelling, muscle pain, muscle stiffness, neck pain, others Integumetry: denies: bruises, change in color, change in hair/nails, dryness, laceration, lesions, lumps, rash, wounds, others Hematologic/Lymphatic: denies: anemia, blood clots, easy bleeding, easy bruising, swollen glands, others All Other Systems: Reviewed and Negative Physical Exam General Appearance: No Apparent Distress, Normal HEENT: Normal ENT Inspection, Pharynx Normal, TMs Normal Neck: Full Range of Motion, Non-Tender, Normal, Normal Inspection Respiratory: Chest Non-Tender, Lungs Clear, No Accessory Muscle Use, No Respiratory Distress, Normal Breath Sounds Cardiovascular: No Edema, No Murmur, No Gallop, Normal Peripheral Pulses, Regular Rate/Rhythm Breast Exam: Deferred Gastrointestinal: Epigastric, No Organomegaly, No Pulsatile Mass, Normal Bowel Sounds, Soft Genitalia: Deferred Pelvic: Deferred Rectal: Deferred Extremities: No calf tenderness, Normal capillary refill, Normal inspection, Normal range of motion, Non-tender, No pedal edema 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 Was a procedure done?: No Differential Dx Considerations may include: STEMI, NSTEMI, acid reflux, PE, CHF, muscle spasm X-Ray, Labs, Meds, VS Vital Signs Date Time Temp Pulse Resp B/P (MAP) Pulse Ox O2 Delivery O2 Flow Rate FiO2 04/23/25 16:53 98.2 90 16 115/80 96 98.2 04/23/25 16:35 94 Lab Test 04/23/25 16:59 Range/Units White Blood Count 6.1 4.4-10.8 10^3/uL Red Blood Count 3.82 L 4.5-5.90 10^6/uL Hemoglobin 13.9 13.5-17.5 g/dL Hematocrit 40.0 L 41.0-53.0 % Mean Corpuscular Volume 104.7 H 80.0-100.0 fL Mean Corpuscular Hemoglobin 36.4 H 28.0-32.0 pg Mean Corpuscular Hemoglobin Concent 34.7 32.0-36.0 g/dL Red Cell Distribution Width 16.1 H 11.8-14.3 % Platelet Count 128 L 140-450 10^3/uL Mean Platelet Volume 7.8 6.9-10.8 fL Neutrophils (%) (Auto) 55.4 37.0-80.0 % Lymphocytes (%) (Auto) 29.7 10.0-50.0 % Monocytes (%) (Auto) 11.3 0.0-12.0 % Eosinophils (%) (Auto) 1.2 0.0-7.0 % Basophils (%) (Auto) 2.4 H 0.0-2.0 % Neutrophils # (Auto) 3.4 1.6-8.6 10 ^3/uL Lymphocytes # (Auto) 1.8 0.4-5.4 10 ^3/uL Monocytes # (Auto) 0.7 0-1.3 10 ^3/uL Eosinophils # (Auto) 0.1 0-0.8 10 ^3/uL Basophils # (Auto) 0.1 0-0.2 10 ^3/uL Nucleated Red Blood Cells 0.1 % Prothrombin Time 11.7 9.3-11.8 sec Prothrombin Time INR 1.12 0.9-1.15 Activated Partial Thromboplast Time 25.9 24.5-34.5 SEC D-Dimer, Quantitative 8.21 H 0.0-0.49 mg/L FEU Sodium Level 142 136-145 mmol/L Potassium Level 3.5 3.5-5.1 mmol/L Chloride Level 97 L 98-107 mmol/L Carbon Dioxide Level 25 20-31 mmol/L Anion Gap 20 H 5-15 Blood Urea Nitrogen 24 H 9-23 mg/dL Creatinine 1.58 H 0.700-1.30 mg/dL Glomerular Filtration Rate Calc 49 >90 mL/min BUN/Creatinine Ratio 15.2 10.0-20.0 Serum Glucose 114 H 74-106 mg/dL Calcium Level 9.4 8.7-10.4 mg/dL Magnesium Level 1.8 1.6-2.6 mg/dL Total Bilirubin 2.2 H 0.2-1.0 mg/dL Aspartate Amino Transferase (AST) 291 H 13-40 U/L Alanine Aminotransferase (ALT) 57 H 7-40 U/L Alkaline Phosphatase 167 H 46-116 U/L Troponin I High Sensitivity 22 </=54 ng/L B-Type Natriuretic Peptide 20.99 0-100 pg/mL Total Protein 8.9 H 5.7-8.2 g/dL Albumin 5.0 H 3.2-4.8 g/dL X-Ray, Labs, Meds, VS Comment This 69-year-old male with a past medical history significant for alcohol abuse presents secondary to epigastric and left-sided chest pain. His workup here was significant for elevated D-dimer. Unfortunately, he has renal insufficiency. As such, V/Q scan was ordered. Secondary to his chest pain, multiple c omorbidities elevated D-dimer, the patient will be admitted for further workup and management. Time of 1ST Reevaluation: 18:05 Reevaluation 1ST: Unchanged Patient Education/Counseling: Diagnosis, Treatment, Prognosis Family Education/Counseling: No Family Present SEPSIS Sepsis Screen Recent Procedure: No On Antibiotic Therapy: No Respiratory Rate >20: No Heart Rate >90: No Temp<36 C (96.8 F) or >38.3 C: No SBP <90 or MAP <65 mmHG: No New Acute Mental Status Change: No Is the patient on CPAP, BIPAP,: No IV fluid challenge completed?: No Physician Orders Electrocardigram (04/23/25 16:37) Chest Portable (04/23/25 16:40) Urinalysis (04/23/25 16:40) Troponin-I Hs (04/23/25 17:40) Blood Alcohol (04/23/25 17:30) Vital Signs Date Time Temp Pulse Resp B/P (MAP) Pulse Ox O2 Delivery O2 Flow Rate FiO2 04/23/25 16:53 98.2 90 16 115/80 96 98.2 04/23/25 16:35 94 Laboratory Tests Test 04/23/25 16:59 White Blood Count 6.1 10^3/uL (4.4-10.8) Departure 1 Departure Time of Disposition: 18:04 Impression: Primary Impression: Chest pain Additional Impressions: Alcohol abuse Alcohol intoxication Elevated d-dimer Renal insufficiency Disposition: 09 ADMITTED INPATIENT Admit to: Tele Condition: Serious Critical Care Note Critical Care Time?: No Stability Stability form required: No Heart Score Heart Score: Heart Score Response (Comments) Value History Moderate Suspicious 1 EKG Repolarization Disturb 1 Age 45-64 1 Risk Factors 1 or 2 risk factors 1 Troponin Normal limit 0 Total 4 BASILIA THRASHER MD Apr 23, 2025 16:46
[2025-04-23 17:12] LABS: Hemoglobin 13.9 g/dL (13.5-17.5)
[2025-04-23 17:14] LABS: Hematocrit 40.0 % (41.0-53.0); Mean Corpuscular Hemoglobin 36.4 pg (28.0-32.0); Mean Corpuscular Volume 104.7 fL (80.0-100.0); Nucleated Red Blood Cells % 0.1 %
[2025-04-23 17:27] LABS: Anion Gap 20 (5-15); BUN/Creatinine Ratio 15.2 (10.0-20.0); Calcium 9.4 mg/dL (8.7-10.4); Carbon Dioxide 25 mmol/L (20-31); Magnesium 1.8 mg/dL (1.6-2.6); Potassium 3.5 mmol/L (3.5-5.1); Sodium 142 mmol/L (136-145)
--- NOTE | 2025-04-23 17:27 | DVH ---
CHEST RADIOGRAPH Indication: chest pain Technique: Single frontal view of the chest was obtained Comparison: XY CHEST PORTABLE on DOS: 03/22/25, XY CHEST XRAY 1 VIEW on DOS: 03/08/25, CT CHEST WITHOUT CONTRAST on DOS: 01/10/25 FINDINGS: Lines and Tubes: None Lungs: No focal consolidation. Pleura: No effusion. No pneumothorax. Cardiomediastinal contours: Unremarkable Bones: No acute osseous abnormality. There appears to be old fracture deformity of right anterior 3rd through 5th rib IMPRESSION: No acute cardiopulmonary disease.
[2025-04-23 17:28] LABS: Alanine Aminotransferase 57 U/L (7-40); Albumin 5.0 g/dL (3.2-4.8); Alkaline Phosphatase 167 U/L (46-116); Bilirubin, Total 2.2 mg/dL (0.2-1.0); Blood Urea Nitrogen 24 mg/dL (9-23); Chloride 97 mmol/L (98-107); Glucose 114 mg/dL (74-106); Total Protein 8.9 g/dL (5.7-8.2)
[2025-04-23 17:37] LABS: INR 1.12 (0.9-1.15); Partial Thromboplastin Time 25.9 SEC (24.5-34.5); Prothrombin Time 11.7 sec (9.3-11.8)
--- NOTE | 2025-04-23 19:45 | DVHHP2 ---
Admitting Diagnosis: Chest pain History of Present Illness This 64-year-old male with a past medical history screen for alcohol intoxication states he has been drinking has been provocative last three days. He now has epigastric abdominal discomfort and left-sided chest discomfort. He denies any association with position or activity. He denies any other signs or symptoms. Denies any other palliative or provocative factors. Denies modifying factors. Denies radiation of symptoms. Fourteen systems reviewed and negative except as mentioned above PAST MEDICAL HISTORY: Denies (Chronic alcohol abuse) Surgical History: Denies all surgeries Family History Family History: Reviewed,noncontributory to illness Social History Smoker: Non-Smoker Alcohol: Heavy Drugs: Denies Drug Use Lives In: Homeless Patient Family History: Alcoholism Diabetes mellitus G8 MOTHER Diabetes mellitus G8 MOTHER FH: heart attack G8 FATHER FH: heart attack G8 FATHER FH: heart disease Allergies: Coded Allergies: NO KNOWN ALLERGIES (Unverified , 02/01/24) Home Meds Active Scripts Folic Acid (Folic Acid) 1 Mg Tab, 1 MG PO DAILY for 30 Days, #30 TAB Prov:KATELIN HANSON MD 02/26/25 Pantoprazole Sodium Sesquihydr (Pantoprazole Sodium) 40 Mg Tab, 40 MG PO DAILY@0600 for 30 Days, #30 TAB Prov:KATELIN HANSON MD 02/26/25 Thiamine HCl (Thiamine Hydrochloride) 100 Mg Tab, 100 MG PO DAILY for 30 Days, #30 TAB Prov:KATELIN HANSON MD 02/26/25 Multiple Vitamins W/ Iron (Multi Vitamin with Iron) 1 Tab Tab, 1 TAB PO DAILY for 30 Days, #30 TAB Prov:KATELIN HANSON MD 02/26/25 Ergocalciferol (VITAMIN D 98443 UNIT) 50,000 [place], [address] UNIT PO QWEEKLY for 90 Days, #12 CAP Prov:ANNELISE BLACKMAN FORMERLY NAMED [facility] 01/17/25 Acetaminophen (Acetaminophen) 325 Mg Tab, 650 MG PO TIDPRN PRN for 10 Days, #30 TAB Prov:ANNELISE BLACKMAN FORMERLY NAMED [facility] 01/17/25 Aspirin (Aspirin Low Dose) 81 Mg Tab, 81 MG PO DAILY for 30 Days, #30 TAB Prov:ANNELISE BLACKMAN FORMERLY NAMED [facility] 01/17/25 Ferrous Sulfate (Ferrous Sulfate) 325 Mg Tab, 325 MG PO MWF for 90 Days, #45 TAB Prov:ANNELISE BLACKMAN FORMERLY NAMED [facility] 01/17/25 Losartan Potassium (Losartan Potassium) 50 Mg Tab, 50 MG PO DAILY for 30 Days, #30 TAB 0 Refills Prov:[facility] 01/04/25 Potassium Chloride (POTASSIUM CHLORIDE CR) 10 Meq Tb, 10 MEQ PO DAILY for 10 Days, #10 TAB 0 Refills Prov:[facility] 01/04/25 Furosemide (Lasix) 40 Mg Tab, 40 MG PO DAILY for 10 Days, #10 TAB 0 Refills Prov:[facility] 01/04/25 Carvedilol (COREG) 3.125 Mg Tab, 3.125 MG PO Q12HR for 30 Days, #60 TAB Prov:[facility] 01/04/25 Vital Signs Vital Signs Date Time Temp Pulse Resp B/P (MAP) Pulse Ox O2 Delivery O2 Flow Rate FiO2 04/23/25 16:53 98.2 90 16 115/80 96 98.2 Physical Exam Generally 64 years old male, well nourished well developed. Mild distress HEENT-atraumatic normocephalic Heart-regular rate and rhythm Lungs clear to auscultate bilaterally Abdomen soft nontender nondistended Musculoskeletal-no edema cyanosis Neuro-AO x3, strength and sensory intact. No visible tremors SEPSIS Sepsis Screen Date sepsis recognized/suspect: Apr 23, 2025 Time Sepsis recognized/suspect: 1753 Recent Procedure: No On Antibiotic Therapy: No Respiratory Rate >20: No Heart Rate >90: No Temp<36 C (96.8 F) or >38.3 C: No SBP <90 or MAP <65 mmHG: No New Acute Mental Status Change: No Is the patient on CPAP, BIPAP,: No IV fluid challenge completed?: No Physician Orders Electrocardigram (04/23/25 16:37) Chest Portable (04/23/25 16:40) Urinalysis (04/23/25 16:40) Nm Vq Scan (04/23/25 18:00) NS (04/23/25 21:30) Thiamine 100mg Po Daily (04/24/25 10:00) Folic Acid 1mg Po Daily (04/24/25 10:00) Mvi Tablet Po Daily (04/24/25 10:00) Thiamine 100mg Po Now (04/23/25 21:30) Mvi 1 Tablet Po Now (04/23/25 21:30) Folic Acid 1mg Po Now (04/23/25 21:30) Ativan 2mg Po Q2hr Prn (04/23/25 21:30) Etoh Withdrawal Assessment (04/23/25 21:17) Etoh Withdrawal Assessment NOW (04/23/25:) Complete Blood Count (04/24/25 05:00) Complete Blood Count (04/25/25 05:00) Complete Blood Count (04/26/25 05:00) Complete Blood Count (04/27/25 05:00) Complete Blood Count (04/28/25 05:00) Comprehensive Metabolic Panel (04/24/25 05:00) Comprehensive Metabolic Panel (04/25/25 05:00) Comprehensive Metabolic Panel (04/26/25 05:00) Comprehensive Metabolic Panel (04/27/25 05:00) Comprehensive Metabolic Panel (04/28/25 05:00) Abdomen Complete Sonogram (04/23/25 21:17) Admit (04/23/25:17) Code Status (04/23/25:) Vital Signs .PER UNIT PROTOCOL (04/23/25 21:17) Review Orders With Adm. (04/23/25 21:17) Encourage Activity As Tolerate (04/23/25 21:17) Sodium Chloride Lock (Saline Lock Ns) (04/23/25 22:00) Docusate Sodium Capsule (Colace Capsule) (04/23/25 21:30) Acetaminophen Tablet (Tylenol Tablet) (04/23/25 21:30) Notify Md Of Changes From Base (04/23/25 21:17) Advance Directive (04/23/25 21:17) Patient Condition (04/23/25 21:17) Allergies (04/23/25 21:17) Hydrocodone-Acet 5/325mg Tab ([place] 5/32 (04/23/25 21:30) Hydromorphone Injection (Dilaudid Inject (04/23/25 21:30) Aspirin Enteric Coated Tablet (Ecotrin E (04/24/25 10:00) Carvedilol Tablet (Coreg Tablet) (04/23/25 22:00) Ergocalciferol (Vitamin D 50,000 Unit) (04/23/25 21:30) Ferrous Sulfate Tablet (04/24/25 10:00) Furosemide Tablet (Lasix Tablet) (04/24/25 10:00) Pantoprazole Tablet (Protonix Tablet) (04/24/25 06:00) Vital Signs Date Time Temp Pulse Resp B/P (MAP) Pulse Ox O2 Delivery O2 Flow Rate FiO2 04/23/25 16:53 98.2 90 16 115/80 96 98.2 04/23/25 16:35 94 Laboratory Tests Test 04/23/25 16:59 White Blood Count 6.1 10^3/uL (4.4-10.8) Medications Medications Dose Ordered Sig/Shubham Route Start Time Stop Time Status Last Admin Dose Admin Al Hydrox/Mg Hydrox/Simethicone 30 ml ONCE ONCE PO 04/23/25 16:45 04/23/25 16:46 DC 04/23/25 16:45 Belladonna Alkaloids/ Phenobarbital 10 ml ONCE ONCE PO 04/23/25 16:45 04/23/25 16:46 DC 04/23/25 16:45 Lidocaine HCl 15 ml ONCE ONCE PO 04/23/25 16:45 04/23/25 16:46 DC 04/23/25 16:45 Results Labs Test 04/23/25 18:00 04/23/25 16:59 Range/Units Troponin I High Sensitivity 23 </=54 ng/L Plasma/Serum Blood Alcohol 291.2 H <10 mg/dL White Blood Count 6.1 4.4-10.8 10^3/uL Red Blood Count 3.82 L 4.5-5.90 10^6/uL Hemoglobin 13.9 13.5-17.5 g/dL Hematocrit 40.0 L 41.0-53.0 % Mean Corpuscular Volume 104.7 H 80.0-100.0 fL Mean Corpuscular Hemoglobin 36.4 H 28.0-32.0 pg Mean Corpuscular Hemoglobin Concent 34.7 32.0-36.0 g/dL Red Cell Distribution Width 16.1 H 11.8-14.3 % Platelet Count 128 L 140-450 10^3/uL Mean Platelet Volume 7.8 6.9-10.8 fL Neutrophils (%) (Auto) 55.4 37.0-80.0 % Lymphocytes (%) (Auto) 29.7 10.0-50.0 % Monocytes (%) (Auto) 11.3 0.0-12.0 % Eosinophils (%) (Auto) 1.2 0.0-7.0 % Basophils (%) (Auto) 2.4 H 0.0-2.0 % Neutrophils # (Auto) 3.4 1.6-8.6 10 ^3/uL Lymphocytes # (Auto) 1.8 0.4-5.4 10 ^3/uL Monocytes # (Auto) 0.7 0-1.3 10 ^3/uL Eosinophils # (Auto) 0.1 0-0.8 10 ^3/uL Basophils # (Auto) 0.1 0-0.2 10 ^3/uL Nucleated Red Blood Cells 0.1 % Prothrombin Time 11.7 9.3-11.8 sec Prothrombin Time INR 1.12 0.9-1.15 Activated Partial Thromboplast Time 25.9 24.5-34.5 SEC D-Dimer, Quantitative 8.21 H 0.0-0.49 mg/L FEU Sodium Level 142 136-145 mmol/L Potassium Level 3.5 3.5-5.1 mmol/L Chloride Level 97 L 98-107 mmol/L Carbon Dioxide Level 25 20-31 mmol/L Anion Gap 20 H 5-15 Blood Urea Nitrogen 24 H 9-23 mg/dL Creatinine 1.58 H 0.700-1.30 mg/dL Glomerular Filtration Rate Calc 49 >90 mL/min BUN/Creatinine Ratio 15.2 10.0-20.0 Serum Glucose 114 H 74-106 mg/dL Calcium Level 9.4 8.7-10.4 mg/dL Magnesium Level 1.8 1.6-2.6 mg/dL Total Bilirubin 2.2 H 0.2-1.0 mg/dL Aspartate Amino Transferase (AST) 291 H 13-40 U/L Alanine Aminotransferase (ALT) 57 H 7-40 U/L Alkaline Phosphatase 167 H 46-116 U/L B-Type Natriuretic Peptide 20.99 0-100 pg/mL Total Protein 8.9 H 5.7-8.2 g/dL Albumin 5.0 H 3.2-4.8 g/dL Primary Diagnosis Chest pain Intoxication CAROLYN Elevated LFT Elevated D-dimer Plan Trend troponin Check echo of the heart IV fluids for CAROLYN Ultrasound abdomen to assess for elevated LFT and CAROLYN Alcohol withdrawal protocol p.r.n. for when patient withdrawal Thiamine and folate and multivitamin supplement Regular diet Full code Lovenox for DVT prophylaxis PPI for GI prophylaxis Plan discussed with: Patient Problems List: (1) Chest pain Status: Acute (2) Alcohol abuse Status: Acute (3) Alcohol intoxication Status: Acute (4) Elevated d-dimer Status: Acute Date of Service: Apr 23, 2025 Billing Provider: JESSICA SYKES MD Common Visit Codes: [id number] INP/OBS CARE (HIGH) JESSICA SYKES MD Apr 23, 2025 19:45
[2025-04-23] MEDS: SODIUM CHLORIDE 0.9% 1,000 ML IV ONE (21:30)
[2025-04-23] MEDS ORDERED: HYDROcodone-ACET 5/325MG TAB PO PRN (21:30)
[2025-04-23] MEDS ORDERED: HYDROmorphone HCL 2 MG/ML VL/or syr IV PRN (21:30)
[2025-04-23] MEDS ORDERED: DOCUSATE SOD 100 MG CAP PO PRN (21:30)
[2025-04-23] MEDS: MULTIPLE VITAMIN TAB PO ONE (21:30)
[2025-04-23] MEDS ORDERED: ERGOCALCIFEROL 50,000 UNIT(1.25MG) CAP PO SCH (21:30)
[2025-04-23] MEDS: SODIUM CHLOR 0.9% PF (SALINE LOCK) 10ML VIAL/SYR IV SCH (22:00)
--- NOTE | 2025-04-23 22:19 | DVH ---
INDICATION: CAROLYN and elevated LFT TECHNIQUE: Multiple real-time sonographic images of the abdomen were obtained. COMPARISON: US ABDOMEN COMPLETE SONOGRAM on DOS: 05/06/24, US ABDOMEN LIMITED on DOS: 02/11/24 FINDINGS: Increased echogenicity of the hepatic parenchyma consistent with steatosis. The liver measu res 19.5 cm. No intrahepatic biliary ductal dilatation is noted. The gallbladder wall measures 0.37 cm and is mildly thickened. No gallstones. Gallbladder is fille d with sludge can not entirely exclude small calculi. The common duct measures 0.45 cm and is unrem arkable. No pericholecystic fluid is noted. Negative sonographic Daniel's sign The right kidney measures 9.3 cm. No hydronephrosis. The left kidney measures 9.3 cm. No hydronephr osis. The spleen measures 8.7 cm, within normal limits. The echogenicity is within normal limits. The pancreas is not well visualized due to obscuration from bowel gas. The visualized portions of the IVC and aorta are grossly unremarkable. IMPRESSION: 1. Liver measures 19.5 cm long with findings of steatosis 2. Large sludge presence in the gallbladder with mild gallbladder wall thickening. Negative sonograph ic Daniel's sign 3. 9.3 cm long right and left kidney
[2025-04-23 22:58] VITALS: PULSE 116; RESP 20; O2SAT 95
[2025-04-23] MEDS: FOLIC ACID 1 MG TAB PO ONE (23:12)
[2025-04-23] MEDS: CARVEDILOL 3.125 MG TAB PO SCH (23:13)
[2025-04-23] MEDS: THIAMINE HCL 100 MG TAB PO ONE (23:13)
[2025-04-24 05:12] LABS: Hemoglobin 12.7 g/dL (13.5-17.5)
[2025-04-24 05:13] LABS: Hematocrit 36.0 % (41.0-53.0); Mean Corpuscular Hemoglobin 37.1 pg (28.0-32.0); Mean Corpuscular Volume 105.2 fL (80.0-100.0); Nucleated Red Blood Cells % 0.2 %
[2025-04-24 05:23] LABS: Albumin 4.6 g/dL (3.2-4.8); Anion Gap 16 (5-15); BUN/Creatinine Ratio 16.7 (10.0-20.0); Calcium 8.8 mg/dL (8.7-10.4); Carbon Dioxide 23 mmol/L (20-31); Potassium 3.8 mmol/L (3.5-5.1)
[2025-04-24 05:26] LABS: Alanine Aminotransferase 45 U/L (7-40); Alkaline Phosphatase 153 U/L (46-116); Bilirubin, Total 2.4 mg/dL (0.2-1.0); Blood Urea Nitrogen 24 mg/dL (9-23); Chloride 97 mmol/L (98-107); Glucose 123 mg/dL (74-106); Sodium 136 mmol/L (136-145); Total Protein 8.4 g/dL (5.7-8.2)
[2025-04-24] MEDS: PANTOPRAZOLE 40 MG TAB PO SCH (06:21)
[2025-04-24] MEDS: LORazepam 0.5 MG TAB PO PRN (06:22)
--- NOTE | 2025-04-24 09:17 | ECG ---
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
[2025-04-24] MEDS: FUROSEMIDE 40 MG TAB PO SCH (10:27)
[2025-04-24] MEDS: THIAMINE HCL 100 MG TAB PO SCH (10:28)
[2025-04-24] MEDS: ASPirin-EC 81 mg tab PO SCH (10:28)
[2025-04-24] MEDS: FOLIC ACID 1 MG TAB PO SCH (10:28)
[2025-04-24] MEDS: FERROUS SULFATE 325mg EC TAB PO SCH (10:28)
[2025-04-24] MEDS: MULTIPLE VITAMIN TAB PO SCH (10:33)
[2025-04-24] MEDS: LORazepam 2MG/ML-1ML VIAL IV ONE (12:41)
--- NOTE | 2025-04-24 14:53 | DVHPNRES ---
Progress Note Date Seen: Apr 24, 2025 Resident Creating Document: LYDIA TATUM RESIDENT Medical Necessity Reason Pt with a Central, PICC or Fol: No Subjective Review of Systems Jan Bacon is a 64-year-old male presents to the emergency department due to epigastric pain, abdominal discomfort, left-sided chest pain tremors, agitation, dry heaves and anxiety associated to recent alcohol consumption. Patient refers similar symptoms to when he is admitted due to alcohol withdrawal. According to the patient, he drinks 4 pt of vodka daily, last drink was 2 days ago. Denies fever, chills, dyspnea, unintentional weight loss, hallucinations, and motor or sensory deficits. Past Medical History: Multiple admissions due to alcohol withdrawals and alcohol use disorder, hepatic steatosis, microcytic anemia, GERD, thrombocytopenia Surgical History: Denies Family history: Noncontributory Social History: Patient is homeless. Ethanol abuse (he drinks approximately four pt of vodka per day for the past 40 years). Ex methamphetamine abuse. Denies current tobacco and other drug abuse. Allergies: Denies Home medication: Aspirin 81 mg p.o. daily, carvedilol 3.125 mg p.o. b.i.d., vitamin-D 99640 units Patient seen and examined at bedside. Patient presents agitation, anxiety, tremors dry heaves. CIWA score of 22. Indicated IV Ativan q.2 hours. Patient is currently on telemetry status Objective vital signs Vital Sign Date Time Temp Pulse Resp B/P (MAP) Pulse Ox O2 Delivery O2 Flow Rate FiO2 04/24/25 12:54 74 149/87 04/24/25 12:45 98.7 17 97 98.7 04/24/25 10:30 Room Air 04/23/25 22:58 0 21 medications Current Medications Medications Dose Ordered Sig/Shubham Route Start Time Stop Time Status Last Admin Dose Admin Multivitamins 1 tab DAILY PO 04/24/25 10:00 04/24/25 10:33 1 TAB Sodium Chloride 10 ml Q8HR IV 04/23/25 22:00 04/24/25 14:02 10 ML Acetaminophen 650 mg Q6HP PRN PO 04/23/25 21:30 Aspirin 81 mg DAILY PO 04/24/25 10:00 04/24/25 10:28 81 MG Carvedilol 3.125 mg Q12HR PO 04/23/25 22:00 04/24/25 10:27 3.125 MG Ergocalciferol 50,000 unit QWEEKLY PO 04/23/25 21:30 Hold Ferrous Sulfate 325 mg MWF PO 04/24/25 10:00 04/24/25 10:28 325 MG Furosemide 40 mg DAILY PO 04/24/25 10:00 04/24/25 10:27 40 MG Pantoprazole Sodium 40 mg DAILY@0600 PO 04/24/25 06:00 04/24/25 06:21 40 MG Thiamine HCl 100 mg DAILY IV 04/25/25 10:00 UNV Lorazepam 1 mg Q2HPRN PRN IV 04/24/25 14:45 UNV Folic Acid 1 mg/ Dextrose 50.2 ml @ 200.8 mls/ hr DAILY INJ 04/25/25 10:00 UNV Examination Patient lying in bed, in moderate acute distress, agitated and anxious. General: Lucid, afebrile, mucosae are moist. Presents dry heaves in four opportunities while evaluating him Cardiovascular: Normal S1 and S2. No murmurs, gallops or rubs Respiratory: Normal ventilation mechanics. Clear lung sounds on auscultation Abdomen: Soft, nontender, no organomegaly, normal bowel sounds MSK/skin: Mobilizes 4 limbs. Skin is dry and warm. Presents tremors when extending arms Neurological: Oriented in 3 spheres. No motor no sensitive deficits. Pupils are isocoric and reactive laboratory and microbiology Laboratory Tests 04/24/25 04:46 Test 04/24/25 04:46 Range/Units Serum Glucose 123 H 74-106 mg/dL Problem List/Assessment/Plan Problem List/Assessment/Plan ASSESSMENT Ethanol withdrawal - CIWA score on admission 22 Ethanol abuse CAROLYN hemodynamically mediated - VMN Transaminitis Thrombocytopenia secondary to ethanol abuse Macrocytic anemia Hepatic steatosis Ruled out acute coronary syndrome Hypomagnesemia Hypophosphatemia Vitamin-D deficiency Homeless GERD Non adherence PLAN Currently on multivitamins (thiamine, folic acid, and other multivitamins). Follow CMP and H&H Ordered echocardiogram Due to thrombocytopenia and no clear indication for aspirin, discontinued aspirin and enoxaparin at this point. Replenish electrolyte alteration Discontinued telemetry Continue with PPIs Completed abdominal ultrasound which showed hepatic steatosis and gallbladder sludge. Counseled extensively on ethanol cessation. Patient says he understands risk of continuing consumption, including progressing to cirrhosis, heart failure, and even . Offered social service support for homelessness, patient is not interested at this time. Goals of care discussed with patient for over 18 minutes: Full code status Discussed plan with Dr. Choi, patient and nurses: Patient presents CIWA score of 22. Indicated Ativan IV q.2 hours. Patient has poor prognosis Cosigning senior Resident: Radha Lundberg, agree with progress note Plan discussed with: Patient, Other (Nurse) Date of Service: Apr 24, 2025 Billing Provider: LETI CHOI MD Common Visit Codes: [id number] INP/OBS CARE(HIGH) LYDIA TATUM RESIDENT Apr 24, 2025 14:53 RADHA LUNDBERG RESIDENT Apr 26, 2025 00:33 LETI CHOI MD Apr 27, 2025 22:40
[2025-04-24] MEDS: LORazepam 2MG/ML-1ML VIAL IV PRN (18:58)
[2025-04-24 19:30] VITALS: PULSE 76; RESP 18; O2SAT 95
[2025-04-24] MEDS: MAGNESIUM SULFATE 1GM/100ML 100 ML IV ONE (20:30)
[2025-04-25] VITALS (9 sets, daily range): BP systolic 115–146; BP diastolic 71–90; PULSE 74–86; RESP 16–18; TEMP 97.8–98.4; O2SAT 94–99
[2025-04-25 07:52] LABS: Hematocrit 35.4 % (41.0-53.0); Hemoglobin 12.5 g/dL (13.5-17.5); Mean Corpuscular Hemoglobin 37.2 pg (28.0-32.0); Mean Corpuscular Volume 105.7 fL (80.0-100.0); Nucleated Red Blood Cells % 0.2 %
[2025-04-25 08:08] LABS: Alanine Aminotransferase 37 U/L (7-40); Albumin 4.2 g/dL (3.2-4.8); Anion Gap 13 (5-15); BUN/Creatinine Ratio 27.6 (10.0-20.0); Calcium 9.4 mg/dL (8.7-10.4); Carbon Dioxide 27 mmol/L (20-31); Potassium 3.7 mmol/L (3.5-5.1); Sodium 137 mmol/L (136-145); Total Protein 7.1 g/dL (5.7-8.2)
[2025-04-25 08:27] LABS: Alkaline Phosphatase 141 U/L (46-116); Bilirubin, Total 2.6 mg/dL (0.2-1.0); Blood Urea Nitrogen 24 mg/dL (9-23); Chloride 97 mmol/L (98-107); Glucose 115 mg/dL (74-106); Magnesium 1.5 mg/dL (1.6-2.6)
--- NOTE | 2025-04-25 09:35 | DVH ---
CLINICAL INFORMATION: 64 years old, Male; PULMONARY EMBOLISM. TECHNIQUE: 10 mCi of Xenon-133 gas was used for the ventilation portion of the exam. Posterior venti lation imaging was obtained. 6.7 mCi of technetium 99m MAA was used for the perfusion portion of the exam. Imaging was obtained in multiple planes of projection. COMPARISON: XY CHEST PORTABLE on DOS: 04/23/25, XY CHEST PORTABLE on DOS: 03/22/25, XY CHEST XRAY 1 VIE W on DOS: 03/08/25 FINDINGS: Perfusion imaging shows no mismatched segmental or subsegmental segmental defects. Ventilation imaging shows no defects. There is normal washout. IMPRESSION: Normal exam. No evidence of pulmonary embolism.
[2025-04-25] MEDS: FOLIC ACID 1 MG in D5W 5% 50 ML INJ SCH (10:00)
[2025-04-25] MEDS: GABAPENTIN 100 MG CAP PO ONE (11:00)
[2025-04-25] MEDS: THIAMINE 100mg/ml INJ (200mg/2ml VIAL) IV SCH (11:01)
[2025-04-25] MEDS: MAGNESIUM SULFATE 1GM/100ML 100 ML IV SCH (11:01)
--- NOTE | 2025-04-25 12:08 | DVHSR ---
APPROVED REPORT EXAM: Two-dimensional and M-mode echocardiogram with Doppler and color Doppler. Blood Pressure: 114/87 mmHg INDICATION Chest Pain r/o acs RISK FACTORS Height: 5'6, Weight: 180 DIMENSIONS LVDd4.7 (3.8-5.7cm)LA (2D)4.4 (1.9-4.0cm)Aortic Root4.0 (2.0-3.7cm) LVDs3.8 (2.5-4.0cm)LA (MM) (1.9-4.0cm)Aortic Cusp Exc1.8 (1.5-2.0cm) EF (%) 40.0 (55-70%)Rt. Atrium2.8 (1.9-4.0cm)Asc. Aorta4.0 cm IVSd1.3 (0.7-1.1cm)RV (D)3.0 (1.8-2.4cm) PWd0.9 (0.7-1.1cm) Mitral Valve MitralMitral Stenosis E wave0.40m/sMV Mean GR.mmHg A wave0.79m/sMV Peak GR.mmHg E/A ratio0.52D MVAcm2 DECEL [id number] 1/2 Timems Aortic Valve Aortic ValveAortic Stenosis V10.82m/Jasper Mean GR.4mmHg V21.25m/Jasper Peak GR.6mmHg LVOT Diameter2.7 (1.8-2.4cm)Doppler AVA3.75cm2 AI P 1/2 Kliy464.92ms Pulmonic Valve V21.16m/s Tricuspid Valve TR Velocity2.56m/s [id number] Conclusion lvef 45% mild LVH RV enlarged biatrial enlargement valves not well seenn
[2025-04-25] MEDS: GABAPENTIN 100 MG CAP PO SCH (14:00)
[2025-04-25 14:26] LABS: Urine Protein, UAD Negative (Negative)
[2025-04-25 14:48] LABS: Barbiturate Scree,Urine Neg (NEGATIVE); Benzodiazephine Screen, Urine Pos (NEGATIVE)
[2025-04-25 14:51] LABS: Amphetamine Screen, Urine Neg (NEGATIVE); Cannabinoid Screen, Urine Neg (NEGATIVE); Cocaine Screen, Urine Neg (NEGATIVE); Opiate Scree,Urine Neg (NEGATIVE); Phencyclidine Screen, Urine Neg (NEGATIVE)
[2025-04-25] MEDS: POTASSIUM PHOSPHATE 22 MEQ in SODIUM CHL 0.9% 100 ML IV ONE (17:00)
--- NOTE | 2025-04-25 21:38 | DVHPNRES ---
Progress Note Date Seen: Apr 25, 2025 Resident Creating Document: FAUSTO LUNDBERG RESIDENT Medical Necessity Reason Pt with a Central, PICC or Fol: No Subjective Review of Systems Jan Bacon is a 64-year-old male presents to the emergency department due to epigastric pain, abdominal discomfort, left-sided chest pain tremors, agitation, dry heaves and anxiety associated to recent alcohol consumption. Patient refers similar symptoms to when he is admitted due to alcohol withdrawal. According to the patient, he drinks 4 pt of vodka daily, last drink was 2 days ago. Denies fever, chills, dyspnea, unintentional weight loss, hallucinations, and motor or sensory deficits. Past Medical History: Multiple admissions due to alcohol withdrawals and alcohol use disorder, hepatic steatosis, microcytic anemia, GERD, thrombocytopenia Surgical History: Denies Family history: Noncontributory Social History: Patient is homeless. Ethanol abuse (he drinks approximately four pt of vodka per day for the past 40 years). Ex methamphetamine abuse. Denies current tobacco and other drug abuse. Allergies: Denies Home medication: Aspirin 81 mg p.o. daily, carvedilol 3.125 mg p.o. b.i.d., vitamin-D 56077 units Patient seen and examined at bedside. Currently presents with mild right upper quadrant pain on superficial palpation. Otherwise he has no new complaints, feels better the day of his admission. Patient's CIWA score of 2, he received 2 mg of Ativan in the past 24 hours. Planning on indicating Librium taper. Planning discharge tomorrow (04/26/2025). Have highlighted importance of cessation of ethanol abuse, patient says he understands. Objective vital signs Vital Sign Date Time Temp Pulse Resp B/P (MAP) Pulse Ox O2 Delivery O2 Flow Rate FiO2 04/25/25 20:00 16 Room Air* 0 21 04/25/25 17:00 97.8 79 117/80 (92) 97 97.8 Total Intake and Output 04/24/25 04/24/25 04/25/25 15:00 23:00 07:00 Intake Total 1150 ml 0 ml Output Total 800 ml 125 ml Balance 350 ml -125 ml medications Current Medications Medications Dose Ordered Sig/Shubham Route Start Time Stop Time Status Last Admin Dose Admin Multivitamins 1 tab DAILY PO 04/24/25 10:00 04/25/25 10:59 1 TAB Sodium Chloride 10 ml Q8HR IV 04/23/25 22:00 04/25/25 14:00 10 ML Acetaminophen 650 mg Q6HP PRN PO 04/23/25 21:30 Aspirin 81 mg DAILY PO 04/24/25 10:00 04/24/25 10:28 81 MG Carvedilol 3.125 mg Q12HR PO 04/23/25 22:00 04/25/25 10:59 3.125 MG Ergocalciferol 50,000 unit QWEEKLY PO 04/23/25 21:30 Hold Ferrous Sulfate 325 mg MWF PO 04/24/25 10:00 04/24/25 10:28 325 MG Furosemide 40 mg DAILY PO 04/24/25 10:00 04/25/25 11:00 40 MG Pantoprazole Sodium 40 mg DAILY@0600 PO 04/24/25 06:00 04/25/25 05:46 40 MG Thiamine HCl 100 mg DAILY IV 04/25/25 10:00 04/25/25 11:01 100 MG Lorazepam 1 mg Q2HPRN PRN IV 04/24/25 14:45 04/25/25 17:14 1 MG Folic Acid 1 mg/ Dextrose 50.2 ml @ 200.8 mls/ hr DAILY INJ 04/25/25 10:00 04/25/25 10:00 200.8 MLS/HR Gabapentin 100 mg TID PO 04/25/25 14:00 Chlordiazepoxide HCl 5 mg QID PO 04/25/25 12:00 04/25/25 12:45 5 MG Examination Patient lying in bed, in no acute distress General: Lucid, afebrile, mucosae are moist, enlarged parotids Cardiovascular: Normal S1 and S2. No murmurs, gallops or rubs Respiratory: Normal ventilation mechanics. Clear lung sounds on auscultation Abdomen: Soft, mild tenderness with superficial palpation of right upper quadrant, no organomegaly, normal bowel sounds MSK/skin: Mobilizes 4 limbs. Skin is dry and warm Neurological: Oriented in 3 spheres. No motor no sensitive deficits. 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 Completing Librium taper. Follow CMP and H&H Echocardiogram shows LVEF 45%, mild LVH, RV enlarged, biatrial enlargement. Could be compatible with alcoholic cardiomyopathy. Patient will benefit from outpatient cardiological evaluation. Patient should be compliant with ethanol cessation Due to thrombocytopenia and no clear indication for aspirin, discontinued aspirin and enoxaparin at this point. Replenish electrolyte alteration Discontinued telemetry Continue with PPIs Renal function has improved with hydration. V/Q scan completed which showed no evidence of PE Completed abdominal ultrasound which showed hepatic steatosis and gallbladder sludge. Counseled extensively on ethanol cessation. Patient says he understands risk of continuing consumption, including progressing to cirrhosis, heart failure, and even . Offered social service support for homelessness, patient is not interested at this time. Goals of care discussed with patient for over 18 minutes: Full code status Discussed plan with Dr. Thakkar, patient and nurses: Patient is alcohol withdrawal has improved, currently on Librium taper, downgraded to med/surge. Planning eventual discharge on 04/26/2025. We will monitor right upper quadrant abdominal pain (he does have sludge on ultrasound of abdomen). Patient has poor prognosis due to noncompliance. Plan discussed with: Patient, Other (Nurses) My Orders My Orders Orders - FAUSTO LUNDBERG RESIDENT Procedure Category Date Status Time Gabapentin Capsule PHA 04/25/25 In Process (Neurontin Capsule) 14:00 Chlordiazepoxide Hcl PHA 04/25/25 In Process Capsule (Librium Ca 12:00 * Neck Band Maker CONS 04/25/25 Transmitted Consult Complete Blood Count LAB 04/26/25 Verified 04:00 Comprehensive LAB 04/26/25 Verified Metabolic Panel 04:00 Magnesium LAB 04/26/25 Verified 04:00 Phosphorus LAB 04/26/25 Verified 04:00 Date of Service: Apr 25, 2025 Billing Provider: LETI THAKKAR MD Common Visit Codes: [id number] INP/OBS CARE(MOD) FAUSTO LUNDBERG RESIDENT Apr 25, 2025 21:38 LETI THAKKAR MD May 02, 2025 21:26
[2025-04-26] VITALS (8 sets, daily range): BP systolic 118–135; BP diastolic 81–87; PULSE 65–80; RESP 17–19; TEMP 97.3–98.3; O2SAT 93–98
[2025-04-26 08:34] LABS: Hematocrit 35.7 % (41.0-53.0); Hemoglobin 12.5 g/dL (13.5-17.5); Mean Corpuscular Hemoglobin 36.9 pg (28.0-32.0); Mean Corpuscular Volume 105.2 fL (80.0-100.0); Nucleated Red Blood Cells % 0.2 %
[2025-04-26 08:51] LABS: Albumin 4.1 g/dL (3.2-4.8); Anion Gap 10 (5-15); BUN/Creatinine Ratio 24.5 (10.0-20.0); Calcium 9.3 mg/dL (8.7-10.4); Carbon Dioxide 28 mmol/L (20-31); Potassium 3.9 mmol/L (3.5-5.1); Total Protein 7.1 g/dL (5.7-8.2)
[2025-04-26 08:52] LABS: Alanine Aminotransferase 51 U/L (7-40); Alkaline Phosphatase 156 U/L (46-116); Bilirubin, Total 1.6 mg/dL (0.2-1.0); Blood Urea Nitrogen 24 mg/dL (9-23); Chloride 97 mmol/L (98-107); Glucose 143 mg/dL (74-106); Magnesium 1.5 mg/dL (1.6-2.6); Sodium 135 mmol/L (136-145)
[2025-04-26] MEDS: POLYETHYLENE GLYCOL 17 GM PWDR PO ONE (10:17)
[2025-04-26] MEDS: SENNA 8.6 MG TAB PO ONE (10:18)
--- NOTE | 2025-04-26 13:39 | DVHPNRES ---
Progress Note Date Seen: Apr 26, 2025 Resident Creating Document: LYDIA TATUM RESIDENT Medical Necessity Reason Pt with a Central, PICC or Fol: No Subjective Review of Systems Jan Bacon is a 64-year-old male presents to the emergency department due to epigastric pain, abdominal discomfort, left-sided chest pain tremors, agitation, dry heaves and anxiety associated to recent alcohol consumption. Patient refers similar symptoms to when he is admitted due to alcohol withdrawal. According to the patient, he drinks 4 pt of vodka daily, last drink was 2 days ago. Denies fever, chills, dyspnea, unintentional weight loss, hallucinations, and motor or sensory deficits. Past Medical History: Multiple admissions due to alcohol withdrawals and alcohol use disorder, hepatic steatosis, microcytic anemia, GERD, thrombocytopenia Surgical History: Denies Family history: Noncontributory Social History: Patient is homeless. Ethanol abuse (he drinks approximately four pt of vodka per day for the past 40 years). Ex methamphetamine abuse. Denies current tobacco and other drug abuse. Allergies: Denies Home medication: Aspirin 81 mg p.o. daily, carvedilol 3.125 mg p.o. b.i.d., vitamin-D 65138 units Patient seen and examined today in bedside. Patient currently admitted feeling mild anxious, mild nausea but no vomiting, walking difficulty which is not new, use walkers when walk. Denies any acute symptoms like fever, abdominal pain, SOB, chest pain, cough, dysuria. Patient did not received any IV Ativan last 24 hours and continue tapering dose of Librium. Current CIWA score 6. No seizures or alcohol withdrawal reported. Patient stated she had constipation and and small amount of bowel movement yesterday which is heard it consistency. Patient homeless and planning for recuperative care. Objective vital signs Vital Sign Date Time Temp Pulse Resp B/P (MAP) Pulse Ox O2 Delivery O2 Flow Rate FiO2 04/26/25 13:00 97.3 65 19 118/82 (94) 97 97.3 04/26/25 08:00 Room Air* 0 21 Total Intake and Output 04/25/25 04/25/25 04/26/25 15:00 23:00 07:00 Intake Total 440 ml 1260 ml 500 ml Output Total 1375 ml 1200 ml Balance 440 ml -115 ml -700 ml medications Current Medications Medications Dose Ordered Sig/Shubham Route Start Time Stop Time Status Last Admin Dose Admin Multivitamins 1 tab DAILY PO 04/24/25 10:00 04/26/25 10:18 1 TAB Sodium Chloride 10 ml Q8HR IV 04/23/25 22:00 04/26/25 05:31 10 ML Acetaminophen 650 mg Q6HP PRN PO 04/23/25 21:30 Aspirin 81 mg DAILY PO 04/24/25 10:00 04/26/25 10:18 81 MG Carvedilol 3.125 mg Q12HR PO 04/23/25 22:00 04/26/25 10:18 3.125 MG Ergocalciferol 50,000 unit QWEEKLY PO 04/23/25 21:30 Hold Ferrous Sulfate 325 mg MWF PO 04/24/25 10:00 04/26/25 10:18 325 MG Furosemide 40 mg DAILY PO 04/24/25 10:00 04/26/25 10:18 40 MG Pantoprazole Sodium 40 mg DAILY@0600 PO 04/24/25 06:00 04/26/25 05:30 40 MG Thiamine HCl 100 mg DAILY IV 04/25/25 10:00 04/26/25 10:17 100 MG Lorazepam 1 mg Q2HPRN PRN IV 04/24/25 14:45 04/25/25 17:14 1 MG Folic Acid 1 mg/ Dextrose 50.2 ml @ 200.8 mls/ hr DAILY INJ 04/25/25 10:00 04/26/25 10:36 200.8 MLS/HR Gabapentin 100 mg TID PO 04/25/25 14:00 04/26/25 05:30 100 MG Chlordiazepoxide HCl 5 mg QID PO 04/25/25 12:00 04/26/25 13:01 5 MG Examination Patient lying in bed, in no acute distress. General: Loolsmild anxious, afebrile, mucosae are moist, enlarged parotids, dish helped and foul smelling body odor noted, Cardiovascular: Normal S1 and S2. No murmurs, gallops or rubs Respiratory: Normal ventilation mechanics. Clear lung sounds on auscultation Abdomen: Soft, mild tenderness with superficial palpation of right upper quadrant, no organomegaly, normal bowel sounds MSK/skin: Mobilizes 4 limbs. Skin is dry and warm Neurological:AOx4, No motor no sensitive deficits. Pupils are isocoric and reactive. laboratory and microbiology Laboratory Tests 04/26/25 08:06 Test 04/26/25 08:06 Range/Units Serum Glucose 143 H 74-106 mg/dL Microbiology Date/Time Source Procedure Growth Status 04/25/25 02:33 Nose MRSA Screen - Final Complete Problem List/Assessment/Plan Problem List/Assessment/Plan ASSESSMENT Ethanol withdrawal - CIWA score on admission 22 (now 4) Ethanol abuse CAROLYN hemodynamically mediated - VMN Transaminitis Thrombocytopenia secondary to ethanol abuse Macrocytic anemia - secondary to ethanol abuse Hepatic steatosis Ruled out acute coronary syndrome Probable alcoholic cardiomyopathy (LVEF 45%) Hypomagnesemia Hypophosphatemia Vitamin-D deficiency Homeless GERD Non adherence Anemia PLAN Currently on multivitamins (thiamine, folic acid, and other multivitamins). Completing Librium taper. Follow CMP and H&H Echocardiogram shows LVEF 45%, mild LVH, RV enlarged, biatrial enlargement. Could be compatible with alcoholic cardiomyopathy. Patient will benefit from outpatient cardiological evaluation. Patient should be compliant with ethanol cessation Due to thrombocytopenia and no clear indication for aspirin, discontinued aspirin and enoxaparin at this point. Replenish electrolyte alteration Continue with PPIs Renal function has improved with hydration. V/Q scan completed which showed no evidence of PE Completed abdominal ultrasound which showed hepatic steatosis and gallbladder sludge. Counseled extensively on ethanol cessation. Patient says he understands risk of continuing consumption, including progressing to cirrhosis, heart failure, and even . Offered social service support for homelessness, patient is not interested at this time. Recuperate active care for placement-pending. Goals of care discussed with patient for over 21 minutes: Full code status Cosigned Dr Malik, PGY2, resident Discussed plan with Dr. Choi, patient and nurses: Plan discussed with: Patient, Other (Nurses) My Orders My Orders Orders - LYDIA TATUM Procedure Category Date Status Time * Political Geographer CONS 04/26/25 Transmitted Consult Date of Service: Apr 26, 2025 Billing Provider: LETI CHOI MD Common Visit Codes: [id number] INP/OBS CARE(MOD) LYDIA TATUM RESIDENT Apr 26, 2025 13:39 RODRIGUE MINOR RESIDENT Apr 26, 2025 19:44 LETI CHOI MD May 02, 2025 21:33
[2025-04-26] MEDS: MAGNESIUM SULFATE 1GM/100ML 100 ML IV ONE (14:29)
[2025-04-26] MEDS ORDERED: CHLO5CAP3 PO (16:02)
[2025-04-26] MEDS: KETOROLAC TROMETH 30 MG/ML 1ML VIAL IV ONE (19:54)
[2025-04-27] VITALS (8 sets, daily range): BP systolic 115–154; BP diastolic 81–99; PULSE 63–82; RESP 16–19; TEMP 97.8–98.1; O2SAT 96–97
[2025-04-27 06:44] LABS: Hematocrit 33.0 % (41.0-53.0); Hemoglobin 11.8 g/dL (13.5-17.5); Mean Corpuscular Hemoglobin 37.7 pg (28.0-32.0); Mean Corpuscular Volume 105.5 fL (80.0-100.0); Nucleated Red Blood Cells % 0.1 %
[2025-04-27 07:13] LABS: Albumin 3.7 g/dL (3.2-4.8); Anion Gap 9 (5-15); BUN/Creatinine Ratio 24.8 (10.0-20.0); Calcium 8.9 mg/dL (8.7-10.4); Carbon Dioxide 28 mmol/L (20-31); Chloride 100 mmol/L (98-107); Potassium 3.8 mmol/L (3.5-5.1); Sodium 137 mmol/L (136-145); Total Protein 6.7 g/dL (5.7-8.2)
[2025-04-27 07:14] LABS: Bilirubin, Total 1.1 mg/dL (0.2-1.0)
[2025-04-27 07:15] LABS: Alanine Aminotransferase 69 U/L (7-40); Alkaline Phosphatase 141 U/L (46-116); Blood Urea Nitrogen 25 mg/dL (9-23); Glucose 131 mg/dL (74-106); Magnesium 1.5 mg/dL (1.6-2.6)
[2025-04-27] MEDS: ACETAMINOPHEN 325 MG TAB PO PRN (19:43)
--- NOTE | 2025-04-27 22:54 | DVHPNRES ---
Progress Note Date Seen: Apr 27, 2025 Resident Creating Document: LYDIA TATUM RESIDENT Medical Necessity Reason Pt with a Central, PICC or Fol: No Subjective Review of Systems Jan Bacon is a 64-year-old male presents to the emergency department due to epigastric pain, abdominal discomfort, left-sided chest pain tremors, agitation, dry heaves and anxiety associated to recent alcohol consumption. Patient refers similar symptoms to when he is admitted due to alcohol withdrawal. According to the patient, he drinks 4 pt of vodka daily, last drink was 2 days ago. Denies fever, chills, dyspnea, unintentional weight loss, hallucinations, and motor or sensory deficits. Past Medical History: Multiple admissions due to alcohol withdrawals and alcohol use disorder, hepatic steatosis, microcytic anemia, GERD, thrombocytopenia Surgical History: Denies Family history: Noncontributory Social History: Patient is homeless. Ethanol abuse (he drinks approximately four pt of vodka per day for the past 40 years). Ex methamphetamine abuse. Denies current tobacco and other drug abuse. Allergies: Denies Home medication: Aspirin 81 mg p.o. daily, carvedilol 3.125 mg p.o. b.i.d., vitamin-D 95399 units Patient seen and examined today in bedside. Denies any acute distress like fever, SOB, abdominal pain, dysuria, muscle spasm. Patient having bowel and bladder movement today. Patient having gait instability and use walker during ambulation. Patient homeless and waiting for she cooperative care for placement. 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 Objective vital signs Vital Sign Date Time Temp Pulse Resp B/P (MAP) Pulse Ox O2 Delivery O2 Flow Rate FiO2 04/27/25 21:25 67 123/82 04/27/25 20:48 97.9 18 97 97.9 04/27/25 08:00 Room Air* 0 21 Total Intake and Output 04/26/25 04/26/25 04/27/25 15:00 23:00 07:00 Intake Total 1600 ml 600 ml Output Total 2200 ml 500 ml Balance -600 ml 100 ml medications Current Medications Medications Dose Ordered Sig/Shubham Route Start Time Stop Time Status Last Admin Dose Admin Multivitamins 1 tab DAILY PO 04/24/25 10:00 04/27/25 09:43 1 TAB Sodium Chloride 10 ml Q8HR IV 04/23/25 22:00 04/27/25 14:41 10 ML Acetaminophen 650 mg Q6HP PRN PO 04/23/25 21:30 04/27/25 19:43 650 MG Aspirin 81 mg DAILY PO 04/24/25 10:00 04/27/25 09:43 81 MG Carvedilol 3.125 mg Q12HR PO 04/23/25 22:00 04/27/25 21:25 3.125 MG Ergocalciferol 50,000 unit QWEEKLY PO 04/23/25 21:30 Hold Ferrous Sulfate 325 mg MWF PO 04/24/25 10:00 04/26/25 10:18 325 MG Furosemide 40 mg DAILY PO 04/24/25 10:00 04/27/25 09:47 40 MG Pantoprazole Sodium 40 mg DAILY@0600 PO 04/24/25 06:00 04/27/25 05:37 40 MG Thiamine HCl 100 mg DAILY IV 04/25/25 10:00 04/27/25 09:44 100 MG Lorazepam 1 mg Q2HPRN PRN IV 04/24/25 14:45 04/25/25 17:14 1 MG Folic Acid 1 mg/ Dextrose 50.2 ml @ 200.8 mls/ hr DAILY INJ 04/25/25 10:00 04/27/25 09:44 200.8 MLS/HR Gabapentin 100 mg TID PO 04/25/25 14:00 04/27/25 21:22 100 MG Chlordiazepoxide HCl 5 mg QID PO 04/25/25 12:00 04/27/25 21:22 5 MG Examination General: afebrile, mucosae are moist, enlarged parotids, dish helped and foul smelling body odor noted, Cardiovascular: Normal S1 and S2. No murmurs, gallops or rubs Respiratory: Normal ventilation mechanics. Clear lung sounds on auscultation Abdomen: Soft, no tenderness, no organomegaly, normal bowel sounds MSK/skin: Mobilizes 4 limbs. Skin is dry and warm Neurological:AOx4, No motor no sensitive deficits. Pupils are isocoric and reactive. laboratory and microbiology Laboratory Tests 04/27/25 06:07 Test 04/27/25 06:07 Range/Units Serum Glucose 131 H 74-106 mg/dL Microbiology Date/Time Source Procedure Growth Status 04/25/25 02:33 Nose MRSA Screen - Final Complete Problem List/Assessment/Plan Problem List/Assessment/Plan ASSESSMENT Ethanol withdrawal - CIWA score on admission 22 (now 4) Ethanol abuse CAROLYN hemodynamically mediated - VMN Transaminitis Thrombocytopenia secondary to ethanol abuse Macrocytic anemia - secondary to ethanol abuse Hepatic steatosis Ruled out acute coronary syndrome Ruled out PE Probable alcoholic cardiomyopathy (LVEF 45%) Hypomagnesemia Hypophosphatemia Vitamin-D deficiency Homeless GERD Non adherence Image: Echocardiogram shows LVEF 45%, mild LVH, RV enlarged, biatrial enlargement. Could be compatible with alcoholic cardiomyopathy. Patient will benefit from outpatient cardiological evaluation. Patient should be compliant with ethanol cessation V/Q scan completed which showed no evidence of PE Completed abdominal ultrasound which showed hepatic steatosis and gallbladder sludge. PLAN Aspirin 81 mg p.o. daily Ativan 1 mg IV q.2h p.r.n. Carvedilol 3.125 mg p.o. q.12 hours Ferrous sulfate 325 mg p.o. daily Folic acid 1 mg injection daily Furosemide 40 mg p.o. daily Gabapentin 100 mg p.o. t.i.d. Pantoprazole 40 mg p.o. daily Thiamine 100 mg IV daily Vitamin-D 35789 units Q weekly Acetaminophen 650 mg p.o. q.6 p.r.n. Currently on multivitamins (thiamine, folic acid, and other multivitamins). Completing Librium taper. Follow BMP and H&H Due to thrombocytopenia and no clear indication for aspirin, discontinued aspirin and enoxaparin at this point. Replenish electrolyte alteration Continue with PPIs Renal function has improved with hydration. Counseled extensively on ethanol cessation. Patient says he understands risk of continuing consumption, including progressing to cirrhosis, heart failure, and even . Offered social service support for homelessness, patient is not interested at this time. Recuperate active care for placement-pending. Goals of care discussed with patient for over 27 minutes: Full code status. Cosigned by Dr Malik, PGY2, resident Discussed plan with Dr. Choi Plan discussed with: Patient, Other (Nurse) My Orders My Orders Orders - LYDIA TATUM RESIDENT Procedure Category Date Status Time Magnesium LAB 04/28/25 Verified 05:00 Magnesium Ruiz PHA 04/27/25 Transmitted 22:45 Date of Service: Apr 27, 2025 Billing Provider: LETI CHOI MD Common Visit Codes: [id number] INP/OBS CARE(MOD) LYDIA TATUM RESIDENT Apr 27, 2025 22:54 RODRIGUE MINOR RESIDENT Apr 27, 2025 23:21 FAUSTO LUNDBERG RESIDENT Apr 28, 2025 21:59 LETI CHOI MD May 05, 2025 21:08
[2025-04-27] MEDS: MAGNESIUM SULFATE 1GM/100ML 100 ML IV ONE (23:12)
[2025-04-28 00:35] VITALS: BP 104/64; PULSE 64; RESP 19; TEMP 98.4; O2SAT 98
[2025-04-28 04:55] VITALS: BP 111/58; PULSE 61; RESP 19; TEMP 98.4; O2SAT 96
[2025-04-28 05:36] LABS: Hematocrit 34.7 % (41.0-53.0); Hemoglobin 12.2 g/dL (13.5-17.5); Mean Corpuscular Hemoglobin 37.3 pg (28.0-32.0); Mean Corpuscular Volume 106.2 fL (80.0-100.0); Nucleated Red Blood Cells % 0.0 %
[2025-04-28 06:11] LABS: Albumin 4.1 g/dL (3.2-4.8); Anion Gap 10 (5-15); BUN/Creatinine Ratio 25.8 (10.0-20.0); Calcium 9.5 mg/dL (8.7-10.4); Carbon Dioxide 29 mmol/L (20-31); Chloride 98 mmol/L (98-107); Magnesium 1.7 mg/dL (1.6-2.6); Potassium 3.9 mmol/L (3.5-5.1); Sodium 137 mmol/L (136-145); Total Protein 7.3 g/dL (5.7-8.2)
[2025-04-28 06:12] LABS: Bilirubin, Total 1.0 mg/dL (0.2-1.0)
[2025-04-28 06:28] LABS: Alanine Aminotransferase 107 U/L (7-40); Alkaline Phosphatase 149 U/L (46-116); Blood Urea Nitrogen 25 mg/dL (9-23); Glucose 137 mg/dL (74-106)
[2025-04-28] MEDS: MAGNESIUM SULFATE 1GM/100ML 100 ML IV ONE (06:53)
[2025-04-28 09:00] VITALS: BP 156/92; PULSE 66; RESP 16; TEMP 97.8; O2SAT 94
[2025-04-28 13:00] VITALS: BP 132/85; PULSE 72; RESP 20; TEMP 97.8; O2SAT 97
[2025-04-28 16:34] VITALS: BP 137/86; PULSE 65; RESP 18; TEMP 98; O2SAT 99
--- NOTE | 2025-04-28 20:13 | DVHPNRES ---
Progress Note Date Seen: Apr 28, 2025 Resident Creating Document: LYDIA TATUM RESIDENT Medical Necessity Reason Pt with a Central, PICC or Fol: No Subjective Review of Systems Jan Bacon is a 64-year-old male presents to the emergency department due to epigastric pain, abdominal discomfort, left-sided chest pain tremors, agitation, dry heaves and anxiety associated to recent alcohol consumption. Patient refers similar symptoms to when he is admitted due to alcohol withdrawal. According to the patient, he drinks 4 pt of vodka daily, last drink was 2 days ago. Denies fever, chills, dyspnea, unintentional weight loss, hallucinations, and motor or sensory deficits. Past Medical History: Multiple admissions due to alcohol withdrawals and alcohol use disorder, hepatic steatosis, microcytic anemia, GERD, thrombocytopenia Surgical History: Denies Family history: Noncontributory Social History: Patient is homeless. Ethanol abuse (he drinks approximately four pt of vodka per day for the past 40 years). Ex methamphetamine abuse. Denies current tobacco and other drug abuse. Allergies: Denies Home medication: Aspirin 81 mg p.o. daily, carvedilol 3.125 mg p.o. b.i.d., vitamin-D 81857 units Patient seen and examined today in bedside. Denies any acute distress like fever, SOB, abdominal pain, dysuria, muscle spasm. Patient having good appetite. Today CIWA score -0. Pending placement. Objective vital signs Vital Sign Date Time Temp Pulse Resp B/P (MAP) Pulse Ox O2 Delivery O2 Flow Rate FiO2 04/28/25 16:34 98.0 65 18 137/86 (103) 99 98.0 04/28/25 08:00 Room Air* 0 21 Total Intake and Output 04/27/25 04/27/25 04/28/25 15:00 23:00 07:00 Intake Total 1000 ml 1060 ml Output Total 800 ml 880 ml Balance 200 ml 180 ml medications Current Medications Medications Dose Ordered Sig/Shubham Route Start Time Stop Time Status Last Admin Dose Admin Multivitamins 1 tab DAILY PO 04/24/25 10:00 04/28/25 11:19 1 TAB Sodium Chloride 10 ml Q8HR IV 04/23/25 22:00 04/28/25 14:16 10 ML Acetaminophen 650 mg Q6HP PRN PO 04/23/25 21:30 04/28/25 14:16 650 MG Aspirin 81 mg DAILY PO 04/24/25 10:00 04/28/25 11:20 81 MG Carvedilol 3.125 mg Q12HR PO 04/23/25 22:00 04/28/25 11:21 3.125 MG Ergocalciferol 50,000 unit QWEEKLY PO 04/23/25 21:30 Hold Ferrous Sulfate 325 mg MWF PO 04/24/25 10:00 04/28/25 11:20 325 MG Furosemide 40 mg DAILY PO 04/24/25 10:00 04/28/25 11:20 40 MG Pantoprazole Sodium 40 mg DAILY@0600 PO 04/24/25 06:00 04/28/25 05:11 40 MG Gabapentin 100 mg TID PO 04/25/25 14:00 04/28/25 14:16 100 MG Chlordiazepoxide HCl 5 mg QID PO 04/25/25 12:00 04/28/25 18:40 5 MG Folic Acid 1 mg DAILY PO 04/29/25 10:00 UNV Thiamine HCl 100 mg DAILY PO 04/29/25 10:00 UNV Examination General: afebrile, mucosae are moist, enlarged parotids, dish helped and foul smelling body odor noted, Cardiovascular: Normal S1 and S2. No murmurs, gallops or rubs Respiratory: Normal ventilation mechanics. Clear lung sounds on auscultation Abdomen: Soft, no tenderness, no organomegaly, normal bowel sounds MSK/skin: Mobilizes 4 limbs. Skin is dry and warm Neurological:AOx4, No motor no sensitive deficits. Pupils are isocoric and reactive. laboratory and microbiology Laboratory Tests 04/28/25 04:45 Test 04/28/25 04:45 Range/Units Serum Glucose 137 H 74-106 mg/dL Microbiology Date/Time Source Procedure Growth Status 04/25/25 02:33 Nose MRSA Screen - Final Complete Problem List/Assessment/Plan Problem List/Assessment/Plan ASSESSMENT Ethanol withdrawal - CIWA score on admission 22 (now 0) Chronic systolic heart failure with no exertion Left ventricular hypertrophy Biatrial enlargement Ethanol abuse CAROLYN hemodynamically mediated - VMN Transaminitis Thrombocytopenia secondary to ethanol abuse Macrocytic anemia - secondary to ethanol abuse Hepatic steatosis Ruled out acute coronary syndrome Ruled out PE Probable alcoholic cardiomyopathy (LVEF 45%) Hypomagnesemia Hypophosphatemia Vitamin-D deficiency Homeless GERD Non adherence Image: Echocardiogram shows LVEF 45%, mild LVH, RV enlarged, biatrial enlargement. Could be compatible with alcoholic cardiomyopathy. Patient will benefit from outpatient cardiological evaluation. Patient should be compliant with ethanol cessation V/Q scan completed which showed no evidence of PE Completed abdominal ultrasound which showed hepatic steatosis and gallbladder sludge. PLAN Aspirin 81 mg p.o. daily Ativan 1 mg IV q.2h p.r.n. Carvedilol 3.125 mg p.o. q.12 hours Ferrous sulfate 325 mg p.o. daily Folic acid 1 mg po daily Furosemide 40 mg p.o. daily Gabapentin 100 mg p.o. t.i.d. Pantoprazole 40 mg p.o. daily Thiamine 100 mg po daily Vitamin-D 88334 units Q weekly Acetaminophen 650 mg p.o. q.6 p.r.n. Currently on multivitamins (thiamine, folic acid, and other multivitamins). Completing Librium taper. Follow BMP and H&H Due to thrombocytopenia and no clear indication for aspirin, discontinued aspirin and enoxaparin at this point. Replenish electrolyte alteration Continue with PPIs Renal function has improved with hydration. Counseled extensively on ethanol cessation. Patient says he understands risk of continuing consumption, including progressing to cirrhosis, heart failure, and even . Offered social service support for homelessness, patient is not interested at this time. Recuperate active care for placement-pending. Goals of care discussed with patient for over 22 minutes: Full code status. Discussed plan with Dr. Choi Plan discussed with: Patient, Other (Nurse) My Orders My Orders Orders - LYDIA TATUM Procedure Category Date Status Time Discharge DISCHARGE 04/28/25 Transmitted 16:02 Schedule For Dc REYES 04/28/25 In Process Clinic F/U 16:02 Folic Acid Tablet PHA 04/29/25 Logged 10:00 Thiamine Tab PHA 04/29/25 Logged 10:00 Dietary Evaluation Review Comments: Monitor PO intake, lab values, weight trend, and I/O Expected Outcomes/Goals: Lab values to improve FU 5-7 days Date of Service: Apr 28, 2025 Billing Provider: LETI CHOI MD Common Visit Codes: [id number] INP/OBS CARE(HIGH) LYDIA TATUM Apr 28, 2025 20:13 FAUSTO LUNDBERG RESIDENT Apr 28, 2025 22:01 RODRIGUE MINOR RESIDENT May 01, 2025 07:01 LETI CHOI MD May 05, 2025 21:28
[2025-04-28 21:00] VITALS: BP 150/86; PULSE 66; RESP 16; TEMP 98; O2SAT 100
[2025-04-29 01:00] VITALS: BP 130/84; PULSE 62; RESP 16; TEMP 97.8; O2SAT 97
[2025-04-29 05:00] VITALS: BP 126/80; PULSE 65; RESP 16; TEMP 98.1; O2SAT 96
[2025-04-29 07:23] LABS: Chloride 99 mmol/L (98-107); Potassium 4.3 mmol/L (3.5-5.1)
[2025-04-29 07:24] LABS: Anion Gap 9 (5-15); Carbon Dioxide 27 mmol/L (20-31)
[2025-04-29 07:25] LABS: Calcium 9.8 mg/dL (8.7-10.4)
[2025-04-29 07:27] LABS: Sodium 135 mmol/L (136-145)
[2025-04-29 07:29] LABS: BUN/Creatinine Ratio 21.9 (10.0-20.0); Blood Urea Nitrogen 21 mg/dL (9-23)
[2025-04-29 07:32] LABS: Glucose 130 mg/dL (74-106)
[2025-04-29 08:02] LABS: Hematocrit 36.0 % (41.0-53.0); Hemoglobin 12.8 g/dL (13.5-17.5); Mean Corpuscular Hemoglobin 37.8 pg (28.0-32.0); Mean Corpuscular Volume 106.3 fL (80.0-100.0)
[2025-04-29 08:59] LABS: Stomatocytes Moderate; Total Cells Counted 100.0 (100)
[2025-04-29 09:00] VITALS: BP 135/85; PULSE 66; RESP 18; TEMP 98.8; O2SAT 98
--- NOTE | 2025-04-29 09:59 | DVHPNRES ---
Progress Note Date Seen: Apr 29, 2025 Resident Creating Document: RODRIGUE LEDEZMA RESIDENT Medical Necessity Reason Pt with a Central, PICC or Fol: No Subjective Review of Systems 64-year-old male presents to the emergency department due to epigastric pain, abdominal discomfort, left-sided chest pain tremors, agitation, dry heaves and anxiety associated to recent alcohol consumption. Patient refers similar symptoms to when he is admitted due to alcohol withdrawal. According to the patient, he drinks 4 pt of vodka daily, last drink was 2 days ago. Denies fever, chills, dyspnea, unintentional weight loss, hallucinations, and motor or sensory deficits. Past Medical History: Multiple admissions due to alcohol withdrawals and alcohol use disorder, hepatic steatosis, microcytic anemia, GERD, thrombocytopenia Surgical History: Denies Family history: Noncontributory Social History: Patient is homeless. Ethanol abuse (he drinks approximately four pt of vodka per day for the past 40 years). Ex methamphetamine abuse. Denies current tobacco and other drug abuse. Allergies: Denies Home medication: Aspirin 81 mg p.o. daily, carvedilol 3.125 mg p.o. b.i.d., vitamin-D 49240 units Patient seen and examined today in bedside. Denies any acute distress like fever, SOB, abdominal pain, dysuria, muscle spasm. Patient having good appetite. Today CIWA score -0. Pending placement. Objective vital signs Vital Sign Date Time Temp Pulse Resp B/P (MAP) Pulse Ox O2 Delivery O2 Flow Rate FiO2 04/29/25 09:00 98.8 66 18 135/85 (102) 98 98.8 04/29/25 08:00 Room Air* 0 21 Total Intake and Output 04/28/25 04/28/25 04/29/25 15:00 23:00 07:00 Intake Total 1840.2 ml 520 ml Output Total 900 ml 1000 ml Balance 940.2 ml -480 ml medications Current Medications Medications Dose Ordered Sig/Shubham Route Start Time Stop Time Status Last Admin Dose Admin Multivitamins 1 tab DAILY PO 04/24/25 10:00 04/28/25 11:19 1 TAB Sodium Chloride 10 ml Q8HR IV 04/23/25 22:00 04/29/25 05:29 10 ML Acetaminophen 650 mg Q6HP PRN PO 04/23/25 21:30 04/28/25 21:35 650 MG Aspirin 81 mg DAILY PO 04/24/25 10:00 04/28/25 11:20 81 MG Carvedilol 3.125 mg Q12HR PO 04/23/25 22:00 04/28/25 21:36 3.125 MG Ergocalciferol 50,000 unit QWEEKLY PO 04/23/25 21:30 Hold Ferrous Sulfate 325 mg MWF PO 04/24/25 10:00 04/28/25 11:20 325 MG Furosemide 40 mg DAILY PO 04/24/25 10:00 04/28/25 11:20 40 MG Pantoprazole Sodium 40 mg DAILY@0600 PO 04/24/25 06:00 04/29/25 05:29 40 MG Gabapentin 100 mg TID PO 04/25/25 14:00 04/29/25 05:30 100 MG Chlordiazepoxide HCl 5 mg QID PO 04/25/25 12:00 04/29/25 05:29 5 MG Folic Acid 1 mg DAILY PO 04/29/25 10:00 Thiamine HCl 100 mg DAILY PO 04/29/25 10:00 Examination General: afebrile, mucosae are moist, enlarged parotids, dish helped and foul smelling body odor noted, Cardiovascular: Normal S1 and S2. No murmurs, gallops or rubs Respiratory: Normal ventilation mechanics. Clear lung sounds on auscultation Abdomen: Soft, no tenderness, no organomegaly, normal bowel sounds MSK/skin: Mobilizes 4 limbs. Skin is dry and warm Neurological:AOx4, No motor no sensitive deficits. Pupils are isocoric and reactive. laboratory and microbiology Laboratory Tests 04/29/25 06:47 Test 04/29/25 06:47 Range/Units Serum Glucose 130 H 74-106 mg/dL Microbiology Date/Time Source Procedure Growth Status 04/25/25 02:33 Nose MRSA Screen - Final Complete Labs and/or images reviewed: Labs reviewed by me, Image(s) reviewed by me Problem List/Assessment/Plan Problem List/Assessment/Plan Ethanol withdrawal - CIWA score on admission 22 (now 0) Alcohol abuse Hypomagnesemia Hypophosphatemia Vitamin-D deficiency Thiamine 100 mg po daily Currently on multivitamins (thiamine, folic acid, and other multivitamins). Completing Librium taper. Counseled extensively on ethanol cessation. Patient says he understands risk of continuing consumption, including progressing to cirrhosis, heart failure, and even . Ativan 1 mg IV q.2h p.r.n. Replenish electrolyte alteration Gabapentin 100 mg p.o. t.i.d. Vitamin-D 96659 units Q weekly Acetaminophen 650 mg p.o. q.6 p.r.n. 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 Could be compatible with alcoholic cardiomyopathy. Patient will benefit from outpatient cardiological evaluation. Patient should be compliant with ethanol cessation V/Q scan completed which showed no evidence of PE Aspirin 81 mg p.o. daily, Due to thrombocytopenia and no clear indication for aspirin, discontinued aspirin and enoxaparin at this point. Carvedilol 3.125 mg p.o. q.12 hours Furosemide 40 mg p.o. daily Ferrous sulfate 325 mg p.o. daily Folic acid 1 mg po daily Thrombocytopenia secondary to ethanol abuse Macrocytic anemia - secondary to ethanol abuse monitor CBC. CAROLYN hemodynamically mediated - VMN Renal function has improved with hydration. Hepatic steatosis Transaminitis Completed abdominal ultrasound which showed hepatic steatosis and gallbladder sludge. GERD Pantoprazole 40 mg p.o. daily Unhoused status: Offered social service support for homelessness, patient is not interested at this time. Recuperate active care for placement-pending. Goals of care discussed with patient for over 22 minutes: Full code status. Discussed plan with Dr. Choi Plan discussed with: Patient, Other (Nurse) Plan discussed with: Patient, Other (RN) My Orders My Orders Orders - RODRIGUE LEDEZMA Procedure Category Date Status Time Alum & Mag PHA 04/29/25 In Process Hydrox-Simethicone 10:00 Dietary Evaluation Review Comments: Monitor PO intake, lab values, weight trend, and I/O Expected Outcomes/Goals: Lab values to improve FU 5-7 days Date of Service: Apr 29, 2025 Billing Provider: LETI CHOI MD Common Visit Codes: [id number] INP/OBS CARE(MOD) RODRIGUE LEDEZMA Apr 29, 2025 09:59 RODRIGUE MINOR May 01, 2025 07:02 LETI CHOI MD May 05, 2025 22:01
[2025-04-29] MEDS: THIAMINE HCL 100 MG TAB PO SCH (10:27)
[2025-04-29] MEDS: FOLIC ACID 1 MG TAB PO SCH (10:28)
[2025-04-29] MEDS: MAALOX PLUS or MAALOX 30 ML PO ONE (10:32)
[2025-04-29 13:00] VITALS: BP 125/74; PULSE 67; RESP 16; TEMP 98.2; O2SAT 97
[2025-04-29 17:00] VITALS: BP 115/75; PULSE 61; RESP 18; TEMP 98.4; O2SAT 96
[2025-04-29 21:00] VITALS: BP 113/79; PULSE 65; RESP 16; TEMP 97.5; O2SAT 96
[2025-04-30 01:00] VITALS: BP 103/63; PULSE 63; RESP 16; TEMP 97.9; O2SAT 99
[2025-04-30 05:00] VITALS: BP 118/73; PULSE 61; RESP 16; TEMP 97.9; O2SAT 97
[2025-04-30 05:57] LABS: Hemoglobin 12.6 g/dL (13.5-17.5); Nucleated Red Blood Cells % 0.1 %
[2025-04-30 06:03] LABS: Hematocrit 35.4 % (41.0-53.0); Mean Corpuscular Hemoglobin 37.5 pg (28.0-32.0); Mean Corpuscular Volume 105.6 fL (80.0-100.0)
[2025-04-30 06:07] LABS: Anion Gap 8 (5-15); Carbon Dioxide 28 mmol/L (20-31); Chloride 100 mmol/L (98-107); Potassium 4.1 mmol/L (3.5-5.1)
[2025-04-30 06:08] LABS: Calcium 9.4 mg/dL (8.7-10.4)
[2025-04-30 06:13] LABS: BUN/Creatinine Ratio 32.7 (10.0-20.0)
[2025-04-30 06:36] LABS: Blood Urea Nitrogen 33 mg/dL (9-23); Glucose 135 mg/dL (74-106); Sodium 136 mmol/L (136-145)
[2025-04-30 09:00] VITALS: BP 128/72; PULSE 66; RESP 18; TEMP 97.7; O2SAT 95
[2025-04-30] MEDS ORDERED: MAALOX PLUS or MAALOX 30 ML PO PRN (10:30)
--- NOTE | 2025-04-30 10:30 | DVHPNRES ---
Progress Note Date Seen: Apr 30, 2025 Resident Creating Document: LYDIA TATUM RESIDENT Medical Necessity Reason Pt with a Central, PICC or Fol: No Subjective Review of Systems This is a 64-year-old male presents to the emergency department due to epigastric pain, abdominal discomfort, left-sided chest pain tremors, agitation, dry heaves and anxiety associated to recent alcohol consumption. Patient refers similar symptoms to when he is admitted due to alcohol withdrawal. According to the patient, he drinks 4 pt of vodka daily, last drink was 2 days ago. Denies fever, chills, dyspnea, unintentional weight loss, hallucinations, and motor or sensory deficits. Past Medical History: Multiple admissions due to alcohol withdrawals and alcohol use disorder, hepatic steatosis, microcytic anemia, GERD, thrombocytopenia Surgical History: Denies Family history: Noncontributory Social History: Patient is homeless. Ethanol abuse (he drinks approximately four pt of vodka per day for the past 40 years). Ex methamphetamine abuse. Denies current tobacco and other drug abuse. Allergies: Denies Home medication: Aspirin 81 mg p.o. daily, carvedilol 3.125 mg p.o. b.i.d., vitamin-D 00999 units Patient seen on bedside today, patient lying on bed without any discomfort. On physical examination patient having mild epigastric tenderness. Patient stated passes stool but it is kind of hard. Denies any acute distress like fever, SOB, dysuria, muscle spasm, melena or hematochezia. Patient having good appetite. Today CIWA score -0. Pending placement. Patient is aggravated regarding cut down alcohol, verbalized understanding vertebral discussed. Objective vital signs Vital Sign Date Time Temp Pulse Resp B/P (MAP) Pulse Ox O2 Delivery O2 Flow Rate FiO2 04/30/25 09:00 97.7 66 18 128/72 (90) 95 97.7 04/29/25 20:00 Room Air* 0 21 Total Intake and Output 04/29/25 04/29/25 04/30/25 15:00 23:00 07:00 Intake Total 1040 ml 700 ml Output Total 600 ml 650 ml Balance 440 ml 50 ml medications Current Medications Medications Dose Ordered Sig/Shubham Route Start Time Stop Time Status Last Admin Dose Admin Multivitamins 1 tab DAILY PO 04/24/25 10:00 04/29/25 10:27 1 TAB Sodium Chloride 10 ml Q8HR IV 04/23/25 22:00 04/30/25 05:45 10 ML Acetaminophen 650 mg Q6HP PRN PO 04/23/25 21:30 04/30/25 05:45 650 MG Aspirin 81 mg DAILY PO 04/24/25 10:00 04/29/25 10:27 81 MG Carvedilol 3.125 mg Q12HR PO 04/23/25 22:00 04/29/25 22:10 3.125 MG Ergocalciferol 50,000 unit QWEEKLY PO 04/23/25 21:30 Hold Ferrous Sulfate 325 mg MWF PO 04/24/25 10:00 04/28/25 11:20 325 MG Furosemide 40 mg DAILY PO 04/24/25 10:00 04/29/25 10:27 40 MG Pantoprazole Sodium 40 mg DAILY@0600 PO 04/24/25 06:00 04/30/25 05:44 40 MG Gabapentin 100 mg TID PO 04/25/25 14:00 04/30/25 05:44 100 MG Chlordiazepoxide HCl 5 mg QID PO 04/25/25 12:00 04/30/25 05:44 5 MG Folic Acid 1 mg DAILY PO 04/29/25 10:00 04/29/25 10:28 1 MG Thiamine HCl 100 mg DAILY PO 04/29/25 10:00 04/29/25 10:27 100 MG Al Hydrox/Mg Hydrox/Simethicone 30 ml Q8HP PRN PO 04/30/25 10:30 UNV Examination General: afebrile, mucosae are moist, enlarged parotids, dish helped and foul smelling body odor noted, Cardiovascular: Normal S1 and S2. No murmurs, gallops or rubs Respiratory: Normal ventilation mechanics. Clear lung sounds on auscultation Abdomen: Soft, mild tender on epigastric region on deep palpation , no organomegaly, normal bowel sounds MSK/skin: Mobilizes 4 limbs. Skin is dry and warm Neurological:AOx4, No motor no sensitive deficits. Pupils are isocoric and reactive. laboratory and microbiology Laboratory Tests 04/30/25 05:13 Test 04/30/25 05:13 Range/Units Serum Glucose 135 H 74-106 mg/dL Microbiology Date/Time Source Procedure Growth Status 04/25/25 02:33 Nose MRSA Screen - Final Complete Problem List/Assessment/Plan Problem List/Assessment/Plan Problem List/Assessment/Plan Ethanol withdrawal - CIWA score on admission 22 (now 0) Alcohol abuse Hypomagnesemia Hypophosphatemia Vitamin-D deficiency Thiamine 100 mg po daily Currently on multivitamins (thiamine, folic acid, and other multivitamins). Completing Librium taper. Counseled extensively on ethanol cessation. Patient says he understands risk of continuing consumption, including progressing to cirrhosis, heart failure, and even . Ativan 1 mg IV q.2h p.r.n., no need any Ativan last 24 hour Replenish electrolyte alteration Gabapentin 100 mg p.o. t.i.d. Vitamin-D 57397 units Q weekly Acetaminophen 650 mg p.o. q.6 p.r.n. Ruled out acute coronary syndrome Ruled out PE Chronic systolic heart failure with no exertion Left ventricular hypertrophy Biatrial enlargement Probable alcoholic cardiomyopathy (LVEF 45%) Echocardiogram shows LVEF 45%, mild LVH, RV enlarged, biatrial enlargement. Could be compatible with alcoholic cardiomyopathy. Patient will benefit from outpatient cardiological evaluation. Patient should be compliant with ethanol cessation V/Q scan completed which showed no evidence of PE Aspirin 81 mg p.o. daily, Due to thrombocytopenia and no clear indication for aspirin, discontinued aspirin and enoxaparin at this point. Carvedilol 3.125 mg p.o. q.12 hours Furosemide 40 mg p.o. daily Ferrous sulfate 325 mg p.o. daily Folic acid 1 mg po daily Thrombocytopenia secondary to ethanol abuse Macrocytic anemia - secondary to ethanol abuse monitor CBC. CAROLYN hemodynamically mediated - VMN Renal function has improved with hydration. Hepatic steatosis Transaminitis completed abdominal ultrasound which showed hepatic steatosis and gallbladder sludge. Monitor LFTs GERD Pantoprazole 40 mg p.o. daily Started Maalox and Constipation Senna 8.6 mg p.o. daily Unhoused status: Offered social service support for homelessness. Recuperate active care for placement-pending. Goals of care discussed with patient for over 19 minutes: Full code status. Discussed plan with Dr. Thakkar Plan discussed with: Patient, Other (Nurse) My Orders My Orders Orders - LYDIA TATUM RESIDENT Procedure Category Date Status Time Senna Pod Tablet PHA 04/30/25 Logged (Senokot Tablet) 22:00 Alum & Mag PHA 04/30/25 Logged Hydrox-Simethicone 10:30 Alum & Mag PHA 04/30/25 Logged Hydrox-Simethicone 10:30 Dietary Evaluation Review Comments: Monitor PO intake, lab values, weight trend, and I/O Expected Outcomes/Goals: Lab values to improve FU 5-7 days Date of Service: Apr 30, 2025 Billing Provider: LETI THAKKAR MD Common Visit Codes: [id number] INP/OBS CARE(MOD) LYDIA TATUM RESIDENT Apr 30, 2025 10:30 LETI THAKKAR MD May 05, 2025 22:02
[2025-04-30] MEDS: MAALOX PLUS or MAALOX 30 ML PO ONE (11:07)
[2025-04-30 13:14] VITALS: BP 122/73; PULSE 62; RESP 16; TEMP 97.9; O2SAT 97
[2025-04-30 17:00] VITALS: BP 125/73; PULSE 68; RESP 18; TEMP 97.9; O2SAT 97
[2025-04-30 18:16] VITALS: BP 125/73; PULSE 68; RESP 18; TEMP 97.9; O2SAT 97
--- NOTE | 2025-04-30 19:29 | DVHPNRES ---
Progress Note Date Seen: Apr 30, 2025 Resident Creating Document: LYDIA TATUM RESIDENT Medical Necessity Reason Pt with a Central, PICC or Fol: No Objective vital signs Vital Sign Date Time Temp Pulse Resp B/P (MAP) Pulse Ox O2 Delivery O2 Flow Rate FiO2 04/30/25 18:16 97.9 68 18 97 04/30/25 17:00 125/73 (90) 04/30/25 08:10 Room Air* 0 21 Total Intake and Output 04/29/25 04/29/25 04/30/25 15:00 23:00 07:00 Intake Total 1040 ml 700 ml Output Total 600 ml 650 ml Balance 440 ml 50 ml medications Current Medications Medications Dose Ordered Sig/Shubham Route Start Time Stop Time Status Last Admin Dose Admin Multivitamins 1 tab DAILY PO 04/24/25 10:00 04/30/25 11:04 1 TAB Sodium Chloride 10 ml Q8HR IV 04/23/25 22:00 04/30/25 18:06 10 ML Acetaminophen 650 mg Q6HP PRN PO 04/23/25 21:30 04/30/25 05:45 650 MG Aspirin 81 mg DAILY PO 04/24/25 10:00 04/30/25 11:05 81 MG Carvedilol 3.125 mg Q12HR PO 04/23/25 22:00 04/30/25 11:04 3.125 MG Ergocalciferol 50,000 unit QWEEKLY PO 04/23/25 21:30 Hold Ferrous Sulfate 325 mg MWF PO 04/24/25 10:00 04/28/25 11:20 325 MG Furosemide 40 mg DAILY PO 04/24/25 10:00 04/30/25 11:04 40 MG Pantoprazole Sodium 40 mg DAILY@0600 PO 04/24/25 06:00 04/30/25 05:44 40 MG Gabapentin 100 mg TID PO 04/25/25 14:00 04/30/25 18:06 100 MG Chlordiazepoxide HCl 5 mg QID PO 04/25/25 12:00 04/30/25 18:06 5 MG Folic Acid 1 mg DAILY PO 04/29/25 10:00 04/30/25 11:03 1 MG Thiamine HCl 100 mg DAILY PO 04/29/25 10:00 04/30/25 11:04 100 MG Al Hydrox/Mg Hydrox/Simethicone 30 ml Q8HP PRN PO 04/30/25 10:30 Sennosides 8.6 mg HS PO 04/30/25 22:00 Examination General: afebrile, mucosae are moist, enlarged parotids, dish helped and foul smelling body odor noted, Cardiovascular: Normal S1 and S2. No murmurs, gallops or rubs Respiratory: Normal ventilation mechanics. Clear lung sounds on auscultation Abdomen: Soft, mild tender epigastric region on deep palpation, no organomegaly, normal bowel sounds MSK/skin: Mobilizes 4 limbs. Skin is dry and warm Neurological:AOx4, No motor no sensitive deficits. Pupils are isocoric and reactive. laboratory and microbiology Laboratory Tests 04/30/25 05:13 Test 04/30/25 05:13 Range/Units Serum Glucose 135 H 74-106 mg/dL Microbiology Date/Time Source Procedure Growth Status 04/25/25 02:33 Nose MRSA Screen - Final Complete My Orders My Orders Orders - LYDIA TATUM RESIDENT Procedure Category Date Status Time Senna Pod Tablet PHA 04/30/25 In Process (Senokot Tablet) 22:00 Alum & Mag PHA 04/30/25 In Process Hydrox-Simethicone 10:30 * Fingerprint Clerk CONS 04/30/25 Transmitted Consult 12:30 Discharge DISCHARGE 04/30/25 Transmitted 16:02 Dietary Evaluation Review Comments: Monitor PO intake, lab values, weight trend, and I/O Expected Outcomes/Goals: Lab values to improve FU 5-7 days LYDIA TATUM RESIDENT Apr 30, 2025 19:29
[2025-04-30] MEDS ORDERED: SENNA 8.6 MG TAB PO SCH (22:00)
--- NOTE | 2025-05-01 06:27 | DVHDSRES ---
Discharge Summary Date of Admission Resident Creating Document: LYDIA LUTHER RESIDENT Apr 23, 2025 at 21:17 Date of Discharge: Apr 30, 2025 Labs/Diagnostic Data: Laboratory Results Test 04/30/25 05:13 04/29/25 06:47 04/28/25 04:45 04/26/25 08:06 White Blood Count 4.6 10^3/uL (4.4-10.8) Red Blood Count 3.35 10^6/uL (4.5-5.90) Hemoglobin 12.6 g/dL (13.5-17.5) Hematocrit 35.4 % (41.0-53.0) Mean Corpuscular Volume 105.6 fL (80.0-100.0) Mean Corpuscular Hemoglobin 37.5 pg (28.0-32.0) Mean Corpuscular Hemoglobin Concent 35.5 g/dL (32.0-36.0) Red Cell Distribution Width 15.2 % (11.8-14.3) Platelet Count 196 10^3/uL (140-450) Mean Platelet Volume 8.6 fL (6.9-10.8) Neutrophils (%) (Auto) 41.9 % (37.0-80.0) Lymphocytes (%) (Auto) 31.6 % (10.0-50.0) Monocytes (%) (Auto) 20.5 % (0.0-12.0) Eosinophils (%) (Auto) 4.9 % (0.0-7.0) Basophils (%) (Auto) 1.1 % (0.0-2.0) Neutrophils # (Auto) 1.9 10 ^3/uL (1.6-8.6) Lymphocytes # (Auto) 1.5 10 ^3/uL (0.4-5.4) Monocytes # (Auto) 0.9 10 ^3/uL (0-1.3) Eosinophils # (Auto) 0.2 10 ^3/uL (0-0.8) Basophils # (Auto) 0.1 10 ^3/uL (0-0.2) Nucleated Red Blood Cells 0.1 % Sodium Level 136 mmol/L (136-145) Potassium Level 4.1 mmol/L (3.5-5.1) Chloride Level 100 mmol/L (98-107) Carbon Dioxide Level 28 mmol/L (20-31) Anion Gap 8 (5-15) Blood Urea Nitrogen 33 mg/dL (9-23) Creatinine 1.01 mg/dL (0.700-1.30) Glomerular Filtration Rate Calc 84 mL/min (>90) BUN/Creatinine Ratio 32.7 (10.0-20.0) Serum Glucose 135 mg/dL (74-106) Calcium Level 9.4 mg/dL (8.7-10.4) Differential Total Cells Counted 100.0 (100) Neutrophils % (Manual) 48 (37.0-80.0) Band Neutrophils % (Manual) 1 Lymphocytes % (Manual) 34 (10.0-50.0) Monocytes % (Manual) 14 (0-12) Eosinophils % (Manual) 3 (0-7) Basophils % (Manual) 0 (0.0-2.0) Metamyelocytes % (manual) 0 Myelocytes % (Manual) 0 Promyelocytes % (Manual) 0 Blast Cells % (Manual) 0 Reactive Lymphocytes 0 Platelet Estimate Adequate Stomatocytes Moderate Magnesium Level 1.7 mg/dL (1.6-2.6) Total Bilirubin 1.0 mg/dL (0.2-1.0) Aspartate Amino Transferase (AST) 292 U/L (13-40) Alanine Aminotransferase (ALT) 107 U/L (7-40) Alkaline Phosphatase 149 U/L (46-116) Total Protein 7.3 g/dL (5.7-8.2) Albumin 4.1 g/dL (3.2-4.8) Phosphorus Level 2.7 mg/dL (2.4-5.1) Test 04/25/25 12:00 04/23/25 18:00 04/23/25 16:59 Urine Color Light-yellow (Yellow) Urine Clarity Clear (Clear) Urine pH 6.5 (5.0-9.0) Urine Specific [place] 1.007 (1.001-1.035) Urine Protein Negative (Negative) Urine Ketones Negative (Negative) Urine Blood Negative /uL (Negative) Urine Nitrite Negative (Negative) Urine Bilirubin Negative (Negative) Urine Urobilinogen 2 mg/dL (Negative) Urine Leukocyte Esterase Negative /uL (Negative) Urine RBC <1 /hpf (0 - 3) Urine Microscopic WBC < 1 /HPF (0-3) Urine Squamous Epithelial Cells Few /hpf (<5) Urine Bacteria None seen /hpf (None Seen) Urine Glucose Normal mg/dL (Normal) Urine Opiates Screen Neg (NEGATIVE) Urine Fentanyl Screen Neg (NEGATIVE) Urine Barbiturates Screen Neg (NEGATIVE) Urine Phencyclidine Screen Neg (NEGATIVE) Urine Amphetamines Screen Neg (NEGATIVE) Urine Benzodiazepines Screen Pos (NEGATIVE) Urine Cocaine Screen Neg (NEGATIVE) Urine Cannabinoids Screen Neg (NEGATIVE) Troponin I High Sensitivity 23 ng/L (</=54) Plasma/Serum Blood Alcohol 291.2 mg/dL (<10) Prothrombin Time 11.7 sec (9.3-11.8) Prothrombin Time INR 1.12 (0.9-1.15) Activated Partial Thromboplast Time 25.9 SEC (24.5-34.5) D-Dimer, Quantitative 8.21 mg/L FEU (0.0-0.49) B-Type Natriuretic Peptide 20.99 pg/mL (0-100) Other Laboratory Tests 04/30/25 05:13 Brief Hx & Hospital Course: This is a 64-year-old male presents to the emergency department due to epigastric pain, abdominal discomfort, left-sided chest pain tremors, agitation, dry heaves and anxiety associated to recent alcohol consumption. Patient refers similar symptoms to when he is admitted due to alcohol withdrawal. According to the patient, he drinks 4 pt of vodka daily, last drink was 2 days ago. Denies fever, chills, dyspnea, unintentional weight loss, hallucinations, and motor or sensory deficits. Past Medical History: Multiple admissions due to alcohol withdrawals and alcohol use disorder, hepatic steatosis, microcytic anemia, GERD, thrombocytopenia Surgical History: Denies Family history: Noncontributory Social History: Patient is homeless. Ethanol abuse (he drinks approximately four pt of vodka per day for the past 40 years). Ex methamphetamine abuse. Denies current tobacco and other drug abuse. Allergies: Denies Home medication: Aspirin 81 mg p.o. daily, carvedilol 3.125 mg p.o. b.i.d., vitamin-D 96723 units Hospital course: Patient admitted due to alcohol withdrawal. Initially CIWA score 22 (Blood Alcohol level 291.2) during admission and CIWA score 0 during discharge. Patient was treated conservatively according to alcohol withdrawal protocol. Started Librium tapering dose and patient tolerated medicine well. D uring hospital stay, patient was treated both acute and chronic condition. Echocardiogram shows LVEF 45%, mild LVH, RV enlarged, biatrial enlargement. Could be compatible with alcoholic cardiomyopathy. Patient will benefit from outpatient cardiological evaluation. Patient should be compliant with ethanol cessation. V/Q scan completed which showed no evidence of PE . Completed abdominal ultrasound which showed hepatic steatosis and gallbladder sludge. Patient symptoms significantly improved and currently denies any nausea, vomiting fever, SOB or any other acute distress. Patient homeless, placed to recuperative care. Patient is hemodynamically stable for discharge. The patient has received maximum benefits from inpatient treatment. Time was given to answer patient/ parents questions and concerns in Layman terms. patient verbalized understanding and agree with treatment and follow-up. Patient was recommended to return to the ED if she experiences any worsening symptoms such as, but not limited to current symptoms. Continue current home medication. follow-up with discharge Clinic within 2 weeks make appointment with Dr. Luther on Thursday morning. Patient educated and advised to resume home medication. General: afebrile, mucosae are moist, enlarged parotids, dish helped and foul smelling body odor noted, Cardiovascular: Normal S1 and S2. No murmurs, gallops or rubs Respiratory: Normal ventilation mechanics. Clear lung sounds on auscultation Abdomen: Soft, tontender, no organomegaly, normal bowel sounds MSK/skin: Mobilizes 4 limbs. Skin is dry and warm Neurological:AOx4, No motor no sensitive deficits. Pupils are isocoric and reactive. Operations or Procedures CHEST RADIOGRAPH Indication: chest pain Technique: Single frontal view of the chest was obtained Comparison: XY CHEST PORTABLE on DOS: 03/22/25, XY CHEST XRAY 1 VIEW on DOS: 03/08/25, CT CHEST WITHOUT CONTRAST on DOS: 01/10/25 FINDINGS: Lines and Tubes: None Lungs: No focal consolidation. Pleura: No effusion. No pneumothorax. Cardiomediastinal contours: Unremarkable Bones: No acute osseous abnormality. There appears to be old fracture deformity of right anterior 3rd through 5th rib IMPRESSION: No acute cardiopulmonary disease. ATED BY: VILMA LIVE DO DICTATED DATE/TIME: 04/23/25 4422 ORDERING PHYSICIAN: JESSICA SYKES MD PROCEDURE(s): ABDC - ABDOMEN COMPLETE SONOGRAM REASON: CAROLYN and elevated LFT ORDER NUMBER(s): [id number], ACCESSION NUMBER(s): [id number] INDICATION: CAROLYN and elevated LFT TECHNIQUE: Multiple real-time sonographic images of the abdomen were obtained. COMPARISON: US ABDOMEN COMPLETE SONOGRAM on DOS: 05/06/24, US ABDOMEN LIMITED on DOS: 02/11/24 FINDINGS: Increased echogenicity of the hepatic parenchyma consistent with steatosis. The liver measures 19.5 cm. No intrahepatic biliary ductal dilatation is noted. The gallbladder wall measures 0.37 cm and is mildly thickened. No gallstones. Gallbladder is filled with sludge can not entirely exclude small calculi. The common duct measures 0.45 cm and is unremarkable. No pericholecystic fluid is noted. Negative sonographic Daniel's sign The right kidney measures 9.3 cm. No hydronephrosis. The left kidney measures 9.3 cm. No hydronephrosis. The spleen measures 8.7 cm, within normal limits. The echogenicity is within normal limits. The pancreas is not well visualized due to obscuration from bowel gas. The visualized portions of the IVC and aorta are grossly unremarkable. IMPRESSION: 1. Liver measures 19.5 cm long with findings of steatosis 2. Large sludge presence in the gallbladder with mild gallbladder wall thickening. Negative sonographic Daniel's sign 3. 9.3 cm long right and left kidney ATED BY: MISHA ZULETA Jr. DO DICTATED DATE/TIME: 04/23/255 CLINICAL INFORMATION: 64 years old, Male; PULMONARY EMBOLISM. TECHNIQUE: 10 mCi of Xenon-133 gas was used for the ventilation portion of the exam. Posterior ventilation imaging was obtained. 6.7 mCi of technetium 99m MAA was used for the perfusion portion of the exam. Imaging was obtained in multiple planes of projection. COMPARISON: XY CHEST PORTABLE on DOS: 04/23/25, XY CHEST PORTABLE on DOS: 03/22/25, XY CHEST XRAY 1 VIEW on DOS: 03/08/25 FINDINGS: Perfusion imaging shows no mismatched segmental or subsegmental segmental defects. Ventilation imaging shows no defects. There is normal washout. IMPRESSION: Normal exam. No evidence of pulmonary embolism. ATED BY: OCTAVIANO FRANKLIN DO DICTATED DATE/TIME: 04/25/25 0932 Condition at Discharge: Stable Final Diagnosis/Problems List Ethanol withdrawal Chest pain due to Alcohol intoxication Toxic encephalopathy due to Alcohol Alcohol use disorder CAROLYN hemodynamically mediated - VMN Transaminitis Thrombocytopenia secondary to ethanol abuse Macrocytic anemia - secondary to ethanol abuse Hepatic steatosis Ruled out acute coronary syndrome Probable alcoholic cardiomyopathy (LVEF 45%) Hypomagnesemia Hypophosphatemia Vitamin-D deficiency Homeless GERD Non adherence Anemia Discharge Disposition: Assisted Living Facility Discharge Instruct/Medications Diet: Regular Activity: No Restrictions, As Tolerated Scheduled Aspirin (Aspirin Low Dose), 81 MG PO DAILY Carvedilol (Coreg), 3.125 MG PO Q12HR Chlordiazepoxide Hcl (Librium), 5 MG PO UD Ergocalciferol (Vitamin D 80716 Unit), 50,000 UNIT PO QWEEKLY Ferrous Sulfate (Ferrous Sulfate), 325 MG PO MWF Folic Acid (Folic Acid), 1 MG PO DAILY Furosemide (Lasix), 40 MG PO DAILY Losartan Potassium (Losartan Potassium), 50 MG PO DAILY Multiple Vitamins W/ Iron (Multi Vitamin with Iron), 1 TAB PO DAILY Pantoprazole Sodium Sesquihydr (Pantoprazole Sodium), 40 MG PO DAILY@0600 Thiamine HCl (Thiamine Hydrochloride), 100 MG PO DAILY Scheduled PRN Acetaminophen (Acetaminophen), 650 MG PO TIDPRN PRN Discontinued Medications Potassium Chloride (Potassium Chloride Cr), 10 MEQ PO DAILY Discharge Statement: "Patient was advised to return to the ER or call 911 if any headaches, dizziness, shortness of breath, chest pain, abdominal pain, bleeding, fevers, or worsening of medical condition. Patient was counseled about treatment plan, medications, possible side effects, patientverbalized understanding. All questions were answered to the best of my ability. This discharge took greater then 30 minutes in planning, reviewing documentation, counseling the patient, and discussing with other team members." ASSESSMENT ASSESSMENT Assessment Alcohol withdrawal. Date of Service: Apr 30, 2025 Billing Provider: LETI THAKKAR MD Common Visit Codes: 19718-GJS/OBS DISCH DAY >30min LYDIA LUTHER RESIDENT May 01, 2025 06:27 LETI THAKKAR MD May 05, 2025 22:14
== END 2025-04-30 20:14 | disposition home or self-care (01) | DRG 775 ==
LOC: EDBD 16:35 → ER 16:35 → OVERFLOW 21:17 → TELE-WESTW 04-25 02:10 → WEST WING 04-25 22:48
PROVIDERS: ADMIT Student in an Organized Health Care Education/Training Program; ATTEND Student in an Organized Health Care Education/Training Program
DX: F10.229 Alcohol dependence with intoxication, unspecified (principal); N17.0 Acute kidney failure with tubular necrosis; G92.8 Other toxic encephalopathy; I42.6 Alcoholic cardiomyopathy; E83.39 Other disorders of phosphorus metabolism; R07.89 Other chest pain; K21.9 Gastro-esophageal reflux disease without esophagitis; E83.42 Hypomagnesemia; R79.89 Other specified abnormal findings of blood chemistry; R74.01 Elevation of levels of liver transaminase levels; K76.0 Fatty (change of) liver, not elsewhere classified; D53.9 Nutritional anemia, unspecified; I50.22 Chronic systolic (congestive) heart failure; K59.00 Constipation, unspecified; Z59.00 Homelessness unspecified; Z82.49 Family history of ischemic heart disease and other diseases of the circulatory system; Z83.3 Family history of diabetes mellitus; D69.59 Other secondary thrombocytopenia; Y90.8 Blood alcohol level of 240 mg/100 ml or more
CPT/HCPCS: 36415; 71045; 76700; 78582; 80048; 80053; 80307; 80320; 81001; 83735; 83880; 84100; 84484; 85007; 85025; 85027; 85379; 85610; 85730; 87081; 93005; 93306; 96360; G0378; J1885; J2405; J7060